=== PATIENT | female | born 1945 | race Two or more races ===

== ENCOUNTER → 2020-07-12 13:56 | Outpatient (BNVA) | payer OTHER, SELFPAY | PROVIDERS: PCP Nurse Practitioner Family; Referring Provider Nurse Practitioner Family; Visit Provider Student in an Organized Health Care Education/Training Program | DX: Z76.89 Persons encountering health services in other specified circumstances (principal) ==

== ENCOUNTER 2020-07-24 09:22 | Outpatient (REF) | payer OTHER, SELFPAY | END 2020-07-24 09:23 | disposition home or self-care (01) | LOC: HO.LAB 09:22 | PROVIDERS: Visit Provider Internal Medicine | DX: Z20.828 Contact with and (suspected) exposure to other viral communicable diseases (principal) | CPT/HCPCS: C9803; U0003 ==

== ENCOUNTER 2020-12-13 14:40 | Outpatient (REF) | payer OTHER, SELFPAY ==
--- NOTE | ~2020-12-13 | XR_ITS ---
EXAMINATION: XR LUMBOSACRAL SPINE WITH OBLIQUES CLINICAL INFORMATION: Lower back pain COMPARISON: 08/03/2013 TECHNIQUE: AP, both oblique, and lateral views of the lumbar spine. Lateral view of the lumbosacral junction. FINDINGS: No fracture or subluxation. Vertebral body height and alignment is maintained. Diffuse disc space narrowing with vacuum disc phenomenon. Endplate osteophytes are seen throughout. Mild multilevel facet arthropathy. The sacrum appears intact. The sacroiliac joints are symmetric. The bowel gas pattern is unremarkable. Surgical clips in the right paraspinal region and right upper quadrant. XR/XR lumbar spine 4V min IMPRESSION: Moderate degenerative changes throughout the lumbar spine.
== END 2020-12-13 14:41 | disposition home or self-care (01) ==
LOC: HO.XRAY 14:40
PROVIDERS: PCP Registered Nurse; Visit Provider Nurse Practitioner Family
DX: M54.5 Low back pain (principal)
CPT/HCPCS: 72110

== ENCOUNTER → 2021-06-06 14:47 | Outpatient (BNVA) | payer OTHER, SELFPAY | PROVIDERS: PCP Registered Nurse; Visit Provider Surgery Vascular Surgery ==

== ENCOUNTER 2021-06-27 10:35 | Outpatient (REF) | payer OTHER, SELFPAY ==
--- NOTE | ~2021-06-27 | US_ITS ---
EXAMINATION: US VENOUS DOPPLER LOWER EXTREMITY, BILATERAL CLINICAL INDICATION: Lower extremity varicose veins. COMPARISON: None TECHNIQUE: Color-flow triplex imaging and compression Doppler was performed to evaluate both the deep and the superficial systems bilaterally. To evaluate the superficial system, the examination was performed in the upright position. Color-flow Doppler ultrasound and compression ultrasound were utilized. In addition, maneuvers were utilized to demonstrate reflux. FINDINGS: 1. DEEP VENOUS ULTRASOUND OF THE RIGHT LOWER EXTREMITY: Common Femoral Vein: Compressible, normal respiratory variation and augmented flow. Femoral Vein: Compressible, normal color flow and augmentation. Popliteal Vein: Compressible, normal augmentation. Deep Reflux: Femoral vein, greater than 0.6 seconds and popliteal vein, greater than 1.3 seconds. There is no evidence of a Rasmussen's cyst. 2. SUPERFICIAL ULTRASOUND WITH DOPPLER OF RIGHT LOWER EXTREMITY: GREAT SAPHENOUS VEIN: Saphenofemoral Junction: 0.8 cm; reflux: No evidence of reflux. Maximum Diameter: 0.8 Minimum Diameter: 0.1 Reflux: No evidence of reflux. Additional: The right great saphenous vein is not visualized at the mid thigh and above the knee. DUPLICATED MEDIAL GREAT SAPHENOUS VEIN: Maximum Diameter: None imaged. Reflux: N/A DUPLICATED LATERAL GREAT SAPHENOUS VEIN: Diameter: None imaged. Reflux: N/A SMALL SAPHENOUS VEIN: Saphenopopliteal Junction: 0.3 cm; reflux: Greater than 1.4 seconds. Minimum Diameter: 0.2 Reflux: No evidence of reflux. VEIN OF GIACOMINI: None imaged. PERFORATORS: Location: Proximal calf measuring 3 mm. Reflux: N/A VARICOSITIES: Location: Arising from the popliteal vein and distal small saphenous vein, proximal calf. Varicosities measure between 3 mm and 5 mm each. Reflux: Reflux is present measuring up to 2.3 seconds. 3. DEEP VENOUS ULTRASOUND OF THE LEFT LOWER EXTREMITY: Common Femoral Vein: Compressible, normal respiratory variation and augmented flow. Femoral Vein: Compressible, normal color flow and augmentation. Popliteal Vein: Compressible, normal augmentation. Deep Reflux: Popliteal vein, greater than 0.8 seconds. There is no evidence of a Rasmussen's cyst. 4. SUPERFICIAL ULTRASOUND WITH DOPPLER OF LEFT LOWER EXTREMITY: GREAT SAPHENOUS VEIN: Saphenopopliteal Junction/Proximal Thigh: 0.8 cm; reflux: Greater than 3.4 seconds Maximum Diameter: 0.8 Minimum Diameter: 0.4 Reflux: No evidence of reflux. DUPLICATED MEDIAL GREAT SAPHENOUS VEIN: Maximum Diameter: 0.3 Reflux: No reflux. DUPLICATED LATERAL GREAT SAPHENOUS VEIN: Diameter: None imaged. Reflux: N/A SMALL SAPHENOUS VEIN: Saphenofemoral Junction: 0.2 cm; reflux: No evidence of reflux. Minimum Diameter: 0.2 Reflux: No evidence of reflux. VEIN OF GIACOMINI: None imaged. PERFORATORS: Location: Proximal thigh measuring 3 mm. Reflux: No reflux. VARICOSITIES: Location: At knee, proximal and distal calf. Varicosities measure between 3 mm and 4 mm. Reflux: Greater than 3.3 seconds of reflux is present within varicosities in the distal calf. US/US venous duplex LE BI IMPRESSION: 1. Left great saphenous venous insufficiency. 2. No evidence of right great saphenous venous insufficiency. The right great saphenous vein is not seen in the mid thigh and above the knee. 3. Right small saphenous venous insufficiency. 4. Bilateral refluxing varicosities. 5. Bilateral deep venous insufficiency. 6. No evidence of DVT.
== END 2021-06-27 10:36 | disposition home or self-care (01) ==
LOC: HO.US 10:35
PROVIDERS: Visit Provider Surgery Vascular Surgery
DX: I83.893 Varicose veins of bilateral lower extremities with other complications (principal)
CPT/HCPCS: 93970

== ENCOUNTER → 2021-07-11 13:34 | Outpatient (BNVA) | payer OTHER, SELFPAY | PROVIDERS: PCP Registered Nurse; Visit Provider Surgery Vascular Surgery ==

== ENCOUNTER 2021-07-31 13:55 | Outpatient (REF) | payer OTHER, SELFPAY ==
[2021-07-31 15:49] LABS: Vitamin B12 373 pg/mL (200-900)
[2021-08-02 13:15] LABS: Lyme Abs Screen <0.90 index
== END 2021-07-31 13:56 | disposition home or self-care (01) ==
LOC: HO.LAB 13:55
PROVIDERS: Visit Provider Psychiatry & Neurology Neurology
DX: H81.10 Benign paroxysmal vertigo, unspecified ear (principal)
CPT/HCPCS: 36415; 82607; 86617; 86618

== ENCOUNTER 2021-08-13 12:29 | Outpatient (REF) | payer MEDICARE, SELFPAY | END 2021-08-13 12:30 | disposition home or self-care (01) | LOC: HO.LAB 12:29 | PROVIDERS: Visit Provider Internal Medicine | DX: Z20.822 Contact with and (suspected) exposure to COVID-19 (principal) | CPT/HCPCS: C9803; U0003; U0005 ==

== ENCOUNTER 2021-08-22 12:59 | Outpatient (REF) | payer MEDICARE, SELFPAY ==
--- NOTE | ~2021-08-22 | MM_ITS ---
EXAMINATION: BONE DENSITOMETRY CLINICAL INDICATION: Menopause. COMPARISON: Previous BD dated 07/01/2019 and baseline BD dated 05/25/2008. TECHNIQUE: Using a [employer] DXA System (software version: 13.1) manufactured by [employer], dual-energy x-ray absorptiometry was performed of the lumbar spine and left hip. The images are of good technical quality. Summary results are attached. FINDINGS: AP SPINE L1-L4: Current: BMD 1.094 g/cm2, Z-score 0.6, T-score -0.7, normal, 1.0% increase from previous, 12.0% increase from baseline (<5% change is not significant). Prior: BMD 1.083 g/cm2. Baseline: BMD 0.977 g/cm2. LEFT FEMUR, NECK: Current: BMD 0.715 g/cm2, Z-score -0.7, T-score -2.3, osteopenia. Prior: BMD 0.754 g/cm2. Baseline: BMD 0.820 g/cm2. LEFT FEMUR, TOTAL: Current: BMD 0.706 g/cm2, Z-score -0.9, T-score -2.4, osteopenia, 7.1% decrease from previous, 12.4% decrease from baseline (<5% change is not significant). Prior: BMD 0.760 g/cm2. Baseline: BMD 0.806 g/cm2. IDENTIFIED RISK FACTORS: Osteoporosis, history of fracture (adult), anticonvulsant, thiazide, menopause. HISTORY OF FRACTURE: Other. MEDICATIONS: None listed. MM/XR DEXA axial skeleton IMPRESSION: 1. DIAGNOSIS: Osteopenia based on the lowest T-score value of -2.4 in the total femur applying World Health Organization criteria. 2. 10-YEAR FRACTURE RISK PREDICTION, FRAX: Major osteoporotic fracture (clinical spine, forearm, hip or shoulder) 13.7%. Hip fracture 3.7%. 3. Treatment Recommendations: NOF guidelines recommend consideration for treatment in postmenopausal women and men age 50 and older presenting with the following: -A hip or vertebral (clinical or morphometric) fracture. -T-score less than or equal to -2.5 at the femoral neck or spine after appropriate evaluation to exclude secondary causes. -Low bone mass at the hip or spine and a 10-year fracture probability by FRAX of greater than or equal to 3% for hip fracture or greater than or equal to 20% for major osteoporotic fracture based on the [place] adapted WHO algorithm. 4. Other Recommendations: All treatment decisions require clinical judgment and consideration of individual patient factors, including patient preferences, comorbidities, previous drug use, risk factors not captured in the FRAX model (e.g. frailty, falls, vitamin D deficiency, increased bone turnover, interval significant decline in bone density) and possible under or overestimation of fracture risk by FRAX. Additional medical evaluation for secondary cause of low bone mineral density may be appropriate. FUTURE SCAN RECOMMENDATION: People with diagnosed cases of osteoporosis or at high risk for fracture should have regular bone mineral density tests. For patients eligible for Medicare, routine testing is allowed once every 2 years. The testing frequency can be increased to one year for patients who have rapidly progressing disease, those who are receiving or discontinuing medical therapy to restore bone mass, or have additional risk factors.
== END 2021-08-22 13:00 | disposition home or self-care (01) ==
LOC: HO.MAMMO 12:59
PROVIDERS: Visit Provider Nurse Practitioner Primary Care
DX: M85.80 Other specified disorders of bone density and structure, unspecified site (principal); Z78.0 Asymptomatic menopausal state; Z79.899 Other long term (current) drug therapy
CPT/HCPCS: 77080

== ENCOUNTER 2021-08-22 13:55 | Outpatient (REF) | payer MEDICARE, SELFPAY | END 2021-08-22 13:56 | disposition home or self-care (01) | LOC: HO.LAB 13:55 | PROVIDERS: Visit Provider Internal Medicine | DX: Z20.822 Contact with and (suspected) exposure to COVID-19 (principal) | CPT/HCPCS: C9803; U0003; U0005 ==

== ENCOUNTER 2021-08-26 08:38 | Day surgery (SDC) | payer MEDICARE, SELFPAY ==
[2021-08-01 11:14] VITALS: BMI 29.2
--- NOTE | 2021-08-22 09:34 | MHC.SHP ---
Pre-Procedural Eval Section A Date of Service: 08/22/21 The patient is an INPATIENT: No Changes since office visit: No Cold of Flu in the past 2 weeks, No New Medical Problems, No Changes in Medication and No Patient answered all questions The History & Physical has been completed within 30 days and I have reviewed it.: Yes Section B Chief Complaint: cataract left eye Allergies: Allergies Allergy/AdvReac Type Severity Reaction Status Date / Time ibuprofen Allergy Intermediate tachycardia/GI Verified 08/01/21 11:17 upset Plan I have reviewed the history and physical and performed a pertinent physical examination on my patient. No changes have occurred unless specified.
--- NOTE | 2021-08-23 10:48 | HO.ANESPROP2 ---
Documented by User: Mary Porras NP 08/23/21 10:48 HPI - Anesthesia Eval Consult details Narrative: 76yo F for Left Cataract Extraction IOL Insertion No prev cataract on record [facility] Active Problems Active Problems: All Active Problems (Updated 08/01/21 @ 11:01 by Lidya Nair RN) Osteoarthritis (Acute) Varicose veins of right lower extremity with inflammation (Acute) Past Medical History Medical History (Updated 08/01/21 @ 11:01 by Lidya Nair RN) Allergic rhinitis COVID-19 vaccine series completed Depression Dizziness Fibromyalgia HTN (hypertension) Hx of fracture of tibia Hyperlipidemia Insomnia Lumbar spondylolysis Neck pain Osteoarthritis Varicose veins of both lower extremities Family History Family History Father Cancer Mother Depression Sister HTN (hypertension) Heart disease Brother Diabetes Surgical History Surgical History (Updated 08/01/21 @ 10:45 by Lidya Nair RN) H/O colonoscopy Hx of cholecystectomy Hx of tubal ligation Social History Social History Are you a primary medical care evaluation specialist to a significant other at home: No Do you presently have visiting nurse or other home services: No Alcohol intake: never Patient Tobacco Use Status: Never used Tobacco Have you been hit, kicked, punched, or otherwise hurt by someone within the past year? If so, by whom?: No Are you DNR?: No Advance Directives Information Provided: Yes (as above noted) Advance Directives on File: No Recently lost weight without trying: No Eating poorly because of decreased appetite: No Nutrition Risks: Surgical patient >75years Poor oral hygiene: No (upper full denture) Meds Allergies Allergy/AdvReac Type Severity Reaction Status Date / Time ibuprofen Allergy Intermediate tachycardia/GI Verified 08/01/21 11:17 upset Home Medications Medication Instructions Recorded Confirmed Last Taken Type amlodipine 5 mg tablet 5 mg PO DAILY 07/12/20 08/01/21 Unknown History aspirin 81 mg tablet,delayed 81 mg PO DAILY 07/12/20 08/01/21 Unknown History release bisacodyl 5 mg tablet,delayed 5 mg PO BEDTIME 07/12/20 08/01/21 Unknown History release (Dulcolax (bisacodyl)) diclofenac sodium 1 % topical gel 2 g TOPICAL QID 07/12/20 08/01/21 Unknown History (Voltaren) metoprolol succinate 25 mg 25 mg PO DAILY 07/12/20 08/01/21 Unknown History tablet,extended release 24 hr B-complex with vitamin C 1 tab PO QAM 08/01/21 08/01/21 Unknown History acetaminophen 650 mg 1 tab PO Q8H PRN 08/01/21 08/01/21 Unknown History tablet,extended release (Arthritis Pain Relief (acetaminophen) ER) ergocalciferol (vitamin D2) 1,250 1 cap PO QWEEK 08/01/21 08/01/21 Unknown History mcg (50,000 unit) capsule gabapentin 300 mg capsule 1 cap PO TID 08/01/21 08/01/21 Unknown History hydrochlorothiazide 12.5 mg capsule 1 cap PO QAM 08/01/21 08/01/21 Unknown History meclizine 25 mg tablet 1 tab PO Q8H PRN 08/01/21 08/01/21 Unknown History multivitamin 1 tab PO QAM 08/01/21 08/01/21 Unknown History sertraline 25 mg tablet 1 tab PO QAM 08/01/21 08/01/21 Unknown History Exam Exam Date and Time: August 23, 2021 1048 Height,Weight and Vital Signs: Height 5 ft 4 in Weight 77.111 kg Assessment and Plan Assessment Anesthesia Assessment: Chart Reviewed Documented by User: Juan Mejia MD 08/26/21 09:41 [facility] Past Medical History Medical History (Updated 08/01/21 @ 11:01 by Lidya Nair RN) Allergic rhinitis COVID-19 vaccine series completed Depression Dizziness Fibromyalgia HTN (hypertension) Hx of fracture of tibia Hyperlipidemia Insomnia Lumbar spondylolysis Neck pain Osteoarthritis Varicose veins of both lower extremities Family History Family History Father Cancer Mother Depression Sister HTN (hypertension) Heart disease Brother Diabetes Family history of problems with anesthesia: No Surgical History Surgical History (Updated 08/01/21 @ 10:45 by Lidya Nair RN) H/O colonoscopy Hx of cholecystectomy Hx of tubal ligation History of Problems with Anesthesia: No Social History Social History Are you a primary medical care evaluation specialist to a significant other at home: No Do you presently have visiting nurse or other home services: No Alcohol intake: never Patient Tobacco Use Status: Never used Tobacco Have you been hit, kicked, punched, or otherwise hurt by someone within the past year? If so, by whom?: No Are you DNR?: No Advance Directives Information Provided: Yes (as above noted) Advance Directives on File: No Recently lost weight without trying: No Eating poorly because of decreased appetite: No Nutrition Risks: Surgical patient >75years Poor oral hygiene: No (upper full denture) Meds Allergies Allergy/AdvReac Type Severity Reaction Status Date / Time ibuprofen Allergy Intermediate tachycardia/GI Verified 08/01/21 11:17 upset Home Medications Medication Instructions Recorded Confirmed Last Taken Type amlodipine 5 mg tablet 5 mg PO DAILY 07/12/20 08/01/21 Unknown History aspirin 81 mg tablet,delayed 81 mg PO DAILY 07/12/20 08/01/21 Unknown History release bisacodyl 5 mg tablet,delayed 5 mg PO BEDTIME 07/12/20 08/01/21 Unknown History release (Dulcolax (bisacodyl)) diclofenac sodium 1 % topical gel 2 g TOPICAL QID 07/12/20 08/01/21 Unknown History (Voltaren) metoprolol succinate 25 mg 25 mg PO DAILY 07/12/20 08/01/21 Unknown History tablet,extended release 24 hr B-complex with vitamin C 1 tab PO QAM 08/01/21 08/01/21 Unknown History acetaminophen 650 mg 1 tab PO Q8H PRN 08/01/21 08/01/21 Unknown History tablet,extended release (Arthritis Pain Relief (acetaminophen) ER) ergocalciferol (vitamin D2) 1,250 1 cap PO QWEEK 08/01/21 08/01/21 Unknown History mcg (50,000 unit) capsule gabapentin 300 mg capsule 1 cap PO TID 08/01/21 08/01/21 Unknown History hydrochlorothiazide 12.5 mg capsule 1 cap PO QAM 08/01/21 08/01/21 Unknown History meclizine 25 mg tablet 1 tab PO Q8H PRN 08/01/21 08/01/21 Unknown History multivitamin 1 tab PO QAM 08/01/21 08/01/21 Unknown History sertraline 25 mg tablet 1 tab PO QAM 08/01/21 08/01/21 Unknown History Exam Airway Mallampati Class: II TM Dist: >3cm Neck ROM: Full Denture: Upper Loose/Missing/Broken Teeth: Yes Heart: [id number] Lungs: cta B/L Assessment and Plan Assessment Anesthesia Assessment: Anesthesia Plan Discussed Final Anesthetic Review Family History of Problems with Anesthesia: No History of Problems with Anesthesia: No NPO: Yes ASA Class: III Final Preanesthetic Review: No Changes in Pt Med Stat, Meds/Allgs Chart Reviewed, Consent Obtained/Reviewed and Anes Risks/Benef Reviewed Patient Risk: Intermediate Procedure Risk: Low Assessment/Block/Sedation in SS: Assess/Block/Sedation-SS Anesthetic Plan Anesthetic Plan: MAC: and Agree w/ Assess. and Plan Disposition: Standard PACU
[2021-08-26 09:01] VITALS: BP 145/79; PULSE 70; RESP 16; TEMP 36.3; O2SAT 96
[2021-08-26] MEDS: Lactated Ringers 500 ML 50 ML IV (09:04)
[2021-08-26] MEDS: Tetracaine HCl/PF 0.5% Oph Sol 4 ML DROPS 1 DROP EYE-LEFT (09:05)
[2021-08-26] MEDS: Tropicamide 1 % Ophth Sol 3 ML BTL 1 DROP EYE-LEFT ×3 (09:07→09:13)
[2021-08-26] MEDS: Phenylephrine HCL 2.5% Oph SoL 2 ML BOTTLE 1 DROP EYE-LEFT ×3 (09:09→09:15)
--- NOTE | 2021-08-26 10:27 | HO.PNOPHT ---
Ophthalmology Procedure Procedure Date of Service: 08/26/21 Ophthalmology Viscoelastic: Healon Duet Dual Pack Pro Ophthalmology Lenses: TECNIS [id number] (20.5) Procedure Notes: PREOPERATIVE DIAGNOSIS: Decreased visual acuity left eye secondary to cataract POSTOPERATIVE DIAGNOSIS: Same PROCEDURE: Left cataract extraction with intraocular lens insertion SURGEON: Timmy Hill M.D. ANESTHESIA: Topical/MAC ESTIMATED BLOOD LOSS: None COMPLICATIONS: None After obtaining informed consent, the patient was brought to the operation room suite and placed in the supine position. After adequate sedation per anesthesia, topical drops of Tetracaine were given to the left eye. The eye was then prepped and draped in the usual sterile fashion. The operating room microscope was then positioned over the operative eye and a lid speculum placed. A paracentesis was created. Viscoelastic was then instilled into the anterior chamber. A three plane incision was then created temporally, utilizing a 2.85 mm keratome. Capsulotomy forceps were then utilized to create a circular tear capsulotomy. Hydrodissection and hydrodelineation were carried out until adequate mobilization of the nucleus occurred. Phacoemulsification was then utilized to remove the dense central nucleus followed by removal of the cortical material utilizing the automated aspiration irrigation unit. Viscoat elastic was instilled into the posterior capsular bag followed by placement of a posterior chamber intraocular lens without difficulty. The residual Viscoat elastic was then removed utilizing the automated IA machine. The wound was check and found to be watertight. The patient tolerated the procedure well and the lid speculum was removed. Intracameral injection of Vigamox 0.1 mL followed by a subtenon injection of Kenalog-40 0.2 mL were administered. The patient will be seen in the a.m.
[2021-08-26 11:01] VITALS: BP 141/87; PULSE 57; RESP 17; TEMP 36.3; O2SAT 99
== END 2021-08-26 11:07 | disposition home or self-care (01) ==
PROVIDERS: PCP Nurse Practitioner Primary Care; Visit Provider Ophthalmology
PROC: (CPT 66985; principal; 2021-08-26 10:40)
DX: H25.12 Age-related nuclear cataract, left eye (principal); H52.4 Presbyopia; H40.1131 Primary open-angle glaucoma, bilateral, mild stage; I10 Essential (primary) hypertension; F32.9 Major depressive disorder, single episode, unspecified; M79.7 Fibromyalgia; Z79.899 Other long term (current) drug therapy
CPT/HCPCS: 66984; J2250; J3010; J3300; V2632

== ENCOUNTER 2021-09-02 10:19 | Outpatient (REF) | payer MEDICARE, SELFPAY ==
--- NOTE | ~2021-09-02 | XR_ITS ---
EXAMINATION: XR CHEST CLINICAL INFORMATION: Cough COMPARISON: . TECHNIQUE: 2 views of the chest were obtained. FINDINGS: Faint bilateral airspace opacities. No pleural effusion. No pneumothorax. Cardiomediastinal silhouette and pulmonary vascularity are within normal limits. No acute osseous abnormalities. XR/XR chest 2V IMPRESSION: Faint bilateral patchy airspace opacities suspicious for atypical pneumonitis.
== END 2021-09-02 10:20 | disposition home or self-care (01) ==
LOC: HO.XRAY 10:19
PROVIDERS: Absent Provider Nurse Practitioner Primary Care; PCP Nurse Practitioner Primary Care; Visit Provider Emergency Medicine
DX: R05.9 Cough, unspecified (principal)
CPT/HCPCS: 71046

== ENCOUNTER → 2021-10-11 09:28 | Outpatient (BNVA) | payer MEDICARE, SELFPAY | PROVIDERS: Visit Provider Surgery Vascular Surgery | DX: I83.11 Varicose veins of right lower extremity with inflammation (principal) | CPT/HCPCS: 36475 ==

== ENCOUNTER 2021-10-28 08:15 | Day surgery (SDC) | payer MEDICARE, SELFPAY ==
[2021-08-01 11:11] VITALS: BMI 29.2
--- NOTE | 2021-09-19 09:38 | MHC.SHP ---
Pre-Procedural Eval Section A Date of Service: 09/19/21 The patient is an INPATIENT: No Changes since office visit: No Cold of Flu in the past 2 weeks, No New Medical Problems, No Changes in Medication and No Patient answered all questions Section B Chief Complaint: cataract right eye Allergies: Allergies Allergy/AdvReac Type Severity Reaction Status Date / Time ibuprofen Allergy Intermediate tachycardia/GI Verified 08/01/21 11:17 upset Plan Diagnosis/Plan: Unchanged I have reviewed the history and physical and performed a pertinent physical examination on my patient. No changes have occurred unless specified.
--- NOTE | 2021-10-24 16:29 | MHC.SHP ---
Pre-Procedural Eval Section A Date of Service: 10/24/21 The patient is an INPATIENT: No Changes since office visit: No Cold of Flu in the past 2 weeks, No New Medical Problems, No Changes in Medication and No Patient answered all questions The History & Physical has been completed within 30 days and I have reviewed it.: Yes Section B Chief Complaint: cataract right eye Allergies: Allergies Allergy/AdvReac Type Severity Reaction Status Date / Time ibuprofen Allergy Intermediate tachycardia/GI Verified 10/11/21 10:12 upset Plan Diagnosis/Plan: Unchanged I have reviewed the history and physical and performed a pertinent physical examination on my patient. No changes have occurred unless specified.
--- NOTE | 2021-10-25 09:13 | P.CONAN_ITS ---
Documented by User: Mary Porras NP 10/25/21 09:14 HPI - Anesthesia Eval Consult details Narrative: 76yo F for Right Cataract Extraction IOL Insertion PCP Cleared Left eye 10/07/21 with MAC: Fent 50, Midaz 1 PMFSH Active Problems Active Problems: All Active Problems (Updated 08/01/21 @ 11:01 by Lidya Nair RN) Osteoarthritis (Acute) Varicose veins of right lower extremity with inflammation (Acute) Past Medical History Medical History Allergic rhinitis COVID-19 vaccine series completed Depression Dizziness Fibromyalgia HTN (hypertension) Hx of fracture of tibia Hyperlipidemia Insomnia Lumbar spondylolysis Neck pain Osteoarthritis Varicose veins of both lower extremities Family History Family History Father Cancer Mother Depression Sister HTN (hypertension) Heart disease Brother Diabetes Family history of problems with anesthesia: No Surgical History Surgical History H/O colonoscopy Hx of cholecystectomy Hx of tubal ligation History of Problems with Anesthesia: No Social History Social History Are you a primary home health aide caregiver to a significant other at home: No Do you presently have visiting nurse or other home services: No Alcohol intake: never Patient Tobacco Use Status: Never used Tobacco Use of substances other than those prescribed or required for medical reasons: No Have you been hit, kicked, punched, or otherwise hurt by someone within the past year? If so, by whom?: No Are you DNR?: No Advance Directives: No Advance Directives Information Provided: Yes Advance Directives on File: No Recently lost weight without trying: No Eating poorly because of decreased appetite: No Nutrition Risks: Surgical patient >75years Poor oral hygiene: No (upper full denture) Meds Allergies Allergy/AdvReac Type Severity Reaction Status Date / Time ibuprofen Allergy Intermediate tachycardia/GI Verified 10/11/21 10:12 upset Home Medications Medication Instructions Recorded Confirmed Last Taken Type amlodipine 5 mg tablet 5 mg PO DAILY 07/12/20 08/01/21 Unknown History aspirin 81 mg tablet,delayed 81 mg PO DAILY 07/12/20 08/01/21 Unknown History release bisacodyl 5 mg tablet,delayed 5 mg PO BEDTIME 07/12/20 08/01/21 Unknown History release (Dulcolax (bisacodyl)) diclofenac sodium 1 % topical gel 2 g TOPICAL QID 07/12/20 08/01/21 Unknown History (Voltaren) metoprolol succinate 25 mg 25 mg PO DAILY 07/12/20 08/01/21 Unknown History tablet,extended release 24 hr B-complex with vitamin C 1 tab PO QAM 08/01/21 08/01/21 Unknown History acetaminophen 650 mg 1 tab PO Q8H PRN 08/01/21 08/01/21 Unknown History tablet,extended release (Arthritis Pain Relief (acetaminophen) ER) ergocalciferol (vitamin D2) 1,250 1 cap PO QWEEK 08/01/21 08/01/21 Unknown History mcg (50,000 unit) capsule gabapentin 300 mg capsule 1 cap PO TID 08/01/21 08/01/21 Unknown History hydrochlorothiazide 12.5 mg capsule 1 cap PO QAM 08/01/21 08/01/21 Unknown History meclizine 25 mg tablet 1 tab PO Q8H PRN 08/01/21 08/01/21 Unknown History multivitamin 1 tab PO QAM 08/01/21 08/01/21 Unknown History sertraline 25 mg tablet 1 tab PO QAM 08/01/21 08/01/21 Unknown History latanoprost 0.005 % eye drops 0 drp OPHTHALMIC (EYE) 10/11/21 Unknown History timolol maleate 0.5 % eye drops 0 drp OPHTHALMIC (EYE) 10/11/21 Unknown History Exam Exam Date and Time: October 25, 2021 0913 Height,Weight and Vital Signs: Height 5 ft 4 in Weight 77.111 kg Assessment and Plan Assessment Anesthesia Assessment: Chart Reviewed Final Anesthetic Review Family History of Problems with Anesthesia: No History of Problems with Anesthesia: No Documented by User: Kate Scherer MD 10/28/21 10:47 PMFSH Past Medical History Medical History Allergic rhinitis COVID-19 vaccine series completed Depression Dizziness Fibromyalgia HTN (hypertension) Hx of fracture of tibia Hyperlipidemia Insomnia Lumbar spondylolysis Neck pain Osteoarthritis Varicose veins of both lower extremities Family History Family History Father Cancer Mother Depression Sister HTN (hypertension) Heart disease Brother Diabetes Surgical History Surgical History H/O colonoscopy Hx of cholecystectomy Hx of tubal ligation Social History Social History Are you a primary home health aide caregiver to a significant other at home: No Do you presently have visiting nurse or other home services: No Alcohol intake: never Patient Tobacco Use Status: Never used Tobacco Use of substances other than those prescribed or required for medical reasons: No Have you been hit, kicked, punched, or otherwise hurt by someone within the past year? If so, by whom?: No Are you DNR?: No Advance Directives: No Advance Directives Information Provided: Yes Advance Directives on File: No Recently lost weight without trying: No Eating poorly because of decreased appetite: No Nutrition Risks: Surgical patient >75years Poor oral hygiene: No (upper full denture) Meds Allergies Allergy/AdvReac Type Severity Reaction Status Date / Time ibuprofen Allergy Intermediate tachycardia/GI Verified 10/11/21 10:12 upset Home Medications Medication Instructions Recorded Confirmed Last Taken Type amlodipine 5 mg tablet 5 mg PO DAILY 07/12/20 08/01/21 Unknown History aspirin 81 mg tablet,delayed 81 mg PO DAILY 07/12/20 08/01/21 Unknown History release bisacodyl 5 mg tablet,delayed 5 mg PO BEDTIME 07/12/20 08/01/21 Unknown History release (Dulcolax (bisacodyl)) diclofenac sodium 1 % topical gel 2 g TOPICAL QID 07/12/20 08/01/21 Unknown History (Voltaren) metoprolol succinate 25 mg 25 mg PO DAILY 07/12/20 08/01/21 Unknown History tablet,extended release 24 hr B-complex with vitamin C 1 tab PO QAM 08/01/21 08/01/21 Unknown History acetaminophen 650 mg 1 tab PO Q8H PRN 08/01/21 08/01/21 Unknown History tablet,extended release (Arthritis Pain Relief (acetaminophen) ER) ergocalciferol (vitamin D2) 1,250 1 cap PO QWEEK 08/01/21 08/01/21 Unknown History mcg (50,000 unit) capsule gabapentin 300 mg capsule 1 cap PO TID 08/01/21 08/01/21 Unknown History hydrochlorothiazide 12.5 mg capsule 1 cap PO QAM 08/01/21 08/01/21 Unknown History meclizine 25 mg tablet 1 tab PO Q8H PRN 08/01/21 08/01/21 Unknown History multivitamin 1 tab PO QAM 08/01/21 08/01/21 Unknown History sertraline 25 mg tablet 1 tab PO QAM 08/01/21 08/01/21 Unknown History latanoprost 0.005 % eye drops 0 drp OPHTHALMIC (EYE) 10/11/21 Unknown History timolol maleate 0.5 % eye drops 0 drp OPHTHALMIC (EYE) 10/11/21 Unknown History Exam Height,Weight and Vital Signs: Height 5 ft 4 in Weight 77.111 kg Vital Signs Temp Pulse Resp BP Pulse Ox 10/28/21 09:16 98 F 67 18 151/78 H 98 Airway Mallampati Class: II TM Dist: >3cm Neck ROM: Full Denture: Upper Heart: RRR Lungs: CTAB Assessment and Plan Assessment Anesthesia Assessment: Anesthesia Plan Discussed Final Anesthetic Review NPO: Yes ASA Class: III Final Preanesthetic Review: No Changes in Pt Med Stat, Meds/Allgs Chart Reviewed, Consent Obtained/Reviewed and Anes Risks/Benef Reviewed Patient Risk: Intermediate Procedure Risk: Low Assessment/Block/Sedation in SS: Assess/Block/Sedation-SS Anesthetic Plan Anesthetic Plan: MAC: Disposition: Standard PACU
[2021-10-28 09:16] VITALS: BP 151/78; PULSE 67; RESP 18; TEMP 36.6; O2SAT 98
[2021-10-28] MEDS: Tetracaine HCl/PF 0.5% Oph Sol 4 ML DROPS 1 DROP EYE-RIGHT (09:26)
[2021-10-28] MEDS: Lactated Ringers 500 ML 50 ML IV (09:26)
[2021-10-28] MEDS: Phenylephrine HCL 2.5% Oph SoL 2 ML BOTTLE 1 DROP EYE-RIGHT ×3 (09:26→09:27)
[2021-10-28] MEDS: Tropicamide 1 % Ophth Sol 3 ML BTL 1 DROP EYE-RIGHT ×3 (09:26→09:28)
--- NOTE | 2021-10-28 10:34 | HO.PNOPHT ---
Ophthalmology Procedure Procedure Date of Service: 10/28/21 Ophthalmology Viscoelastic: Healon Duet Dual Pack Pro Ophthalmology Lenses: TECNIS [id number] (20.5) Procedure Notes: PREOPERATIVE DIAGNOSIS: Decreased visual acuity right eye secondary to cataract POSTOPERATIVE DIAGNOSIS: Same PROCEDURE: Right cataract extraction with intraocular lens insertion SURGEON: Timmy Hill M.D. ANESTHESIA: Topical/MAC ESTIMATED BLOOD LOSS: None COMPLICATIONS: None After obtaining informed consent, the patient was brought to the operating room suite and placed in the supine position. After adequate sedation per anesthesia, topical drops of Tetracaine were given to the right eye. The eye was then prepped and draped in the usual sterile fashion. The operating room microscope was then positioned over the operative eye and a lid speculum placed. A paracentesis was created. Viscoelastic was then instilled into the anterior chamber. A three plane incision was then created temporally, utilizing a 2.85 mm keratome. Capsulotomy forceps were then utilized to create a circular tear capsulotomy. Hydrodissection and hydrodelineation were carried out until adequate mobilization of the nucleus occurred. Phacoemulsification was then utilized to remove the dense central nucleus followed by removal of the cortical material utilizing the automated aspiration irrigation unit. Viscoelastic was instilled into the posterior capsular bag followed by placement of a posterior chamber intraocular lens without difficulty. The residual Viscoelastic was then removed utilizing the automated IA machine. The wound was checked and found to be watertight. The patient tolerated the procedure well and the lid speculum was removed. Intracameral injection of Vigamox 0.1 mL followed by a subtenon injection of Kenalog-40 0.2 mL were administered. The patient will be seen in the a.m.
[2021-10-28 10:58] VITALS: BP 171/79; PULSE 60; RESP 20; TEMP 36.3; O2SAT 98
== END 2021-10-28 11:12 | disposition home or self-care (01) ==
PROVIDERS: PCP Nurse Practitioner Primary Care; Visit Provider Ophthalmology
PROC: (CPT 66985; principal; 2021-10-28 10:40)
DX: H25.11 Age-related nuclear cataract, right eye (principal); H52.4 Presbyopia; Z83.511 Family history of glaucoma; H40.1131 Primary open-angle glaucoma, bilateral, mild stage; H43.393 Other vitreous opacities, bilateral; I10 Essential (primary) hypertension; F32.9 Major depressive disorder, single episode, unspecified; Z79.899 Other long term (current) drug therapy; Z79.82 Long term (current) use of aspirin
CPT/HCPCS: 66984; J2405; J3010; J3300; V2632

== ENCOUNTER 2022-02-13 11:41 | Outpatient (REF) | payer OTHER, SELFPAY ==
--- NOTE | ~2022-02-13 | XR_ITS ---
EXAMINATION: BILATERAL HAND X-RAY CLINICAL INFORMATION: Pain COMPARISON: Previous left hand x-ray July 2014 TECHNIQUE: 3 views of each hand FINDINGS: Left: The bones are osteopenic. No fracture or dislocation is seen. There is joint space narrowing and osteophyte formation at the IP joint , MCP joint of the thumb and SKILLED NURSING joint of the thumb. There is mild arthritis at the DIP joint of the second finger. Soft tissues are unremarkable. Right: The bones are osteopenic. No fracture or dislocation is seen. There is arthritis at the IP joint, MCP joint and SKILLED NURSING joint of the thumb. There is arthritis at the second third metacarpal joints. There are cystic changes on the styloid and distal radiocarpal joint. Soft tissues are unremarkable. XR/XR hand RT min 3V IMPRESSION: Left: Arthritis of the thumb. Osteopenia. Right: Arthritis of the thumb and second and third MCP joints. Osteopenia.
--- NOTE | ~2022-02-13 | XR_ITS ---
EXAMINATION: XR FOOT, LEFT CLINICAL INFORMATION: Pain COMPARISON: Previous x-ray December 2017 TECHNIQUE: AP, lateral, and oblique views of the left foot. FINDINGS: Bone alignment is normal. No fracture or dislocation is seen. There is arthritis at the first MTP joint with joint space narrowing and osteophyte formation. There are calcaneal spurs. XR/XR foot LT min 3V IMPRESSION: Arthritis at the first MTP joint. Calcaneal spurs.
--- NOTE | ~2022-02-13 | XR_ITS ---
EXAMINATION: BILATERAL HAND X-RAY CLINICAL INFORMATION: Pain COMPARISON: Previous left hand x-ray July 2014 TECHNIQUE: 3 views of each hand FINDINGS: Left: The bones are osteopenic. No fracture or dislocation is seen. There is joint space narrowing and osteophyte formation at the IP joint , MCP joint of the thumb and HALF-WAY joint of the thumb. There is mild arthritis at the DIP joint of the second finger. Soft tissues are unremarkable. Right: The bones are osteopenic. No fracture or dislocation is seen. There is arthritis at the IP joint, MCP joint and HALF-WAY joint of the thumb. There is arthritis at the second third metacarpal joints. There are cystic changes on the styloid and distal radiocarpal joint. Soft tissues are unremarkable. XR/XR hand LT min 3V IMPRESSION: Left: Arthritis of the thumb. Osteopenia. Right: Arthritis of the thumb and second and third MCP joints. Osteopenia.
== END 2022-02-13 11:42 | disposition home or self-care (01) ==
LOC: HO.XRAY 11:41
PROVIDERS: Absent Provider Nurse Practitioner Primary Care; PCP Nurse Practitioner Primary Care; Visit Provider Family Medicine
DX: M79.641 Pain in right hand (principal); M79.642 Pain in left hand; M79.672 Pain in left foot
CPT/HCPCS: 73130; 73630

== ENCOUNTER 2022-10-17 14:16 | Emergency (ER) | payer OTHER, SELFPAY ==
[2022-10-17 14:30] VITALS: BP 141/84; PULSE 89; RESP 18; TEMP 36.6; O2SAT 98; BMI 29.2
--- NOTE | 2022-10-17 14:32 | ED_ITS ---
HPI - General Adult General Chief complaint: General Medical <LILLY Patterson - Last Filed: 10/17/22 14:33> Stated complaint: Blood in the stool <LILLY Patterson - Last Filed: 10/17/22 14:33> Time Seen by Provider: 10/17/22 20:13 <LILLY Patterson - Last Filed: 10/17/22 14:33> Source: patient and family <Taye Bauman MD - Last Filed: 10/18/22 00:34> Mode of arrival: ambulatory <Taye Bauman MD - Last Filed: 10/18/22 00:34> Limitations: no limitations <Taye Bauman MD - Last Filed: 10/18/22 00:34> History of Present Illness HPI narrative: Patient with History of osteoarthritis otherwise healthy sad since yesterday evening patient started having nausea vomiting and diarrhea had about 6-7 times both vomiting and diarrhea initially stool was watery bladder turning to bright red blood. No bowel movement today no vomiting today feel nauseated unable to eat much no significant abdominal pain no fever or chills no history of travel/seafood no other family member sick <Taye Bauman MD - Last Filed: 10/18/22 00:34> Related Data Home medications: Home Medications Medication Instructions Recorded Confirmed amlodipine 5 mg tablet 5 mg PO DAILY 07/12/20 08/01/21 aspirin 81 mg tablet,delayed 81 mg PO DAILY 07/12/20 08/01/21 release bisacodyl 5 mg tablet,delayed 5 mg PO BEDTIME 07/12/20 08/01/21 release (Dulcolax (bisacodyl)) diclofenac sodium 1 % topical gel 2 g topical QID 07/12/20 08/01/21 (Voltaren) metoprolol succinate 25 mg 25 mg PO DAILY 07/12/20 08/01/21 tablet,extended release 24 hr B-complex with vitamin C 1 tab PO QAM 08/01/21 08/01/21 acetaminophen 650 mg 1 tab PO Q8H PRN Pain 08/01/21 08/01/21 tablet,extended release (Arthritis Pain Relief (acetaminophen) ER) ergocalciferol (vitamin D2) 1,250 1 cap PO QWEEK 08/01/21 08/01/21 mcg (50,000 unit) capsule gabapentin 300 mg capsule 1 cap PO TID 08/01/21 08/01/21 hydrochlorothiazide 12.5 mg capsule 1 cap PO QAM 08/01/21 08/01/21 meclizine 25 mg tablet 1 tab PO Q8H PRN Vertigo 08/01/21 08/01/21 multivitamin 1 tab PO QAM 08/01/21 08/01/21 sertraline 25 mg tablet 1 tab PO QAM 08/01/21 08/01/21 latanoprost 0.005 % eye drops 0 drp ophthalmic (eye) 10/11/21 timolol maleate 0.5 % eye drops 0 drp ophthalmic (eye) 10/11/21 Previous Rx's Medication Instructions Recorded cefuroxime axetil 250 mg tablet 250 mg PO BID 7 days #14 tabs 10/17/22 ondansetron 4 mg disintegrating 4 mg PO Q6-8H PRN nausea and 10/17/22 tablet vomiting #10 tabs <LILLY Patterson - Last Filed: 10/17/22 14:33> Allergies/adverse reactions: Allergies Allergy/AdvReac Type Severity Reaction Status Date / Time ibuprofen Allergy Intermediate tachycardia/GI Verified 10/11/21 10:12 upset <LILLY Patterson - Last Filed: 10/17/22 14:33> Review of Systems Review of Systems: Yes all other systems are reviewed and are negative <Taye Bauman MD - Last Filed: 10/18/22 00:34> [facility] Past Medical History Medical History: Medical History Allergic rhinitis COVID-19 vaccine series completed Depression Dizziness Fibromyalgia HTN (hypertension) Hx of fracture of tibia Hyperlipidemia Insomnia Lumbar spondylolysis Neck pain Osteoarthritis Varicose veins of both lower extremities <LILLY Patterson - Last Filed: 10/17/22 14:33> Surgical History: Surgical History H/O colonoscopy Hx of cholecystectomy Hx of tubal ligation <LILLY Patterson - Last Filed: 10/17/22 14:33> Family History Family History: Family History Father Cancer Mother Depression Sister HTN (hypertension) Heart disease Brother Diabetes <LILLY Patterson - Last Filed: 10/17/22 14:33> Social History Social History: Social History Are you a primary pet care assistant to a significant other at home: No Do you presently have visiting nurse or other home services: No Alcohol intake: never Patient Tobacco Use Status: Never used Tobacco Advance Directives: No Advance Directives Information Provided: No <LILLY Patterson - Last Filed: 10/17/22 14:33> Physical Exam ED Vital Signs: Vital Signs - 24 hr 10/17/22 14:30 10/17/22 20:47 Temperature 98 F 98.2 F Pulse Rate 89 72 Respiratory Rate 18 16 Blood Pressure 141/84 H 142/79 H Pulse Oximetry 98 98 Oxygen Delivery Method Room Air BMI result Body Mass Index 29.2 <LILLY Patterson - Last Filed: 10/17/22 14:33> Vital Signs - 24 hr 10/17/22 14:30 10/17/22 20:47 Temperature 98 F 98.2 F Pulse Rate 89 72 Respiratory Rate 18 16 Blood Pressure 141/84 H 142/79 H Pulse Oximetry 98 98 Oxygen Delivery Method Room Air BMI result Body Mass Index 29.2 <Taye Bauman MD - Last Filed: 10/18/22 00:34> Appearance: Alert. Oriented X3. No acute distress. Eyes: PERRLA, No Nystagmus ENT: Pharynx normal. Oral Mucosa dry Neck: Normal inspection. Neck supple. CVS: Normal heart rate and rhythm. Pulses normal. Respiratory: No respiratory distress. Equal air entry bilateral, no wheezing/rales/rhonchi Abdomen: Soft and nontender. Bowel sounds are present, no mass palpable, no CVA tenderness Skin: Skin warm and dry. Normal skin color. Normal skin turgor. Extremities: No lower extremity edema. No calf tendernessNo sensory deficit.No cerebellar signs , cranial nerves II-XII intact <Taye Bauman MD - Last Filed: 10/18/22 00:34> Course Course Course Narrative: RME performed by Betsy Cox PA-C. Patient is a 77 year old female presenting to the emergency department with complaints of blood in her stool, nausea, vomiting, and being unable to tolerate anything by mouth. Labs and UA ordered. <LILLY Patterson - Last Filed: 10/17/22 14:33> Medications Administered Discontinued Medications Generic Name Dose Route Start Last Admin Trade Name Freq PRN Reason Stop Dose Admin Cefuroxime Axetil 250 mg 10/17/22 20:23 10/17/22 20:29 Cefuroxime Axetil 250 Mg Tablet PO 10/17/22 20:24 250 mg ONCE ONE Administration Ondansetron HCl 4 mg 10/17/22 20:19 10/17/22 20:29 Ondansetron Odt 4 Mg Tab.Rapdis TRANSLINGU 10/17/22 20:20 4 mg ONCE ONE Administration <LILLY Patterson - Last Filed: 10/17/22 14:33> Medications Administered Discontinued Medications Generic Name Dose Route Start Last Admin Trade Name Freq PRN Reason Stop Dose Admin Cefuroxime Axetil 250 mg 10/17/22 20:23 10/17/22 20:29 Cefuroxime Axetil 250 Mg Tablet PO 10/17/22 20:24 250 mg ONCE ONE Administration Ondansetron HCl 4 mg 10/17/22 20:19 10/17/22 20:29 Ondansetron Odt 4 Mg Tab.Rapdis TRANSLINGU 10/17/22 20:20 4 mg ONCE ONE Administration <Taye Bauman MD - Last Filed: 10/18/22 00:34> Medical Decision Making Medical Decision Making [facility] Narrative: Patient with gastroenteritis noticed a slight wbc's in the urine will give patient Ceftin no vomiting in the ER after taking Zofran patient feeling much better taking p.o. fluids no bowel movement in last 24 hours discharge patient home supported <Taye Bauman MD - Last Filed: 10/18/22 00:34> Lab Data [facility] Lab Attestation statement: I reviewed the patient's lab results. <Taye Bauman MD - Last Filed: 10/18/22 00:34> Result Diagrams: 10/17/22 19:33 10/17/22 15:14 <LILLY Patterson - Last Filed: 10/17/22 14:33> Labs: Lab Results 10/17/22 10/17/22 10/17/22 Range/Units 15:14 15:14 15:14 WBC Cancelled RBC Cancelled Hgb Cancelled Hct Cancelled MCV Cancelled MCH Cancelled MCHC Cancelled RDW Cancelled Plt Count Cancelled MPV Cancelled Immature Gran % (Auto) Cancelled Neut % (Auto) Cancelled Lymph % (Auto) Cancelled Het[place]er % (Auto) Cancelled Eos % (Auto) Cancelled Baso % (Auto) Cancelled Lymph # (Auto) Cancelled [place] # (Auto) Cancelled Eos # (Auto) Cancelled Baso # (Auto) Cancelled Abs Immat Gran (auto) Cancelled Absolute Neuts (auto) Cancelled Absolute Nucleated RBC Cancelled Nucleated RBC % (auto) Cancelled PT 12.3 (10.0-13.1) SEC INR 1.1 (0.9-1.1) APTT 32.3 (26.0-36.4) SEC Sodium 141 (135-145) mmol/L Potassium 3.3 (3.3-5.1) mmol/L Chloride 101 (96-108) mmol/L Carbon Dioxide 25 (22-29) mmol/L Anion Gap 18 (12-20) BUN 17 H (9-16) mg/dL Creatinine 1.03 (0.5-1.4) mg/dL Estim Creat Clear Calc 42.6 Estimated GFR 52 Random Glucose 119 H (60-115) mg/dL Calcium 10.1 (8.4-10.2) mg/dL Magnesium 1.8 (1.6-2.6) mg/dL Total Bilirubin 1.8 H (0.0-1.0) mg/dL AST 29 (5-31) U/L ALT 22 (0-31) U/L Alkaline Phosphatase 121 H (39-117) U/L Total Protein 7.4 (6.5-8.0) g/dL Albumin 4.0 (3.5-5.0) g/dL Urine Color Urine Appearance Urine pH (5.0-9.0) Ur Specific Mouthcard (1.005-1.025) Urine Protein (Neg-Trace) mg/dL Urine Glucose (UA) (Negative) mg/dL Urine Ketones (Negative) mg/dL Urine Blood (Negative) Urine Nitrite (Negative) Ur Leukocyte Esterase (Negative) Urine RBC (0-2) /HPF Urine WBC (0-5) /HPF Ur Squamous Epith Cells (0-2) /HPF Urine Bacteria (None Seen) Hyaline Casts (0-2) /LPF 10/17/22 10/17/22 Range/Units 15:14 19:33 WBC 7.8 RBC 5.04 Hgb 15.5 Hct 46.0 MCV 91.3 MCH 30.8 MCHC 33.7 RDW 13.7 Plt Count 230 MPV 9.8 Immature Gran % (Auto) 0.4 Neut % (Auto) 58.4 Lymph % (Auto) 26.8 Hettinger % (Auto) 13.6 H Eos % (Auto) 0.3 Baso % (Auto) 0.5 Lymph # (Auto) 2.1 Hettinger # (Auto) 1.1 Eos # (Auto) 0.0 Baso # (Auto) 0.0 Abs Immat Gran (auto) 0.03 Absolute Neuts (auto) 4.5 Absolute Nucleated RBC 0.000 Nucleated RBC % (auto) 0.0 PT (10.0-13.1) SEC INR (0.9-1.1) APTT (26.0-36.4) SEC Sodium (135-145) mmol/L Potassium (3.3-5.1) mmol/L Chloride (96-108) mmol/L Carbon Dioxide (22-29) mmol/L Anion Gap (12-20) BUN (9-16) mg/dL Creatinine (0.5-1.4) mg/dL Estim Creat Clear Calc Estimated GFR Random Glucose (60-115) mg/dL Calcium (8.4-10.2) mg/dL Magnesium (1.6-2.6) mg/dL Total Bilirubin (0.0-1.0) mg/dL AST (5-31) U/L ALT (0-31) U/L Alkaline Phosphatase (39-117) U/L Total Protein (6.5-8.0) g/dL Albumin (3.5-5.0) g/dL Urine Color Dark Yellow Urine Appearance Turbid Urine pH 5.5 (5.0-9.0) Ur Specific Mouthcard 1.025 (1.005-1.025) Urine Protein 100 (2+) H (Neg-Trace) mg/dL Urine Glucose (UA) Negative (Negative) mg/dL Urine Ketones Trace (Negative) mg/dL Urine Blood Negative (Negative) Urine Nitrite Positive H (Negative) Ur Leukocyte Esterase Small (1+) H (Negative) Urine RBC 0-2 (0-2) /HPF Urine WBC 0-5 (0-5) /HPF Ur Squamous Epith Cells >20 (0-2) /HPF Urine Bacteria 4+ (None Seen) Hyaline Casts >20 (0-2) /LPF <LILLY Patterson - Last Filed: 10/17/22 14:33> Lab Results 10/17/22 10/17/22 10/17/22 Range/Units 15:14 15:14 15:14 WBC Cancelled RBC Cancelled Hgb Cancelled Hct Cancelled MCV Cancelled MCH Cancelled MCHC Cancelled RDW Cancelled Plt Count Cancelled MPV Cancelled Immature Gran % (Auto) Cancelled Neut % (Auto) Cancelled Lymph % (Auto) Cancelled Hettinger % (Auto) Cancelled Eos % (Auto) Cancelled Baso % (Auto) Cancelled Lymph # (Auto) Cancelled Hettinger # (Auto) Cancelled Eos # (Auto) Cancelled Baso # (Auto) Cancelled Abs Immat Gran (auto) Cancelled Absolute Neuts (auto) Cancelled Absolute Nucleated RBC Cancelled Nucleated RBC % (auto) Cancelled PT 12.3 (10.0-13.1) SEC INR 1.1 (0.9-1.1) APTT 32.3 (26.0-36.4) SEC Sodium 141 (135-145) mmol/L Potassium 3.3 (3.3-5.1) mmol/L Chloride 101 (96-108) mmol/L Carbon Dioxide 25 (22-29) mmol/L Anion Gap 18 (12-20) BUN 17 H (9-16) mg/dL Creatinine 1.03 (0.5-1.4) mg/dL Estim Creat Clear Calc 42.6 Estimated GFR 52 Random Glucose 119 H (60-115) mg/dL Calcium 10.1 (8.4-10.2) mg/dL Magnesium 1.8 (1.6-2.6) mg/dL Total Bilirubin 1.8 H (0.0-1.0) mg/dL AST 29 (5-31) U/L ALT 22 (0-31) U/L Alkaline Phosphatase 121 H (39-117) U/L Total Protein 7.4 (6.5-8.0) g/dL Albumin 4.0 (3.5-5.0) g/dL Urine Color Urine Appearance Urine pH (5.0-9.0) Ur Specific Mouthcard (1.005-1.025) Urine Protein (Neg-Trace) mg/dL Urine Glucose (UA) (Negative) mg/dL Urine Ketones (Negative) mg/dL Urine Blood (Negative) Urine Nitrite (Negative) Ur Leukocyte Esterase (Negative) Urine RBC (0-2) /HPF Urine WBC (0-5) /HPF Ur Squamous Epith Cells (0-2) /HPF Urine Bacteria (None Seen) Hyaline Casts (0-2) /LPF 10/17/22 10/17/22 Range/Units 15:14 19:33 WBC 7.8 RBC 5.04 Hgb 15.5 Hct 46.0 MCV 91.3 MCH 30.8 MCHC 33.7 RDW 13.7 Plt Count 230 MPV 9.8 Immature Gran % (Auto) 0.4 Neut % (Auto) 58.4 Lymph % (Auto) 26.8 Hettinger % (Auto) 13.6 H Eos % (Auto) 0.3 Baso % (Auto) 0.5 Lymph # (Auto) 2.1 Hettinger # (Auto) 1.1 Eos # (Auto) 0.0 Baso # (Auto) 0.0 Abs Immat Gran (auto) 0.03 Absolute Neuts (auto) 4.5 Absolute Nucleated RBC 0.000 Nucleated RBC % (auto) 0.0 PT (10.0-13.1) SEC INR (0.9-1.1) APTT (26.0-36.4) SEC Sodium (135-145) mmol/L Potassium (3.3-5.1) mmol/L Chloride (96-108) mmol/L Carbon Dioxide (22-29) mmol/L Anion Gap (12-20) BUN (9-16) mg/dL Creatinine (0.5-1.4) mg/dL Estim Creat Clear Calc Estimated GFR Random Glucose (60-115) mg/dL Calcium (8.4-10.2) mg/dL Magnesium (1.6-2.6) mg/dL Total Bilirubin (0.0-1.0) mg/dL AST (5-31) U/L ALT (0-31) U/L Alkaline Phosphatase (39-117) U/L Total Protein (6.5-8.0) g/dL Albumin (3.5-5.0) g/dL Urine Color Dark Yellow Urine Appearance Turbid Urine pH 5.5 (5.0-9.0) Ur Specific Mouthcard 1.025 (1.005-1.025) Urine Protein 100 (2+) H (Neg-Trace) mg/dL Urine Glucose (UA) Negative (Negative) mg/dL Urine Ketones Trace (Negative) mg/dL Urine Blood Negative (Negative) Urine Nitrite Positive H (Negative) Ur Leukocyte Esterase Small (1+) H (Negative) Urine RBC 0-2 (0-2) /HPF Urine WBC 0-5 (0-5) /HPF Ur Squamous Epith Cells >20 (0-2) /HPF Urine Bacteria 4+ (None Seen) Hyaline Casts >20 (0-2) /LPF <Taye Bauman MD - Last Filed: 10/18/22 00:34> Discharge Plan Discharge Clinical Impression: Acute gastroenteritis, Acute UTI <LILLY Patterson - Last Filed: 10/17/22 14:33> Patient Disposition: Home, Self-Care <LILLY Patterson - Last Filed: 10/17/22 14:33> Instructions: Urinary Tract Infection in Women (ED), Gastroenteritis (ED) <LILLY Patterson - Last Filed: 10/17/22 14:33> Additional Instructions: Drink plenty of fluids Take antibiotics as prescribed Medicine for nausea as prescribed Report to the ER if worsening of diarrhea/increased abdominal pain/high fever <LILLY Patterson - Last Filed: 10/17/22 14:33> Prescriptions: New cefuroxime axetil 250 mg tablet 250 mg PO BID 7 Days Qty: 14 0RF ondansetron 4 mg tablet,disintegrating 4 mg PO Q6-8H PRN (Reason: nausea and vomiting) Qty: 10 0RF No Action acetaminophen [Arthritis Pain Relief (acetam)] 650 mg tablet extended release 1 tab PO Q8H PRN (Reason: Pain) multivitamin Tablet 1 tab PO QAM meclizine 25 mg tablet 1 tab PO Q8H PRN (Reason: Vertigo) hydrochlorothiazide 12.5 mg capsule 1 cap PO QAM gabapentin 300 mg capsule 1 cap PO TID sertraline 25 mg tablet 1 tab PO QAM ergocalciferol (vitamin D2) 1,250 mcg (50,000 unit) capsule 1 cap PO QWEEK B-complex with vitamin C Tablet 1 tab PO QAM amlodipine 5 mg tablet 5 mg PO DAILY diclofenac sodium [Voltaren] 1 % gel 2 g topical QID Rx Instructions: apply to single elbow, wrist or hand; for hand includes palm/fingers/back of hand bisacodyl [Dulcolax (bisacodyl)] 5 mg tablet,delayed release (DR/EC) 5 mg PO BEDTIME metoprolol succinate 25 mg tablet extended release 24 hr 25 mg PO DAILY aspirin 81 mg tablet,delayed release (DR/EC) 81 mg PO DAILY timolol maleate 0.5 % drops 0 drp ophthalmic (eye) latanoprost 0.005 % drops 0 drp ophthalmic (eye) <LILLY Patterson - Last Filed: 10/17/22 14:33> Interventions: ED Discharge Assessment Last Done: 10/17/22 21:33 <LILLY Patterson - Last Filed: 10/17/22 14:33> Discharge Date/Time: 10/17/22 21:34 <LILLY Patterson - Last Filed: 10/17/22 14:33> Print Language: [place] <LILLY Patterson - Last Filed: 10/17/22 14:33>
--- NOTE | 2022-10-17 14:33 | ECG_ITS ---
Test Reason : weakness Blood Pressure : / mmHG Vent. Rate : 081 BPM Atrial Rate : 081 BPM P-R Int : 174 ms QRS Dur : 080 ms QT Int : 400 ms P-R-T Axes : 073 -18 061 degrees QTc Int : 464 ms Normal sinus rhythm Minimal voltage criteria for LVH, may be normal variant ( R in aVL ) Nonspecific ST abnormality Abnormal ECG When compared with ECG of 29-MAY-2018 19:17, AK interval has decreased Referred By: Betsy Cox Electronically Signed By:Eliud Mehta
[2022-10-17 15:23] LABS: Appearance Urine Turbid; Color Urine Dark Yellow; Glucose Urine UA Negative (Negative); Leukocyte Esterase Urine Small (1+) (Negative); Nitrite Urine Positive (Negative); PH 5.5 (5.0-9.0); Specific Gravity - Urine 1.025 (1.005-1.025); UMIC TRIGGER UACC YES; Urine Blood Negative (Negative); Urine Ketones Trace mg/dL (Negative); Urine Protein 100 (2+) mg/dL (Neg-Trace)
[2022-10-17 15:33] LABS: INTERNATIONAL NORM RATIO 1.1 (0.9-1.1); Prothrombin Time 12.3 SEC (10.0-13.1)
[2022-10-17 15:36] LABS: Partial Thromboplastin Time 32.3 SEC (26.0-36.4)
[2022-10-17 15:37] LABS: Alanine Aminotransferase 22 U/L (0-31); Alkaline Phosphatase 121 U/L (39-117); Anion Gap 18 (12-20); Aspartate Amino Transferase 29 U/L (5-31); Bilirubin Total 1.8 mg/dL (0.0-1.0); Blood Urea Nitrogen 17 mg/dL (9-16); Calcium 10.1 mg/dL (8.4-10.2); Carbon Dioxide 25 mmol/L (22-29); Chloride 101 mmol/L (96-108); Creatinine Clr Calc Pharmacy 42.6; Estimated Glomerular Filt Rate 52; Glucose Random 119 mg/dL (60-115); Hyaline Casts Urine >20 /LPF (0-2); Magnesium 1.8 mg/dL (1.6-2.6); Potassium 3.3 mmol/L (3.3-5.1); Sodium 141 mmol/L (135-145); Squamous Epithelial Cell Urine >20 /HPF (0-2); Total Protein 7.4 g/dL (6.5-8.0); UACC Culture Trigger YES; WBC Urine 0-5 /HPF (0-5)
[2022-10-17 15:38] LABS: Bacteria Urine 4+ (None Seen); RBC Urine 0-2 /HPF (0-2)
[2022-10-17 19:36] LABS: MANUAL DIFF FLAG NO
[2022-10-17 19:40] LABS: Basophils Percent Auto 0.5 % (0-2); Eosinophils Percent Auto 0.3 % (0-4); Hemoglobin 15.5 g/dl (12.0-16.0); Imm Gran Abs Auto 0.03 X10*3/uL (0.00-0.03); Imm Gran Pct Auto 0.4 % (0.0-0.4); Lymphocytes Absolute Auto 2.1 X10*3/uL (1.2-4.9); Lymphocytes Percent Auto 26.8 % (20-40); Mean Corpuscular HGB Conc 33.7 g/dl (31.0-35.0); Mean Corpuscular Hemoglobin 30.8 pg (27.0-33.0); Mean Corpuscular Volume 91.3 fL (80.0-98.0); Mean Platelet Volume 9.8 fL (9.4-12.3); Monocytes Absolute Auto 1.1 X10*3/uL (0.1-1.2); Monocytes Percent Auto 13.6 % (2-11); Neutrophils Absolute Auto 4.5 x10*3/uL (2.0-8.3); Neutrophils Percent Auto 58.4 % (45-73); Platelet Count 230 X10*3/uL (160-400); Red Blood Count 5.04 X10*6/uL (4.20-5.50); Red Cell Distribution Width 13.7 % (11.0-16.0); White Blood Count 7.8 X10*3/uL (4.8-10.8)
[2022-10-17] MEDS: Ondansetron ODT 4 MG TAB.RAPDIS TRANSLINGU (20:29)
[2022-10-17 20:47] VITALS: BP 142/79; PULSE 72; RESP 16; TEMP 36.8; O2SAT 98
== END 2022-10-17 21:34 | disposition home or self-care (01) ==
PROVIDERS: Physician Assistant Medical; Emergency Provider Internal Medicine; PCP Nurse Practitioner Primary Care
DX: K52.9 Noninfective gastroenteritis and colitis, unspecified (principal); N39.0 Urinary tract infection, site not specified; R94.31 Abnormal electrocardiogram [ECG] [EKG]; Z79.899 Other long term (current) drug therapy
CPT/HCPCS: 36415; 80053; 81001; 83735; 85025; 85610; 85730; 87086; 93005; 99283; 99284

== ENCOUNTER → 2022-11-04 14:19 | Outpatient (BNVA) | payer OTHER, MEDICAID, SELFPAY | PROVIDERS: PCP Nurse Practitioner Primary Care; Visit Provider Surgery Vascular Surgery | DX: I83.11 Varicose veins of right lower extremity with inflammation (principal) | CPT/HCPCS: 99212 ==

== ENCOUNTER 2022-11-21 10:35 | Outpatient (REF) | payer OTHER, MEDICAID, SELFPAY ==
--- NOTE | ~2022-11-21 | US_ITS ---
EXAMINATION: US LOWER EXTREMITY (REFLUX EXAM), RIGHT CLINICAL INDICATION: Varicose veins with right lower extremity inflammation, pain. History of prior ablation of the great saphenous vein COMPARISON: 06/27/2021 TECHNIQUE: Color flow triplex imaging and compression Doppler was performed to evaluate both the deep and the superficial systems of the right lower extremity. To evaluate the superficial system, the examination was performed in the upright position. Color-flow Doppler ultrasound and compression ultrasound were utilized. In addition, maneuvers were utilized to demonstrate reflux. FINDINGS: 1. DEEP VENOUS DOPPLER ULTRASOUND: Common Femoral Vein: Compressible, normal respiratory variation and augmented flow. Femoral Vein: Compressible, normal color flow and augmentation. Popliteal Vein: Compressible, normal augmentation. Deep Reflux: Deep venous reflux is again seen in the mid superficial femoral vein measuring 1984 ms and popliteal vein measuring 2296 ms There is no evidence of a Rasmussen's cyst. 2. SUPERFICIAL VENOUS DOPPLER ULTRASOUND: GREAT SAPHENOUS VEIN: Saphenofemoral Junction: 0.8 cm; Reflux: 0 ms Proximal Thigh: 0.6 cm; Reflux: 0 ms Mid Thigh: Not visualized Above Knee: Not visualized At Knee: Not visualized Below Knee: 0.4 cm; Reflux: 1128 ms Mid Calf: 0.2 cm; Reflux: 1680 ms Ankle: 0.2 cm; Reflux: 0 ms DUPLICATED MEDIAL GREAT SAPHENOUS VEIN: Diameter: None Imaged Reflux: NA DUPLICATED LATERAL GREAT SAPHENOUS VEIN: Diameter: 0.3 cm Reflux: None SMALL SAPHENOUS VEIN: Proximal: 0.5 cm; Reflux: 0 ms Distal: 0.2 cm; Reflux: 0 ms VEIN OF GIACOMINI: None Imaged. PERFORATORS: Location: None Imaged Size: NA Reflux: NA VARICOSITIES: Location: Posterior calf off the small saphenous vein, proximal thigh and proximal calf Size: 0.2 to 0.3 cm Reflux: Ranging from 0 ms to 1268 ms US/US venous duplex LE RT IMPRESSION: Great saphenous vein within the thigh remains closed consistent with prior ablation. Residual patent great saphenous vein in the calf demonstrates moderate reflux. There is moderate to severe deep venous reflux as described above
== END 2022-11-21 10:36 | disposition home or self-care (01) ==
LOC: HO.US 10:35
PROVIDERS: PCP Nurse Practitioner Primary Care; Visit Provider Surgery Vascular Surgery
DX: I83.893 Varicose veins of bilateral lower extremities with other complications (principal)
CPT/HCPCS: 93971

== ENCOUNTER → 2022-12-23 13:12 | Outpatient (BNVA) | payer OTHER, MEDICAID, SELFPAY | PROVIDERS: PCP Nurse Practitioner Primary Care; Visit Provider Surgery Vascular Surgery | DX: M79.604 Pain in right leg (principal) | CPT/HCPCS: 99212 ==

== ENCOUNTER 2023-02-06 13:07 | Emergency (ER) | payer OTHER, MEDICAID, SELFPAY ==
--- NOTE | ~2023-02-06 | CT_ITS ---
EXAMINATION: CT ABDOMEN AND PELVIS WITH CONTRAST CLINICAL INFORMATION: Chest pain, altered mental status, abdominal pain. COMPARISON: CT abdomen/pelvis 11/23/2008. TECHNIQUE: Multidetector volumetric images were obtained from the superior aspect of the liver through the pubic symphysis following administration 85 mL of Omnipaque 350 intravenous contrast. Sagittal and coronal reformatted images were obtained on the technologist's workstation. Oral contrast: No This CT examination was performed using dose optimization techniques as appropriate, variously including the following: *Automated exposure control *Adjustment of mA and/or kV according to patient size (this includes techniques or standardized protocols for targeted exams where dose is matched to indication/reason for exam; i.e. extremities or head) *Use of iterative reconstruction technique DLP: 554 mGy-cm FINDINGS: LUNG BASES: There is a 0.4 cm perifissural solid nodule in the left lower lobe (4:78). There is a 0.8 cm subpleural nodule in the right lung base (4:154). These nodules are stable dating back to 2008. No focal consolidation or pleural effusion. Partially imaged coronary artery calcifications. LIVER, GALLBLADDER, AND BILIARY TREE: Distortion of the liver with findings suggesting prior right partial hepatectomy, similar compared to 2008. The residual liver parenchyma demonstrates a nodular contour that could be seen with cirrhosis. No discrete focal liver lesion. Cholecystectomy with hepaticojejunostomy. No evidence of biliary ductal dilatation. PANCREAS: Unremarkable. SPLEEN: Unremarkable. ADRENAL GLANDS: Unremarkable. KIDNEYS AND URETERS: The kidneys are normal in size, shape, and attenuation. No hydronephrosis, hydroureter, or calculi seen. No perinephric stranding. BLADDER: Unremarkable. GASTROINTESTINAL TRACT: The stomach and the small bowel are nondilated. Normal appendix. Hyperdense debris in the stomach fundus (4:157) and ileum (4:323) is likely related with ingested content. Colonic diverticulosis. No significant pericolonic fat stranding. No evidence of bowel obstruction. ABDOMINAL WALL: No significant hernia is appreciated. LYMPH NODES: No lymphadenopathy. VASCULAR: Abdominal aorta is normal in caliber. Atherosclerotic disease. Main portal vein is patent. PELVIC VISCERA: Unremarkable. OSSEOUS STRUCTURES: Degenerative changes of the spine. No acute or aggressive appearing osseous abnormalities. CT/CT abdomen pelvis w IV con IMPRESSION: Redemonstration of complex postoperative changes suggestive of prior partial right hepatectomy and hepaticojejunostomy. The residual liver parenchyma demonstrates a nodular contour that could be seen with cirrhosis, correlate with liver function tests. Recommend future evaluation with an elective dynamic abdominal MRI with and without IV contrast for evaluation of HCC. Diverticulosis without findings to suspect acute diverticulitis. No evidence of bowel obstruction.
--- NOTE | ~2023-02-06 | XR_ITS ---
EXAMINATION: XR LUMBOSACRAL SPINE CLINICAL INFORMATION: Back pain COMPARISON: X-ray 12/13/2020 TECHNIQUE: Three views of the lumbosacral spine. FINDINGS: Vertebral sagittal body alignment is maintained. Vertebral body heights are maintained. No evidence of acute compression fractures. Multilevel moderate to severe disc degenerative changes, with disc height loss, osteophytes and sclerosis. This includes severe L5-S1 disc degeneration. Multilevel facet degeneration. Mild levoconvex curvature. Mild bilateral SI joint arthritis. Surgical clips in the right upper quadrant. XR/XR lumbar spine 2-3V IMPRESSION: Moderate-severe lumbar spondylosis. No radiographic evidence of acute fracture.
--- NOTE | ~2023-02-06 | XR_ITS ---
EXAMINATION: XR CHEST CLINICAL INFORMATION: Reason for Exam chest pain COMPARISON: Chest radiograph 09/02/2021 TECHNIQUE: 2 views of the chest FINDINGS: Lines and tubes: None. Clear lungs. Asymmetric elevation of the right hemidiaphragm, unchanged. No pleural effusion. No pneumothorax. Normal cardiomediastinal silhouette. XR/XR chest 2V IMPRESSION: * Clear lungs.
--- NOTE | ~2023-02-06 | CT_ITS ---
EXAMINATION: CT head/brain wo IV con CLINICAL INFORMATION: Reason for Exam AMS COMPARISON: MR brain 06/24/2017 TECHNIQUE: Contiguous axial imaging was performed from the skull base to vertex without intravenous contrast. Sagittal and coronal reformatted images were obtained. This CT examination was performed using dose optimization techniques as appropriate, variously including the following: * Automated exposure control * Adjustment of mA and/or kV according to patient size (this includes techniques or standardized protocols for targeted exams where dose is matched to indication/reason for exam; i.e. extremities or head) Use of iterative reconstruction technique DLP: 569.31 mGy-cm FINDINGS: No acute osseous or soft tissue abnormality. The mastoid air cells and visualized portions of the paranasal sinuses are well aerated. Status post bilateral lens replacements. Expanded empty sella. There is no evidence of acute intracranial hemorrhage or territorial infarction. No abnormal mass effect or midline shift is seen. Marrufo to white matter differentiation is well preserved. No extra-axial fluid collections are identified. No hydrocephalus. Proportional prominence of the ventricles and sulcal spaces is consistent with mild volume loss, with a bitemporal predominance. CT/CT head/brain wo IV con IMPRESSION: 1. No acute intracranial abnormality. 2. Expanded empty sella. 3. Proportional prominence of the ventricles and sulcal spaces is consistent with mild volume loss, with a bitemporal predominance.
[2023-02-06 13:18] VITALS: BP 148/83; PULSE 88; O2SAT 98
[2023-02-06] MEDS: LORazepam 2 MG/ML VIAL IM (13:29)
[2023-02-06 13:30] VITALS: BP 152/74; PULSE 94; RESP 20; TEMP 36.7; O2SAT 99; BMI 30.6
[2023-02-06] MEDS: Haloperidol Lactate 5 MG/ML VIAL IM (13:56)
[2023-02-06 14:58] VITALS: BP 107/68; PULSE 84; RESP 16; O2SAT 94
--- NOTE | 2023-02-06 15:30 | ECG_ITS ---
Test Reason : DIZZINESS Blood Pressure : / mmHG Vent. Rate : 080 BPM Atrial Rate : 080 BPM P-R Int : 242 ms QRS Dur : 090 ms QT Int : 434 ms P-R-T Axes : 045 -05 045 degrees QTc Int : 500 ms Sinus rhythm with 1st degree A-V block with frequent Premature ventricular complexes - possible fusion beats Minimal voltage criteria for LVH, may be normal variant ( R in aVL ) Prolonged QT Abnormal ECG When compared with ECG of 17-OCT-2022 15:19, Premature ventricular complexes are now Present IA interval has increased Referred By: Zeynep Newsome Electronically Signed By:JONA ALFARO
--- NOTE | 2023-02-06 15:36 | ED.GENADULT ---
HPI - General Adult General Chief complaint: General Medical Stated complaint: ANXIETY, BLOOD IN STOOL Time Seen by Provider: 02/06/23 13:10 Source: patient and RN notes reviewed Mode of arrival: ambulatory Limitations: no limitations History of Present Illness HPI narrative: This is a 78-year-old female, with a past of hypertension, hyperlipidemia, chronic dizziness, depression, insomnia, lumbar spondylolysis, and osteoarthritis, who presents to the emergency department via EMS from urgent care for anxiety. On arrival, patient was hyperventilating, complaining that her hands were hurting. She was unable to answer any questions due to her hyperventilating. Upon re-evaluation after given Ativan and Haldol, able to further evaluate patient. Patient reports that she has had back pain for the last several days. Daughter at bedside reports that over the last couple months patient's cognition has been steadily declining, but reports that over the last couple a days she has seemed a little more confused. Daughter reports that she has had a history of urinary tract infections and believes that she may have another one. Daughter reports that patient has has a history of medication noncompliance and often times does not complete course of antibiotics - had UTI in November. Patient reports her only complaint is back pain. She reports that she did have several hours chest pain and dizziness last night. No dysuria, hematuria, urinary frequency or urgency. She does not have any fevers, chills, current chest pain, palpitations, shortness of breath, abdominal pain, nausea, vomiting, or diarrhea. Denies any bloody or black stool. MD complaint: Anxiety, ?AMS Onset (ago): day(s) Radiation: back Severity: moderate Quality: aching Pain Consistency: constant Relieving factors: none Exacerbating factors: none Associated symptoms: denies other symptoms Treatments prior to arrival: none Related Data Home Medications Medication Instructions Recorded Confirmed amlodipine 5 mg tablet 5 mg PO DAILY 07/12/20 08/01/21 aspirin 81 mg tablet,delayed 81 mg PO DAILY 07/12/20 08/01/21 release bisacodyl 5 mg tablet,delayed 5 mg PO BEDTIME 07/12/20 08/01/21 release (Dulcolax (bisacodyl)) diclofenac sodium 1 % topical gel 2 g topical QID 07/12/20 08/01/21 (Voltaren) metoprolol succinate 25 mg 25 mg PO DAILY 07/12/20 08/01/21 tablet,extended release 24 hr B-complex with vitamin C 1 tab PO QAM 08/01/21 08/01/21 acetaminophen 650 mg 1 tab PO Q8H PRN Pain 08/01/21 08/01/21 tablet,extended release (Arthritis Pain Relief (acetaminophen) ER) ergocalciferol (vitamin D2) 1,250 1 cap PO QWEEK 08/01/21 08/01/21 mcg (50,000 unit) capsule gabapentin 300 mg capsule 1 cap PO TID 08/01/21 08/01/21 hydrochlorothiazide 12.5 mg capsule 1 cap PO QAM 08/01/21 08/01/21 meclizine 25 mg tablet 1 tab PO Q8H PRN Vertigo 08/01/21 08/01/21 multivitamin 1 tab PO QAM 08/01/21 08/01/21 sertraline 25 mg tablet 1 tab PO QAM 08/01/21 08/01/21 latanoprost 0.005 % eye drops 0 drp ophthalmic (eye) 10/11/21 timolol maleate 0.5 % eye drops 0 drp ophthalmic (eye) 10/11/21 Previous Rx's Medication Instructions Recorded cefuroxime axetil 250 mg tablet 250 mg PO BID 7 days #14 tabs 10/17/22 ondansetron 4 mg disintegrating 4 mg PO Q6-8H PRN nausea and 10/17/22 tablet vomiting #10 tabs Allergies Allergy/AdvReac Type Severity Reaction Status Date / Time ibuprofen Allergy Intermediate tachycardia/GI Verified 12/23/22 13:27 upset Review of Systems Review of Systems: Constitutional: No Weight loss, No Fever, No Chills, No Night Sweats, No Fatigue, No Malaise ENT/Mouth: No Hearing loss, No Ear Pain, No Nasal Congestion, No Sinus Pain, No Hoarseness, No sore throat, No Rhinorrhea, No Swallowing Difficulty Eyes: No Eye Pain, No Swelling, No Redness, No Foreign Body, No Discharge, No Vision Changes Cardiovascular: + Chest Pain (resolved), + SOB (resolved), No Dyspnea on Exertion, No Orthopnea, No Edema, No Palpitations Respiratory: No Cough, No Sputum, No Wheezing, No Smoke Exposure, No Dyspnea Gastrointestinal: No Nausea, No Vomiting, No Diarrhea, No Constipation, No Abdominal pain, No Hematochezia, No Melena Genitourinary: No irregular bleeding, No Dysuria, No Urinary Frequency, No Hematuria, No Urinary Incontinence/retention, No Urgency, No Flank Pain, No Urinary Flow Changes, No Hesitancy Musculoskeletal: No joint pain, No Myalgias, No Joint Swelling Skin: No Skin Lesions, No rash Neuro: No Weakness, No Numbness, No Paresthesias, No Loss of Consciousness, +Dizziness (resolved), No Headache Psych: No Anxiety/Panic, No Depression, No SI/HI/AH/VH, No Social Issues, Heme/Lymph: No Bruising, No Bleeding,No Lymphadenopathy Endocrine: No Polyuria, No Polydipsia, No Temperature Intolerance Yes all other systems are reviewed and are negative Constitutional: Constitutional: Reports as per [facility] Past Medical History Medical History Allergic rhinitis COVID-19 vaccine series completed Depression Dizziness Fibromyalgia HTN (hypertension) Hx of fracture of tibia Hyperlipidemia Insomnia Lumbar spondylolysis Neck pain Osteoarthritis Varicose veins of both lower extremities Surgical History H/O colonoscopy Hx of cholecystectomy Hx of tubal ligation Family History Family History Father Cancer Mother Depression Sister HTN (hypertension) Heart disease Brother Diabetes Social History Social History Are you a primary child caregiver to a significant other at home: No Do you presently have visiting nurse or other home services: No Alcohol intake: never Patient Tobacco Use Status: Never used Tobacco Advance Directives: No Advance Directives Information Provided: No Physical Exam ED Vital Signs: Vital Signs - 24 hr 02/06/23 13:30 02/06/23 14:58 02/06/23 16:17 Temperature 98.0 F Pulse Rate 94 84 86 Respiratory Rate 20 16 18 Blood Pressure 152/74 H 107/68 128/68 Pulse Oximetry 99 94 96 Oxygen Delivery Method Room Air Room Air Room Air 02/06/23 18:06 02/06/23 21:42 Temperature 98.0 F Pulse Rate 71 74 Respiratory Rate 16 17 Blood Pressure 119/64 124/61 Pulse Oximetry 97 97 Oxygen Delivery Method Room Air Room Air BMI result Body Mass Index 30.6 Const General: cooperative, comfortable and no acute distress Orientation/consciousness: patient oriented x3 Limitations: no limitations HENMT Head: Yes normal to inspection, Yes normocephalic and Yes atraumatic Ears: hearing grossly normal bilaterally and TM's normal bilaterally General nose exam: Normal external nose present Face and sinus: Yes normal facial exam Mouth: Normal oral and palatal mucosa present, oropharynx normal and moist mucous membranes Throat: Yes posterior oropharynx normal Eyes General: appearance normal, both eyes and all related structures Eyelids: Yes eyelids normal Conjunctivae: conjunctivae normal Sclerae: sclerae normal Pupils: Equal, round and reactive pupils present EOM: EOMs intact bilaterally Neck Neck: Yes normal visual inspection, Yes full ROM and Yes no lymphadenopathy Lymphatic: no lymphadenopathy noted Chest Chest palpation & inspection: normal inspection of the chest and normal palpation of entire chest wall Resp Effort & Inspection: normal respiratory effort and able to speak in complete sentences Auscultation: clear to auscultation bilaterally, no crackles, no rales, no rhonchi and no wheezes Cardio Rate: regular rate Rhythm: regular rhythm Heart sounds: S1 normal heart sound present and S2 normal heart sound present GI Inspection: Yes normal to inspection Palpation (GI): Soft to palpation, nontender, no guarding and not rigid Auscultation: normal bowel sounds General: Yes no CVA tenderness Back/Spine/Pelvis Other: Tenderness to palpation over midline lumbar spine. Lumbar paraspinous muscle tenderness to palpation. No CVA tenderness. Back: no CVA tenderness Cervical Spine: normal cervical lordosis and cervical ROM normal Thoracic/Lumbar Spine: thoracic and lumbar spine normal to inspection Sacrum: no ecchymosis, no erythema, no swelling and tenderness Coccyx: no swelling and Coccyx tenderness present Skin General skin exam: no rashes or lesions noted Trauma: no lacerations or abrasions Wounds: no wounds Neuro General: patient oriented x3 and moves all extremities Cranial nerves: Yes Equal, round and reactive pupils present Extrem General: Yes normal to inspection Right upper extremity: normal to inspection Left upper extremity: normal to inspection Right lower extremity: normal to inspection Left lower extremity: normal to inspection Course Reevaluation(s) Reevaluation #1: Urine is not infected, troponin mildly elevated at 18.8, potassium 3.1, potassium 40 mEq p.o. ABG within normal limits. Patient medicated with prednisone 50 mg p.o., cyclobenzaprine, and lidocaine patch. Chest x-ray unremarkable, lumbar spine shows moderate-severe lumbar spondylosis. Sign-out given to Randee Stover PA-C pending second troponin and head CT. Time: 17:18 Reevaluation #2: 2nd troponin did meet delta criteria, likely secondary to demand. Third troponin decrease, I do not suspect acute ACS patient without chest pain, shortness of breath, lying comfortably sleeping. CBC unremarkable. Chemistry no acute findings requiring intervention. CT of the abdomen and pelvis redemonstration of complex postoperative changes suggestive of prior partial right hepatectomy, and hepaticojejunostomy. Diverticulosis noted. Head CT no acute intracranial abnormality. Expanded empty sella. Proportional prominence of ventricles and sulcal spaces consistent with mild volume loss. X-ray of lumbar spine moderate to severe lumbar spondylosis. No evidence of acute fracture chest x-ray clear lungs. Did discuss this case with hospitalist for admission due to delta troponin however patient without chest pain, shortness of breath, he does not feel as though this is appropriate for hospital admission. Can be discharged home. Time: 23:40 Medications Administered Discontinued Medications Generic Name Dose Route Start Last Admin Trade Name Freq PRN Reason Stop Dose Admin Haloperidol Lactate 5 mg 02/06/23 13:51 02/06/23 13:56 Haloperidol Lactate 5 Mg/Ml Vial IM 02/06/23 13:52 5 mg STAT STA Administration Iohexol 100 ml 02/06/23 22:22 02/06/23 22:22 Iohexol 350 Mg/Ml 100 Ml Infus..Btl IV 02/06/23 22:23 85 ml ONCE ONE Administration Lorazepam 2 mg 02/06/23 13:21 02/06/23 13:29 Lorazepam 2 Mg/Ml Vial IM 02/06/23 13:22 2 mg ONCE ONE Administration Potassium Chloride 40 meq 02/06/23 16:37 02/06/23 18:36 Potassium Chloride Er 20 Meq Tab.Er.Prt PO 02/06/23 16:38 40 meq ONCE ONE Administration Medical Decision Making Medical Decision Making MDM Narrative: This is a 78-year-old female, with a past of hypertension, hyperlipidemia, chronic dizziness, depression, insomnia, lumbar spondylolysis, and osteoarthritis, who presents to the emergency department via ems for ?anxiety. Upon arrival, patient with with hands contracted and hyperventilating. Attempted to question her further however patient only complaining about her hands feeling as though they were going to break. Attempted to redirect patient however patient unable to be redirected. Medicated patient with Haldol 5 mg IM and Ativan 2 mg IM. Pt's contracted hands improved significantly after IV haldol and IV ativan, no longer complaining of hand pain. Daughter and at bedside upon further questioning, daughter reports that over the last several months patient's mental status has been steadily declining. She has no formal diagnosis of dementia or alzheimer's and has never been worked up for this in the past. She lives at home with her and daughter lives next door to her, often checking in on her. Daughter reports that she does not need further home health services at this time. Patient reported chest pain and dizziness last night that lasted for several hours. Patient does not have chest pain at this time, and has not had chest pain at all today, however she will be ordered troponin, EKG, chest x-ray. Rinse course for Also reporting back pain will order x-rays. Plan: EKG, labs, x-ray sacrum cocyx, xray chest, UA ordered. Differential Diagnosis Differential Diagnoses: The differential diagnosis associated with the presentation includes UTI, dehydration, pneumonia, electrolyte abnormality, AMS, ICH - unlikely, anxiety, ACS Admission/Observation Consideration of admission/observation: Escalation of care including admission/observation considered Lab Data MDM Lab Attestation statement: I reviewed the patient's lab results. 02/06/23 16:02 02/06/23 16:02 Labs: Lab Results 02/06/23 02/06/23 02/06/23 Range/Units 16:02 16:02 16:02 WBC 3.8 L (4.8-10.8) X10*3/uL RBC 4.35 (4.20-5.50) X10*6/uL Hgb 13.3 (12.0-16.0) g/dl Hct 39.2 (37.0-47.0) % MCV 90.1 (80.0-98.0) fL MCH 30.6 (27.0-33.0) pg MCHC 33.9 (31.0-35.0) g/dl RDW 14.3 (11.0-16.0) % Plt Count 220 (160-400) X10*3/uL MPV 9.6 (9.4-12.3) fL Immature Gran % (Auto) 0.3 (0.0-0.4) % Neut % (Auto) 72.0 (45-73) % Lymph % (Auto) 17.0 L (20-40) % [place] % (Auto) 9.9 (2-11) % Eos % (Auto) 0.3 (0-4) % Baso % (Auto) 0.5 (0-2) % Lymph # (Auto) 0.7 L (1.2-4.9) X10*3/uL [place] # (Auto) 0.4 (0.1-1.2) X10*3/uL Eos # (Auto) 0.0 (0.0-0.4) X10*3/uL Baso # (Auto) 0.0 (0.0-0.2) X10*3/uL Abs Immat Gran (auto) 0.01 (0.00-0.03) X10*3/uL Absolute Neuts (auto) 2.8 (2.0-8.3) x10*3/uL Absolute Nucleated RBC 0.000 (0.0-0.012) X10*3/uL Nucleated RBC % (auto) 0.0 (0.0-0.2) /100WBC VBG pH (7.32-7.43) VBG pCO2 mmHg VBG pO2 mmHg VBG HCO3 (22-26) mmol/L VBG O2 Saturation % VBG Base Excess mmol/L Sodium 143 (135-145) mmol/L Potassium 3.1 L (3.3-5.1) mmol/L Chloride 108 (96-108) mmol/L Carbon Dioxide 25 (22-29) mmol/L Anion Gap 13 (12-20) BUN 16 (9-16) mg/dL Creatinine 0.86 (0.5-1.4) mg/dL Estim Creat Clear Calc 51.3 Estimated GFR > 60 Random Glucose 77 (60-115) mg/dL Lactic Acid (0.5-2.0) mmol/L Calcium 9.6 (8.4-10.2) mg/dL Magnesium 2.0 (1.6-2.6) mg/dL Total Bilirubin 1.5 H (0.0-1.0) mg/dL Direct Bilirubin 0.5 (0.0-0.5) mg/dL AST 38 H (5-31) U/L ALT 17 (0-31) U/L Alkaline Phosphatase 102 (39-117) U/L Troponin I High Sens 18.8 H (<3.5-17.0) ng/L Total Protein 7.2 (6.5-8.0) g/dL Albumin 3.9 (3.5-5.0) g/dL Lipase 31 (8-78) U/L Urine Color Urine Appearance Urine pH (5.0-9.0) Ur Specific [place] (1.005-1.025) Urine Protein (Neg-Trace) mg/dL Urine Glucose (UA) (Negative) mg/dL Urine Ketones (Negative) mg/dL Urine Blood (Negative) Urine Nitrite (Negative) Ur Leukocyte Esterase (Negative) 02/06/23 02/06/23 02/06/23 Range/Units 16:02 16:04 16:16 WBC (4.8-10.8) X10*3/uL RBC (4.20-5.50) X10*6/uL Hgb (12.0-16.0) g/dl Hct (37.0-47.0) % MCV (80.0-98.0) fL MCH (27.0-33.0) pg MCHC (31.0-35.0) g/dl RDW (11.0-16.0) % Plt Count (160-400) X10*3/uL MPV (9.4-12.3) fL Immature Gran % (Auto) (0.0-0.4) % Neut % (Auto) (45-73) % Lymph % (Auto) (20-40) % [place] % (Auto) (2-11) % Eos % (Auto) (0-4) % Baso % (Auto) (0-2) % Lymph # (Auto) (1.2-4.9) X10*3/uL [place] # (Auto) (0.1-1.2) X10*3/uL Eos # (Auto) (0.0-0.4) X10*3/uL Baso # (Auto) (0.0-0.2) X10*3/uL Abs Immat Gran (auto) (0.00-0.03) X10*3/uL Absolute Neuts (auto) (2.0-8.3) x10*3/uL Absolute Nucleated RBC (0.0-0.012) X10*3/uL Nucleated RBC % (auto) (0.0-0.2) /100WBC VBG pH 7.41 (7.32-7.43) VBG pCO2 41 mmHg VBG pO2 42 mmHg VBG HCO3 26 (22-26) mmol/L VBG O2 Saturation 66.0 % VBG Base Excess 2.1 mmol/L Sodium (135-145) mmol/L Potassium (3.3-5.1) mmol/L Chloride (96-108) mmol/L Carbon Dioxide (22-29) mmol/L Anion Gap (12-20) BUN (9-16) mg/dL Creatinine (0.5-1.4) mg/dL Estim Creat Clear Calc Estimated GFR Random Glucose (60-115) mg/dL Lactic Acid 1.6 (0.5-2.0) mmol/L Calcium (8.4-10.2) mg/dL Magnesium (1.6-2.6) mg/dL Total Bilirubin (0.0-1.0) mg/dL Direct Bilirubin (0.0-0.5) mg/dL AST (5-31) U/L ALT (0-31) U/L Alkaline Phosphatase (39-117) U/L Troponin I High Sens (<3.5-17.0) ng/L Total Protein (6.5-8.0) g/dL Albumin (3.5-5.0) g/dL Lipase (8-78) U/L Urine Color Yellow Urine Appearance Clear Urine pH 6.5 (5.0-9.0) Ur Specific [place] 1.010 (1.005-1.025) Urine Protein Negative (Neg-Trace) mg/dL Urine Glucose (UA) Negative (Negative) mg/dL Urine Ketones Trace (Negative) mg/dL Urine Blood Negative (Negative) Urine Nitrite Negative (Negative) Ur Leukocyte Esterase Negative (Negative) 02/06/23 02/06/23 Range/Units 18:58 23:06 WBC (4.8-10.8) X10*3/uL RBC (4.20-5.50) X10*6/uL Hgb (12.0-16.0) g/dl Hct (37.0-47.0) % MCV (80.0-98.0) fL MCH (27.0-33.0) pg MCHC (31.0-35.0) g/dl RDW (11.0-16.0) % Plt Count (160-400) X10*3/uL MPV (9.4-12.3) fL Immature Gran % (Auto) (0.0-0.4) % Neut % (Auto) (45-73) % Lymph % (Auto) (20-40) % [place] % (Auto) (2-11) % Eos % (Auto) (0-4) % Baso % (Auto) (0-2) % Lymph # (Auto) (1.2-4.9) X10*3/uL [place] # (Auto) (0.1-1.2) X10*3/uL Eos # (Auto) (0.0-0.4) X10*3/uL Baso # (Auto) (0.0-0.2) X10*3/uL Abs Immat Gran (auto) (0.00-0.03) X10*3/uL Absolute Neuts (auto) (2.0-8.3) x10*3/uL Absolute Nucleated RBC (0.0-0.012) X10*3/uL Nucleated RBC % (auto) (0.0-0.2) /100WBC VBG pH (7.32-7.43) VBG pCO2 mmHg VBG pO2 mmHg VBG HCO3 (22-26) mmol/L VBG O2 Saturation % VBG Base Excess mmol/L Sodium (135-145) mmol/L Potassium (3.3-5.1) mmol/L Chloride (96-108) mmol/L Carbon Dioxide (22-29) mmol/L Anion Gap (12-20) BUN (9-16) mg/dL Creatinine (0.5-1.4) mg/dL Estim Creat Clear Calc Estimated GFR Random Glucose (60-115) mg/dL Lactic Acid (0.5-2.0) mmol/L Calcium (8.4-10.2) mg/dL Magnesium (1.6-2.6) mg/dL Total Bilirubin (0.0-1.0) mg/dL Direct Bilirubin (0.0-0.5) mg/dL AST (5-31) U/L ALT (0-31) U/L Alkaline Phosphatase (39-117) U/L Troponin I High Sens 31.5 H D 21.2 H (<3.5-17.0) ng/L Total Protein (6.5-8.0) g/dL Albumin (3.5-5.0) g/dL Lipase (8-78) U/L Urine Color Urine Appearance Urine pH (5.0-9.0) Ur Specific [place] (1.005-1.025) Urine Protein (Neg-Trace) mg/dL Urine Glucose (UA) (Negative) mg/dL Urine Ketones (Negative) mg/dL Urine Blood (Negative) Urine Nitrite (Negative) Ur Leukocyte Esterase (Negative) Radiology Impression Discussion of test interpretation with radiology: I have reviewed the radiologist's reading. Radiologist Impression: [place] [id number] XRay Report Signed Patient: Cheryl Weaver MR#: [id number] : 1945 Acct:[id number] Age/Sex: 78 / F ADM Date: 02/06/23 Loc: .ED Attending Dr: Ordering Physician: Zeynep Newsome Date of Service: 02/06/23 Procedure(s): XR lumbar spine 2-3V Accession Number(s): [id number] cc: Zeynep Newsome~ EXAMINATION: XR LUMBOSACRAL SPINE CLINICAL INFORMATION: Back pain COMPARISON: X-ray 12/13/2020 TECHNIQUE: Three views of the lumbosacral spine. FINDINGS: Vertebral sagittal body alignment is maintained. Vertebral body heights are maintained. No evidence of acute compression fractures. Multilevel moderate to severe disc degenerative changes, with disc height loss, osteophytes and sclerosis. This includes severe L5-S1 disc degeneration. Multilevel facet degeneration. Mild levoconvex curvature. Mild bilateral SI joint arthritis. Surgical clips in the right upper quadrant. XR/XR lumbar spine 2-3V IMPRESSION: Moderate-severe lumbar spondylosis. No radiographic evidence of acute fracture. Dictated By: Elijah Silva MD EXAMINATION: XR CHEST CLINICAL INFORMATION: Reason for Exam chest pain COMPARISON: Chest radiograph? 09/02/2021 TECHNIQUE: 2 views of the chest FINDINGS: Lines and tubes: None. Clear lungs. Asymmetric elevation of the right hemidiaphragm, unchanged. No pleural effusion. No pneumothorax. Normal cardiomediastinal silhouette. XR/XR chest 2V IMPRESSION: ? *? Clear lungs. ? External Record Review External record reviewed: Inpatient record, Office record, Outpatient record, Prior outpatient labs, Prior outpatient radiology, Primary care record and Outside ED record Scores Heart Score History: -0- slightly suspicious ECG: -0- normal Age: -2- > or = 65 Risk factory: -1- 1 or 2 risk factors Troponin: -1- >1 - <3x normal limit Score: 4 Risk: 16.6% Critical Care Time Critical Care Time Critical Care Time: No Discharge Plan Discharge Clinical Impression: Back pain, Anxiety, Chest pain Patient Disposition: Home, Self-Care Instructions: Anxiety (ED), Back Pain (ED) Additional Instructions: Your workup today is unremarkable. Your back x-ray revealed moderate-severe lumbar spondylosis. You did not have urinary tract infection. Please follow-up with your primary care physician for further management of her symptoms. And Cardiology if needed If any new or worsening symptoms occur including chest pain, shortness of breath, confusion, weakness/numbness/tingling in your legs, please return evaluation. ?CT/CT abdomen pelvis w IV con IMPRESSION: Redemonstration of complex postoperative changes suggestive of prior partial right hepatectomy and hepaticojejunostomy. The residual liver parenchyma demonstrates a nodular contour that could be seen with cirrhosis, correlate with liver function tests. Recommend future evaluation with an elective dynamic abdominal MRI with and without IV contrast for evaluation of HCC. ? Diverticulosis without findings to suspect acute diverticulitis. No evidence of bowel obstruction. ?CT/CT head/brain wo IV con IMPRESSION: 1.? No acute intracranial abnormality. 2.? Expanded empty sella. 3.? Proportional prominence of the ventricles and sulcal spaces is consistent with mild volume loss, with a bitemporal predominance. XR/XR lumbar spine 2-3V IMPRESSION: Moderate-severe lumbar spondylosis. No radiographic evidence of acute fracture. Prescriptions: No Action acetaminophen [Arthritis Pain Relief (acetam)] 650 mg tablet extended release 1 tab PO Q8H PRN (Reason: Pain) multivitamin Tablet 1 tab PO QAM meclizine 25 mg tablet 1 tab PO Q8H PRN (Reason: Vertigo) hydrochlorothiazide 12.5 mg capsule 1 cap PO QAM gabapentin 300 mg capsule 1 cap PO TID sertraline 25 mg tablet 1 tab PO QAM ergocalciferol (vitamin D2) 1,250 mcg (50,000 unit) capsule 1 cap PO QWEEK B-complex with vitamin C Tablet 1 tab PO QAM cefuroxime axetil 250 mg tablet 250 mg PO BID 7 Days Qty: 14 0RF ondansetron 4 mg tablet,disintegrating 4 mg PO Q6-8H PRN (Reason: nausea and vomiting) Qty: 10 0RF amlodipine 5 mg tablet 5 mg PO DAILY diclofenac sodium [Voltaren] 1 % gel 2 g topical QID Rx Instructions: apply to single elbow, wrist or hand; for hand includes palm/fingers/back of hand bisacodyl [Dulcolax (bisacodyl)] 5 mg tablet,delayed release (DR/EC) 5 mg PO BEDTIME metoprolol succinate 25 mg tablet extended release 24 hr 25 mg PO DAILY aspirin 81 mg tablet,delayed release (DR/EC) 81 mg PO DAILY timolol maleate 0.5 % drops 0 drp ophthalmic (eye) latanoprost 0.005 % drops 0 drp ophthalmic (eye) Referrals: Physician,Unknown J [Primary Care Provider] - 2 days [facility] [place] [facility] Services [Provider Group] - 2 days
[2023-02-06 16:07] LABS: MANUAL DIFF FLAG NO
[2023-02-06 16:09] LABS: Basophils Percent Auto 0.5 % (0-2); Eosinophils Percent Auto 0.3 % (0-4); Hematocrit 39.2 % (37.0-47.0); Hemoglobin 13.3 g/dl (12.0-16.0); Imm Gran Abs Auto 0.01 X10*3/uL (0.00-0.03); Imm Gran Pct Auto 0.3 % (0.0-0.4); Lymphocytes Absolute Auto 0.7 X10*3/uL (1.2-4.9); Mean Corpuscular HGB Conc 33.9 g/dl (31.0-35.0); Mean Corpuscular Hemoglobin 30.6 pg (27.0-33.0); Mean Corpuscular Volume 90.1 fL (80.0-98.0); Mean Platelet Volume 9.6 fL (9.4-12.3); Monocytes Absolute Auto 0.4 X10*3/uL (0.1-1.2); Monocytes Percent Auto 9.9 % (2-11); Neutrophils Absolute Auto 2.8 x10*3/uL (2.0-8.3); Platelet Count 220 X10*3/uL (160-400); Red Blood Count 4.35 X10*6/uL (4.20-5.50); Red Cell Distribution Width 14.3 % (11.0-16.0); White Blood Count 3.8 X10*3/uL (4.8-10.8)
[2023-02-06 16:17] VITALS: BP 128/68; PULSE 86; RESP 18; O2SAT 96
[2023-02-06 16:22] LABS: Lactic Acid 1.6 mmol/L (0.5-2.0)
[2023-02-06 16:25] LABS: Appearance Urine Clear; Color Urine Yellow; Glucose Urine UA Negative (Negative); Leukocyte Esterase Urine Negative (Negative); Nitrite Urine Negative (Negative); PH 6.5 (5.0-9.0); Urine Blood Negative (Negative); Urine Ketones Trace mg/dL (Negative); Urine Protein Negative (Neg-Trace)
[2023-02-06 16:29] LABS: Alanine Aminotransferase 17 U/L (0-31); Albumin Level 3.9 g/dL (3.5-5.0); Alkaline Phosphatase 102 U/L (39-117); Anion Gap 13 (12-20); Aspartate Amino Transferase 38 U/L (5-31); Bilirubin Direct 0.5 mg/dL (0.0-0.5); Bilirubin Total 1.5 mg/dL (0.0-1.0); Blood Urea Nitrogen 16 mg/dL (9-16); Calcium 9.6 mg/dL (8.4-10.2); Carbon Dioxide 25 mmol/L (22-29); Chloride 108 mmol/L (96-108); Creatinine Clr Calc Pharmacy 51.3; Estimated Glomerular Filt Rate > 60; Glucose Random 77 mg/dL (60-115); Lipase 31 U/L (8-78); Potassium 3.1 mmol/L (3.3-5.1); Sodium 143 mmol/L (135-145); Total Protein 7.2 g/dL (6.5-8.0)
[2023-02-06 16:33] LABS: VBG Base Excess 2.1 mmol/L; VBG HCO3 26 mmol/L (22-26); VBG pCO2 41 mmHg; VBG pH 7.41 (7.32-7.43); VBG pO2 42 mmHg
[2023-02-06 16:37] LABS: Troponin-I High Sensitivity 18.8 ng/L (<3.5-17.0)
[2023-02-06 16:44] LABS: Venous Blood Gas Refer to POC result
[2023-02-06 18:06] VITALS: BP 119/64; PULSE 71; RESP 16; O2SAT 97
[2023-02-06] MEDS: Potassium Chloride ER 20 MEQ TAB.ER.PRT 40 MEQ PO (18:36)
[2023-02-06 19:27] LABS: Troponin-I High Sensitivity 31.5 ng/L (<3.5-17.0)
[2023-02-06 21:42] VITALS: BP 124/61; PULSE 74; RESP 17; TEMP 36.7; O2SAT 97
[2023-02-06] MEDS: iohexoL 350 MG/ML 100 ML INFUS..BTL IV (22:22)
[2023-02-06 23:32] LABS: Troponin-I High Sensitivity 21.2 ng/L (<3.5-17.0)
== END 2023-02-06 23:59 | disposition home or self-care (01) ==
PROVIDERS: Physician Assistant Medical; Student in an Organized Health Care Education/Training Program; Emergency Provider Emergency Medicine
DX: M54.9 Dorsalgia, unspecified (principal); F41.9 Anxiety disorder, unspecified; R07.9 Chest pain, unspecified; I10 Essential (primary) hypertension; E78.5 Hyperlipidemia, unspecified; Z79.82 Long term (current) use of aspirin; Z79.899 Other long term (current) drug therapy
CPT/HCPCS: 36415; 70450; 71046; 72100; 74177; 80048; 80076; 81003; 82803; 83605; 83690; 83735; 84484; 85025; 87040; 87147; 87205; 93005; 96372; 99284; J2060; Q9967

== ENCOUNTER → 2023-03-02 08:56 | Outpatient (REF) | payer OTHER, MEDICAID, SELFPAY ==
--- NOTE | 2023-03-02 08:59 | CA_ITS ---
Acquisition Time: 2023-03-02 09:30:35 Total Exercise Time: 00:00:31 Test Indications: CHEST PAIN Medications: Protocol: LEONARDA Max HR: 096 BPM 67% of Pred: 142 BPM Max BP: 138/080 mmHG Max Work Load: 1.0 METS Exercise stress test with exercise only a few seconds on treadmill with difficulty manuevering treadmill walking and reports pain in right knee. No chest discomfort, with isolated PVCs, with normal range BP, with nondiagnostic EKG for ischemia. Inconclusive test. Test reviewed with Dr Castillo. Referred By: Nathaly Boston Overread By: GAURANG BARR
== END ==
LOC: HO.CARD 08:56
PROVIDERS: Visit Provider Nurse Practitioner Primary Care
DX: R77.8 Other specified abnormalities of plasma proteins (principal)
CPT/HCPCS: 93017

== ENCOUNTER 2023-03-30 12:48 | Outpatient (REF) | payer OTHER, MEDICAID, SELFPAY ==
--- NOTE | ~2023-03-30 | MM_ITS ---
EXAMINATION: MM SCREENING DIGITAL BREAST TOMOSYNTHESIS, BILATERAL CLINICAL INFORMATION: Screening. Asymptomatic. The 1.5 lifetime risk of breast cancer based on the Tyrer-Cuzick Model is 1.5%. COMPARISON: Mammography: This study is compared with prior exams dating back to 2018. TECHNIQUE: Digital breast tomosynthesis is performed in both the craniocaudal and mediolateral oblique views along with computer-aided detection (CAD). Synthesized 2D images are generated from the tomosynthesis. FINDINGS: There are scattered areas of fibroglandular density (ACR BI-RADS breast composition Category b). There are no significant masses, abnormal calcifications, or other abnormalities. MM/MM tomosynthesis screening BI IMPRESSION: No mammographic evidence of malignancy. ASSESSMENT: BI-RADS BI-RADS 1 - Negative RECOMMENDATION: Routine annual mammography screening. 1 year F/U This examination should not preclude the clinical evaluation of a suspicious palpable abnormality. This patient's information was entered into a reminder system with a target due date for their next mammogram.
== END 2023-03-30 12:49 | disposition home or self-care (01) ==
LOC: HO.MAMMO 12:48
PROVIDERS: Visit Provider Nurse Practitioner Primary Care
DX: Z12.31 Encounter for screening mammogram for malignant neoplasm of breast (principal)
CPT/HCPCS: 77063; 77067

== ENCOUNTER → 2023-03-30 13:00 | Outpatient (BNV) | payer OTHER, MEDICAID, SELFPAY | PROVIDERS: Visit Provider Radiology Diagnostic Radiology | DX: Z12.31 Encounter for screening mammogram for malignant neoplasm of breast (principal) | CPT/HCPCS: 77063; 77067 ==

== ENCOUNTER 2023-06-11 10:55 | Outpatient (REF) | payer OTHER, SELFPAY ==
--- NOTE | ~2023-06-11 | MR_ITS ---
EXAMINATION: MR BRAIN WITHOUT CONTRAST CLINICAL INFORMATION: Rapidly progressing memory loss. Suspected dementia. COMPARISON: CT head 02/06/2023. TECHNIQUE: Multiplanar MR imaging of the brain was performed without contrast. FINDINGS: There is disproportionate loss of volume within both temporal lobes and hippocampi with corresponding ex vacuo enlargement of the temporal horns of the lateral ventricles. This finding is well depicted on axial T2 FLAIR image 8 of 24 series 5 and on coronal T2 FLAIR image 16 of 30 series 9. No hydrocephalus or abnormal extra-axial collection. No intracranial mass effect or midline shift. Midline structures including the cervicomedullary junction are normal. No acute bone marrow signal changes. There is no acute territorial infarct. No pathological magnetic susceptibility artifact. Intracranial vascular flow voids are grossly maintained. There is no mastoid middle ear effusion. No active paranasal sinus disease. Globes and orbits are unremarkable. MR/MR head/brain wo con IMPRESSION: There is disproportionate loss of volume within both temporal lobes and hippocampi with corresponding ex vacuo enlargement of the temporal horns of the lateral ventricles which represents a substantial change when compared to prior MR imaging of the brain from 06/24/2017. This finding suggests the possibility of an underlying mesial temporal lobe focused neurodegenerative disease. A dedicated brain MRI with automated anatomic segmentation and volumetric analysis can be obtained to corroborate this suspicion if necessary. Otherwise unremarkable examination. No evidence of acute territorial infarct or hemorrhage.
== END 2023-06-11 10:56 | disposition home or self-care (01) ==
LOC: HO.MRI 10:55
PROVIDERS: PCP Nurse Practitioner Primary Care; Visit Provider Nurse Practitioner Primary Care
DX: R41.9 Unspecified symptoms and signs involving cognitive functions and awareness (principal); F03.B0 Unspecified dementia, moderate, without behavioral disturbance, psychotic disturbance, mood disturbance, and anxiety
CPT/HCPCS: 70551

== ENCOUNTER 2023-07-13 14:31 | Emergency (ER) | payer OTHER, SELFPAY ==
[2023-07-13 14:44] VITALS: BP 129/61; BP 161/65; PULSE 66; PULSE 70; RESP 16; TEMP 36.4; O2SAT 100; O2SAT 98; BMI 29.4
--- NOTE | 2023-07-13 14:45 | ECG_ITS ---
Test Reason : general medical Blood Pressure : / mmHG Vent. Rate : 068 BPM Atrial Rate : 000 BPM P-R Int : 000 ms QRS Dur : 086 ms QT Int : 442 ms P-R-T Axes : 000 068 -20 degrees QTc Int : 469 ms Accelerated Junctional rhythm with retrograde conduction ST & T wave abnormality, consider inferior ischemia Abnormal ECG When compared with ECG of 06-FEB-2023 15:40, Junctional rhythm has replaced Sinus rhythm Questionable change in QRS axis T wave inversion now evident in Inferior leads Referred By: Marleni Goodwin Electronically Signed By:LUCILLE STEWART MD
--- NOTE | 2023-07-13 14:48 | ED_ITS ---
HPI - General Adult General Chief complaint: Anxiety Stated complaint: MUSCLE SPASMS, ANXIETY Time Seen by Provider: 07/13/23 14:37 Source: family and EMS Mode of arrival: EMS Limitations: other (Anxiety) History of Present Illness HPI narrative: Patient comes to the emergency room via ambulance from the [facility]. According to EMS and the patient's who is at the bedside, today the patient had an appointment with her primary care physician because she has been complaining of severe anxiety and muscle cramping. Today, when they were about to do some blood work, patient had a full panic attack, the ambulance was called and asked EMS to bring her to the emergency room. Related Data Home Medications Medication Instructions Recorded Confirmed amlodipine 5 mg tablet 5 mg PO DAILY 07/12/20 08/01/21 aspirin 81 mg tablet,delayed 81 mg PO DAILY 07/12/20 08/01/21 release bisacodyl 5 mg tablet,delayed 5 mg PO BEDTIME 07/12/20 08/01/21 release (Dulcolax (bisacodyl)) diclofenac sodium 1 % topical gel 2 g topical QID 07/12/20 08/01/21 (Voltaren) metoprolol succinate 25 mg 25 mg PO DAILY 07/12/20 08/01/21 tablet,extended release 24 hr B-complex with vitamin C 1 tab PO QAM 08/01/21 08/01/21 acetaminophen 650 mg 1 tab PO Q8H PRN Pain 08/01/21 08/01/21 tablet,extended release (Arthritis Pain Relief (acetaminophen) ER) ergocalciferol (vitamin D2) 1,250 1 cap PO QWEEK 08/01/21 08/01/21 mcg (50,000 unit) capsule gabapentin 300 mg capsule 1 cap PO TID 08/01/21 08/01/21 hydrochlorothiazide 12.5 mg capsule 1 cap PO QAM 08/01/21 08/01/21 meclizine 25 mg tablet 1 tab PO Q8H PRN Vertigo 08/01/21 08/01/21 multivitamin 1 tab PO QAM 08/01/21 08/01/21 sertraline 25 mg tablet 1 tab PO QAM 08/01/21 08/01/21 latanoprost 0.005 % eye drops 0 drp ophthalmic (eye) 10/11/21 timolol maleate 0.5 % eye drops 0 drp ophthalmic (eye) 10/11/21 Previous Rx's Medication Instructions Recorded cefuroxime axetil 250 mg tablet 250 mg PO BID 7 days #14 tabs 10/17/22 ondansetron 4 mg disintegrating 4 mg PO Q6-8H PRN nausea and 10/17/22 tablet vomiting #10 tabs Allergies Allergy/AdvReac Type Severity Reaction Status Date / Time ibuprofen Allergy Intermediate tachycardia/GI Verified 12/23/22 13:27 upset Review of Systems 2 Review of Systems: Constitutional : No Weight loss, No Fever, No Chills, No Night Sweats, No Fatigue, No Malaise ENT/Mouth : No Hearing loss, No Ear Pain, No Nasal Congestion, No Sinus Pain, No Hoarseness, No sore throat, No Rhinorrhea, No Swallowing Difficulty Eyes: No Eye Pain, No Swelling, No Redness, No Foreign Body, No Discharge, No Vision Changes Cardiovascular : No Chest Pain, No SOB, No Dyspnea on Exertion, No Orthopnea, No Edema, No Palpitations Respiratory : No Cough, No Sputum, No Wheezing, No Smoke Exposure, No Dyspnea Gastrointestinal : No Nausea, No Vomiting, No Diarrhea, No Constipation, No abdominal Pain, No Hematochezia, No Melena Genitourinary : no irregular bleeding, No Dysuria, No Urinary Frequency, No Hematuria, No Urinary Incontinence, No Urgency, No Flank Pain, No Urinary Flow Changes, No Hesitancy Musculoskeletal : Complaining of muscle cramping especially in hands, No joint pain, No Myalgias, No Joint Swelling Skin : No Skin Lesions, No rash Neuro : No Weakness, No Numbness, No Paresthesias, No Loss of Consciousness, No Dizziness, No Headache Psych : Complaining of panic attack, No Depression, No SI/HI/AH/VH, No Social Issues, Heme/Lymph: No Bruising, No Bleeding,No Lymphadenopathy Endocrine : No Polyuria, No Polydipsia, No Temperature Intolerance [facility] Past Medical History Medical History COVID-19 vaccine series completed Hx of fracture of tibia Varicose veins of both lower extremities Osteoarthritis Hyperlipidemia Depression Insomnia Dizziness Allergic rhinitis HTN (hypertension) Neck pain Lumbar spondylolysis Fibromyalgia Surgical History H/O colonoscopy Hx of tubal ligation Hx of cholecystectomy Family History Family History Father Cancer Mother Depression Sister HTN (hypertension) Heart disease Brother Diabetes Social History Social History Are you a primary care program director to a significant other at home: No Do you presently have visiting nurse or other home services: No Alcohol intake: never Patient Tobacco Use Status: Never used Tobacco Advance Directives: No Advance Directives Information Provided: No Physical Exam ED Vital Signs: Vital Signs - 24 hr 07/13/23 14:44 07/13/23 15:11 Temperature 97.6 F 97.7 F Pulse Rate 66 68 Respiratory Rate 16 16 Blood Pressure 129/61 122/68 Pulse Oximetry 100 99 Oxygen Delivery Method Room Air BMI result Body Mass Index 29.4 Const Other: Appearance: Alert. Very anxious, not answering any questions, mumbling Eyes: Pupils equal, round and reactive to light. ENT: Pharynx normal. Neck: Normal inspection. Neck supple. No lymph nodes noted. No crepitus CVS: Normal heart rate and rhythm. Pulses normal. Normal S1 and S2 Respiratory: No respiratory distress. Breath sounds normal. No Wheezing. No rales Abdomen: Soft and nontender. No rigidity. No distention. Skin: Skin warm and dry. Normal skin color. Normal skin turgor. Extremities: No lower extremity edema. No Lacerations. No Rash Neuro: Patient very anxious, having a panic attack, unable to participate in cranial nerve assessment, moving all extremities spontaneously Psych: Having a panic attack Course Course Course Narrative: - Medications Administered Discontinued Medications Generic Name Dose Route Start Last Admin Trade Name Freq PRN Reason Stop Dose Admin Lorazepam 1 mg 07/13/23 14:54 07/13/23 15:00 Lorazepam 1 Mg Tablet PO 07/13/23 14:55 1 mg ONCE ONE Administration Medical Decision Making Medical Decision Making [facility] Narrative: -my interpretation of labs, hematology and chemistry at baseline, normal electrolytes. -seems that when patient gets very anxious, she has cramping, likely secondary to muscle spasms. Patient will follow-up with the primary care physician. -I offered to the patient and her daughter eye care consult to start the process of getting the patient a therapist for anxiety. Patient states that she will call her primary care physician and go from there. At this time, care consult was respectfully declined -patient feels well enough to be discharged. Patient now calm, cooperative, no longer anxious, vital stable -patient has trace UTI, now that she is able to talk and is no longer anxious, patient denies UTI symptoms, diabetic not indicated at this time Differential Diagnosis Differential Diagnoses: The differential diagnosis associated with the presentation includes (Anxiety, panic attacks, depression, electrolyte imbalance, UTI) Admission/Observation Consideration of admission/observation: Escalation of care including admission/observation considered (observation in the Behavioral Health pod/care team consult offered, patient respectfully declined) Lab Data MDM Lab Attestation statement: I reviewed the patient's lab results. 07/13/23 15:47 07/13/23 15:47 Labs: Lab Results 07/13/23 Range/Units 15:47 WBC 3.0 L (4.8-10.8) X10*3/uL RBC 4.43 (4.20-5.50) X10*6/uL Hgb 13.7 (12.0-16.0) g/dl Hct 40.8 (37.0-47.0) % MCV 92.1 (80.0-98.0) fL MCH 30.9 (27.0-33.0) pg MCHC 33.6 (31.0-35.0) g/dl RDW 14.6 (11.0-16.0) % Plt Count 211 (160-400) X10*3/uL MPV 9.0 L (9.4-12.3) fL Immature Gran % (Auto) 0.0 (0.0-0.4) % Neut % (Auto) 62.0 (45-73) % Lymph % (Auto) 23.4 (20-40) % [place] % (Auto) 13.6 H (2-11) % Eos % (Auto) 0.7 (0-4) % Baso % (Auto) 0.3 (0-2) % Lymph # (Auto) 0.7 L (1.2-4.9) X10*3/uL [place] # (Auto) 0.4 (0.1-1.2) X10*3/uL Eos # (Auto) 0.0 (0.0-0.4) X10*3/uL Baso # (Auto) 0.0 (0.0-0.2) X10*3/uL Abs Immat Gran (auto) 0.00 (0.00-0.03) X10*3/uL Absolute Neuts (auto) 1.8 L (2.0-8.3) x10*3/uL Absolute Nucleated RBC 0.000 (0.0-0.012) X10*3/uL Nucleated RBC % (auto) 0.0 (0.0-0.2) /100WBC Sodium 142 (135-145) mmol/L Potassium 3.2 L (3.3-5.1) mmol/L Chloride 106 (96-108) mmol/L Carbon Dioxide 24 (22-29) mmol/L Anion Gap 15 (12-20) BUN 14 (9-16) mg/dL Creatinine 0.86 (0.5-1.4) mg/dL Estim Creat Clear Calc 52.3 Estimated GFR > 60 Random Glucose 114 (60-115) mg/dL Calcium 10.2 D (8.4-10.2) mg/dL Magnesium 2.0 (1.6-2.6) mg/dL Total Bilirubin 1.3 H (0.0-1.0) mg/dL Direct Bilirubin 0.4 (0.0-0.5) mg/dL AST 30 (5-31) U/L ALT 24 (0-31) U/L Alkaline Phosphatase 102 (39-117) U/L Troponin I High Sens 3.6 D (<3.5-17.0) ng/L Total Protein 7.6 (6.5-8.0) g/dL Albumin 4.0 (3.5-5.0) g/dL Urine Color Yellow Urine Appearance Clear Urine pH 8.0 (5.0-9.0) Ur Specific [place] 1.015 (1.005-1.025) Urine Protein Negative (Neg-Trace) mg/dL Urine Glucose (UA) Negative (Negative) mg/dL Urine Ketones Negative (Negative) mg/dL Urine Blood Negative (Negative) Urine Nitrite Negative (Negative) Ur Leukocyte Esterase Trace H (Negative) Urine RBC 0-2 (0-2) /HPF Urine WBC 0-5 (0-5) /HPF Ur Squamous Epith Cells 6-10 (0-2) /HPF Urine Bacteria Trace (None Seen) Hyaline Casts 0-2 (0-2) /LPF Urine Opiates Screen Not Detected (Not Detect) Urine Fentanyl Screen Not Detected (Not Detect) Ur Barbiturates Screen Not Detected (Not Detect) Ur Phencyclidine Scrn Not Detected (Not Detect) Ur Amphetamines Screen Not Detected (Not Detect) U Benzodiazepines Scrn Not Detected (Not Detect) Urine Cocaine Screen Not Detected (Not Detect) U Marijuana (THC) Screen Not Detected (Not Detect) Ethyl Alcohol < 10 mg/dL Critical Care Time Critical Care Time Critical Care Time: Yes Total Critical Care Time: 30 Attestation: I have personally provided critical care time. Time includes review of lab data, radiology results, discussion with consultants, and monitoring for potential decompensation. Intervention performed as documented. Discharge Plan Discharge Clinical Impression: Anxiety Patient Disposition: Home, Self-Care Instructions: Anxiety (ED) Additional Instructions: Please follow-up with your primary care physician tomorrow. If you have any worsening or new symptoms, please return to the emergency room or call 911 Prescriptions: No Action acetaminophen [Arthritis Pain Relief (acetam)] 650 mg tablet extended release 1 tab PO Q8H PRN (Reason: Pain) multivitamin Tablet 1 tab PO QAM meclizine 25 mg tablet 1 tab PO Q8H PRN (Reason: Vertigo) hydrochlorothiazide 12.5 mg capsule 1 cap PO QAM gabapentin 300 mg capsule 1 cap PO TID sertraline 25 mg tablet 1 tab PO QAM ergocalciferol (vitamin D2) 1,250 mcg (50,000 unit) capsule 1 cap PO QWEEK B-complex with vitamin C Tablet 1 tab PO QAM cefuroxime axetil 250 mg tablet 250 mg PO BID 7 Days Qty: 14 0RF ondansetron 4 mg tablet,disintegrating 4 mg PO Q6-8H PRN (Reason: nausea and vomiting) Qty: 10 0RF amlodipine 5 mg tablet 5 mg PO DAILY diclofenac sodium [Voltaren] 1 % gel 2 g topical QID Rx Instructions: apply to single elbow, wrist or hand; for hand includes palm/fingers/back of hand bisacodyl [Dulcolax (bisacodyl)] 5 mg tablet,delayed release (DR/EC) 5 mg PO BEDTIME metoprolol succinate 25 mg tablet extended release 24 hr 25 mg PO DAILY aspirin 81 mg tablet,delayed release (DR/EC) 81 mg PO DAILY timolol maleate 0.5 % drops 0 drp ophthalmic (eye) latanoprost 0.005 % drops 0 drp ophthalmic (eye)
[2023-07-13] MEDS: LORazepam 1 MG TABLET PO (15:00)
[2023-07-13 15:11] VITALS: BP 122/68; PULSE 68; RESP 16; TEMP 36.5; O2SAT 99
[2023-07-13 15:53] LABS: MANUAL DIFF FLAG NO
[2023-07-13 15:57] LABS: Basophils Percent Auto 0.3 % (0-2); Eosinophils Percent Auto 0.7 % (0-4); Hematocrit 40.8 % (37.0-47.0); Hemoglobin 13.7 g/dl (12.0-16.0); Lymphocytes Absolute Auto 0.7 X10*3/uL (1.2-4.9); Lymphocytes Percent Auto 23.4 % (20-40); Mean Corpuscular HGB Conc 33.6 g/dl (31.0-35.0); Mean Corpuscular Hemoglobin 30.9 pg (27.0-33.0); Mean Corpuscular Volume 92.1 fL (80.0-98.0); Monocytes Absolute Auto 0.4 X10*3/uL (0.1-1.2); Monocytes Percent Auto 13.6 % (2-11); Neutrophils Absolute Auto 1.8 x10*3/uL (2.0-8.3); Platelet Count 211 X10*3/uL (160-400); Red Blood Count 4.43 X10*6/uL (4.20-5.50); Red Cell Distribution Width 14.6 % (11.0-16.0)
[2023-07-13 16:01] LABS: Appearance Urine Clear; Color Urine Yellow; Glucose Urine UA Negative (Negative); Leukocyte Esterase Urine Trace (Negative); Nitrite Urine Negative (Negative); Specific Gravity - Urine 1.015 (1.005-1.025); UMIC TRIGGER UACC YES; Urine Blood Negative (Negative); Urine Ketones Negative (Negative); Urine Protein Negative (Neg-Trace)
[2023-07-13 16:05] LABS: Amphetamine Screen Urine Not Detected (Not Detect); Bacteria Urine Trace (None Seen); Barbiturates, Urine Not Detected (Not Detect); Benzodiazepines Screen Urine Not Detected (Not Detect); Cannabinoid Screen Urine Not Detected (Not Detect); Cocaine Screen Urine Not Detected (Not Detect); Fentanyl, urine Not Detected (Not Detect); Hyaline Casts Urine 0-2 /LPF (0-2); Opiate Screen Urine Not Detected (Not Detect); Phencyclidine Screen Urine Not Detected (Not Detect); RBC Urine 0-2 /HPF (0-2); WBC Urine 0-5 /HPF (0-5)
[2023-07-13 16:10] LABS: Alanine Aminotransferase 24 U/L (0-31); Alkaline Phosphatase 102 U/L (39-117); Anion Gap 15 (12-20); Aspartate Amino Transferase 30 U/L (5-31); Bilirubin Direct 0.4 mg/dL (0.0-0.5); Bilirubin Total 1.3 mg/dL (0.0-1.0); Blood Urea Nitrogen 14 mg/dL (9-16); Calcium 10.2 mg/dL (8.4-10.2); Carbon Dioxide 24 mmol/L (22-29); Chloride 106 mmol/L (96-108); Creatinine Clr Calc Pharmacy 52.3; Estimated Glomerular Filt Rate > 60; Ethanol < 10 mg/dL; Glucose Random 114 mg/dL (60-115); Potassium 3.2 mmol/L (3.3-5.1); Sodium 142 mmol/L (135-145); Total Protein 7.6 g/dL (6.5-8.0)
[2023-07-13 16:15] LABS: Troponin-I High Sensitivity 3.6 ng/L (<3.5-17.0)
[2023-07-13 17:14] VITALS: BP 137/78; PULSE 57; RESP 16; TEMP 36.8; O2SAT 98
== END 2023-07-13 17:25 | disposition home or self-care (01) ==
PROVIDERS: Emergency Provider Emergency Medicine; PCP Nurse Practitioner Family
DX: F41.1 Generalized anxiety disorder (principal); F43.0 Acute stress reaction; M62.838 Other muscle spasm; F41.0 Panic disorder [episodic paroxysmal anxiety]; R94.31 Abnormal electrocardiogram [ECG] [EKG]; Z79.899 Other long term (current) drug therapy
CPT/HCPCS: 36415; 80048; 80076; 80307; 81001; 81003; 83735; 84484; 85025; 93005; 99283; 99284

== ENCOUNTER 2023-07-13 18:57 | Outpatient (REF) | payer OTHER, SELFPAY ==
[2023-07-13 19:35] LABS: Appearance Urine Cloudy; Color Urine Dark Yellow; Glucose Urine UA Negative (Negative); Leukocyte Esterase Urine Trace (Negative); Nitrite Urine Negative (Negative); PH 6.5 (5.0-9.0); Specific Gravity - Urine 1.025 (1.005-1.025); UMIC TRIGGER UACC YES; Urine Blood Negative (Negative); Urine Ketones Trace mg/dL (Negative); Urine Protein Trace mg/dL (Neg-Trace)
[2023-07-13 19:43] LABS: Bacteria Urine 4+ (None Seen); Calcium Oxalate Crystals Urine Present; Squamous Epithelial Cell Urine >20 /HPF (0-2); WBC Urine 0-5 /HPF (0-5)
== END 2023-07-13 18:58 | disposition home or self-care (01) ==
LOC: HO.HHCLNP 18:57
PROVIDERS: Visit Provider Emergency Medicine
DX: R25.2 Cramp and spasm (principal)
CPT/HCPCS: 81001

== ENCOUNTER 2023-09-04 10:51 | Outpatient (REF) | payer OTHER, SELFPAY ==
--- NOTE | ~2023-09-04 | MR_ITS ---
MRI BRAIN WITHOUT CONTRAST: NEUROQUANT CLINICAL INFORMATION: Moderate dementia. COMPARISON: Brain MRI 06/11/2023. TECHNIQUE: High-resolution anatomic imaging was performed through the brain and images were submitted for post processing including auto-segmentation and volumetric analysis. FINDINGS: Baseline NeuroQuant volumetric assessment of the hippocampi was subsequently performed. Quantitative hippocampal volumes are estimated at an age-adjusted normative percentile of 10%. Lateral ventricular size is estimated at a normative percentile rank of 59%, and the inferior lateral ventricles are estimated at 95%. Hippocampal occupancy score is in the 5th percentile. Additional diagnostic brain MR findings are better characterized on the 06/11/2023 brain MRI. MR/MR brain wo con w neuroquant IMPRESSION: There is disproportionate hippocampal volume loss and disproportionate exvacuodilatation of the inferior lateral ventricles with respect to the remaining lateral ventricular system. Imaging findings are suspicious for a developing mesial temporal focus neurodegenerative process and serial neuro quantitative imaging could be obtained as clinically indicated.
== END 2023-09-04 10:52 | disposition home or self-care (01) ==
LOC: HO.MRI 10:51
PROVIDERS: PCP Nurse Practitioner Family; Visit Provider Nurse Practitioner Primary Care
DX: R90.89 Other abnormal findings on diagnostic imaging of central nervous system (principal)
CPT/HCPCS: 70551; 76377

== ENCOUNTER 2023-11-16 14:03 | Outpatient (AMB) | payer OTHER, SELFPAY ==
--- NOTE | 2023-11-16 14:08 | MHC.OFFVIS ---
Intake Vital Signs 11/16/23 14:15 Height 53 ft Weight 162 lb BMI 0.3 BP 140/74 H Blood Pressure Location Lt brachial Position Sitting Pulse 79 Intake Visit Reasons: Colonoscopy Screening Intake Note: Patient pre colonoscopy 3rd pre colonoscopy screening. Patient cc: Chronic LBP and denies any other GI issues. Net Web Application Developer Required: Yes Net Web Application Developer Name: Andreina [id number] [place] [facility] [place] Accompanied by: Self / Same As Patient Allergies ibuprofen Allergy (Intermediate, Verified 11/16/23 14:07) tachycardia/GI upset Medication List - Last Reconciled 11/16/23 by Bella Taylor PA-C acetaminophen ER (Arthritis Pain Relief (acetaminophen) ER) 1 tab PO Q8H PRN amlodipine 5 mg PO DAILY aspirin 81 mg PO DAILY B-complex with vitamin C 1 tab PO QAM bisacodyl (Dulcolax (bisacodyl)) 5 mg PO BEDTIME cefuroxime axetil 250 mg PO BID 7 days diclofenac sodium 1% (Voltaren) 2 grams topical QID ergocalciferol (vitamin D2) 1 cap PO QWEEK gabapentin 1 cap PO TID hydrochlorothiazide 1 cap PO QAM latanoprost 0.005% 0 drps ophthalmic (eye) meclizine 1 tab PO Q8H PRN metoprolol succinate ER 25 mg PO DAILY multivitamin 1 tab PO QAM ondansetron 4 mg PO Q6-8H PRN sertraline 1 tab PO QAM timolol maleate 0.5% 0 drps ophthalmic (eye) HPI HPI Comments History of Present Illness Details A 78 y/o female referred for screening colonoscopy-she is with her -She complains bitterly LBP for many years-, she has had injections. She and her expressed their dissatisfaction because she was expecting treatment for her back pain 2 day. She declines any GI complaints. Her bowels are normal appetite is good She has no abdominal pain. 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 She does not know what medications she takes she is unable to review her list with me. She has no nausea, vomiting, abdominal pain, hematemesis, hematochezia fever or chills PFSH Medical History COVID-19 vaccine series completed Hx of fracture of tibia Varicose veins of both lower extremities Osteoarthritis Hyperlipidemia Depression Insomnia Dizziness Allergic rhinitis HTN (hypertension) Neck pain Lumbar spondylolysis Fibromyalgia Surgical History H/O colonoscopy Hx of tubal ligation Hx of cholecystectomy Family History Father Cancer Mother Depression Sister HTN (hypertension) Heart disease Brother Diabetes Social History (Updated 11/16/23 @ 14:36 by Bella Taylor PA-C) Household Members Other:: Are you a primary progressive care unit registered nurse to a significant other at home: No Do you presently have visiting nurse or other home services: No Alcohol intake: never Patient Tobacco Use Status: Never used Tobacco Review of Systems Const All systems reviewed & are unremarkable except as noted in HPI and below ENT Denies dysphagia, Denies dizziness and Denies odynophagia Card Denies chest pain and Denies dyspnea Resp Denies dyspnea GI Denies abdominal pain, Denies bloating, Denies hematochezia, Denies change in bowel habits, Denies change in stool character, Denies constipation, Denies GI cramping, Denies dysphagia, Denies early satiety, Denies heartburn, Denies diarrhea, Denies loose stools, Denies nausea, Denies odynophagia, Denies vomiting and Denies hematemesis Musc Reports abnormal gait, Reports back pain, Reports arthralgias and Reports stiffness Neuro Reports abnormal gait and Denies dizziness Physical Exam Vital Signs: Last Vital Signs Pulse 79 11/16/23 14:15 BP 140/74 H 11/16/23 14:15 BMI result Body Mass Index 0.3 Const General: cooperative, healthy appearing, comfortable and no acute distress Orientation/consciousness: patient oriented x3 Limitations: language barrier Eyes Sclerae: sclerae normal Resp Effort & Inspection: normal respiratory effort and able to speak in complete sentences Auscultation: clear to auscultation bilaterally, no rales, no rhonchi and no wheezes Cardio Rate: regular rate Rhythm: regular rhythm Heart sounds: S1 normal heart sound present and S2 normal heart sound present GI Palpation (GI): Soft to palpation and nontender Auscultation: normal bowel sounds Skin General skin exam: no rashes or lesions noted Neuro General: patient oriented x3 and No gait normal (Limp mild) Extrem General: Yes full ROM Psych Appearance: grossly normal and well kempt Mental Status: mental status grossly normal Speech and movement: Normal speech and movement present and Clear speech present Affect: normal affect Attitude: cooperative Thought process: Circumstantial thought process present Results Reviewed Results Reviewed: 01/2023-CT CT/CT abdomen pelvis w IV con IMPRESSION: Redemonstration of complex postoperative changes suggestive of prior partial right hepatectomy and hepaticojejunostomy. The residual liver parenchyma demonstrates a nodular contour that could be seen with cirrhosis, correlate with liver function tests. Recommend future evaluation with an elective dynamic abdominal MRI with and without IV contrast for evaluation of HCC. Diverticulosis without findings to suspect acute diverticulitis. No evidence of bowel obstruction. Assessment & Plan Assessment & Plan (1) Cirrhosis: Comment: Review of CT from 01/31/2023 nodular liver-patient unable to clarify she is being followed elsewhere. Code(s): K74.60 - Unspecified cirrhosis of liver Plan: Will just update CBC CMP as well as all get an AFP (2) Poor historian: Comment: Unable to assess appropriately, patient as well as unable to reconcile medications Clearly was referred for colonoscopy -seems to be consumed back pain-not allowing her to focus on today's appointment Code(s): Z78.9 - Other specified health status Plan: Bring updated med list next appointment Plan Hold off on scheduling colonoscopy-reinforced importance of follow up Await PCP input Orders: Orders Comprehensive Met. Panel 11/16/23 K74.60 - Unspecified cirrhosis of liver, Z78.9 - Other specified health status Alpha Fetoprotein 11/16/23 K74.60 - Unspecified cirrhosis of liver Complete Blood Count Auto Diff 11/16/23 K74.60 - Unspecified cirrhosis of liver Patient Instructions: Follow-up with PCP per discussion Accurate, updated medication list-bring to next appointment reinforced the importance of follow through and follow-up appointment Will have labs CBC, CMP and an AFP Will await PCP input-unsure of liver following (however CT back from 01/31/2023 likely was further evaluated possibly elsewhere) We had lengthy discussion regard to low back pain she will follow back with her PCP, who she has had a good rapport- as her expertise will serve her well. She and her are agreeable Encouraged to call with questions or concerns Coding Level of Care Code Est Pt Level 4 (47820) Diagnoses Cirrhosis K74.60 Poor historian Z78.9 Time Spent (min) 30 Comment [id number]
[2023-11-16 14:15] VITALS: BP 140/74; PULSE 79
== END 2023-11-16 14:49 | disposition home or self-care (01) ==
PROVIDERS: PCP Nurse Practitioner Family; Visit Provider Physician Assistant
DX: K74.60 Unspecified cirrhosis of liver (principal); Z78.9 Other specified health status
CPT/HCPCS: 99214

== ENCOUNTER → 2023-11-16 14:03 | Outpatient (BNVA) | payer OTHER, SELFPAY | PROVIDERS: PCP Nurse Practitioner Family; Visit Provider Physician Assistant | DX: K74.60 Unspecified cirrhosis of liver (principal); Z78.9 Other specified health status | CPT/HCPCS: 99212 ==

== ENCOUNTER 2024-01-21 08:13 | Outpatient (AMB) | payer OTHER, SELFPAY ==
--- NOTE | 2024-01-21 08:31 | MHC.OFFVIS ---
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 Patient reports ongoing pain for many years with history of going to [facility] and getting back injection. She expresses that the injections gave her relief which was about 2 years ago. Pain is mainly in her lower back which moves down to her right knee. 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 Allergies ibuprofen Allergy (Intermediate, Verified 01/21/24 08:36) tachycardia/GI upset Medication List - Last Reconciled 01/21/24 by Karime Zepeda MD acetaminophen ER (Arthritis Pain Relief (acetaminophen) ER) 1 tab PO Q8H PRN amlodipine 5 mg PO DAILY aspirin 81 mg PO DAILY B-complex with vitamin C 1 tab PO QAM bisacodyl (Dulcolax (bisacodyl)) 5 mg PO BEDTIME diclofenac sodium 1% (Voltaren) 2 grams topical QID ergocalciferol (vitamin D2) 1 cap PO QWEEK gabapentin 1 cap PO TID hydrochlorothiazide 1 cap PO QAM latanoprost 0.005% 0 drps ophthalmic (eye) meclizine 1 tab PO Q8H PRN metoprolol succinate ER 25 mg PO DAILY multivitamin 1 tab PO QAM ondansetron 4 mg PO Q6-8H PRN sertraline 1 tab PO QAM timolol maleate 0.5% 0 drps ophthalmic (eye) HPI Comments Details: Here with , who provided history. Last injection with [facility]. Last seen there 1 1/2 year ago, but has not returned due to distance/travel. Injection seemed to have lasted for a year at least, seemed to have been one on the leg and one on the lumbar . Pain started again 3 months ago. No inciting injuries. No recent falls. Pain in lower back, then down to the right leg. Always have affected right leg, with knee pain. Talks about past injury to right knee s/p surgery 1987. Patient says denies actual numbness, but says she puts pain and numbness together. says she does have dementia. Last MRI 1 year ago, but not sure. They don't have a copy of it. Cannot remember where/when last done. Last PT between 2021-. [facility] Medical History (Updated 01/21/24 @ 10:56 by Karime Zepeda MD) Chronic back pain Lumbar spondylosis COVID-19 vaccine series completed Hx of fracture of tibia Varicose veins of both lower extremities Osteoarthritis Hyperlipidemia Depression Insomnia Dizziness Allergic rhinitis HTN (hypertension) Neck pain Lumbar spondylolysis Fibromyalgia Surgical History H/O colonoscopy Hx of tubal ligation Hx of cholecystectomy Family History Father Cancer Mother Depression Sister HTN (hypertension) Heart disease Brother Diabetes Social History (Updated 01/21/24 @ 08:36 by Jasson Tejeda) Household Members Other:: Are you a primary pet care technician to a significant other at home: No Do you presently have visiting nurse or other home services: No Alcohol intake: current Alcohol intake frequency: holidays/special occasions only Patient Tobacco Use Status: Never used Tobacco Review of Systems Const All systems reviewed & are unremarkable except as noted in HPI and below Physical Exam Vital Signs: BMI result Body Mass Index 28.7 Constitutional: Patient appears to be in no acute distress, well nourished and well developed. Patient was appropriately conversant and oriented. Good historian. MSK: No specific abnormalities found on inspection of the spine and all extremities. No pain with palpation over the lumbar area. Lumbar ROM was full. Bilateral hip, knee and ankle ROM WNL. No ligamentous laxity or crepitance. No increased effusion. Straight-leg raising test negative. FABERE test negative. Strength is 5/5 in all muscle groups tested. No increased tone noted. Neurological: Neurologic examination of the upper and lower extremities was nonfocal with intact sensation, muscle stretch reflexes and without focal motor deficits . Reyes?s negative bilaterally. Babinski was down going bilaterally. Clonus was negative. Gait is non-antalgic without loss of balance. Results Reviewed Results Reviewed: I independently reviewed the results of the following: Last lumbar xray 2022 with decreased disc space L5-S1. Ordering Physician: Zeynep Newsome Date of Service: 02/06/23 Procedure(s): XR lumbar spine 2-3V Accession Number(s): [id number] cc: JerodZeynep PA~ EXAMINATION: XR LUMBOSACRAL SPINE CLINICAL INFORMATION: Back pain COMPARISON: X-ray 12/13/2020 TECHNIQUE: Three views of the lumbosacral spine. FINDINGS: Vertebral sagittal body alignment is maintained. Vertebral body heights are maintained. No evidence of acute compression fractures. Multilevel moderate to severe disc degenerative changes, with disc height loss, osteophytes and sclerosis. This includes severe L5-S1 disc degeneration. Multilevel facet degeneration. Mild levoconvex curvature. Mild bilateral SI joint arthritis. Surgical clips in the right upper quadrant. XR/XR lumbar spine 2-3V IMPRESSION: Moderate-severe lumbar spondylosis. No radiographic evidence of acute fracture. I reviewed records from the following: Vascular notes Assessment & Plan Assessment & Plan (1) Lumbar spondylosis: Code(s): M47.816 - Spondylosis without myelopathy or radiculopathy, lumbar region Category: Medical (2) Chronic back pain: Code(s): M54.9 - Dorsalgia, unspecified; G89.29 - Other chronic pain Category: Medical Qualifiers: Back pain location: low back pain Back pain laterality: right Sciatica presence: with sciatica Sciatica laterality: sciatica of right side Qualified Code(s): M54.41 - Lumbago with sciatica, right side; G89.29 - Other chronic pain Plan Chronic recurrent back pain, with tendency to radiate to right lower extremity. Previous injections with [facility] provided at least 1 year of relief. Last x-ray done in 2022. She was adamant she wanted repeat x-rays today. Referring her back to physical therapy. We may need lumbar MRI to be done before any injections. Discussed that spine injections are not done in this department. We will have to refer her to pain management if needed. Assessment and plan discussed with patient, and patient was agreeable. All questions were answered thoroughly. Follow-up 1-2 months, after PT. Karime Zepeda MD, SOFIA Board Certified, [place] [employer] and [employer] (ABPMR) Board Certified, [place] [employer] Electro[employer] (ABEM) Orders: Orders PT Evaluation and Treatment Today G89.29 - Other chronic pain, M47.816 - Spondylosis without myelopathy or radiculopathy, lumbar region, M54.9 - Dorsalgia, unspecified XR lumbar spine 2-3V Today M54.9 - Dorsalgia, unspecified Medications: Discontinued cefuroxime axetil Discontinued Reason: Patient Completed Course 250 mg PO BID 7 days 14 tabs 0RF Coding Level of Care Code New Pt Level 4 (22628) Diagnoses Lumbar spondylosis M47.816 Chronic right-sided low back pain with right-sided sciatica M54.41; G89.29 Back pain location: low back pain Back pain laterality: right Sciatica presence: with sciatica Sciatica laterality: sciatica of right side
[2024-01-21 08:36] VITALS: BMI 28.7
== END 2024-01-21 09:02 | disposition home or self-care (01) ==
PROVIDERS: PCP Nurse Practitioner Family; Visit Provider Physical Medicine & Rehabilitation
DX: M47.816 Spondylosis without myelopathy or radiculopathy, lumbar region (principal); M54.41 Lumbago with sciatica, right side; G89.29 Other chronic pain
CPT/HCPCS: 99204

== ENCOUNTER 2024-01-21 08:13 | Outpatient (REF) | payer OTHER, SELFPAY ==
--- NOTE | ~2024-01-21 | XR_ITS ---
EXAMINATION: XR LUMBOSACRAL SPINE CLINICAL INFORMATION: Back pain. COMPARISON: February 06, 2023. TECHNIQUE: Three views of the lumbosacral spine. FINDINGS: Mild S-shaped scoliosis. Bones are diffusely demineralized. Degenerative changes with sclerosis in the bilateral sacroiliac joints. Surgical clips in the right upper quadrant. Straightening of the normal lumbar lordosis. Facet arthritis in the lower lumbar spine. Advanced multilevel lumbar spondylosis with multilevel loss of disc space height most notable at L5-S1. Grade 1 anterolisthesis of L5 on S1. XR/XR lumbar spine 2-3V IMPRESSION: Advanced multilevel degenerative changes in the lumbar spine most severe at L5-S1.
== END 2024-01-21 08:14 | disposition home or self-care (01) ==
LOC: HO.HOSX 08:13
PROVIDERS: PCP Nurse Practitioner Family; Visit Provider Physical Medicine & Rehabilitation
DX: M51.37 Other intervertebral disc degeneration, lumbosacral region (principal)
CPT/HCPCS: 72100; 99202

== ENCOUNTER 2024-02-09 17:26 | Emergency (ER) | payer OTHER, SELFPAY ==
--- NOTE | ~2024-02-09 | CT_ITS ---
EXAMINATION: CT ANGIOGRAM HEAD CT ANGIOGRAM NECK CLINICAL INFORMATION: Reason for Exam AMS, dizzi, unbalanced, poor historian COMPARISON: Earlier same day noncontrast head CT TECHNIQUE: Initial noncontrast field operations supervisor imaging of the head and neck was performed. Comparison is made with noncontrast head CT from earlier today. Test bolus sequences followed by intravenous administration 70 mL of Omnipaque 350. Helical imaging was performed in the axial plane from the aortic arch to the skull vertex. Delayed postcontrast imaging of the head was also performed. The data was processed at the space technologist workstation for generation of MIP sequences. Angled MIPs and volume rendered reformatted images were also generated at an offline 3D workstation. Stenoses are assessed in accordance with NASCET criteria unless otherwise indicated. DLP: 1414 mGy-cm This CT examination was performed using dose optimization techniques as appropriate, variously including the following: *Automated exposure control. *Adjustment of mA and/or kV according to patient size (this includes techniques or standardized protocols for targeted exams where dose is matched to indication/reason for exam; i.e. extremities or head). *Use of iterative reconstruction technique. FINDINGS: CT Head: Postcontrast CT of the head is somewhat motion degraded. Please refer to report from immediately preceding noncontrast head CT. No abnormal intracranial enhancement. CT Neck: The thyroid gland and remaining cervical soft tissues are within normal limits. Multilevel cervical spondylosis. Bilateral cervical ribs are noted. CT Upper Chest: The visualized lung apices and upper mediastinum are within normal limits. Neck CTA: CTA of the neck is somewhat technically limited secondary to motion artifact. Assessment of the carotid bifurcations and proximal and mid cervical internal carotid arteries is most limited. Aortic Arch: Normal contour and caliber. Classic 3 vessel branching pattern of the aortic arch. Great Vessel Origins: No significant stenosis of the branch origins. Right Common Carotid Artery: No focal stenosis or occlusion. Cervical Right Internal Carotid Artery: Mild calcific atherosclerotic disease of the carotid bulb and proximal internal carotid artery without flow-limiting stenosis. Left Common Carotid Artery: No focal stenosis or occlusion. Cervical Left Internal Carotid Artery: Normal opacification without focal stenosis or occlusion. Cervical Right Vertebral Artery: No focal stenosis or occlusion. Cervical Left Vertebral Artery: Dominant. No focal stenosis or occlusion. Brain CTA: Intracranial Internal Carotid Arteries: No focal stenosis or occlusion. Right Anterior Cerebral Artery: Normal A1 segment. Normal opacification of the distal ERLIN segments. Left Anterior Cerebral Artery: Normal A1 segment. Normal opacification of the distal ERLIN segments. Anterior Communicating Artery: Normal. Right Middle Cerebral Artery: Normal M1 segment of the MCA without focal stenosis or occlusion. Normal arborization of the distal segments. Left Middle Cerebral Artery: Normal M1 segment of the MCA without focal stenosis or occlusion. Normal arborization of the distal segments. Right Vertebral Artery: Normal V4 segment. Left Vertebral Artery: Normal V4 segment. Basilar Artery: Normal without focal stenosis or occlusion. Normal appearance of the proximal superior cerebellar arteries. Right Posterior Cerebral Artery: Normal P1 segment. Normal opacification of the distal MENTAL TESTER segments. Left Posterior Cerebral Artery: Normal P1 segment. Normal opacification of the distal MENTAL TESTER segments. Normal opacification of the superior sagittal, straight, transverse, and sigmoid sinuses. CT/CT angio head neck stroke IMPRESSION: Somewhat technically limited assessment of the arteries in the neck secondary to artifact, most notably the carotid bifurcations and proximal and mid cervical internal carotid arteries. Within this limitation, no arterial high grade stenosis or large vessel occlusion in the head or neck is identified. Above impression was communicated to Dr Goodwin on 02/09/2024 6:08 PM
--- NOTE | ~2024-02-09 | CT_ITS ---
EXAMINATION: CT HEAD WITHOUT CONTRAST (STROKE PROTOCOL) CLINICAL INFORMATION: Stroke protocol. AMS, dizzi, unbalanced, poor historian COMPARISON: None available. TECHNIQUE: Contiguous axial imaging was performed from the skull base to vertex without intravenous administration of contrast. Coronal and sagittal reformatted images are performed at the CT scanner This CT examination was performed using dose optimization techniques as appropriate, variously including the following: *Automated exposure control *Adjustment of mA and/or kV according to patient size (this includes techniques or standardized protocols for targeted exams where dose is matched to indication/reason for exam; i.e. extremities or head) *Use of iterative reconstruction technique DLP: 689 mGy-cm FINDINGS: HEAD: No intracranial mass, hemorrhage, or midline shift is visualized. There is generalized global volume loss. There is mild prominence of the ventricles and the sulci . No extra-axial collections are identified. Normal variant of empty sella. The paranasal sinuses and mastoid air cells are well aerated. CT/CT head for stroke IMPRESSION: No acute intracranial pathology. This critical result was discussed with Dr. Goodwin at 1753 hours on 02/09/2024. It was ascertained that the content and urgency of the report was understood at the time of direct communication.
[2024-02-09 17:33] VITALS: BP 138/42; PULSE 88; O2SAT 97
--- NOTE | 2024-02-09 17:33 | ECG_ITS ---
Test Reason : AMS, STROKE? Blood Pressure : / mmHG Vent. Rate : 071 BPM Atrial Rate : 071 BPM P-R Int : 232 ms QRS Dur : 112 ms QT Int : 446 ms P-R-T Axes : 082 -29 068 degrees QTc Int : 484 ms Sinus rhythm with 1st degree A-V block Incomplete right bundle branch block Moderate voltage criteria for LVH, may be normal variant ( R in aVL , Alvaro product ) Borderline ECG When compared with ECG of 13-JUL-2023 15:18, Sinus rhythm has replaced Junctional rhythm Incomplete right bundle branch block is now Present Referred By: Marleni Goodwin Electronically Signed By:JONA ALFARO
[2024-02-09 17:40] LABS: Prothrombin Time Whole Bld POC 13.1 sec (11.1-13.5); ~PT, ~INR - Anti Coag Clinic 1.1 (0.9-1.1)
[2024-02-09 17:42] VITALS: BMI 30.8
--- NOTE | 2024-02-09 17:42 | ED.GENADULT ---
HPI - General Adult General Chief complaint: Stroke Stated complaint: ?STROKE Time Seen by Provider: 02/09/24 17:32 Source: EMS Mode of arrival: EMS Limitations: altered mental status History of Present Illness ED Provider: Dr. Marleni Goodwin HPI narrative: Patient comes to the emergency room by ambulance. According to the family, approximately 50 minutes prior to arrival, patient was walking, ambulating within normal limits, then she says she was not feeling well, sat down and close her eyes and refused to open them since then. Patient refusing to talk. Per EMS, patient's vital signs stable. Related Data Home Medications ?Medication ?Instructions ?Recorded ?Confirmed amlodipine 5 mg tablet 5 mg PO DAILY 07/12/20 01/21/24 aspirin 81 mg tablet,delayed 81 mg PO DAILY 07/12/20 01/21/24 release bisacodyl 5 mg tablet,delayed 5 mg PO BEDTIME 07/12/20 01/21/24 release (Dulcolax (bisacodyl)) diclofenac sodium 1 % topical gel 2 g topical QID 07/12/20 01/21/24 (Voltaren) metoprolol succinate 25 mg 25 mg PO DAILY 07/12/20 01/21/24 tablet,extended release 24 hr B-complex with vitamin C 1 tab PO QAM 08/01/21 01/21/24 acetaminophen 650 mg 1 tab PO Q8H PRN Pain 08/01/21 01/21/24 tablet,extended release (Arthritis Pain Relief (acetaminophen) ER) ergocalciferol (vitamin D2) 1,250 1 cap PO QWEEK 08/01/21 01/21/24 mcg (50,000 unit) capsule gabapentin 300 mg capsule 1 cap PO TID 08/01/21 01/21/24 hydrochlorothiazide 12.5 mg capsule 1 cap PO QAM 08/01/21 01/21/24 meclizine 25 mg tablet 1 tab PO Q8H PRN Vertigo 08/01/21 01/21/24 multivitamin 1 tab PO QAM 08/01/21 01/21/24 sertraline 25 mg tablet 1 tab PO QAM 08/01/21 01/21/24 latanoprost 0.005 % eye drops 0 drp ophthalmic (eye) 10/11/21 01/21/24 timolol maleate 0.5 % eye drops 0 drp ophthalmic (eye) 10/11/21 01/21/24 Previous Rx's ?Medication ?Instructions ?Recorded ondansetron 4 mg disintegrating 4 mg PO Q6-8H PRN nausea and 10/17/22 tablet vomiting #10 tabs Allergies Allergy/AdvReac Type Severity Reaction Status Date / Time ibuprofen Allergy Intermediate tachycardia/GI Verified 02/09/24 17:43 upset Review of Systems Review of Systems: Yes Unobtainable due to mental condition PMFSH Past Medical History Medical History Chronic back pain Lumbar spondylosis COVID-19 vaccine series completed Hx of fracture of tibia Varicose veins of both lower extremities Osteoarthritis Hyperlipidemia Depression Insomnia Dizziness Allergic rhinitis HTN (hypertension) Neck pain Lumbar spondylolysis Fibromyalgia Surgical History H/O colonoscopy Hx of tubal ligation Hx of cholecystectomy Family History Family History Father Cancer Mother Depression Sister HTN (hypertension) Heart disease Brother Diabetes Social History Social History (Updated 01/21/24 @ 08:36 by Jasson Tejeda) Household Members Other:: Are you a primary geriatric care manager to a significant other at home: No Do you presently have visiting nurse or other home services: No Alcohol intake: current Alcohol intake frequency: holidays/special occasions only Patient Tobacco Use Status: Never used Tobacco Advance Directives: No Advance Directives Information Provided: No Physical Exam ED Vital Signs: Vital Signs - 24 hr 02/09/24 19:02 02/09/24 20:32 02/09/24 20:32 Temperature Pulse Rate 74 77 81 Respiratory Rate 11 L Blood Pressure 139/67 144/73 H 151/97 H Pulse Oximetry 95 Oxygen Delivery Method Room Air 02/09/24 20:33 02/09/24 21:13 Temperature 98.4 F Pulse Rate 84 73 Respiratory Rate 13 Blood Pressure 144/76 H 151/77 H Pulse Oximetry 97 Oxygen Delivery Method Room Air BMI result Body Mass Index 30.8 Const Other: Appearance: Alert. Squeezing her eyes tied together, unwilling to open her eyes or answer. Eyes: With a lot of convincing, patient open her eyes, normal, reactive to light ENT: Pharynx normal. Neck: Normal inspection. Neck supple. No lymph nodes noted. No crepitus CVS: Normal heart rate and rhythm. Pulses normal. Normal S1 and S2 Respiratory: No respiratory distress. Breath sounds normal. No Wheezing. No rales Abdomen: Soft and nontender. No rigidity. No distention. Skin: Skin warm and dry. Normal skin color. Normal skin turgor. Extremities: No lower extremity edema. No Lacerations. No Rash Neuro: Patient uncooperative, unwilling to move Psych: Refusing to move or open her eyes Course Course Course Narrative: NIH score difficult to assess since patient is not cooperating Medications Administered Discontinued Medications Generic Name Dose Route Start Last Admin Trade Name Freq PRN Reason Stop Dose Admin Iohexol 100 ml 02/09/24 17:54 02/09/24 17:54 Iohexol 350 Mg/Ml 100 Ml Infus..Btl IV 02/09/24 17:55 70 ml ONCE ONE Administration Medical Decision Making Medical Decision Making [facility] Narrative: -I reviewed patient's past medical history and records. About 7 months ago, patient presented in a similar way. Patient had a panic attack. Patient presented very similar as today, mumbling, unwilling to open eyes or cooperate. After patient was able to relax, patient's physical exam returned to normal. -NIH difficult to calculate secondary to patient not cooperating. -overall, patient seems to have good strength in all extremities. At this time, I do not believe that patient has a stroke or TIA, patient likely had BPPV versus vertigo -my interpretation of EKG: Normal sinus rhythm, heart rate 71, no ST segment depression or elevation, no T-wave inversion, QTC 484, first-degree AV block -my interpretation of labs: Normal hematology and chemistry,, urinalysis negative for UTI, -I discussed the CT scan and the CTA with our radiologist on-call, no acute findings. -without any intervention, patient woke up, states she feels fine, patient was able to walk to the bathroom, gave us a urine sample, urinalysis, toxicology negative. -patient likely had a panic attack. -orthostatic vitals negative Differential Diagnosis Differential Diagnoses: The differential diagnosis associated with the presentation includes (As above) Admission/Observation Consideration of admission/observation: Escalation of care including admission/observation considered (Given patient's presentation, admission/observation considered) Lab Data MDM Lab Attestation statement: I reviewed the patient's lab results. 02/09/24 18:03 02/09/24 18:03 Labs: Lab Results 02/09/24 02/09/24 02/09/24 Range/Units 17:34 18:03 19:03 WBC 3.2 L (4.8-10.8) X10*3/uL RBC 4.03 L (4.20-5.50) X10*6/uL Hgb 12.6 (12.0-16.0) g/dl Hct 36.9 L (37.0-47.0) % MCV 91.6 (80.0-98.0) fL MCH 31.3 (27.0-33.0) pg MCHC 34.1 (31.0-35.0) g/dl RDW 13.9 (11.0-16.0) % Plt Count 196 (160-400) X10*3/uL MPV 9.3 L (9.4-12.3) fL Immature Gran % (Auto) 0.3 (0.0-0.4) % Neut % (Auto) 66.6 (45-73) % Lymph % (Auto) 18.8 L (20-40) % [place] % (Auto) 13.1 H (2-11) % Eos % (Auto) 0.6 (0-4) % Baso % (Auto) 0.6 (0-2) % Lymph # (Auto) 0.6 L (1.2-4.9) X10*3/uL [place] # (Auto) 0.4 (0.1-1.2) X10*3/uL Eos # (Auto) 0.0 (0.0-0.4) X10*3/uL Baso # (Auto) 0.0 (0.0-0.2) X10*3/uL Abs Immat Gran (auto) 0.01 (0.00-0.03) X10*3/uL Absolute Neuts (auto) 2.1 (2.0-8.3) x10*3/uL Absolute Nucleated RBC 0.000 (0.0-0.012) X10*3/uL Nucleated RBC % (auto) 0.0 (0.0-0.2) /100WBC PT 13.3 (11.1-13.3) SEC Whole Blood PT 13.1 (11.1-13.5) sec INR 1.1 (0.9-1.1) Whole Blood INR 1.1 (0.9-1.1) Sodium 137 (135-145) mmol/L Potassium 3.5 (3.3-5.1) mmol/L Chloride 105 (96-108) mmol/L Carbon Dioxide 21 L (22-29) mmol/L Anion Gap 15 (12-20) BUN 13 (9-16) mg/dL Creatinine 0.80 (0.5-1.4) mg/dL Estim Creat Clear Calc 54.6 Estimated GFR > 60 Random Glucose 131 H (60-115) mg/dL Lactic Acid 2.0 (0.5-2.0) mmol/L Calcium 8.8 D (8.4-10.2) mg/dL Magnesium 1.8 (1.6-2.6) mg/dL Total Bilirubin 0.7 (0.0-1.0) mg/dL Direct Bilirubin 0.3 (0.0-0.5) mg/dL AST 20 (5-31) U/L ALT 12 (0-31) U/L Alkaline Phosphatase 116 (39-117) U/L Ammonia 27 (13-55) umol/L Troponin I High Sens 4.6 (<3.5-17.0) ng/L Total Protein 6.7 (6.5-8.0) g/dL Albumin 3.6 (3.5-5.0) g/dL Urine Color Yellow Urine Appearance Clear Urine pH 7.5 (5.0-9.0) Ur Specific [place] >= 1.030 H (1.005-1.025) Urine Protein Negative (Neg-Trace) mg/dL Urine Glucose (UA) Negative (Negative) mg/dL Urine Ketones Trace (Negative) mg/dL Urine Blood Negative (Negative) Urine Nitrite Negative (Negative) Ur Leukocyte Esterase Negative (Negative) Urine Opiates Screen Not Detected (Not Detect) Ur Buprenorphine Scrn Not Detected (Not Detect) ng/mL Ur Oxycodone Screen Not Detected (Not Detect) ng/mL Urine Methadone Screen Not Detected (Not Detect) ng/mL Urine Fentanyl Screen Not Detected (Not Detect) Ur Barbiturates Screen Not Detected (Not Detect) Ur Phencyclidine Scrn Not Detected (Not Detect) Ur Amphetamines Screen Not Detected (Not Detect) U Benzodiazepines Scrn Not Detected (Not Detect) Urine Cocaine Screen Not Detected (Not Detect) U Marijuana (THC) Screen Not Detected (Not Detect) Ethyl Alcohol < 10 mg/dL Independent Interpretation I performed an independent interpretation of an: CT Scan Radiology Impression Discussion of test interpretation with radiology: I have reviewed the radiologist's reading. Radiologist Impression: CT Head: Postcontrast CT of the head is somewhat motion degraded. Please refer to report from immediately preceding noncontrast head CT. No abnormal intracranial enhancement. CT Neck: The thyroid gland and remaining cervical soft tissues are within normal limits. Multilevel cervical spondylosis. Bilateral cervical ribs are noted. CT Upper Chest: The visualized lung apices and upper mediastinum are within normal limits. Neck CTA: CTA of the neck is somewhat technically limited secondary to motion artifact. Assessment of the carotid bifurcations and proximal and mid cervical internal carotid arteries is most limited. Aortic Arch: Normal contour and caliber. Classic 3 vessel branching pattern of the aortic arch. Great Vessel Origins: No significant stenosis of the branch origins. Right Common Carotid Artery: No focal stenosis or occlusion. Cervical Right Internal Carotid Artery: Mild calcific atherosclerotic disease of the carotid bulb and proximal internal carotid artery without flow-limiting stenosis. Left Common Carotid Artery: No focal stenosis or occlusion. Cervical Left Internal Carotid Artery: Normal opacification without focal stenosis or occlusion. Cervical Right Vertebral Artery: No focal stenosis or occlusion. Cervical Left Vertebral Artery: Dominant. No focal stenosis or occlusion. Brain CTA: Intracranial Internal Carotid Arteries: No focal stenosis or occlusion. Right Anterior Cerebral Artery: Normal A1 segment. Normal opacification of the distal ERLIN segments. Left Anterior Cerebral Artery: Normal A1 segment. Normal opacification of the distal ERLIN segments. Anterior Communicating Artery: Normal. Right Middle Cerebral Artery: Normal M1 segment of the MCA without focal stenosis or occlusion. Normal arborization of the distal segments. Left Middle Cerebral Artery: Normal M1 segment of the MCA without focal stenosis or occlusion. Normal arborization of the distal segments. Right Vertebral Artery: Normal V4 segment. Left Vertebral Artery: Normal V4 segment. Basilar Artery: Normal without focal stenosis or occlusion. Normal appearance of the proximal superior cerebellar arteries. Right Posterior Cerebral Artery: Normal P1 segment. Normal opacification of the distal DE ICER ELEMENT WINDER segments. Left Posterior Cerebral Artery: Normal P1 segment. Normal opacification of the distal DE ICER ELEMENT WINDER segments. Normal opacification of the superior sagittal, straight, transverse, and sigmoid sinuses. CT/CT angio head neck stroke IMPRESSION: Somewhat technically limited assessment of the arteries in the neck secondary to artifact, most notably the carotid bifurcations and proximal and mid cervical internal carotid arteries. Within this limitation, no arterial high grade stenosis or large vessel occlusion in the head or neck is identified. Independent Historian Clinical information obtained from an independent historian. History obtained from or confirmed by: Spouse and Other (Daughter) Critical Care Time Critical Care Time Critical Care Time: Yes Total Critical Care Time: 75 Attestation: I have personally provided critical care time. Time includes review of lab data, radiology results, discussion with consultants, and monitoring for potential decompensation. Intervention performed as documented. Discharge Plan Discharge Clinical Impression: Panic attack Patient Disposition: Home, Self-Care Instructions: Anxiety (ED) Additional Instructions: Please follow-up with your primary care physician tomorrow. If you have any worsening or new symptoms, please return to the emergency room or call 911 Prescriptions: No Action acetaminophen [Arthritis Pain Relief (acetam)] 650 mg tablet extended release 1 tab PO Q8H PRN (Reason: Pain) multivitamin Tablet 1 tab PO QAM meclizine 25 mg tablet 1 tab PO Q8H PRN (Reason: Vertigo) hydrochlorothiazide 12.5 mg capsule 1 cap PO QAM gabapentin 300 mg capsule 1 cap PO TID sertraline 25 mg tablet 1 tab PO QAM ergocalciferol (vitamin D2) 1,250 mcg (50,000 unit) capsule 1 cap PO QWEEK B-complex with vitamin C Tablet 1 tab PO QAM ondansetron 4 mg tablet,disintegrating 4 mg PO Q6-8H PRN (Reason: nausea and vomiting) Qty: 10 0RF amlodipine 5 mg tablet 5 mg PO DAILY diclofenac sodium [Voltaren] 1 % gel 2 g topical QID Rx Instructions: apply to single elbow, wrist or hand; for hand includes palm/fingers/back of hand bisacodyl [Dulcolax (bisacodyl)] 5 mg tablet,delayed release (DR/EC) 5 mg PO BEDTIME metoprolol succinate 25 mg tablet extended release 24 hr 25 mg PO DAILY aspirin 81 mg tablet,delayed release (DR/EC) 81 mg PO DAILY timolol maleate 0.5 % drops 0 drp ophthalmic (eye) latanoprost 0.005 % drops 0 drp ophthalmic (eye) Print Language: Slovak
[2024-02-09] MEDS: iohexoL 350 MG/ML 100 ML INFUS..BTL IV (17:54)
[2024-02-09 18:10] LABS: MANUAL DIFF FLAG NO
[2024-02-09 18:16] LABS: Basophils Percent Auto 0.6 % (0-2); Eosinophils Percent Auto 0.6 % (0-4); Hematocrit 36.9 % (37.0-47.0); Hemoglobin 12.6 g/dl (12.0-16.0); Imm Gran Abs Auto 0.01 X10*3/uL (0.00-0.03); Imm Gran Pct Auto 0.3 % (0.0-0.4); Lymphocytes Absolute Auto 0.6 X10*3/uL (1.2-4.9); Lymphocytes Percent Auto 18.8 % (20-40); Mean Corpuscular HGB Conc 34.1 g/dl (31.0-35.0); Mean Corpuscular Hemoglobin 31.3 pg (27.0-33.0); Mean Corpuscular Volume 91.6 fL (80.0-98.0); Mean Platelet Volume 9.3 fL (9.4-12.3); Monocytes Absolute Auto 0.4 X10*3/uL (0.1-1.2); Monocytes Percent Auto 13.1 % (2-11); Neutrophils Absolute Auto 2.1 x10*3/uL (2.0-8.3); Neutrophils Percent Auto 66.6 % (45-73); Platelet Count 196 X10*3/uL (160-400); Red Blood Count 4.03 X10*6/uL (4.20-5.50); Red Cell Distribution Width 13.9 % (11.0-16.0); White Blood Count 3.2 X10*3/uL (4.8-10.8)
[2024-02-09 18:19] LABS: INTERNATIONAL NORM RATIO 1.1 (0.9-1.1); Prothrombin Time 13.3 SEC (11.1-13.3)
[2024-02-09 18:30] LABS: Ethanol < 10 mg/dL
[2024-02-09 18:33] LABS: Alanine Aminotransferase 12 U/L (0-31); Albumin Level 3.6 g/dL (3.5-5.0); Alkaline Phosphatase 116 U/L (39-117); Anion Gap 15 (12-20); Aspartate Amino Transferase 20 U/L (5-31); Bilirubin Direct 0.3 mg/dL (0.0-0.5); Bilirubin Total 0.7 mg/dL (0.0-1.0); Blood Urea Nitrogen 13 mg/dL (9-16); Calcium 8.8 mg/dL (8.4-10.2); Carbon Dioxide 21 mmol/L (22-29); Chloride 105 mmol/L (96-108); Creatinine Clr Calc Pharmacy 54.6; Estimated Glomerular Filt Rate > 60; Glucose Random 131 mg/dL (60-115); Magnesium 1.8 mg/dL (1.6-2.6); Potassium 3.5 mmol/L (3.3-5.1); Sodium 137 mmol/L (135-145); Total Protein 6.7 g/dL (6.5-8.0)
[2024-02-09 18:39] LABS: Troponin-I High Sensitivity 4.6 ng/L (<3.5-17.0)
[2024-02-09 18:41] LABS: Ammonia 27 umol/L (13-55)
[2024-02-09 19:02] VITALS: BP 139/67; PULSE 74; RESP 11; O2SAT 95
[2024-02-09 19:13] LABS: Appearance Urine Clear; Color Urine Yellow; Glucose Urine UA Negative (Negative); Leukocyte Esterase Urine Negative (Negative); Nitrite Urine Negative (Negative); PH 7.5 (5.0-9.0); Specific Gravity - Urine >= 1.030 (1.005-1.025); Urine Blood Negative (Negative); Urine Ketones Trace mg/dL (Negative); Urine Protein Negative (Neg-Trace)
[2024-02-09 19:29] LABS: Amphetamine Screen Urine Not Detected (Not Detect); Barbiturates, Urine Not Detected (Not Detect); Benzodiazepines Screen Urine Not Detected (Not Detect); Buprenorphine Scr Not Detected (Not Detect); Cannabinoid Screen Urine Not Detected (Not Detect); Cocaine Screen Urine Not Detected (Not Detect); Fentanyl, urine Not Detected (Not Detect); Methadone Screen, Urine Not Detected (Not Detect); Opiate Screen Urine Not Detected (Not Detect); Oxycodone Screen Urine Not Detected (Not Detect); Phencyclidine Screen Urine Not Detected (Not Detect)
[2024-02-09 20:32] VITALS: BP 144/73; BP 151/97; PULSE 77; PULSE 81
[2024-02-09 20:33] VITALS: BP 144/76; PULSE 84
[2024-02-09 21:13] VITALS: BP 151/77; PULSE 73; RESP 13; TEMP 36.9; O2SAT 97
[2024-02-09 22:25] VITALS: BP 151/77; PULSE 73; RESP 13; TEMP 36.9; O2SAT 97
[2024-02-10 10:58] LABS: Glucose, Whole Blood 133 mg/dL (60-115)
== END 2024-02-09 22:26 | disposition home or self-care (01) ==
PROVIDERS: Emergency Provider Emergency Medicine; PCP Nurse Practitioner Primary Care
DX: F41.0 Panic disorder [episodic paroxysmal anxiety] (principal); R41.82 Altered mental status, unspecified; I10 Essential (primary) hypertension; E78.5 Hyperlipidemia, unspecified; Z79.899 Other long term (current) drug therapy
CPT/HCPCS: 36415; 70450; 70496; 70498; 80048; 80076; 80307; 81003; 82140; 82947; 83605; 83735; 84484; 85025; 85610; 87040; 93005; 99285; Q9967

== ENCOUNTER → 2024-02-09 17:33 | Outpatient (BNV) | payer OTHER, SELFPAY | PROVIDERS: Emergency Provider Emergency Medicine; PCP Nurse Practitioner Primary Care; Visit Provider Internal Medicine | DX: I44.0 Atrioventricular block, first degree (principal) | CPT/HCPCS: 93010 ==

== ENCOUNTER 2024-02-16 14:44 | Outpatient (REF) | payer OTHER, SELFPAY ==
[2024-02-16 16:13] LABS: Basophils Percent Auto 0.8 % (0-2); Eosinophils Absolute Auto 0.1 X10*3/uL (0.0-0.4); Hematocrit 40.8 % (37.0-47.0); Hemoglobin 13.5 g/dl (12.0-16.0); Lymphocytes Absolute Auto 1.2 X10*3/uL (1.2-4.9); Lymphocytes Percent Auto 47.6 % (20-40); MANUAL DIFF FLAG SCAN; Mean Corpuscular HGB Conc 33.1 g/dl (31.0-35.0); Mean Corpuscular Hemoglobin 30.6 pg (27.0-33.0); Mean Corpuscular Volume 92.5 fL (80.0-98.0); Mean Platelet Volume 10.6 fL (9.4-12.3); Monocytes Absolute Auto 0.4 X10*3/uL (0.1-1.2); Monocytes Percent Auto 17.5 % (2-11); Neutrophils Absolute Auto 0.8 x10*3/uL (2.0-8.3); Neutrophils Percent Auto 32.1 % (45-73); Platelet Count 203 X10*3/uL (160-400); Red Blood Count 4.41 X10*6/uL (4.20-5.50); Red Cell Distribution Width 13.8 % (11.0-16.0); SCAN SMEAR FLAG 1
[2024-02-16 16:19] LABS: Estimated Average Glucose 100 mg/dL; Hemoglobin A1c % 5.1 % (<6.0); White Blood Count 2.5 X10*3/uL (4.8-10.8)
[2024-02-16 16:33] LABS: Anion Gap 13 (12-20); Blood Urea Nitrogen 14 mg/dL (9-16); Calcium 9.8 mg/dL (8.4-10.2); Carbon Dioxide 29 mmol/L (22-29); Chloride 104 mmol/L (96-108); Estimated Glomerular Filt Rate 55; Glucose Random 110 mg/dL (60-115); Potassium 3.5 mmol/L (3.3-5.1); Sodium 142 mmol/L (135-145)
[2024-02-16 16:46] LABS: SLIDE REVIEW VERIFIED
[2024-02-16 16:50] LABS: TSH reflex Free T4 1.01 uIU/mL (0.32-4.0)
[2024-02-16 17:00] LABS: Folate 10.5 ng/mL (> or = 4.0); Vitamin B12 285 pg/mL (200-900)
[2024-02-18 09:03] LABS: RPR Rapid Plasma Reagin NON-REACTIVE (NON-REACTIVE)
== END 2024-02-16 14:45 | disposition home or self-care (01) ==
LOC: HO.HHCL 14:44
PROVIDERS: Visit Provider Internal Medicine
DX: F03.B2 Unspecified dementia, moderate, with psychotic disturbance (principal); R82.90 Unspecified abnormal findings in urine
CPT/HCPCS: 36415; 80048; 82607; 82746; 83036; 84443; 85025; 86592; 87086

== ENCOUNTER 2024-03-08 14:00 | Outpatient (RCR) | payer OTHER, SELFPAY ==
--- NOTE | 2024-02-12 14:55 | MHC.PT.EP ---
[facility] [place] Office [place] Office [place] Office [address] Jey Carrion [address] [phone] F: [phone] F: [phone] F: [phone] F: [phone] Physical Therapy Plan of Care Date of Evaluation: 02/12/24 Date of Surgery: N/A Diagnosis: chronic back pain; lumbar spondylosis (RL) Assessment: pt is a 79 y/o female presenting to physical therapy w/ referring diagnosis of chronic low back pain; lumbar spondylosis. Impairments include pain, decreased range of motion, decreased strength, impaired functional mobility, impaired postural awareness, and altered ambulation mechanics. pt is a fair candidate for skilled PT due to age, potential remediation of impairments, typical disease/condition progression and prognosis, comorbidities, and motivation. pt would benefit from skilled PT intervention to provide a tailored strengthening and stretching exercise program, functional training, gait training, postural re-training, neuromuscular re-education, modalities as needed for pain, equipment safety demonstration. Frequency and Duration: The patient will be seen 2x/wk for 4 wks Short Term Goals: pt will be I w/ HEP to promote self-management of condition. pt will demo proper sitting posture w/ lumbar roll to promote return to PLOF. Globe Cleaner Goals: pt will improve B knee extension strength to 5/5 to promote ease in sit<>stand transfers. pt will ascend/descend 12 stairs using reciprocal gait pattern to promote ease in accessing apartment. Treatment Plan: Modalities to reduce pain, spasms and effusion. Manual therapy to restore motion and function. Therapeutic exercise to improve strength and flexibility. Neuromuscular re-education for posture and balance. Therapeutic activities to return to functional activities of daily living. Electronically signed by: Nani Oliveira PT, DPT Please sign and return to therapist. Thank you for your referral.
--- NOTE | 2024-03-11 09:58 | MHC.PT.DC ---
[facility] [place] Office [place] Office [place] Office [address] Jey Carrion [address] [facility] [phone] F: [phone] F: [phone] F: [phone] F: [phone] Physical Therapy Discharge Report Diagnosis: chronic back pain; lumbar spondylosis (RL) Date of Surgery: N/A Date of Evaluation: 02/12/24 Date of Discharge: 03/11/24 Treatments to Date: 4 Cancellations to Date: 5 No Shows to Date: 0 Discharge Status: Patient Elected to Stop Recommend MD Follow-up Discharge Summary: The patient had a fair at best prognosis when she was first evaluated here in physical therapy. She does have history of cognitive impairment consistent with dementia. Her came with her and would often advocate for her. During her treatment sessions she had difficulty staying on task and taking her exercises seriously. She would require instruction to be repeated many times to perform her exercises with a slow and steady pace. She tended to akhtar and would complain of soreness which was most likely due to not listening or comprehending instructions. She would frequently ask if she could leave early because she did not want to be in physical therapy. She came to cancel her last appointment because she felt physical therapy was making her feel too sore. She is discharged per her request. Electronically signed by: Nani Oliveira PT, DPT Please sign and return to therapist. Thank you for your referral.
== END 2024-03-11 09:59 | disposition home or self-care (01) ==
LOC: HO.PT 14:00
PROVIDERS: PCP Nurse Practitioner Primary Care; Visit Provider Physical Medicine & Rehabilitation
DX: M47.816 Spondylosis without myelopathy or radiculopathy, lumbar region (principal); M54.9 Dorsalgia, unspecified; G89.29 Other chronic pain
CPT/HCPCS: 97110; 97162

== ENCOUNTER 2024-03-14 16:37 | Emergency (ER) | payer OTHER, SELFPAY ==
[2024-03-14 16:47] VITALS: BP 139/76; BP 144/70; PULSE 78; PULSE 80; RESP 20; TEMP 36; O2SAT 100; BMI 31.5
[2024-03-14 17:18] VITALS: BP 162/66; PULSE 103; RESP 26; TEMP 36.6; O2SAT 100
--- NOTE | 2024-03-14 17:20 | ED.GENADULT ---
HPI - General Adult General Chief complaint: General Medical Stated complaint: AMS Time Seen by Provider: 03/14/24 16:46 Source: patient Mode of arrival: ambulatory Limitations: no limitations History of Present Illness ED Provider: deborah GANDARA narrative: Patient history of anxiety/panic attack refusing her medications was doing okay otherwise went to bathroom and came out in panic attack hyperventilating history of same in the past thinking about her brother who is sick Related Data Home Medications ?Medication ?Instructions ?Recorded ?Confirmed amlodipine 5 mg tablet 5 mg PO DAILY 07/12/20 01/21/24 aspirin 81 mg tablet,delayed 81 mg PO DAILY 07/12/20 01/21/24 release bisacodyl 5 mg tablet,delayed 5 mg PO BEDTIME 07/12/20 01/21/24 release (Dulcolax (bisacodyl)) diclofenac sodium 1 % topical gel 2 g topical QID 07/12/20 01/21/24 (Voltaren) metoprolol succinate 25 mg 25 mg PO DAILY 07/12/20 01/21/24 tablet,extended release 24 hr B-complex with vitamin C 1 tab PO QAM 08/01/21 01/21/24 acetaminophen 650 mg 1 tab PO Q8H PRN Pain 08/01/21 01/21/24 tablet,extended release (Arthritis Pain Relief (acetaminophen) ER) ergocalciferol (vitamin D2) 1,250 1 cap PO QWEEK 08/01/21 01/21/24 mcg (50,000 unit) capsule gabapentin 300 mg capsule 1 cap PO TID 08/01/21 01/21/24 hydrochlorothiazide 12.5 mg capsule 1 cap PO QAM 08/01/21 01/21/24 meclizine 25 mg tablet 1 tab PO Q8H PRN Vertigo 08/01/21 01/21/24 multivitamin 1 tab PO QAM 08/01/21 01/21/24 sertraline 25 mg tablet 1 tab PO QAM 08/01/21 01/21/24 latanoprost 0.005 % eye drops 0 drp ophthalmic (eye) 10/11/21 01/21/24 timolol maleate 0.5 % eye drops 0 drp ophthalmic (eye) 10/11/21 01/21/24 Previous Rx's ?Medication ?Instructions ?Recorded ondansetron 4 mg disintegrating 4 mg PO Q6-8H PRN nausea and 10/17/22 tablet vomiting #10 tabs Allergies Allergy/AdvReac Type Severity Reaction Status Date / Time ibuprofen Allergy Intermediate tachycardia/GI Verified 03/14/24 16:58 upset Review of Systems Review of Systems: Yes all other systems are reviewed and are negative [facility] Past Medical History Medical History Chronic back pain Lumbar spondylosis COVID-19 vaccine series completed Hx of fracture of tibia Varicose veins of both lower extremities Osteoarthritis Hyperlipidemia Depression Insomnia Dizziness Allergic rhinitis HTN (hypertension) Neck pain Lumbar spondylolysis Fibromyalgia Surgical History H/O colonoscopy Hx of tubal ligation Hx of cholecystectomy Family History Family History Father Cancer Mother Depression Sister HTN (hypertension) Heart disease Brother Diabetes Social History Social History (Updated 01/21/24 @ 08:36 by Jasson Tejeda) Household Members Other:: Are you a primary toddler caregiver to a significant other at home: No Do you presently have visiting nurse or other home services: No Alcohol intake: current Alcohol intake frequency: holidays/special occasions only Patient Tobacco Use Status: Never used Tobacco Advance Directives: No Advance Directives Information Provided: No Physical Exam ED Vital Signs: Vital Signs - 24 hr 03/14/24 16:47 03/14/24 17:18 03/14/24 18:14 Temperature 96.8 F 97.9 F Pulse Rate 78 103 H 91 Respiratory Rate 20 26 H 16 Blood Pressure 144/70 H 162/66 H 140/70 H Pulse Oximetry 100 100 100 Oxygen Delivery Method Room Air Room Air Room Air 03/14/24 19:16 Temperature 97.8 F Pulse Rate 103 H Respiratory Rate 20 Blood Pressure 120/74 Pulse Oximetry 96 Oxygen Delivery Method Room Air BMI result Body Mass Index 31.5 Appearance: Alert. Refusing to answer. Anxious hyperventilating Eyes: PERRLA, No Nystagmus ENT: Pharynx normal. Oral Mucosa moist Neck: Normal inspection. Neck supple. CVS: Normal heart rate and rhythm. Pulses normal. Respiratory: No respiratory distress. Equal air entry bilateral, Abdomen: Soft and nontender. Bowel sounds are present, no mass palpable, no CVA tenderness Skin: Skin warm and dry. Normal skin color. Normal skin turgor. Extremities: No lower extremity edema. No calf tenderness Neuro: Awake refusing to answer No motor deficit. No sensory deficit.No cerebellar signs , cranial nerves II-XII intact Medications Administered Discontinued Medications Generic Name Dose Route Start Last Admin Trade Name Freq PRN Reason Stop Dose Admin Lorazepam 2 mg 03/14/24 17:18 03/14/24 17:38 Lorazepam 2 Mg/Ml Vial IM 03/14/24 17:19 2 mg ONCE ONE Administration Medical Decision Making Medical Decision Making [facility] Narrative: Patient with panic attack responded to Ativan similar episodes happened in the past time of discharge patient at her baseline Differential Diagnosis Differential Diagnoses: The differential diagnosis associated with the presentation includes Anxiety/panic/depressed Discharge Plan Discharge Clinical Impression: Panic attack Patient Disposition: Home, Self-Care Instructions: Panic Attack (ED) Additional Instructions: Take medication as prescribed and follow with your PCP Prescriptions: No Action acetaminophen [Arthritis Pain Relief (acetam)] 650 mg tablet extended release 1 tab PO Q8H PRN (Reason: Pain) multivitamin Tablet 1 tab PO QAM meclizine 25 mg tablet 1 tab PO Q8H PRN (Reason: Vertigo) hydrochlorothiazide 12.5 mg capsule 1 cap PO QAM gabapentin 300 mg capsule 1 cap PO TID sertraline 25 mg tablet 1 tab PO QAM ergocalciferol (vitamin D2) 1,250 mcg (50,000 unit) capsule 1 cap PO QWEEK B-complex with vitamin C Tablet 1 tab PO QAM ondansetron 4 mg tablet,disintegrating 4 mg PO Q6-8H PRN (Reason: nausea and vomiting) Qty: 10 0RF amlodipine 5 mg tablet 5 mg PO DAILY diclofenac sodium [Voltaren] 1 % gel 2 g topical QID Rx Instructions: apply to single elbow, wrist or hand; for hand includes palm/fingers/back of hand bisacodyl [Dulcolax (bisacodyl)] 5 mg tablet,delayed release (DR/EC) 5 mg PO BEDTIME metoprolol succinate 25 mg tablet extended release 24 hr 25 mg PO DAILY aspirin 81 mg tablet,delayed release (DR/EC) 81 mg PO DAILY timolol maleate 0.5 % drops 0 drp ophthalmic (eye) latanoprost 0.005 % drops 0 drp ophthalmic (eye) Interventions: ED Discharge Assessment Last Done: 03/14/24 19:16 Discharge Date/Time: 03/14/24 19:20 Print Language: Montenegrin
[2024-03-14] MEDS: LORazepam 2 MG/ML VIAL IM (17:38)
[2024-03-14 18:14] VITALS: BP 140/70; PULSE 91; RESP 16; O2SAT 100
[2024-03-14 19:16] VITALS: BP 120/74; PULSE 103; RESP 20; TEMP 36.6; O2SAT 96
== END 2024-03-14 19:20 | disposition home or self-care (01) ==
PROVIDERS: Emergency Provider Internal Medicine
DX: F41.1 Generalized anxiety disorder (principal); F41.0 Panic disorder [episodic paroxysmal anxiety]; Z79.899 Other long term (current) drug therapy
CPT/HCPCS: 96372; 99283; 99284; J2060

== ENCOUNTER 2024-03-23 09:54 | Outpatient (AMB) | payer OTHER, SELFPAY ==
--- NOTE | 2024-03-23 10:08 | MHC.OFFVIS ---
Vital Signs 03/23/24 10:09 Height 5 ft Weight 161 lb BMI 31.4 Intake Visit Reasons: O/V LBP s/p P.T Intake Note: Cheryl is a 79 year old female who presents to the office today with her for LBP status post P.T. Pt has had chronic back pain that radiates to her lower extremities. Pt states her pain is having continued pain. Physical therapy was not helpful. Pt had updated Xrays 01/21/24. She is taking Tylenol for her pain which only provides minimal relief. Tax Map Technician Required: Yes Accompanied by: Spouse Allergies ibuprofen Allergy (Intermediate, Verified 03/14/24 16:58) tachycardia/GI upset HPI Comments Details: 01/21/24 - seen with , who provided history. Last injection with [facility]. Last seen there 1 1/2 year ago, but has not returned due to distance/travel. Injection seemed to have lasted for a year at least, seemed to have been one on the leg and one on the lumbar . Pain started again 3 months ago. No inciting injuries. No recent falls. Pain in lower back, then down to the right leg. Always have affected right leg, with knee pain. Talks about past injury to right knee s/p surgery 1987. Patient says denies actual numbness, but says she puts pain and numbness together. says she does have dementia. Does not recall any MRI lumbar. None available in EMR for my review. Here with , seen with certified court interpreter. Patient says she has back pain, middle/central, bothers her every day. She says it is long lasting, last all day. Until she takes her medications. Pain bothers her when she sleeps so able to sleep a few hours at a time. Pain refers to right leg. Then she also talks about right knee pain, previous surgery as mentioned above. She's been to ER twice since last seen. Had panic attacks. Imaging done, CT brain, no acute changes. [facility] Medical History Chronic back pain Lumbar spondylosis COVID-19 vaccine series completed Hx of fracture of tibia Varicose veins of both lower extremities Osteoarthritis Hyperlipidemia Depression Insomnia Dizziness Allergic rhinitis HTN (hypertension) Neck pain Lumbar spondylolysis Fibromyalgia Surgical History H/O colonoscopy Hx of tubal ligation Hx of cholecystectomy Family History Father Cancer Mother Depression Sister HTN (hypertension) Heart disease Brother Diabetes Social History (Updated 01/21/24 @ 08:36 by Jasson Tejeda) Household Members Other:: Are you a primary customer care associate to a significant other at home: No Do you presently have visiting nurse or other home services: No Alcohol intake: current Alcohol intake frequency: holidays/special occasions only Patient Tobacco Use Status: Never used Tobacco Physical Exam Vital Signs: BMI result Body Mass Index 31.4 Constitutional: Patient appears to be in no acute distress, well nourished and well developed. Patient was appropriately conversant and oriented. MSK: No specific abnormalities found on inspection of the spine and all extremities. Diffusely tender, lumbar paraspinals, bilateral SI, bilateral GT. Lumbar ROM was full. Bilateral hip, knee and ankle ROM WNL. No ligamentous laxity or crepitance. No increased effusion. Slump sit negative. Strength is 5/5 in all muscle groups tested. No increased tone noted. Neurological: Neurologic examination of the upper and lower extremities was nonfocal with intact sensation, muscle stretch reflexes and without focal motor deficits . Babinski was down going bilaterally. Clonus was negative. Gait is non-antalgic without loss of balance. Does not use assistive device. Results Reviewed Results Reviewed: Reviewed ER notes. Ordering Physician: Karime Flowers Date of Service: 01/21/24 Procedure(s): XR lumbar spine 2-3V Accession Number(s): [id number] cc: RADHA ALTAMIRANO NP; Karime Flowers~ EXAMINATION: XR LUMBOSACRAL SPINE CLINICAL INFORMATION: Back pain. COMPARISON: February 06, 2023. TECHNIQUE: Three views of the lumbosacral spine. FINDINGS: Mild S-shaped scoliosis. Bones are diffusely demineralized. Degenerative changes with sclerosis in the bilateral sacroiliac joints. Surgical clips in the right upper quadrant. Straightening of the normal lumbar lordosis. Facet arthritis in the lower lumbar spine. Advanced multilevel lumbar spondylosis with multilevel loss of disc space height most notable at L5-S1. Grade 1 anterolisthesis of L5 on S1. XR/XR lumbar spine 2-3V IMPRESSION: Advanced multilevel degenerative changes in the lumbar spine most severe at L5-S1. Assessment & Plan Assessment & Plan (1) Lumbar spondylosis: Code(s): M47.816 - Spondylosis without myelopathy or radiculopathy, lumbar region Category: Medical (2) Right lumbar radiculitis: Code(s): M54.16 - Radiculopathy, lumbar region Category: Medical Plan Chronic back pain, with radiation to right lower extremity. Rule out right-sided disc herniation. Rule out spinal stenosis. Patient had undergone adequate conservative management including [PT] without improvement of condition. It would be reasonable to obtain further imaging such as MRI. An MRI would help rule out any serious condition, guide treatment and assess prognosis for recovery. Assessment and plan discussed with patient, and patient was agreeable. All questions were answered thoroughly. Follow up after MRI. Karime Zepeda MD, SOFIA Board Certified, [place] [employer] and [employer] (ABPMR) Board Certified, [place] [employer] Electrodiagnostic Medicine (ABEM) Orders: Orders MR lumbar spine wo con Today M47.816 - Spondylosis without myelopathy or radiculopathy, lumbar region, M54.16 - Radiculopathy, lumbar region Coding Level of Care Code Est Pt Level 4 (20703) Diagnoses Lumbar spondylosis M47.816 Right lumbar radiculitis M54.16
[2024-03-23 10:09] VITALS: BMI 31.4
== END 2024-03-23 10:30 | disposition home or self-care (01) ==
PROVIDERS: PCP Nurse Practitioner Primary Care; Visit Provider Physical Medicine & Rehabilitation
DX: M47.816 Spondylosis without myelopathy or radiculopathy, lumbar region (principal); M54.16 Radiculopathy, lumbar region
CPT/HCPCS: 99213

== ENCOUNTER → 2024-03-23 09:54 | Outpatient (BNVA) | payer OTHER, SELFPAY | PROVIDERS: PCP Nurse Practitioner Primary Care; Visit Provider Physical Medicine & Rehabilitation | DX: M47.26 Other spondylosis with radiculopathy, lumbar region (principal) | CPT/HCPCS: 99212 ==

== ENCOUNTER 2024-04-04 11:08 | Outpatient (REF) | payer OTHER, SELFPAY | END 2024-04-04 11:09 | disposition home or self-care (01) | LOC: HO.MAMMO 11:08 | PROVIDERS: Absent Provider Internal Medicine; PCP Nurse Practitioner Primary Care; Visit Provider Nurse Practitioner Primary Care | DX: Z12.31 Encounter for screening mammogram for malignant neoplasm of breast (principal) | CPT/HCPCS: 77063; 77067 ==

== ENCOUNTER → 2024-04-04 13:00 | Outpatient (BNV) | payer OTHER, SELFPAY | PROVIDERS: Absent Provider Internal Medicine; PCP Nurse Practitioner Primary Care; Visit Provider Radiology Diagnostic Radiology | DX: Z12.31 Encounter for screening mammogram for malignant neoplasm of breast (principal) | CPT/HCPCS: 77063; 77067 ==

== ENCOUNTER 2024-04-20 14:25 | Outpatient (REF) | payer OTHER, SELFPAY ==
[2024-04-20 16:00] LABS: Appearance Urine Cloudy; Color Urine Dark Yellow; Glucose Urine UA Negative (Negative); Leukocyte Esterase Urine Trace (Negative); Nitrite Urine Negative (Negative); PH 5.5 (5.0-9.0); Specific Gravity - Urine 1.025 (1.005-1.025); UMIC TRIGGER UACC YES; Urine Blood Negative (Negative); Urine Ketones 15 mg/dL (Negative); Urine Protein Negative (Neg-Trace)
[2024-04-20 16:30] LABS: Bacteria Urine 2+ (None Seen); Hyaline Casts Urine >20 /LPF (0-2); RBC Urine 0-2 /HPF (0-2); WBC Urine 0-5 /HPF (0-5)
== END 2024-04-20 14:26 | disposition home or self-care (01) ==
LOC: HO.HHCL 14:25
PROVIDERS: Internal Medicine; Visit Provider Student in an Organized Health Care Education/Training Program
DX: F03.B2 Unspecified dementia, moderate, with psychotic disturbance (principal)
CPT/HCPCS: 81001; 81003

== ENCOUNTER 2024-05-04 16:45 | Outpatient (REF) | payer OTHER, SELFPAY ==
--- NOTE | ~2024-05-04 | MR_ITS ---
MRI OF THE LUMBAR SPINE WITHOUT CONTRAST CLINICAL INFORMATION: Lumbar region radiculopathy. COMPARISON: None available. TECHNIQUE: Multiplanar multisequence MR imaging of the lumbar spine obtained without contrast. FINDINGS: There are 5 nonrib-bearing lumbar-type vertebral bodies. There is a leftward convex scoliotic curvature at the thoracolumbar junction. There is moderate to severe disc volume loss and disc desiccation at all lumbar levels. There are Modic type I endplate signal changes at all lumbar levels and at T12-L1. No acute fractures. There are multilevel endplate osteophytes the vertebral body heights are maintained. The conus terminates at the T12 level. Sigmoid diverticulosis. L1-L2: Right lateral disc osteophyte and facet arthropathy result in mild to moderate right-sided foraminal encroachment with disc osteophyte contacting the extraforaminal right L1 nerve root. No central canal stenosis. Mild left foraminal encroachment. L2-L3: Diffuse annular disc bulge with a superimposed right lateral disc osteophyte protrusion resulting in mild right-sided foraminal encroachment. No central canal and no left foraminal stenosis. L3-L4: Grade 1 retrolisthesis. Diffuse disc osteophyte and bilateral facet arthropathy and ligamentum flavum thinning. No central canal stenosis. Disc osteophyte and facet arthropathy result in moderate right-sided foraminal stenosis and mass effect on the extraforaminal right L3 nerve root. L4-L5: Diffuse disc osteophyte complex and severe bilateral facet arthropathy and ligamentum flavum giving. Mild narrowing of the central canal. Moderate bilateral foraminal stenosis of mild mass effect on the exiting L4 nerve roots bilaterally. Mild narrowing of the central canal. L5-S1: Diffuse disc osteophyte complex and severe bilateral facet arthropathy and ligamentum flavum thickening. Findings in concert result in moderate central canal stenosis, left greater than right subarticular zone stenosis with mass effect on the traversing left S1 nerve root, and moderate to severe bilateral foraminal stenosis with mass effect on the exiting L5 nerve roots bilaterally. MR/MR lumbar spine wo con IMPRESSION: * At L5-S1, multifactorial degenerative changes result in moderate central canal stenosis, left greater than right subarticular zone stenosis with mass effect on the traversing left S1 nerve root, and moderate to severe bilateral foraminal stenosis with mass effect on the exiting L5 nerve roots bilaterally. * At L4-L5, multifactorial degenerative changes result in moderate bilateral foraminal stenosis with mild mass effect on the exiting L4 nerve roots bilaterally. * At L3-L4, multifactorial degenerative changes result in moderate right-sided foraminal stenosis and mass effect on the extraforaminal right L3 nerve root. * At L1-L2, a right lateral disc osteophyte protrusion results in mild to moderate right-sided foraminal encroachment and mass effect on the extraforaminal right L1 nerve root. * There are Modic type I endplate signal changes at all lumbar levels and at T12-L1. Electronically signed by: Isra Yusuf MD 05/25/2024 01:09 PM EDT
== END 2024-05-04 16:46 | disposition home or self-care (01) ==
LOC: HO.MRI 16:45
PROVIDERS: PCP Nurse Practitioner Primary Care; Visit Provider Physical Medicine & Rehabilitation
DX: M54.16 Radiculopathy, lumbar region (principal); M47.816 Spondylosis without myelopathy or radiculopathy, lumbar region
CPT/HCPCS: 72148

== ENCOUNTER 2024-06-23 11:27 | Outpatient (AMB) | payer OTHER, SELFPAY ==
--- NOTE | 2024-06-23 11:34 | A.OFFVIS_ITS ---
Vital Signs 06/23/24 11:36 Height 5 ft Weight 161 lb BMI 31.4 Intake Visit Reasons: OV- MRI review Lumbar Spine Intake Note: Omayra is a 77 year old female who presents today for a follow up visit for her left hip pain. Patient reports she is doing very bad. She is having difficulty with all of her daily activities and with moving around due to an exacerbation of her symptoms. She is unable to sleep well at night from her pain. OTC medications do not offer any relief. hx of back injections in [facility] many years ago. Process Development Associate Required: Yes Process Development Associate Language: Event Planner Name: [id number] Allergies ibuprofen Allergy (Intermediate, Verified 06/23/24 11:37) tachycardia/GI upset HPI Comments Details: 01/21/24 - seen with , who provided history. Last injection with [facility]. Last seen there 1 1/2 year ago, but has not returned due to distance/travel. Injection seemed to have lasted for a year at least, seemed to have been one on the leg and one on the lumbar . Pain started again 3 months ago. No inciting injuries. No recent falls. Pain in lower back, then down to the right leg. Always have affected right leg, with knee pain. Talks about past injury to right knee s/p surgery 1987. Patient says denies actual numbness, but says she puts pain and numbness together. says she does have dementia. On her last visit, patient said she has back pain, middle/central, bothers her every day. She says it is long lasting, last all day. Until she takes her medications. Pain bothers her when she sleeps so able to sleep a few hours at a time. Pain refers to right leg. Then she also talks about right knee pain, previous surgery as mentioned above. She's been to ER twice since last seen. Had panic attacks. Imaging done, CT brain, no acute changes. Here with , seen with handbag stitcher. She says today pain is lower back, midline, going to left. It is severe. Unable to sleep and affecting functional area. MRI shows multilevel degenerative disc and spondylosis, with foraminal stenosis and moderate spinal stenosis worst on L4-5 and L5-S1. [facility] Medical History Chronic back pain Lumbar spondylosis COVID-19 vaccine series completed Hx of fracture of tibia Varicose veins of both lower extremities Osteoarthritis Hyperlipidemia Depression Insomnia Dizziness Allergic rhinitis HTN (hypertension) Neck pain Lumbar spondylolysis Fibromyalgia Surgical History H/O colonoscopy Hx of tubal ligation Hx of cholecystectomy Family History Father Cancer Mother Depression Sister HTN (hypertension) Heart disease Brother Diabetes Social History Household Members Other:: Are you a primary career development manager to a significant other at home: No Do you presently have visiting nurse or other home services: No Alcohol intake: current Alcohol intake frequency: holidays/special occasions only Patient Tobacco Use Status: Never used Tobacco Physical Exam Vital Signs: BMI result Body Mass Index 31.4 Constitutional: Patient appears to be in no acute distress, well nourished and well developed. Patient was appropriately conversant and oriented. MSK: No specific abnormalities found on inspection of the spine and all extremities. Diffusely tender, lumbar paraspinals, bilateral SI, bilateral GT. Lumbar ROM was full. Bilateral hip, knee and ankle ROM WNL. No ligamentous laxity or crepitance. No increased effusion. Slump sit negative. Strength is 5/5 in all muscle groups tested. No increased tone noted. Neurological: Neurologic examination of the upper and lower extremities was nonfocal with intact sensation, muscle stretch reflexes and without focal motor deficits . Babinski was down going bilaterally. Clonus was negative. Gait is antalgic without loss of balance. Does not use assistive device. Results Reviewed Results Reviewed: Ordering Physician: Karime Flowers Date of Service: 05/04/24 Procedure(s): MR lumbar spine wo con Accession Number(s): [id number] cc: Karime Flowers; IDANIA LEAL ROCK SPLITTER~ MRI OF THE LUMBAR SPINE WITHOUT CONTRAST CLINICAL INFORMATION: Lumbar region radiculopathy. COMPARISON: None available. TECHNIQUE: Multiplanar multisequence MR imaging of the lumbar spine obtained without contrast. FINDINGS: There are 5 nonrib-bearing lumbar-type vertebral bodies. There is a leftward convex scoliotic curvature at the thoracolumbar junction. There is moderate to severe disc volume loss and disc desiccation at all lumbar levels. There are Modic type I endplate signal changes at all lumbar levels and at T12-L1. No acute fractures. There are multilevel endplate osteophytes the vertebral body heights are maintained. The conus terminates at the T12 level. Sigmoid diverticulosis. L1-L2: Right lateral disc osteophyte and facet arthropathy result in mild to moderate right-sided foraminal encroachment with disc osteophyte contacting the extraforaminal right L1 nerve root. No central canal stenosis. Mild left foraminal encroachment. L2-L3: Diffuse annular disc bulge with a superimposed right lateral disc osteophyte protrusion resulting in mild right-sided foraminal encroachment. No central canal and no left foraminal stenosis. L3-L4: Grade 1 retrolisthesis. Diffuse disc osteophyte and bilateral facet arthropathy and ligamentum flavum thinning. No central canal stenosis. Disc osteophyte and facet arthropathy result in moderate right-sided foraminal stenosis and mass effect on the extraforaminal right L3 nerve root. L4-L5: Diffuse disc osteophyte complex and severe bilateral facet arthropathy and ligamentum flavum giving. Mild narrowing of the central canal. Moderate bilateral foraminal stenosis of mild mass effect on the exiting L4 nerve roots bilaterally. Mild narrowing of the central canal. L5-S1: Diffuse disc osteophyte complex and severe bilateral facet arthropathy and ligamentum flavum thickening. Findings in concert result in moderate central canal stenosis, left greater than right subarticular zone stenosis with mass effect on the traversing left S1 nerve root, and moderate to severe bilateral foraminal stenosis with mass effect on the exiting L5 nerve roots bilaterally. MR/MR lumbar spine wo con IMPRESSION: * At L5-S1, multifactorial degenerative changes result in moderate central canal stenosis, left greater than right subarticular zone stenosis with mass effect on the traversing left S1 nerve root, and moderate to severe bilateral foraminal stenosis with mass effect on the exiting L5 nerve roots bilaterally. * At L4-L5, multifactorial degenerative changes result in moderate bilateral foraminal stenosis with mild mass effect on the exiting L4 nerve roots bilaterally. * At L3-L4, multifactorial degenerative changes result in moderate right-sided foraminal stenosis and mass effect on the extraforaminal right L3 nerve root. * At L1-L2, a right lateral disc osteophyte protrusion results in mild to moderate right-sided foraminal encroachment and mass effect on the extraforaminal right L1 nerve root. * There are Modic type I endplate signal changes at all lumbar levels and at T12-L1. Electronically signed by: Isra Yusuf MD 05/25/2024 01:09 PM EDT RP Assessment & Plan Assessment & Plan (1) Lumbar spondylosis: Code(s): M47.816 - Spondylosis without myelopathy or radiculopathy, lumbar region Category: Medical (2) Chronic back pain: Code(s): M54.9 - Dorsalgia, unspecified; G89.29 - Other chronic pain Category: Medical Qualifiers: Back pain laterality: right Back pain location: low back pain Sciatica laterality: sciatica of right side Sciatica presence: with sciatica Qualified Code(s): M54.41 - Lumbago with sciatica, right side; G89.29 - Other chronic pain (3) Right lumbar radiculitis: Code(s): M54.16 - Radiculopathy, lumbar region Category: Medical (4) Lumbar spinal stenosis: Code(s): M48.061 - Spinal stenosis, lumbar region without neurogenic claudication Category: Medical Plan Chronic back pain, multilevel spondylosis with foraminal stenosis. She is interested to pursue injections again or intervetions. Will refer to Pain Management. Assessment and plan discussed with patient, and patient was agreeable. All quest ions were answered thoroughly. Karime Zepeda MD, SOFIA Board Certified, [place] Board of Physical Medicine and Rehabilitation (ABPMR) Board Certified, [place] Board of Electrodiagnostic Medicine (ABEM) Orders: Referrals Pain Management Referral G89.29 - Other chronic pain, M47.816 - Spondylosis without myelopathy or radiculopathy, lumbar region, M48.061 - Spinal stenosis, lumbar region without neurogenic claudication, M54.16 - Radiculopathy, lumbar region, M54.41 - Lumbago with sciatica, right side Coding Level of Care Code Est Pt Level 3 (07078) Diagnoses Lumbar spondylosis M47.816 Chronic right-sided low back pain with right-sided sciatica M54.41; G89.29 Back pain laterality: right Back pain location: low back pain Sciatica laterality: sciatica of right side Sciatica presence: with sciatica Right lumbar radiculitis M54.16 Lumbar spinal stenosis M48.061
[2024-06-23 11:36] VITALS: BMI 31.4
== END 2024-06-23 12:00 | disposition home or self-care (01) ==
LOC: HO.HOS 11:27
PROVIDERS: PCP Nurse Practitioner Primary Care; Visit Provider Physical Medicine & Rehabilitation
DX: M47.816 Spondylosis without myelopathy or radiculopathy, lumbar region (principal); M54.41 Lumbago with sciatica, right side; G89.29 Other chronic pain; M54.16 Radiculopathy, lumbar region; M48.061 Spinal stenosis, lumbar region without neurogenic claudication
CPT/HCPCS: 99213

== ENCOUNTER → 2024-06-23 11:27 | Outpatient (BNVA) | payer OTHER, SELFPAY | PROVIDERS: PCP Nurse Practitioner Primary Care; Visit Provider Physical Medicine & Rehabilitation | DX: M47.26 Other spondylosis with radiculopathy, lumbar region (principal); M54.41 Lumbago with sciatica, right side; M48.061 Spinal stenosis, lumbar region without neurogenic claudication; G89.29 Other chronic pain | CPT/HCPCS: 99212 ==

== ENCOUNTER 2024-07-04 10:34 | Outpatient (AMB) | payer OTHER, SELFPAY ==
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
[2024-07-04 10:55] VITALS: BP 134/65; PULSE 69; RESP 14; O2SAT 98; BMI 31.1
== END 2024-07-04 11:29 | disposition home or self-care (01) ==
PROVIDERS: PCP Nurse Practitioner Primary Care; Visit Provider Anesthesiology
DX: M48.061 Spinal stenosis, lumbar region without neurogenic claudication (principal); M54.16 Radiculopathy, lumbar region; M54.41 Lumbago with sciatica, right side; G89.29 Other chronic pain; M47.816 Spondylosis without myelopathy or radiculopathy, lumbar region
CPT/HCPCS: 99204

== ENCOUNTER → 2024-07-04 10:34 | Outpatient (BNVA) | payer OTHER, SELFPAY | PROVIDERS: PCP Nurse Practitioner Primary Care; Visit Provider Anesthesiology | DX: M48.061 Spinal stenosis, lumbar region without neurogenic claudication (principal); M47.26 Other spondylosis with radiculopathy, lumbar region; M54.41 Lumbago with sciatica, right side; G89.29 Other chronic pain | CPT/HCPCS: 99202 ==

== ENCOUNTER 2024-09-20 06:23 | Outpatient (REF) | payer OTHER, SELFPAY ==
--- NOTE | ~2024-09-20 | FL_ITS ---
EXAMINATION: FLUOROSCOPY GUIDANCE FOR NEEDLE PLACEMENT CLINICAL INFORMATION: M47.816 - Spondylosis without myelopathy or radiculopathy, lumbar region COMPARISON: None available. TECHNIQUE: Intraoperative fluoroscopy guidance for treatment. One static image provided. FINDINGS: Nondiagnostic intraoperative fluoroscopy guidance, lumbar region. FLUOROSCOPY TIME: 0.0 minutes. DOSE AREA PRODUCT: 0.18 uGy-m2 (microgray-meter squared) FL/FL guidance in treatment room IMPRESSION: Nondiagnostic intraoperative fluoroscopy guidance for procedure in the lumbar region. Electronically signed by: Shakeel Morse MD 09/29/2024 09:31 AM TEN NYE
== END 2024-09-20 06:24 | disposition home or self-care (01) ==
LOC: CF 06:23
PROVIDERS: Visit Provider Anesthesiology
DX: M47.816 Spondylosis without myelopathy or radiculopathy, lumbar region (principal)
CPT/HCPCS: 64493; 64494; J2003; J2795; J3301; Q9967

== ENCOUNTER 2024-09-28 14:34 | Outpatient (AMB) | payer OTHER, SELFPAY ==
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
[2024-09-28 14:37] VITALS: BP 141/65; PULSE 67; BMI 30.1
== END 2024-09-28 15:03 | disposition home or self-care (01) ==
PROVIDERS: PCP Nurse Practitioner Primary Care; Visit Provider Internal Medicine
DX: K74.60 Unspecified cirrhosis of liver (principal); Z90.49 Acquired absence of other specified parts of digestive tract
CPT/HCPCS: 99214

== ENCOUNTER → 2024-09-28 14:34 | Outpatient (BNVA) | payer OTHER, SELFPAY | PROVIDERS: PCP Nurse Practitioner Primary Care; Visit Provider Internal Medicine | DX: K74.60 Unspecified cirrhosis of liver (principal); Z90.49 Acquired absence of other specified parts of digestive tract | CPT/HCPCS: 99212 ==

== ENCOUNTER 2024-10-14 15:35 | Emergency (ER) | payer OTHER, SELFPAY ==
[2024-10-14 15:45] VITALS: BP 156/80; BP 162/94; PULSE 118; PULSE 96; RESP 30; O2SAT 98; O2SAT 99; BMI 30.3
--- NOTE | 2024-10-14 16:09 | ECG_ITS ---
Test Reason : tachy Blood Pressure : */* mmHG Vent. Rate : 97 BPM Atrial Rate : 97 BPM P-R Int : 196 ms QRS Dur : 102 ms QT Int : 402 ms P-R-T Axes : 115 -31 98 degrees QTcB Int : 510 ms Normal sinus rhythm Left axis deviation Nonspecific T wave abnormality Abnormal ECG When compared with ECG of 09-Feb-2024 17:50, VA interval has decreased Referred By: Generic ED Physician Electronically Signed By: JONA ALFARO
[2024-10-14] MEDS: LORazepam 2 MG/ML VIAL IM (16:10)
--- NOTE | 2024-10-14 16:16 | ED_ITS ---
HPI - General Adult General Chief complaint: General Medical Stated complaint: ?psych, dementia, found running around apt by fam Time Seen by Provider: 10/14/24 16:16 History of Present Illness ED Provider: Venita GANDARA narrative: The patient is a 79-year-old woman with a history of dementia. She also has a history of panic attacks. She has been brought to the emergency room for panic attacks in the past. Her is at the bedside. He was interviewed with a chief substation operator. He says that the patient has been at home and they has been eating some food when the patient became acutely anxious and started to scream and seemed to be trying to leave the house. He and another family member had to restrain her. An ambulance was called and she was brought to the hospital. He says her behavior today is extremely similar to the previous times she has been in the emergency room for a panic attack. He can not think of anything that might have triggered a panic attack on this occasion. He says that she seemed perfectly well earlier in the day. There has been no fever, sweats, chills or other symptoms. Related Data Home Medications ?Medication ?Instructions ?Recorded ?Confirmed amlodipine 5 mg tablet 5 mg PO DAILY 07/12/20 01/21/24 bisacodyl 5 mg tablet,delayed 5 mg PO BEDTIME 07/12/20 01/21/24 release (Dulcolax (bisacodyl)) diclofenac sodium 1 % topical gel 2 g topical QID 07/12/20 01/21/24 (Voltaren) metoprolol succinate 25 mg 25 mg PO DAILY 07/12/20 01/21/24 tablet,extended release 24 hr B-complex with vitamin C 1 tab PO QAM 08/01/21 01/21/24 acetaminophen 650 mg 1 tab PO Q8H PRN Pain 08/01/21 01/21/24 tablet,extended release (Arthritis Pain Relief (acetaminophen) ER) ergocalciferol (vitamin D2) 1,250 1 cap PO QWEEK 08/01/21 01/21/24 mcg (50,000 unit) capsule gabapentin 300 mg capsule 1 cap PO TID 08/01/21 01/21/24 hydrochlorothiazide 12.5 mg capsule 1 cap PO QAM 08/01/21 01/21/24 multivitamin 1 tab PO QAM 08/01/21 01/21/24 sertraline 25 mg tablet 1 tab PO QAM 08/01/21 01/21/24 latanoprost 0.005 % eye drops 0 drp ophthalmic (eye) 10/11/21 01/21/24 timolol maleate 0.5 % eye drops 0 drp ophthalmic (eye) 10/11/21 01/21/24 calcium carbonate 600 mg PO 09/28/24 duloxetine 60 mg capsule,delayed 60 mg PO QAM 09/28/24 release lidocaine 5 % topical patch patch topical 09/28/24 meclizine 25 mg tablet 25 mg PO Q8H PRN Vertigo 09/28/24 mirtazapine 7.5 mg tablet 7.5 mg PO BEDTIME 09/28/24 risperidone 0.25 mg tablet 0.25 mg PO BID 09/28/24 Previous Rx's ?Medication ?Instructions ?Recorded ondansetron 4 mg disintegrating 4 mg PO Q6-8H PRN nausea and 10/17/22 tablet vomiting #10 tabs Allergies Allergy/AdvReac Type Severity Reaction Status Date / Time ibuprofen Allergy Intermediate tachycardia/GI Verified 10/14/24 15:53 upset Review of Systems 2 Review of Systems: Yes all other systems are reviewed and are negative [facility] Past Medical History Medical History Chronic back pain Lumbar spondylosis COVID-19 vaccine series completed Hx of fracture of tibia Varicose veins of both lower extremities Osteoarthritis Hyperlipidemia Depression Insomnia Dizziness Allergic rhinitis HTN (hypertension) Neck pain Lumbar spondylolysis Fibromyalgia Surgical History H/O colonoscopy Hx of tubal ligation Hx of cholecystectomy Family History Family History Father Cancer Mother Depression Sister HTN (hypertension) Heart disease Brother Diabetes Social History Social History Household Members Other:: Are you a primary acute care certified nursing assistant to a significant other at home: No Do you presently have visiting nurse or other home services: No Alcohol intake: current Alcohol intake frequency: holidays/special occasions only Patient Tobacco Use Status: Never used Tobacco Advance Directives: No Advance Directives Information Provided: No Physical Exam ED Vital Signs: Vital Signs - 24 hr 10/14/24 15:45 10/14/24 18:16 10/14/24 19:43 Temperature 97.7 F 97.6 F Pulse Rate 96 92 90 Respiratory Rate 30 H 16 18 Blood Pressure 156/80 H 135/76 132/70 Pulse Oximetry 99 96 98 Oxygen Delivery Method Room Air Room Air Room Air 10/14/24 20:45 Temperature 97.6 F Pulse Rate 90 Respiratory Rate 18 Blood Pressure 132/70 Pulse Oximetry 98 Oxygen Delivery Method Room Air BMI result Body Mass Index 30.3 Const Other: The patient is a 79-year-old woman who is clearly hyperventilating. She is tachypneic and has obvious carpopedal spasm of both upper extremities. HENMT Other: The patient was holding her eye shut. The face was symmetrical. Eyes Other: Eyes were closed. When I open her eyes she had symmetrical pupils. Neck Other: No neck swelling or adenopathy. Resp Other: The patient was tachypneic and seemed to be hyperventilating. Lungs are clear bilaterally. Cardio Rate: regular rate Rhythm: regular rhythm Heart sounds: S1 normal heart sound present and S2 normal heart sound present GI Other: The abdomen was soft and seems nontender Skin Other: Skin was dry and unremarkable Neuro Other: Patient was lying on the stretcher with the obvious carpopedal spasm. She was holding her eyes closed. She was hyperventilating. She was sometimes yelling incoherently. There was no facial asymmetry. She seemed to have some rigidity to her extremities. Tone was symmetrical. Extrem Other: No peripheral edema Medications Administered Discontinued Medications Generic Name Dose Route Start Last Admin Trade Name Freq PRN Reason Stop Dose Admin Lorazepam 2 mg 10/14/24 16:06 10/14/24 16:10 Lorazepam 2 Mg/Ml Vial IM 10/14/24 16:07 2 mg ONCE ONE Administration Olanzapine 5 mg 10/14/24 16:24 10/14/24 17:02 Olanzapine 10 Mg Vial IM 10/14/24 16:25 5 mg STAT STA Administration Medical Decision Making Medical Decision Making [facility] Narrative: The patient is a 79-year-old female who presents seemingly with significant hyperventilation. She has a history of previous panic attacks that have brought her to the emergency room. The says that today's episode is similar to the previous panic attacks. The can not think of anything that might have triggered a panic attack today. The patient has a history of dementia. The patient was hyperventilating with obvious carpopedal spasm. She was given 2 mg of IM lorazepam without much improvement. She was later given 5 mg of IM olanzapine as well. Ultimately she seemed much calmer and your breathing slowed and her carpopedal spasm resolved. Labs were done that are unremarkable. Ultimately she seemed appropriate for discharge. Lab Data 10/14/24 19:27 10/14/24 19:27 Labs: Lab Results 10/14/24 10/14/24 Range/Units 19: 19:30 WBC 4.4 L (4.8-10.8) X10*3/uL RBC 4.23 (4.20-5.50) X10*6/uL Hgb 13.0 (12.0-16.0) g/dl Hct 38.2 (37.0-47.0) % MCV 90.3 (80.0-98.0) fL MCH 30.7 (27.0-33.0) pg MCHC 34.0 (31.0-35.0) g/dl RDW 14.1 (11.0-16.0) % Plt Count 212 (160-400) X10*3/uL MPV 9.0 L (9.4-12.3) fL Immature Gran % (Auto) 0.2 (0.0-0.4) % Neut % (Auto) 64.0 (45-73) % Lymph % (Auto) 20.3 (20-40) % [place] % (Auto) 14.8 H (2-11) % Eos % (Auto) 0.0 (0-4) % Baso % (Auto) 0.7 (0-2) % Lymph # (Auto) 0.9 L (1.2-4.9) X10*3/uL [place] # (Auto) 0.7 (0.1-1.2) X10*3/uL Eos # (Auto) 0.0 (0.0-0.4) X10*3/uL Baso # (Auto) 0.0 (0.0-0.2) X10*3/uL Abs Immat Gran (auto) 0.01 (0.00-0.03) X10*3/uL Absolute Neuts (auto) 2.8 (2.0-8.3) x10*3/uL Absolute Nucleated RBC 0.000 (0.0-0.012) X10*3/uL Nucleated RBC % (auto) 0.0 (0.0-0.2) /100WBC VBG pH 7.46 H (7.32-7.43) VBG pCO2 39 mmHg VBG pO2 29 mmHg VBG HCO3 28 H (22-26) mmol/L VBG O2 Saturation 39.0 % VBG Base Excess 4.3 mmol/L Sodium 144 (135-145) mmol/L Potassium 3.1 L (3.3-5.1) mmol/L Chloride 109 H (96-108) mmol/L Carbon Dioxide 25 (22-29) mmol/L Anion Gap 13 (12-20) BUN 13 (9-16) mg/dL Creatinine 0.82 (0.5-1.4) mg/dL Estim Creat Clear Calc 54.8 Estimated GFR > 60 Random Glucose 131 H (60-115) mg/dL Calcium 9.3 (8.4-10.2) mg/dL Magnesium 1.9 (1.6-2.6) mg/dL Discharge Plan Discharge Clinical Impression: Panic attack Patient Disposition: Home, Self-Care Additional Instructions: Please continue your regular medications. Please follow up next week with your regular doctor. Return to the emergency room if worse. Prescriptions: No Action acetaminophen [Arthritis Pain Relief (acetam)] 650 mg tablet extended release 1 tab PO Q8H PRN (Reason: Pain) multivitamin Tablet 1 tab PO QAM hydrochlorothiazide 12.5 mg capsule 1 cap PO QAM gabapentin 300 mg capsule 1 cap PO TID sertraline 25 mg tablet 1 tab PO QAM ergocalciferol (vitamin D2) 1,250 mcg (50,000 unit) capsule 1 cap PO QWEEK B-complex with vitamin C Tablet 1 tab PO QAM meclizine 25 mg tablet 25 mg PO Q8H PRN (Reason: Vertigo) ondansetron 4 mg tablet,disintegrating 4 mg PO Q6-8H PRN (Reason: nausea and vomiting) Qty: 10 0RF amlodipine 5 mg tablet 5 mg PO DAILY diclofenac sodium [Voltaren] 1 % gel 2 g topical QID Rx Instructions: apply to single elbow, wrist or hand; for hand includes palm/fingers/back of hand bisacodyl [Dulcolax (bisacodyl)] 5 mg tablet,delayed release (DR/EC) 5 mg PO BEDTIME metoprolol succinate 25 mg tablet extended release 24 hr 25 mg PO DAILY timolol maleate 0.5 % drops 0 drp ophthalmic (eye) latanoprost 0.005 % drops 0 drp ophthalmic (eye) lidocaine 5 % adhesive patch,medicated topical risperidone 0.25 mg tablet 0.25 mg PO BID duloxetine 60 mg capsule,delayed release(DR/EC) 60 mg PO QAM mirtazapine 7.5 mg tablet 7.5 mg PO BEDTIME calcium carbonate 600 mg calcium (1,500 mg) tablet 600 mg PO Referrals: Nathaly Boston MANAGER SEMICONDUCTOR [Nurse Practitioner] - (Panic attack) Interventions: ED Discharge Assessment Last Done: 10/14/24 20:45 Discharge Date/Time: 10/14/24 20:46 Print Language: Mauritian
[2024-10-14] MEDS: OLANZapine 10 MG VIAL 5 MG IM (17:02)
[2024-10-14 18:16] VITALS: BP 135/76; PULSE 92; RESP 16; TEMP 36.5; O2SAT 96
[2024-10-14 19:31] LABS: MANUAL DIFF FLAG NO
[2024-10-14 19:33] LABS: Basophils Percent Auto 0.7 % (0-2); Hematocrit 38.2 % (37.0-47.0); Imm Gran Abs Auto 0.01 X10*3/uL (0.00-0.03); Imm Gran Pct Auto 0.2 % (0.0-0.4); Lymphocytes Absolute Auto 0.9 X10*3/uL (1.2-4.9); Lymphocytes Percent Auto 20.3 % (20-40); Mean Corpuscular Hemoglobin 30.7 pg (27.0-33.0); Mean Corpuscular Volume 90.3 fL (80.0-98.0); Monocytes Absolute Auto 0.7 X10*3/uL (0.1-1.2); Monocytes Percent Auto 14.8 % (2-11); Neutrophils Absolute Auto 2.8 x10*3/uL (2.0-8.3); Platelet Count 212 X10*3/uL (160-400); Red Blood Count 4.23 X10*6/uL (4.20-5.50); Red Cell Distribution Width 14.1 % (11.0-16.0); White Blood Count 4.4 X10*3/uL (4.8-10.8)
[2024-10-14 19:38] LABS: Venous Blood Gas Refer to POC result
[2024-10-14 19:38] LABS: VBG Base Excess 4.3 mmol/L; VBG HCO3 28 mmol/L (22-26); VBG pCO2 39 mmHg; VBG pH 7.46 (7.32-7.43); VBG pO2 29 mmHg
[2024-10-14 19:43] VITALS: BP 132/70; PULSE 90; RESP 18; TEMP 36.4; O2SAT 98
[2024-10-14 19:51] LABS: Anion Gap 13 (12-20); Blood Urea Nitrogen 13 mg/dL (9-16); Calcium 9.3 mg/dL (8.4-10.2); Carbon Dioxide 25 mmol/L (22-29); Chloride 109 mmol/L (96-108); Creatinine Clr Calc Pharmacy 54.8; Estimated Glomerular Filt Rate > 60; Glucose Random 131 mg/dL (60-115); Magnesium 1.9 mg/dL (1.6-2.6); Potassium 3.1 mmol/L (3.3-5.1); Sodium 144 mmol/L (135-145)
[2024-10-14 20:45] VITALS: BP 132/70; PULSE 90; RESP 18; TEMP 36.4; O2SAT 98
== END 2024-10-14 20:46 | disposition home or self-care (01) ==
PROVIDERS: Emergency Provider Emergency Medicine
DX: F03.90 Unspecified dementia, unspecified severity, without behavioral disturbance, psychotic disturbance, mood disturbance, and anxiety (principal); F41.9 Anxiety disorder, unspecified; F41.0 Panic disorder [episodic paroxysmal anxiety]; R00.0 Tachycardia, unspecified; R94.31 Abnormal electrocardiogram [ECG] [EKG]; Z79.899 Other long term (current) drug therapy
CPT/HCPCS: 36415; 80048; 82803; 83735; 85025; 93005; 96372; 99284; J2060; J2359

== ENCOUNTER → 2024-10-14 16:09 | Outpatient (BNV) | payer OTHER, SELFPAY | PROVIDERS: Emergency Provider Emergency Medicine; Visit Provider Internal Medicine | DX: R94.31 Abnormal electrocardiogram [ECG] [EKG] (principal); R00.0 Tachycardia, unspecified | CPT/HCPCS: 93010 ==

== ENCOUNTER 2024-11-14 11:21 | Outpatient (REF) | payer OTHER, SELFPAY ==
--- NOTE | ~2024-11-14 | US_ITS ---
EXAMINATION: US ABDOMEN COMPLETE WITH LIVER ELASTOGRAPHY HISTORY: K74.60 - Unspecified cirrhosis of liver TECHNIQUE: Real-time grayscale ultrasound imaging of the abdomen was performed and images were reviewed. COMPARISON: Correlation is made with a CT of the abdomen dated 02/06/2023. FINDINGS: Liver: The right lobe of the liver measures 12.8 cm in size. The left lobe of the liver measures 8.9 cm in size. The liver demonstrates increased echotexture, consistent with steatosis. No focal mass or intrahepatic biliary ductal dilatation is identified. There is normal hepatopedal flow in the portal vein. Ultrasound elastography of the liver was performed with 10 separate measurements of the liver parenchyma with the patient in the supine position. Measurements were obtained approximately 2 cm below Caity's capsule and perpendicular to the capsule. Images are of satisfactory quality. The median shear wave velocity is 1.72 m/s. The interquartile range/median (IQR/median) is 0.05. Gallbladder and biliary tree: The gallbladder is surgically absent. The common bile duct is normal in caliber measuring 3 mm. Kidneys: The right kidney measures 10.3 cm in length. The left kidney measures 10.4 cm in length. The kidneys are unremarkable, without evidence of masses, hydronephrosis, or calculi. Pancreas: The pancreatic head, neck, and body are unremarkable. The pancreatic tail is obscured by bowel gas. Spleen: The spleen is normal in size and contour, measuring 8.8 cm in length. Abdominal aorta and inferior vena cava: The visualized portions of the abdominal aorta and inferior vena cava are normal in caliber. There is no free fluid in the abdomen. US/US abdomen comp w elastography IMPRESSION: Hepatic steatosis. The median shear wave velocity is 1.72 m/s, corresponding to a median liver stiffness of 9.09 kPa. The IQR/median value is 0.05. This is indicative of a quality data set. Findings are indicative of a high elastography value suggestive of compensated advanced chronic liver disease. REFERENCE: Society of Radiologists in Ultrasound Liver Stiffness Thresholds (2019): LIVER STIFFNESS THRESHOLDS: *Shear wave velocity less than 1.3 m/s (Liver Stiffness equal or less than 5 kPa): High probability of being normal. *Shear wave velocity less than 1.7 m/s (Liver Stiffness less than 9 kPa): In the absence of other known clinical signs, rules out compensated advanced chronic liver disease. *Shear wave velocity between 1.7-2.1 m/s (Liver Stiffness 9-13 kPa): Suggestive of compensated advanced chronic liver disease but need further test for confirmation. *Shear wave velocity between 2.1-2.4 m/s (Liver Stiffness 13-17 kPa): Rules in compensated advanced chronic liver disease. *Shear wave velocity greater than 2.4 m/s (Liver Stiffness over 17 kPa): Suggestive of clinically significant portal hypertension. QUALITY OF DATA SET: *IQR/Median value equal or less than 0.15 implies a quality data set. *IQR/Median value over 0.15 implies a poor quality data set. SIGNIFICANT CHANGE FROM PRIOR EXAM: Significant change if liver stiffness measurement is 10% or greater from prior exam. OTHER CONSIDERATIONS: The stage of liver fibrosis may be overestimated in the setting of acute hepatitis, liver inflammation, elevated liver function tests, hepatic vascular congestion, obstructive cholestasis, non-fasting state, and infiltrative diseases such as amyloidosis and lymphoma. In some patients with NAFLD, the liver stiffness thresholds for compensated advanced chronic liver disease may be lower. In causes other than viral hepatitis and NAFLD, liver stiffness thresholds are not well established. Electronically signed by: Colton Zhao MD 11/14/2024 01:30 PM [facility]
--- OUTSIDE RECORDS SUMMARY | 2024-11-14 13:27 | XMS_ITS | Encounter Summary ---
Author Organization [employer] [facility] Address [address] [place] [id number] Care Team Providers Care Goat Driver Name Role Phone Nathaly Boston Primary Care Provider [phone] Nathaly Boston Primary Care Provider [phone] Encounter Details Date Type Department Care Team (Late st Contact Info) Description 08/01/2022 Abstract [facility] [address] [place] [phone] Provider, MD Yanelis Social History Tobacco Use Types Packs/Day Years Used Date Smoking Tobacco: Never Assessed Comments Unknown Sex and Gender Information Value Date Recorded Sex Assigned at Female 07/14/2022 10:14 AM EDT Legal Sex Female 10:14 AM EDT Gender Identity Female 07/14/2022 10:14 AM EDT Sexual Orientation Straight 07/14/2022 10 :14 AM EDT documented as of this encounter Plan of Treatment Upcoming Encounters Date Type Department Care Team (Late st Contact Info) Description 12/16/2024 2:15 PM EDT Telemedicine [facility] [address] [place] [phone] Nathaly Boston ANP [address] [place] [address] documented as of this encounter Visit Diagnoses Not on filedocumented in this encounter Care Teams Goat Driver Relationship Specialty Start Date End Date Nathaly Boston ANP [address] [place] [phone] PCP - General Family Medicine 05/03/21 05/01/24 Nathaly Boston ANP [address] [place] [id number] PCP - General Family Medicine 05/02/24 documented as of this encounter
--- OUTSIDE RECORDS SUMMARY | 2024-11-14 13:27 | XMS_ITS | Encounter Summary ---
Author Organization [employer] Address [address] [facility] 7[address] [place] [address] Care Team Providers Care Practice Consultant Name Role Phone Nathaly Boston Primary Care Provider [phone] Nathaly Boston ANP Primary Care Provider [phone] Encounter Details Date Type Department Care Team (Late st Contact Info) Description 10/16/2023 Orders Only [facility] [address] [place], [place] [phone] Nathaly Boston ANP [address] [place], [place] [phone] Social History Tobacco Use Types Packs/Day Years Used Date Smoking Tobacco: Never Smokeless Tobacco: Never Alcohol Use Standard Drinks/Week Comments Not Currently 0 (1 standard drink = 0.6 oz pur e alcohol) Depression Answer Date Recorded Patient Health Questionnaire-9 Score 7 09/15/2023 Patient Health Questionnaire-9 Score 7 09/15/2023 Last PHQ-9: Questionnaire Data Not on file 0 09/15/2023 Housing Stability Answer Date Recorded What is your housing situation today? I have brittny ngo 06/29/[address] you li ve. Do you have problems with any of the following? None of the above 06/29/2023 Food Insecurity Answer Date Recorded Within the past 12 months, y ou worried that your food would run out before you got money to buy more: Never True 06/29/2023 Within the past 12 months,th e food you bought just didn't last and you didn't have enough money to get more: Never True Transportation Answer Date Recorded In the past 12 months, has l ack of transportation kept you from medical appts, meetings, work or from getting things needed for daily living? No 06/29/2023 Utilities Answer Date Recorded In the past 12 months, has t he electric, gas, oil or water company threatened to shut off services in your home? No 06/29/2023 Depression Answer Date Recorded Patient Health Questionnaire-2 Score 3 09/15/2023 Comments Unknown Sex and Gender Information Value Date Recorded Sex Assigned at Female 07/14/2022 10:14 AM EDT Legal Sex Female 10:14 AM EDT Gender Identity Female 07/14/2022 10:14 AM EDT Sexual Orientation Straight 07/14/2022 10 :14 AM EDT documented as of this encounter Plan of Treatment Upcoming Encounters Date Type Department Care Team (Late st Contact Info) Description 12/16/2024 2:15 PM EDT Telemedicine [facility] [address] [place] [phone] Nathaly Boston ANP [address] [place] [phone] documented as of this encounter Goals Goal Patient Goal Type Associated Problems Recent Progress Patient-Stated? Author Record your blood pressure once per day Blood Pressure No Ria Santos Blood Pressure < 140/90 Blood Pressure 132/78(2023 9:00 AM EST) Ria Santiago documented as of this encounter Visit Diagnoses Not on filedocumented in this encounter Additional Health Concerns Assessment Noted Time PHQ-9 Depression Total Score: 7 09/15/19 24 10:39 AM EST documented as of this encounter Care Teams Practice Consultant Relationship Specialty Start Date End Date Nathaly Boston ANP [address] [place] [phone] PCP - General Family Medicine 05/03/21 05/01/24 Nathaly Boston ANP [address] [place] [phone] PCP - General Family Medicine 05/02/24 documented as of this encounter
--- OUTSIDE RECORDS SUMMARY | 2024-11-14 13:27 | XMS_ITS | Encounter Summary ---
Author Organization [employer] Address [address] [facility] 7t [place] [address] Care Team Providers Care Leaf Fat Scraper Name Role Phone Nathaly Boston ANP Primary Care Provider [phone] Nathaly Boston ANP Primary Care Provider [phone] Reason for Visit * Reason Comments Med Refill Encounter Details Date Type Department Care Team (Late st Contact Info) Description 03/01/2024 Refill [facility] [address] [place], [place] [phone] Nathaly Boston ANP [address] [place], [place] [phone] Essential hypertension Social History Tobacco Use Types Packs/Day Years Used Date Smoking Tobacco: Never Passive Smoke Exposure: Never Smokeless Tobacco: Never Alcohol Use Standard Drinks/Week Comments Not Currently 0 (1 standard drink = 0.6 oz pur e alcohol) Alcohol Answer Date Recorded Frequency of Alcohol Consumption Not on file 02/16/2024 Average Number of Drinks Not on file 024 Frequency of Binge Drinking Not on file 12/2023 Score 0 02/16/2024 Depression Answer Date Recorded Patient Health Questionnaire-9 Score 7 09/15/2023 Patient Health Questionnaire-9 Score 7 09/15/2023 Last PHQ-9: Questionnaire Data Not on file 0 09/15/2023 Housing Stability Answer Date Recorded What is your housing situation today? I have brittny ngo 02/16/[address] you li ve. Do you have problems with any of the following? None of the above 02/16/2024 Food Insecurity Answer Date Recorded Within the past 12 months, y ou worried that your food would run out before you got money to buy more: Never True 02/16/2024 Within the past 12 months,th e food you bought just didn't last and you didn't have enough money to get more: Never True 12/2023 Transportation Answer Date Recorded In the past 12 months, has l ack of transportation kept you from medical appts, meetings, work or from getting things needed for daily living? No 02/16/2024 Utilities Answer Date Recorded In the past 12 months, has t he electric, gas, oil or water company threatened to shut off services in your home? No 02/16/2024 Depression Answer Date Recorded Patient Health Questionnaire-2 Score 3 09/15/2023 Comments No Sex and Gender Information Value Date Recorded Sex Assigned at Female 07/14/2022 10:14 AM EDT Legal Sex Female 10:14 AM EDT Gender Identity Female 07/14/2022 10:14 AM EDT Sexual Orientation Straight 07/14/2022 10 :14 AM EDT documented as of this encounter Plan of Treatment Upcoming Encounters Date Type Department Care Team (Late st Contact Info) Description 12/16/2024 2:15 PM EDT Telemedicine [facility] [address] [place] [address] Nathaly Boston ANP [address] [place] [address] documented as of this encounter Goals Goal Patient Goal Type Associated Problems Recent Progress Patient-Stated? Author Record your blood pressure once per day Blood Pressure No Ria Santos Blood Pressure < 140/90 Blood Pressure 132/78(2023 9:00 AM EST) No Ria Santos documented as of this encounter Visit Diagnoses Diagnosis Essential hypertension Unspecified essential hypertension documented in this encounter Additional Health Concerns Assessment Noted Time PHQ-9 Depression Total Score: 7 09/15/19 24 10:39 AM EST documented as of this encounter Care Teams Leaf Fat Scraper Relationship Specialty Start Date End Date Nathaly Boston ANP [address] [place] [address] PCP - General Family Medicine 05/03/21 05/01/24 Nathaly Boston ANP [address] [place] [address] PCP - General Family Medicine 05/02/24 documented as of this encounter
--- OUTSIDE RECORDS SUMMARY | 2024-11-14 13:27 | XMS_ITS | Clinical Summary ---
Author Organization [facility] Address [address] [place] [address] Care Team Providers Care Coremaker Supervisor Name Role Phone Unknown Primary Care Provider [phone] Allergies No known active allergies Medications No known medications Social History Tobacco Use Types Packs/Day Years Used Date Smoking Tobacco: Never Assessed Sex and Gender Information Value Date Recorded Sex Assigned at Not on file Gender Identity Not on file Sexual Orientation Not on file Last Filed Vital Signs Vital Sign Reading Time Taken Comments Blood Pressure 144/82 10/17/2017 6:53 AM EST Pulse 80 10/17/2017 6:53 AM EST Temperature 36.3 ??C (97.4 ??F) 10/17/2017 5:51 AM ES T Respiratory Rate 16 10/17/2017 6:53 AM EST Oxygen Saturation 96% 10/17/2017 6:53 AM EST Inhaled Oxygen Concentration - - Weight - - Height - - Body Mass Index - - Plan of Treatment Health Maintenance Due Date Last Done Comments Hepatitis C Virus Screening 1945 DTaP/Tdap/Td Vaccines (1 - Tdap) 01/25/1964 Pneumococcal Vaccines 50+ (1 of 1 - PCV) 1995 Zoster (Shingles) Vaccine (1 of 2) 1995 DXA Bone Density (Females,Ag es 65 and older) 2010 RSV Vaccine 60 years and old er and Patients (1 - 1-dose 75+ series) 01/25/2020 Influenza Vaccine 04/14/2024 COVID-19 Vaccine ( - 2023-2 5 season) 2024 Hepatitis B Vaccines Aged Out No long er eligible based on patient's age to complete this topic Care Teams Coremaker Supervisor Relationship Specialty Start Date End Date Unknown Unknow Provider Address PCP - General 10/17/17
--- OUTSIDE RECORDS SUMMARY | 2024-11-14 13:27 | XMS_ITS | Encounter Summary ---
Author Organization [employer] Address [address] [facility] 7t [place] [address] Care Team Providers Care Popcorn Machine Operator Name Role Phone Nathaly Boston Primary Care Provider [phone] Encounter Details Date Type Department Care Team (Latest Contact Info) Description 10/28/2024 Travel Social History Tobacco Use Types Packs/Day Years Used Date Smoking Tobacco: Never Passive Smoke Exposure: Never Smokeless Tobacco: Never Alcohol Use Standard Drinks/Week Comments Not Currently 0 (1 standard drink = 0.6 oz pur e alcohol) sometimes Alcohol Answer Date Recorded Frequency of Alcohol [...] Recorded Patient Health Questionnaire-2 Score 3 09/15/2023 Internet Access Answer Date Recorded Internet Access Q1 Yes 09/30/2024 Internet Access Q2 I do not want or need it 09/14 Comments No Sex and Gender Information Value Date Recorded Sex Assigned at Female 07/14/2022 10:14 AM EDT Legal Sex Female 10:14 AM EDT Gender Identity Female 07/14/2022 10:14 AM EDT Sexual Orientation Straight 07/14/2022 10 :14 AM EDT documented as of this encounter Plan of Treatment Upcoming Encounters Date Type Department Care Team (Late st Contact Info) Description 12/16/2024 2:15 PM EDT Telemedicine [facility] [address] [place] [phone] Nathaly Boston ANP [address] [place] [address] documented as of this encounter Goals Goal [...] Time PHQ-9 Depression Total Score: 7 09/15/19 10:39 AM EST documented as of this encounter Care Teams Popcorn Machine Operator Relationship Specialty Start Date End Date Nathaly Boston ANP [address] [place] [id number] PCP - General Family Medicine 05/02/24 documented as of this encounter
--- OUTSIDE RECORDS SUMMARY | 2024-11-14 13:27 | XMS_ITS | Encounter Summary ---
Author Organization [employer] Address [address] [place] [address] Care Team Providers Care Photo Checker And Assembler Name Role Phone Nathaly Boston Primary Care Provider [phone] Nathaly Boston Primary Care Provider [phone] Reason for Visit * Reason Comments Med Refill Encounter Details Date Type Department Care Team (Late st Contact Info) Description 01/16/2023 Refill [facility] [address] [place] [phone] Юлия Valdivia MD [address] [place], [place] [phone] Social History Tobacco Use Types Packs/Day Years Used Date Smoking Tobacco: Never Smokeless Tobacco: Never Alcohol Use Standard Drinks/Week Comments Not Currently 0 (1 standard drink = 0.6 oz pur e alcohol) Depression Answer Date Recorded Patient Health Questionnaire-9 Score 4 10/07/2022 Depression Answer Date Recorded Patient Health Questionnaire-2 Score 0 10/07/2022 Comments Unknown Sex and Gender Information Value Date Recorded Sex Assigned at Female 07/14/2022 10:14 AM EDT Legal Sex Female 10:14 AM EDT Gender Identity Female 07/14/2022 10:14 AM EDT Sexual Orientation Straight 07/14/2022 10 :14 AM EDT documented as of this encounter Plan of Treatment Upcoming Encounters Date Type Department Care Team (Late st Contact Info) Description 12/16/2024 2:15 PM EDT Telemedicine [facility] [address] [place], [place] [phone] Nathaly Boston ANP [address] [place], [place] [phone] documented as of this encounter Visit Diagnoses Not on filedocumented in this encounter Additional Health Concerns Assessment Noted Time PHQ-9 Depression Total Score: 4 10/07/19 23 3:46 PM EST documented as of this encounter Care Teams Photo Checker And Assembler Relationship Specialty Start Date End Date Nathaly Boston ANP [address] [place] [address] PCP - General Family Medicine 05/03/21 05/01/24 Nathaly Boston ANP [address] [place] [address] PCP - General Family Medicine 05/02/24 documented as of this encounter
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
--- OUTSIDE RECORDS SUMMARY | 2024-11-14 13:27 | XMS_ITS | Encounter Summary ---
Author Organization [employer] Address [address] [facility] 7t [place] [address] Care Team Providers Care Dispatch Lead Name Role Phone Nathaly Boston Primary Care Provider [phone] Encounter Details Date Type Department Care Team ([facility] st Contact Info) Description 11/11/2024 Orders Only [facility] MEDICINE [address] [place], [place] [phone] Nathaly Boston ANP [address] [place], [place] [phone] Essential hypertension (Primary Dx) Social History Tobacco Use Types Packs/Day Years [...] AM EDT documented as of this encounter Progress Notes * DEEDEE Gurrola - 11/11/2024 4:33 PM EST Diagnoses and all orders for this visit: Essential hypertension - metoprolol tartrate (Lopressor) 25 MG tablet; Take 1 tablet (25 mg) by mouth 2 times daily. documented in this encounter Plan of Treatment Upcoming Encounters Date Type Department Care Team (Late st Contact Info) Description 12/16/2024 2:15 PM EDT Telemedicine [facility] MEDICINE [address] [place] [address] Nathaly Boston ANP [address] [place] [address] documented as of this encounter Goals Goal Patient Goal Type Associated Problems Recent Progress Patient-Stated? Author Record your blood pressure once per day Blood Pressure Ria Santiago Blood Pressure < 140/90 Blood Pressure 132/78(2023 9:00 AM EST) No Ria Santos documented as of this encounter Visit Diagnoses Diagnosis Essential hypertension- Primary Unspecified essential hypertension documented in this encounter Additional Health Concerns Assessment Noted Time PHQ-9 Depression Total Score: 7 09/15/19 10:39 AM EST documented as of this encounter Care Teams Dispatch Lead Relationship Specialty Start Date End Date Nathaly Boston ANP [address] [place] [address] PCP - General Family Medicine 05/02/24 documented as of this encounter
--- OUTSIDE RECORDS SUMMARY | 2024-11-14 13:27 | XMS_ITS | Encounter Summary ---
Author Organization [employer] Address [address] [facility] 7t [place] [address] Care Team Providers Care Paper Cup Handle Machine Operator Name Role Phone Nathaly Boston Primary Care Provider [phone] Nathaly Boston Primary Care Provider [phone] Reason for Visit * Reason Comments Med Refill Encounter Details Date Type Department Care Team (Late st Contact Info) Description 02/05/2024 Refill [facility] [address] [place], [place] [phone] Estrella Tapia FNP Social History Tobacco Use Types Packs/Day Years [...] Info) Description 12/16/2024 2:15 PM EDT Telemedicine [facility] MEDICINE [address] [place] [phone] Nathaly Boston ANP [address] [place] [address] documented as of this encounter Goals Goal [...] documented as of this encounter Care Teams Paper Cup Handle Machine Operator Relationship Specialty Start Date End Date Nathaly Boston ANP [address] [place] [id number] PCP - General Family Medicine 05/03/21 05/01/24 Nathaly Boston ANP [address] [place] [id number] PCP - General Family Medicine 05/02/24 documented as of this encounter
--- OUTSIDE RECORDS SUMMARY | 2024-11-14 13:27 | XMS_ITS | Encounter Summary ---
Author Organization [employer] Address [address] [facility] 7t [place] [address] Care Team Providers Care Handle Bender Name Role Phone Nathaly Boston Primary Care Provider [phone] Reason for Visit * Reason Onset Date Comments Medication Question 10/25/2024 Encounter Details Date Type Department Care Team ([facility] st Contact Info) Description 10/25/2024 Telephone [facility] MEDICINE [address] [place], [place] [phone] Nathaly Boston ANP [address] [place], [place] [phone] Medication Question Social History Tobacco Use Types Packs/Day Years [...] AM EDT documented as of this encounter Miscellaneous Notes * Telephone Encounter - Jaye Grant RN - 10/25/2024 12:22 PM EST Per chart review, this discussed with PCP on 10/18/24 following ER visit. Family was requesting risperidone refill. PCP would send but pending clarification of the following DEEDEE Gurrola to [facility] Team Nurses 10/18/24 3:59 PM Thank you - can you clarify - was medication helpful for pt? Will send but needs close f/u - if no effect will consider stopping versus increasing after 1 month. Also, pt was to see neuro last month,please confirm this transpired or give contact info to reschedule. Thank you! Call was placed to daughter Bassam listed as HCP but no answer and no call back. Stacy on HIPAA Registration form valid until 04/21/25 Call returned to Lizabeth, reports pt had panic attack yesterday. Per daughter unable to calm patient for a few hours. Lizabeth is current caregiver along with spouse. Loyda is no longer caregiver for patient. Lizabeth unsure if previous dose of risperidone was effective. Lizabeth is asking that Rx be in separate pill box instead of med boxes to make sure spouse knows taht is the anxiety med to determineif effective. Also asking if med can be crushed to be given with food as patient sometimes resistant to oral meds. Daughter advise both are questions for pharmacy. Daughter made aware that pt has appt with Dr. Gonzales on 11/16/24 at 11:20am [address] [facility], 4th floor [address]. Given contact number to call for sooner appt. Advised importance of keeping this appt as scheduled. Daughter also advised thatpt is to have PCP follow up to discuss if medication above working. Never booked for 4-5 week follow up requested at last Telehealth visit. Agrees to telehealth with PCP this week. Reviewed to returncall to [facility] PRN if sx of anxiety/panic attacks worsen. Daughter agrees. Protocol Used: Anxiety and Panic Attack (Adult) Protocol-Based Disposition: See in Office or Video Visit within 3 Days Future Appointments Date Time Provider Department Center 10/28/2024 9:30 AM DEEDEE Gurrola MEDICINE [facility] Insurance verified as active per Real Time Eligibility in Epic. Video visit offered and caller accepted Positive Triage Questions: * Started on anti-anxiety medication and no relief * Panic attacks are increasing in frequency * All higher-acuity triage questions were negative Care Advice Discussed: * Note to Triager - How to Help a Patient During a Panic Attack * Avoid Triggers of Anxiety * Reasons To Call Back - Anxiety or panic attacks continue - You feel like harming yourself - You become worse * Telephone Encounter - Dominick Webster - 10/25/2024 11:56 AM EST Symptom: Anxiety or Panic Attack Outcome: Talk to a nurse or provider within 15 minutes Reason: Afraid they are dying The caller accepted this outcome. Tc from pt daughter (Lizabeth) stating that pt had a panic attack the other day and that pt was out ofcontrol and that she could not calm her down. Lizabeth would like a call back to speak about putting mom on some type of anxiety medication that could help. Lizabeth Jordan: [phone] documented in this encounter Plan of Treatment Upcoming Encounters Date Type Department Care Team (Late st Contact Info) Description 12/16/2024 2:15 PM EDT Telemedicine [facility] MEDICINE [address] [place] [address] Nathaly Boston ANP [address] [place] [address] documented as of this encounter Goals Goal [...] documented as of this encounter Care Teams Handle Bender Relationship Specialty Start Date End Date Nathaly Boston ANP [address] [place] [address] PCP - General Family Medicine 05/02/24 documented as of this encounter
--- OUTSIDE RECORDS SUMMARY | 2024-11-14 13:27 | XMS_ITS | Encounter Summary ---
Author Organization [employer] Address [address] [facility] 7t [place] [address] Care Team Providers Care Optician Manager Name Role Phone Nathaly Boston ANP Primary Care Provider [phone] Nathaly Boston ANP Primary Care Provider [phone] Reason for Visit * Reason Comments Med Refill Encounter Details Date Type Department Care Team (Late st Contact Info) Description 10/13/2023 Refill [facility] MEDICINE [address] [place], [place] [phone] Nathaly Boston ANP [address] [place], [place] [phone] Social History Tobacco Use Types Packs/Day Years [...] Description 12/16/2024 2:15 PM EDT Telemedicine [facility] MEDICINE [address] [place] [address] Nathaly Boston ANP [address] [place] [phone] documented as of this encounter Goals Goal [...] documented as of this encounter Care Teams Optician Manager Relationship Specialty Start Date End Date Nathaly Boston ANP [address] [place] [phone] PCP - General Family Medicine 05/03/21 05/01/24 Nathaly Boston ANP [address] [place] [phone] PCP - General Family Medicine 05/02/24 documented as of this encounter
--- OUTSIDE RECORDS SUMMARY | 2024-11-14 13:27 | XMS_ITS | Clinical Summary ---
Author Organization [employer] Address [address] [facility] [address] [place] [address] Care Team Providers Care Building Drafting Officer Name Role Phone Idania Leal Primary Care Provider [phone] Allergies Active Allergy Reactions Criticality Noted Date Comments Ibuprofen Rash Low 04/29/2023 Medications * This document contains information received from the source organization and may not represent a complete record from that organization. albuterol 108 (90 Base) MCG/ACT inhaler Inhale 2 puffs every 4 (four) hours. 08/29/20 21 Active acetaminophen (Tylenol 8 Hour) 650 MG ER tablet Take 1 tablet (650 mg) by mouth every 8 (eight) hours. 30 tablet 1 12/03/19 24 Active amLODIPine (Norvasc) 5 MG tabletIndicatio ns:Essential hypertension TAKE 1 TABLET BY MOUTH AT BEDTIME 90 tablet 3 01/06/20 24 Active timolol (Timoptic) 0.5 % ophthalmic solution INSTILL 1 DROP IN EACH EYE EVERY MORNING 08/24/20 23 Active DULoxetine (Cymbalta) [address] capsuleIndicati ons:Chronic midline low back pain with right-sided sciatica,Anxiet y Take 1 capsule (60 mg) by mouth Once daily. Do not crush or chew. 90 capsule 1 04/21/20 24 Active lidocaine (Lidoderm) 5 % patchIndication s:Chronic midline low back pain with right-sided sciatica Apply 1 patch topically Once per day. Remove & discard patch within 12 hours or as directed by MD. 30 patch 3 08/18/20 24 Active gabapentin (Neurontin) 300 MG capsuleIndicati ons:Chronic low back pain, unspecified back pain laterality, unspecified whether sciatica present TAKE 1 CAPSULE BY MOUTH THREE TIMES DAILY IN THE MORNING, EVENING, AND BEDTIME 90 capsule 3 08/19/20 24 Active risperiDONE (RisperDAL) 0.25 MG tabletIndicatio ns:behavior disturbance in dementia Take 1 tablet (0.25 mg) by mouth 2 times daily. 60 tablet 10/18/19 25 025 Active metoprolol tartrate (Lopressor) 25 MG tabletIndicatio ns:Essential hypertension Take 1 tablet (25 mg) by mouth 2 times daily. 60 tablet 11 11/11/19 25 026 Active LORazepam (Ativan) 1 MG tabletIndicatio ns:Panic attack 1 tablet as needed for panic attack, may repeat x1 after 30 min if no effect 12 tablet 04/04/20 24 025 Discontinued(Si de effects) metoprolol succinate XL (Toprol-XL) 25 MG 24 hr tabletIndicatio ns:Essential hypertension TAKE 1 TABLET BY MOUTH EVERY EVENING (BLOOD PRESSURE) 90 tablet 1 05/11/20 24 025 Discontinued(Al ternate therapy) risperiDONE (RisperDAL) 0.25 MG tabletIndicatio ns:behavior disturbance in dementia Take 1 tablet (0.25 mg) by mouth 2 times daily. 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 Had colonoscopy 2019 at [facility], we don't have report. Normal oral exam 04/15/2023 Overview (04/15/2023): Mammo ordered Declines IZ update, due for PCV 20 and shingrix. Rec'd 5 COVID vaccines, no bivalent yet. Non-smoker DEXA 2018 osteopenia, will recommend repeat at follow-up Pap NIL 2012 at age 68 C-scope overdue. Pt has ANAIS gene mutation which increases risk for certain cancers including breast and colon. A1c 5.2 12/2020 Unspecified symptoms and sig ns involving cognitive functions and awareness 03/30/2023 Overview (04/15/2023): Referral to neuropsych via clinician underway 02/2023 CT head 02/06/23 no acute intracranial abnormality. Expanded empty sella. Proportional prominence of ventricles and sulcal spaces consistent with mild volume loss Memory loss labs ordered 02/2023 not yet collected 03/23/23 Assessment & Plan (09/15/2023 10:56 AM EST): During IBH Consult Cheryl presenting with depressed mood, loss of interests/pleasure , change in appetite or weight reduce appetite, trouble concentrating, thoughts of worthlessness or guilt, fatigue/loss of energy, hopelessness, worthlessness , difficulty concentrating; for a period of 6-12 mo in the context of illness or family illness. Recent MR found consistency with alzheimer's disease leading to depressive symptoms and changes in living situation being this event the main cause of sx. PLAN: (check all that apply) Continue with current services (defined as services in the past 12 months) , Behavioral Health Integration Plan Internal Follow-up with clinician if needed during next medical appointment, Patient Self Plan Patient to utilize skills provided in intervention , Comply with medication , and Patient to reach out to [facility] as needed. Assessment & Plan (07/01/2023 11:50 AM EDT): Patient with symptoms of suspected dementia. Reason for visit was to offer support throughout this difficult and challenging time. No risk for self-harm, SI or HI. Provided psychoeducation around depressive symptoms and ways to cope with dementia behaviors. Plan is to offer follow-up BE's and support as well. Patient is in denial or not understating of diagnosis. At this time Cheryl Weaver meets criteria for Visit Diagnoses: Problem List Items Addressed This Visit Other Depression, unspecified Unspecified symptoms and signs involving cognitive functions and awareness Patient ready to address current needs Yes Strengths include strong family support PLAN: 1. Follow up with [facility]: Recommended for follow-up: Scheduled follow-up BE in a month. 2. Patient goal is to gradually accept the diagnosis 3. Behavioral Recommendations a. Follow-up BE with clinician b. Continuing practicing self-care mechanisms (going to the casino and take care of family pets) c. See Neurologist in [place] as recommended by PCP Idania (see doctor's note) Assessment & Plan (03/30/2023 1:12 PM EDT): Patient reports having various episodes severe dizziness, sensation that she could not walk, hyperventilating. She reports these episodes where she gets spontaneous musculoskeletal movements, like her hands spreading and twisting. Patient reports feelings of frustration and easily irritable, but presents with incongruent affect to mood (inappropriate laughing, although expressing concern with recent anxiety episodes). Laughter and giggles even when describing and expressing frustration and irritability. who was in session indicated events in which patient has left stove on. Pat indicates she does not remember that happening. During intervention provider engaged patient in supportive counseling through active listening, validation of emotions and normalization of experience. Mental status was explored and MOCA was completed. Patient scored 5/30 on MOCA signaling severe cognitive impairment. Attention: severely impacted unable to count backwards, , repeat numbers in MOCA , tap on serial letters in MOCA or complete substractions , Fund of Knowledge: Unable to name current president, Language: Word finding difficulties and Unable to give more than 4 words with letter F in a minute (kept repeating the same ones (deb. Famoso, fabrica, fiebre), Recent memory: Severely impaired, unable to recall list of words given in MOCA , unable to recall names for the animal figures, given other unrelated animal names. Throughout the intervention patient presented with loosening of associations and tangential speech. She also presented with poor insight around cognitive issues and impact on mood and behavior. We discussed referral options and also patient agreed to the referrals, she expressed discontent with provider suggesting the referral. PCP will complete referral to dept to explore neuropsych for further assessments and supports. Chronic low back pain 08/01/2022 Vascular insufficiency 08/01/2022 Constipation 09/13/2014 Arthritis 09/13/2014 Restless legs 09/13/2014 Allergic rhinitis 06/14/2013 Osteoarthritis 03/29/2012 Disorder of skeletal muscle 03/11/2012 Dizziness and giddiness 03/11/2012 Essential hypertension 03/11/2012 Insomnia 03/11/2012 Depression, unspecified 03/11/2012 Assessment & Plan (09/15/2023 10:56 AM EST): During IBH Consult Cheryl presenting with depressed mood, loss of interests/pleasure , change in appetite or weight reduce appetite, trouble concentrating, thoughts of worthlessness or guilt, fatigue/loss of energy, hopelessness, worthlessness , difficulty concentrating; for a period of 6-12 mo in the context of illness or family illness. Recent MR found consistency with alzheimer's disease leading to depressive symptoms and changes in living situation being this event the main cause of sx. PLAN: (check all that apply) Continue with current services (defined as services in the past 12 months) , Behavioral Health Integration Plan Internal Follow-up with clinician if needed during next medical appointment, Patient Self Plan Patient to utilize skills provided in intervention , Comply with medication , and Patient to reach out to [facility] as needed. Assessment & Plan (07/01/2023 11:50 AM EDT): Patient with symptoms of suspected dementia. Reason for visit was to offer support throughout this difficult and challenging time. No risk for self-harm, SI or HI. Provided psychoeducation around depressive symptoms and ways to cope with dementia behaviors. Plan is to offer follow-up BE's and support as well. Patient is in denial or not understating of diagnosis. At this time Cheryl Weaver meets criteria for Visit Diagnoses: Problem List Items Addressed This Visit Other Depression, unspecified Unspecified symptoms and signs involving cognitive functions and awareness Patient ready to address current needs Yes Strengths include strong family support PLAN: 1. Follow up with [facility]: Recommended for follow-up: Scheduled follow-up BE in a month. 2. Patient goal is to gradually accept the diagnosis 3. Behavioral Recommendations a. Follow-up BE with clinician b. Continuing practicing self-care mechanisms (going to the casino and take care of family pets) c. See Neurologist in [place] as recommended by PCP Idania (see doctor's note) Bursitis 03/11/2012 Shoulder joint pain 03/11/2012 Varicose veins of lower extremity 03/11/2012 Encounters Date Type Department Care Team Description 11/11/2024 Orders Only [address] [id number] Idania Leal ANP Essential hypertension (Primary Dx) 11/11/[address] [address] Idania Leal ANP FYI 10/28/2024 9:30 AM EST Telemedicine [address] [address] Idania Leal ANP Panic attacks (Primary Dx); Moderate dementia with anxiety, unspecified dementia type ([facility]) 10/28/2024 Travel 10/25/[address] [address] Idania Leal ANP Medication Question 10/18/[address] [address] Idania Leal ANP ER Follow-up 10/05/[address] [address] Idania Leal ANP Appointment Confirmation 10/05/[address] [address] Idania Leal ANP Appointment Confirmation 09/30/2024 Patient Outreach [address] [address] Idania Leal ANP Pre-visit Planning (SDOH Screening negative and Tobacco screening negative) 09/30/[address] [address] Idania Leal ANP Chart Prep 09/13/2024 9:00 AM EST Office Visit [facility] [address] [place] [address] EloyAnastacioa 08/19/2024 Telephone [facility] [address] [place] [address] Idania Leal ANP 08/19/2024 Refill [facility] [address] [place] [address] Idania Leal ANP Chronic low back pain, unspecified back pain laterality, unspecified whether sciatica present 08/18/2024 2:30 PM EST Telemedicine [facility] [address] [place] [address] Idania Leal ANP Moderate dementia with anxiety, unspecified dementia type (CMS/HCC) (Primary Dx); Chronic midline low back pain with right-sided sciatica 08/18/2024 Travel 08/17/2024 Telephone [facility] [address] [place] [address] Acacia Miller MA chart prep from Last 3 Months Immunizations Name Administration Dates Next Due Influenza High-dose Quadriva lent Preservative Free 06/17/2023,06/02/2022,09/04/2020 Influenza Injectable Quadriv alant Preservative Free IIV4 MDCK 06/08/2019,06/22/2018,07/13/2017 Influenza injectable quadriv alent IIV4 with preservative 07/23/2017 Influenza injectable quadriv alent preservative free 06/02/2022,06/15/2021,06/02/2020,06/29 Influenza, High Dose Seasona l, Preservative Free 06/09/2018 Moderna Covid-19 Vaccine 12+ 01/21/2022,08/14/20 21,08/06/2021 Pneumococcal Polysaccharide PPSV23 07/25/2014,,05/22/2009 TD (adult), 2 Lf tetanus tox oid, preservative free, adsorbed 01/21/2022,05/22/2009,04/27/1999 Tdap 09/04/2020,01/08/2012,05/30/2010 Family History Medical History Relation Name Comments BRCA2 Positive Daughter Breast cancer Daughter Relation Name Status Comments Daughter Niece/Nephew neice Other BRCA2+ Social History Tobacco Use Types Packs/Day Years Used Date Smoking Tobacco: Never Passive Smoke Exposure: Never Smokeless Tobacco: Never Tobacco Cessation:Counseling Given: Not Answered Alcohol Use Standard Drinks/Week Comments Not Currently [...] Orientation Straight 07/14/2022 10 :14 AM EDT Last Filed Vital Signs Vital Sign Reading Time Taken Comments Blood Pressure 132/78 09/13/2024 9:00 AM EST Pulse 72 04/21/2024 2:00 PM EDT Temperature 36.3 ??C (97.3 ??F) 04/21/2024 2:00 PM ED T Respiratory Rate 20 04/21/2024 2:00 PM EDT Oxygen Saturation 100% 04/21/2024 2:00 PM EDT Inhaled Oxygen Concentration - - Weight 71.6 kg (157 lb 12.8 oz) 04/21/2024 2:00 PM EDT Height 157.5 cm (5' 2 ) 04/21/2024 2:00 PM EDT Body Mass Index 28.86 04/21/2024 2:00 PM EDT Plan of Treatment Upcoming Encounters Date Type Department Care Team (Late st Contact Info) Description 12/16/2024 2:15 PM EDT Telemedicine [facility] [address] [place], [place] [phone] Idania Leal, ANP [address] [place], [place] [phone] Health Maintenance Due Date Last Done Comments Hepatitis A Vaccines (1 of 2 - Risk 2-dose series) 01/25/1964 Zoster Vaccines (1 of 2) 1995 Hepatitis B Vaccines (1 of 3 - Risk 3-dose series) 2005 Dental X-Ray: Bitewings 01/06/2015 01/05/2014 Pneumococcal Vaccine: 50+ Years (2 of 2 - PCV) 07/25/2015 07/25/2014, 05/30/2010, 05/22/2009 RSV Patients and Patients Aged 60 years or older (1 - 1-dose 75+ series) 01/25/2020 COVID-19 Vaccine ( season) 2024 01/21/2022, 08/14/2021, 08/06/2021, Additional history exists Influenza Vaccine (#1) 2024 , 06/02/2022, 06/02/2022, Additional history exists Dental Oral Exam 07/22/2024 01/19/2024, 01/05/2014 Dental Prophylaxis 08/20/2024 02/18/2024 Depression Screening 09/15/2024 09/15/2023, 09/15/19 Alcohol/Substance Use Screening 02/15/2025 02/16/2024 Mammogram 04/04/2025 04/04/2024, 03/14, 08/22/2021, Additional history exists SDOH Screening 09/30/2025 09/30/2024 Tobacco Screening 11/11/2025 11/11/2024 Lipid Panel 01/08/2026 01/08/2021 Dental X-Ray: Full Mouth 01/19/2027 01/19/2024, 12/14 DTaP/Tdap/Td Vaccines (5 - Td or Tdap) 01/22/2032 01/21/2022, 09/04/2020, 01/08/2012, Additional history exists Hepatitis C Screening Completed 01/08/2021 HIB Vaccines Aged Out No longer eligi ble based on patient's age to complete this topic HPV Vaccines Aged Out No longer eligi ble based on patient's age to complete this topic IPV Vaccines Aged Out No longer eligi ble based on patient's age to complete this topic Meningococcal Vaccine Aged Out No librado lise eligible based on patient's age to complete this topic RSV under 20 months Aged Out No longe r eligible based on patient's age to complete this topic Rotavirus Vaccines Aged Out No longer eligible based on patient's age to complete this topic Goals Goal Patient Goal Type Associated Problems Recent Progress Patient-Stated? Author Record your blood pressure once per day Blood Pressure No Ria Santos Blood Pressure < 140/90 Blood Pressure 132/78(2023 9:00 AM EST) No Ria Santos Procedures Procedure Name Priority Date/Time Associated Diagnosis Comments NO CHARGE VISIT Routine 09/13/2024 9:00 AM EST BI MAMMOGRAM SCREENING TOMOSYNTHESIS BILATERAL Routine 04/04/2024 1:15 PM EDT PROPHYLAXIS - ADULT Routine 02/18/2024 1 0:00 AM EDT Dental plaque Dental calculus PANORAMIC RADIOGRAPHIC IMAGE Routine 01/19/2024 11:30 AM EDT PERIODIC ORAL EVALUATION - ESTABLISHED PATIENT Routine 01/19/2024 11:30 AM EDT ZZZ HISTORICAL HEPATITIS C AB W/REFL TO HCV RNA, QN, PCR Routine 01/08/2021 11:51 AM EDT LIPID PANEL, STANDARD Routine 01/08/2021 11:51 AM EDT INTRAORAL - COMPLETE SERIES OF RADIOGRAPHIC IMAGES Routine 01/05/2014 12:00 AM EDT from Last 3 Months or Most Recently Relevant to Health Maintenance Results * BI Mammogram Screening Tomosynthesis Bilateral (04/04/2024 1:15 PM EDT) Anatomical Region Laterality Modality Breast Bilateral Mammography 04/04/2024 1:15 PM EDT Narrative 04/26/2024 9:33 PM EDT ? [facility] [place] ? [address] ?[place] [address] ? Mammography Report ? Signed ? Patient: Cheryl Weaver ?MR#: [id number] ? : 1945 ?Acct:[id number] ? Age/Sex: 79 / F ?ADM Date: 04/04/24 ? Loc: HO.MAMMO ? Attending Dr: Idania Leal MOLD DUMPER ? Ordering Physician: IDANIA LEAL NP ?Results: 1Negative ? Date of Service: 04/04/24 ?Follow Up: 1 Year From Orig ?? inal Mammogram ? Procedure(s): MM tomosynthesis screening BI ?? Accession Number(s): [id number] ? cc: IDANIA LEAL NP ? EXAMINATION: ?? MM SCREENING DIGITAL BREAST TOMOSYNTHESIS, BILATERAL ? CLINICAL INFORMATION: ? Screening. Asymptomatic. ? COMPARISON: ?? Mammography: This study is compared with prior exams dating back to ?? 2018. ? TECHNIQUE: ?? Digital breast tomosynthesis is performed in both the craniocaudal and ?? mediolateral oblique views along with computer-aided detection (CAD). ?? Synthesized 2D images are generated from the tomosynthesis. ? FINDINGS: ?? There are scattered areas of fibroglandular density (ACR BI-RADS breast ?? composition Category b). ? There are no significant masses, abnormal calcifications, or other ?? abnormalities. ? MM/MM tomosynthesis screening BI ?? IMPRESSION: ?? No mammographic evidence of malignancy. ? ASSESSMENT: ? BI-RADS BI-RADS 1 - Negative ? RECOMMENDATION: ?? Routine annual mammography screening. ? 1 year F/U ? This examination should not preclude the clinical evaluation of a ?? suspicious palpable abnormality. ? This patient's information was entered into a reminder system with a ?? target due date for their next mammogram. ? Dictated By: ?Jonna Shahid MD ? Signed By: ?<Electronically signed by Jonna Shahid MD in OV> ? 04/26/249 ? DD/ 1315 ? TD/TT: ? Accounts Payable Bookkeeper: ? Procedure Note Donsukhjinderinterpreter, Image - 04/26/2024 Cat [facility] [address] [place] [address] Mammography Report Signed Patient: Major Weaver#: [id number] : 5Acct:[id number] Age/Sex: 79 / FADM Date: 04/04/24 Loc: [facility] Attending Dr: Idania Leal NP Ordering Physician: IDANIA LEALults: 1Negative Date of Service: 04/04/24Follow Up: 1 Year From Orig inal Mammogram Procedure(s): MM tomosynthesis screening BI Accession Number(s): [id number] cc: IDANIA LEAL MOLD DUMPER EXAMINATION: MM SCREENING DIGITAL BREAST TOMOSYNTHESIS, BILATERAL CLINICAL INFORMATION: Screening. Asymptomatic. COMPARISON: Mammography: This study is compared with prior exams dating back to 2018. TECHNIQUE: Digital breast tomosynthesis is performed in both the craniocaudal and mediolateral oblique views along with computer-aided detection (CAD). Synthesized 2D images are generated from the tomosynthesis. FINDINGS: There are scattered areas of fibroglandular density (ACR BI-RADS breast composition Category b). There are no significant masses, abnormal calcifications, or other abnormalities. MM/MM tomosynthesis screening BI IMPRESSION: No mammographic evidence of malignancy. ASSESSMENT: BI-RADS BI-RADS 1 - Negative RECOMMENDATION: Routine annual mammography screening. 1 year F/U This examination should not preclude the clinical evaluation of a suspicious palpable abnormality. This patient's information was entered into a reminder system with a target due date for their next mammogram. Dictated By: Jonna Shahid MD Signed By: <Electronically signed by Jonna Shahid MD in OV> 04/26/242128 DD/ 1315 TD/TT: Accounts Payable Bookkeeper: Idania MARK IM BI PROCEDURES Edited Result - Final * HEPATITIS C AB W/REFL TO HCV RNA, QN, PCR (01/08/2021 11:51 AM EDT) HEPATITIS C ANTIBODY NON-REACT ANTHONY NON-REACT ANTHONY [facility] INDEX 0.02 <1.00 [facility] Comment: ?? HCV antibody was non-reactive. There is no laboratory ?? evidence of HCV infection. ?? In most cases, no further action is required. However, if recent HCV exposure is suspected, a test for HCV RNA (test code 08147) is suggested. ?? For additional information please refer to http://education.TekLinks.Map Decisions/faq/KDN60s7 (This link is being provided for informational/ educational purposes only.) ?? 01/08/2021 11:5 1 AM EDT Historical Provider HISTORICAL/NON ORDERABLE LABS Final Result [facility] [address] * (ABNORMAL) LIPID PANEL, STANDARD (01/08/2021 11:51 AM EDT) Chol/HDLC Ratio 2.6 <5.0 (calc) [facility] Cholesterol, Total 203(H) <200 mg/dL [facility] HDL Cholesterol 79 > OR = 50 mg/dL [facility] LDL Cholesterol 103(H) mg/dL (calc) [facility] Comment: Reference range: <100 ?? Desirable range <100 mg/dL for primary prevention; ?? <70 mg/dL for patients with CHD or diabetic patients ?? with > or = 2 CHD risk factors. ?? LDL-C is now calculated using the Dash ?? calculation, which is a validated novel method providing ?? better accuracy than the Friedewald equation in the ?? estimation of LDL-C. ?? Edgar COLEMAN et al. ORTEGA. 2013;310(19): 4166-5412 ?? (http://education.[employer] Net Technologies/faq/WPL757) Non-HDL Cholesterol 124 <130 mg/dL (calc) [facility] Comment: For patients with diabetes plus 1 major ASCVD risk ?? factor, treating to a non-HDL-C goal of <100 mg/dL ?? (LDL-C of <70 mg/dL) is considered a therapeutic ?? option. 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
--- OUTSIDE RECORDS SUMMARY | 2024-11-14 13:27 | XMS_ITS | Encounter Summary ---
Author Organization [employer] Address [address] [facility] 7t [place] [address] Care Team Providers Care Straight Edger Name Role Phone Nathaly Boston Primary Care Provider [phone] Reason for Visit * Reason Onset Date Comments FYI 11/11/2024 Encounter Details Date Type Department Care Team ([facility] st Contact Info) Description 11/11/2024 Telephone [facility] MEDICINE [address] [place], [place] [phone] Nathaly Boston ANP [address] [place], [place] [phone] FYI Social History Tobacco Use Types Packs/Day Years [...] encounter Miscellaneous Notes * Telephone Encounter - Kelli Tamez RN - 11/12/2024 10:23 AM EST Telephone call placed to pt to evaluate as below. Spoke with her spouse on HIPAA Pabl[place]. He denies pt having CP, SOB, palpitations, dizziness or any other Sx. States she has been doing well, he has no concerns. She is currently sleeping. Reminded of upcoming appt with PCP in December but advised they call sooner if they need anything. Pablito verbalized understanding and denied having any further questions or concerns at this time. Thanks-if patient is not having chest pain, shortness of breath, dizziness, we can evaluate at ouran appointment in December. * Telephone Encounter - Dominick Webster - 11/11/2024 10:29 AM EST Tc from [facility] Nurse Practioner from [facility] called in to state that she visited the pt yesterday 11/10/2024 for home visit and that she was listening to pt heart and heard a heart murmur. Shoe Repairer Helper advised that message will be sent. Zulma (ROD TAPE OPERATOR) Question or Concerns: [phone] documented in this encounter Plan of Treatment Upcoming Encounters Date Type Department Care Team (Late st Contact Info) Description 12/16/2024 2:15 PM EDT Telemedicine [facility] MEDICINE [address] [place] [address] Nathaly Boston ANP [address] [place] [address] documented as of this encounter Goals Goal [...] documented as of this encounter Care Teams Straight Edger Relationship Specialty Start Date End Date Nathaly Boston ANP [address] [place] [address] PCP - General Family Medicine 05/02/24 documented as of this encounter
--- OUTSIDE RECORDS SUMMARY | 2024-11-14 13:27 | XMS_ITS | Encounter Summary ---
Author Organization [employer] Address [address] [facility] 7t [place] [address] Care Team Providers Care Vice Admiral Name Role Phone Nathaly Boston Primary Care Provider [phone] Reason for Visit * Reason Onset Date Comments ER Follow-up 10/18/2024 Encounter Details Date Type Department Care Team ([facility] st Contact Info) Description 10/18/2024 Telephone [facility] MEDICINE [address] [place], [place] [phone] Nathaly Boston ANP [address] [place], [place] [phone] ER Follow-up Social History Tobacco Use Types Packs/Day Years [...] encounter Miscellaneous Notes * Telephone Encounter - Betsey Zepeda RN - 10/19/2024 9:53 AM EST TC placed to [facility] (Healthcare Proxy) and [facility] to call back the office in regards to inquiring about Risperidone usage and neurology f/u * Telephone Encounter - Lizzette Knapp RN - 10/18/2024 3:22 PM EST Tc to pt via s id: [id number] to do status check for post discharge from [facility] psych, dementia and foundrunning around appointment by their family. answered the phone reports pt is currently laying down, denies pt showing signs of self harm or harm to others. Reports pt is doing better and seems normal. requesting refill for medication for dementia but unsure of what it's called but request for us to reach out to pt daughter who will know. Tc daughter Wilmer who is the healthcareproxy of pt reports that pt needs refill and would like for pt PCP to send it in. Pt was last rx Risperidone on 08/18/24 with one month supply with no refills through med box. Informed pt daughter will pend request to PCP for review and call back for further updates. Daughter verbalized understanding and medication pended to PCP for review. * Telephone Encounter - William Elvin - 10/18/2024 12:09 PM EST Tc from daughter Wilmer reporting ED visit on : Date: 10/14/24 Hospital: [facility] ED Seen for: Panic Attack Symptomatic No *if yes message should go to Triage Would like nurse to contact her or spt's spouse to further discuss pts anxiety medication documented in this encounter Plan of Treatment Upcoming Encounters Date Type Department Care Team (Late st Contact Info) Description 12/16/2024 2:15 PM EDT Telemedicine [facility] MEDICINE [address] [place] [phone] Nathaly Boston ANP [address] [place] [address] documented as of this encounter Goals Goal Patient Goal Type Associated Problems Recent Progress Patient-Stated? Author Record your blood pressure once per day Blood Pressure No Ria Santos Blood Pressure < 140/90 Blood Pressure 132/78(2023 9:00 AM EST) No Ria Santos documented as of this encounter Visit Diagnoses Diagnosis Moderate dementia with anxiety, unspecified dementia type (CMS/HCC) documented in this encounter Additional Health Concerns Assessment Noted Time PHQ-9 Depression Total Score: 7 09/15/19 10:39 AM EST documented as of this encounter Care Teams Vice Admiral Relationship Specialty Start Date End Date Nathaly Boston ANP [address] [place] [address] PCP - General Family Medicine 05/02/24 documented as of this encounter
--- OUTSIDE RECORDS SUMMARY | 2024-11-14 13:27 | XMS_ITS | Encounter Summary ---
Author Organization [employer] Address [address] [place] [address] 7t [place] [address] Care Team Providers Care Curtain Framer Name Role Phone Nathaly Boston Primary Care Provider [phone] Reason for Visit * Reason Comments Follow-up Encounter Details Date Type Department Care Team (Late st Contact Info) Description 10/28/2024 9:30 AM EST Telemedicine [facility] MEDICINE [address] [place], [place] [phone] Nathaly Boston ANP [address] [place], [place] [phone] Panic attacks (Primary Dx); Moderate dementia with anxiety, unspecified dementia type (CMS/HCC) Social History Tobacco Use Types Packs/Day Years [...] the past 12 months, has t he [employer], gas, oil or water company threatened to [...] encounter Progress Notes * DEEDEE Gurrola - 10/28/2024 9:30 AM EST Subjective Patient ID: Cheryl Weaver is a 79 y.o. female who presents for ED follow-up. HPI PMH incl dementia [facility] visit 10/14/24 for panic attack, from ED note He [] says that the patient has been at home and they has been eating some food when the patient became acutely anxious and started to scream and seemed to be trying to leave the house. On exam at ED The patient is a 79-year-old woman who is clearly hyperventilating. She is tachypneic and has obvious carpopedal spasm of both upper extremities. HENMT Other: The patient was holding her eye shut. The face was symmetrical. Eyes Other: Eyes were closed. When I open her eyes she had symmetrical pupils. She was given 2 mg of IM lorazepam without much improvement. She was later given 5 mg of IM olanzapine as well. Ultimately she seemed much calmer and your breathing slowed and her carpopedal spasm resolved. Labs were done that are unremarkable. Potassium was a little low, 3.1 (of note, hydrochlorothiazide stopped last visit 08/18/24) Random Glu 131 We had been trying 0.25mg risperidone given agitation, if ineffective plan was to titrate or stop at 1 mo. F/u planned did not transpire and family requested refill, so sent again but will discuss today efficacy. Mirtazapine was ineffective and pt didn't take in past. She is also rxd duloxetine but often does not take. Referred to neurology in past. MRI brain Imaging findings are suspicious for a developing mesial temporal focus neurodegenerative process She has seem GI for eval of possible cirrhosis, per GI no lab evidence of liver dysfunction. Has normal LFTs, albumin and INR. Quite plausible that imaging appearance of liver is secondary to hx of partial liver resection. Plan: - Check MELD labs - US liver with elastography - Hep serologies Also following w/ pain mgmt for low back pain (lumbar stenosis, lumbar radiculitis) Plan is for therapeutic bilateral medial branch block with sedation in the operating room as pt reported she cannottolerate injection w/o sedation. She is craving and seeking etoh. Review of Systems Musculoskeletal: Positive for back pain. Psychiatric/Behavioral: The patient is nervous/anxious. History provided by daughter Lizabeth due to pt's dementia. Patient denies all symptoms except back pain. Objective Physical Exam Exam limited by telehealth format. Assessment/Plan Diagnoses and all orders for this visit: Panic attacks Moderate dementia with anxiety, unspecified dementia type (CMS/HCC) 2 tabs risperidone twice daily, maxed out at 1mg in divided doses Check back in w/ Lizabeth in 2 weeks, if ineffective or worsening sx, will switch to olazapine provided we can crush Duloxetine I will seek in crushable form. Capsules can be opened. Amlodipine can be crushed Metoprolol tartrate can be crushed but not succ. documented in this encounter Plan of Treatment Upcoming Encounters Date Type Department Care Team (Late st Contact Info) Description 12/16/2024 2:15 PM EDT Telemedicine [facility] MEDICINE [address] [place], [place] [phone] Nathaly Boston ANP [address] [place] [address] documented as of this encounter Goals Goal Patient Goal Type Associated Problems Recent Progress Patient-Stated? Author Record your blood pressure once per day Blood Pressure No Ria Santos Blood Pressure < 140/90 Blood Pressure 132/78(2023 9:00 AM EST) No Ria Santos documented as of this encounter Visit Diagnoses Diagnosis Panic attacks- Primary Panic disorder without agoraphobia Moderate dementia with anxiety, unspecified dementia type (CMS/HCC) documented in this encounter Additional Health Concerns Assessment Noted Time PHQ-9 Depression Total Score: 7 09/15/19 24 10:39 AM EST documented as of this encounter Care Teams Curtain Framer Relationship Specialty Start Date End Date Nathaly Boston ANP [address] [place] [phone] PCP - General Family Medicine 05/02/24 documented as of this encounter
== END 2024-11-14 11:22 | disposition home or self-care (01) ==
LOC: HO.US 11:21
PROVIDERS: Visit Provider Internal Medicine
DX: K74.60 Unspecified cirrhosis of liver (principal)
CPT/HCPCS: 76700; 76981

== ENCOUNTER → 2024-11-14 11:24 | Outpatient (BNV) | payer OTHER, SELFPAY | PROVIDERS: Visit Provider Radiology Diagnostic Radiology | DX: K76.0 Fatty (change of) liver, not elsewhere classified (principal); K74.60 Unspecified cirrhosis of liver | CPT/HCPCS: 76700; 76981 ==

== ENCOUNTER 2024-11-30 14:00 | Outpatient (AMB) | payer OTHER, SELFPAY ==
--- NOTE | 2024-11-30 14:13 | A.OFFVIS_ITS ---
Vital Signs 11/30/24 14:15 Height 5 ft 3 in Weight 163 lb 2.273 oz BMI 28.9 BP 125/73 Blood Pressure Location Lt brachial Position Sitting Pulse 82 Intake Visit Reasons: Cirrhosis 2 Mo f/u Intake Note: Patient in office today in follow up of cirrhosis. CC: Patient denies having any GI symptoms today. Transportation Worker Required: Yes Transportation Worker Services: Transportation Worker Present Transportation Worker Name: Jeff Cr LM Accompanied by: Spouse Allergies ibuprofen Allergy (Intermediate, Verified 11/30/24 14:21) tachycardia/GI upset HPI Comments Details: 79 y.o F with PMH of LBP, hx of BPPV, who is coming in to follow up for ?cirrhosis. Last seen by [facility] Has CT abd/pel 2022 that reports cirrhotic appearing liver. Pt herself without any abd pain, N,V, abd distention. No hx of heavy etOH use. No hx of drug use reported. Pt has hx of partial hepatectomy but she is unable to recall reason - says had damage done during a planned surgery and was then transferred to a hospital in ?? [place]. This was in the 90s and pt unable to recall any details. 11/30/24: Here for follow up. Seen with Jeff RODRIGUEZ for turkmen intepretation. No acute GI concerns including abd pain, N,V, D. Good appetite. Good energy levels. Results of elastography reviewed. 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 Labs still pending. Elastography 11/14/24: FINDINGS: Liver: The right lobe of the liver measures 12.8 cm in size. The left lobe of t he liver measures 8.9 cm in size. The liver demonstrates increased echotexture, consistent with steatosis. No focal mass or intrahepatic biliary ductal dilatation is identified. There is normal hepatopedal flow in the portal vein. Ultrasound elastography of the liver was performed with 10 separate measurements of the liver parenchyma with the patient in the supine position. Measurements were obtained approximately 2 cm below Caity's capsule and perpendicular to the capsule. Images are of satisfactory quality. The median shear wave velocity is 1.72 m/s. The interquartile range/median (IQR/median) is 0.05. PFSH Medical History Chronic back pain Lumbar spondylosis COVID-19 vaccine series completed Hx of fracture of tibia Varicose veins of both lower extremities Osteoarthritis Hyperlipidemia Depression Insomnia Dizziness Allergic rhinitis HTN (hypertension) Neck pain Lumbar spondylolysis Fibromyalgia Surgical History H/O colonoscopy Hx of tubal ligation Hx of cholecystectomy Family History Father Cancer Mother Depression Sister HTN (hypertension) Heart disease Brother Diabetes Social History Household Members Other:: Are you a primary home visit field care manager to a significant other at home: No Do you presently have visiting nurse or other home services: No Alcohol intake: current Alcohol intake frequency: holidays/special occasions only Patient Tobacco Use Status: Never used Tobacco Review of Systems Const All systems reviewed & are unremarkable except as noted in HPI and below Physical Exam Vital Signs: Last Vital Signs Pulse 82 11/30/24 14:15 BP 125/73 11/30/24 14:15 BMI result Body Mass Index 28.9 No apparent distress Nonicteric Abdomen soft, nondistended Alert and oriented x3, normal gait Assessment & Plan Assessment & Plan (1) Cirrhosis: Code(s): K74.60 - Unspecified cirrhosis of liver Category: Medical (2) H/O resection of liver: Code(s): Z90.49 - Acquired absence of other specified parts of digestive tract Category: Surgical Plan Reviewed with the pt that likely has 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 Normal platelets. MELD labs pending. Pt reminded to go today. Plan: - MELD labs pending - No evidence of HE or ascites on exam today - Variceal screening: normal platelets and spleen size - HCC screening: US due May 2025. Reminder set. - Vaccination: hep serologies pending - No NSAIDs, Tylenol up to 2g/day is ok - Transplant candidacy: advanced age and compensated disease, does not meet indication Follow up 6 months Coding Level of Care Code Est Pt Level 4 (19293) Complex EM visit Add On G2211 Diagnoses Cirrhosis K74.60 H/O resection of liver Z90.49
[2024-11-30 14:15] VITALS: BP 125/73; PULSE 82; BMI 28.9
--- OUTSIDE RECORDS SUMMARY | 2024-11-30 16:24 | XMS_ITS | Encounter Summary ---
Author Organization [employer] [facility] Address [address] [place] [address] Care Team Providers Care Bottle Inspector Name Role Phone Nathaly Boston Primary Care Provider [phone] Nathaly Boston Primary Care Provider [phone] Encounter Details Date Type Department Care Team (Late st Contact Info) Description 08/01/2022 Abstract [facility] MEDICINE [address] [place] [address] Provider, MD Yanelis Social History Tobacco Use [...] Contact Info) Description 12/16/2024 2:15 PM EDT Office Visit [facility] MEDICINE [address] [place] [address] Nathaly Boston ANP [address] [place] [address] documented as of this encounter Visit Diagnoses Not on filedocumented in this encounter Care Teams Bottle Inspector Relationship Specialty Start Date End Date Nathaly Boston ANP [address] [place] [address] PCP - General Family Medicine 05/03/21 05/01/24 Nathaly Boston ANP [address] [place] [address] PCP - General Family Medicine 05/02/24 documented as of this encounter
--- OUTSIDE RECORDS SUMMARY | 2024-11-30 16:24 | XMS_ITS | Encounter Summary ---
Author Organization [employer] Address [address] [facility] 7t [place] [address] Care Team Providers Care Perinatal Educator Name Role Phone Nathaly Boston ANP Primary Care Provider [phone] Nathaly Boston ANP Primary Care Provider [phone] Reason for Visit * Reason Comments Med Refill Encounter Details Date Type Department Care Team (Late st Contact Info) Description 10/13/2023 Refill [facility] MEDICINE [address] [place], [place] [phone] Nathaly Boston ANP [address] [place], [place] [phone] Social History Tobacco Use Types Packs/Day Years [...] Description 12/16/2024 2:15 PM EDT Office Visit [facility] MEDICINE [address] [place] [address] Nathaly Boston ANP [address] [place] [phone] documented as of this encounter Goals Goal [...] documented as of this encounter Care Teams Perinatal Educator Relationship Specialty Start Date End Date Nathaly Boston ANP [address] [place] [address] PCP - General Family Medicine 05/03/21 05/01/24 Nathaly Boston ANP [address] [place] [address] PCP - General Family Medicine 05/02/24 documented as of this encounter
--- OUTSIDE RECORDS SUMMARY | 2024-11-30 16:24 | XMS_ITS | Encounter Summary ---
Author Organization [employer] Address [address] [facility] 7t [place] [address] Care Team Providers Care Superintendent Of Generation Name Role Phone Nathaly Boston ANP Primary Care Provider [phone] Nathaly Boston ANP Primary Care Provider [phone] Reason for Visit * Reason Comments Med Refill Encounter Details Date Type Department Care Team (Late st Contact Info) Description 03/01/2024 Refill [facility] MEDICINE [address] [place], [place] [phone] Nathaly Boston ANP [address] [place], [place] [phone] Essential hypertension Social History Tobacco Use Types [...] Description 12/16/2024 2:15 PM EDT Office Visit [facility] MEDICINE [address] [place] [address] Nathaly Boston ANP [address] [place] [address] documented as of this encounter Goals Goal [...] documented as of this encounter Care Teams Superintendent Of Generation Relationship Specialty Start Date End Date Nathaly Boston ANP [address] [place] [address] PCP - General Family Medicine 05/03/21 05/01/24 Nathaly Boston ANP [address] [place] [address] PCP - General Family Medicine 05/02/24 documented as of this encounter
--- OUTSIDE RECORDS SUMMARY | 2024-11-30 16:24 | XMS_ITS | Clinical Summary ---
Author Organization [employer] Address 75 [facility] 7t [place] [address] Care Team Providers Care Manager Creative Services Name Role Phone Idania Leal Primary Care Provider [phone] Allergies Active Allergy Reactions Criticality Noted Date [...] BEDTIME 90 capsule 3 08/19/20 24 Active metoprolol tartrate (Lopressor) 25 MG tabletIndicatio ns:Essential hypertension Take 1 tablet (25 mg) by mouth 2 times daily. 60 tablet 11 11/11/19 25 026 Active risperiDONE (RisperDAL) 0.25 MG tabletIndicatio ns:Moderate dementia with anxiety, unspecified dementia type (CMS/HCC) Take 2 tablets (0.5 mg) by mouth 2 times daily. 60 tablet 11/19/19 25 Active metoprolol succinate XL (Toprol-XL) 25 MG 24 hr tabletIndicatio ns:Essential hypertension TAKE 1 TABLET BY MOUTH EVERY EVENING (BLOOD PRESSURE) 90 tablet 1 05/11/20 24 025 Discontinued(Al ternate therapy) risperiDONE (RisperDAL) 0.25 MG tabletIndicatio ns:behavior disturbance in dementia Take 1 tablet (0.25 mg) by mouth 2 times daily. 60 tablet 10/18/19 25 025 Discontinued risperiDONE (RisperDAL) 0.25 MG tabletIndicatio ns:Moderate dementia with anxiety, unspecified dementia type (CMS/HCC) TAKE 1 TABLET BY MOUTH TWICE DAILY 60 tablet 11/16/19 25 025 Discontinued(Re order (will not trigger notification [...] ANAIS gene mutation. Had colonoscopy 2019 at [facility], we don't have report. Normal oral exam [...] family support PLAN: 1. Follow up with [facility]: Recommended for follow-up: Scheduled follow-up BE in a month. 2. Patient goal is to gradually accept the diagnosis 3. Behavioral Recommendations a. Follow-up BE with clinician b. Continuing practicing self-care mechanisms (going to the casino and take care of family pets) c. See Neurologist in [place] as recommended by PCP Idania (see doctor's [...] family support PLAN: 1. Follow up with [facility]: Recommended for follow-up: Scheduled follow-up BE in a month. 2. Patient goal is to gradually accept the diagnosis 3. Behavioral Recommendations a. Follow-up BE with clinician b. Continuing practicing self-care mechanisms (going to the casino and take care of family pets) c. See Neurologist in [place] as recommended by PCP Idania (see doctor's note) Bursitis 03/11/2012 Shoulder joint pain 03/11/2012 Varicose veins of lower extremity 03/11/2012 Encounters Date Type Department Care Team Description 11/18/2024 Refill [facility] [place] [address] Idania Leal ANP Moderate dementia with anxiety, unspecified dementia type (CMS/HCC) 11/15/2024 Refill [facility] [place] [address] Idania Leal ANP Moderate dementia with anxiety, unspecified dementia type (CMS/HCC) 11/11/2024 Orders Only [facility] [place] [address] Idania Leal ANP Essential hypertension (Primary Dx) 11/11/2024 Telephone [facility] [place] [address] Idania Leal ANP FYI 10/28/2024 9:30 AM EST Telemedicine [facility] [place] [address] Idania Leal ANP Panic attacks (Primary Dx); Moderate dementia with anxiety, unspecified dementia type (CMS/HCC) 10/28/2024 Travel 10/25/2024 Telephone [facility] [place] [address] Idania Leal ANP Medication Question 10/18/2024 Telephone [facility] [place] [address] Idania Leal ANP ER Follow-up 10/05/2024 Telephone [facility] [place] [address] Idania Leal ANP Appointment Confirmation 10/05/2024 Telephone [facility] [address] [place] [address] Idania Leal ANP Appointment Confirmation 09/30/2024 Patient Outreach [facility] [address] [place] [address] Idania Leal ANP Pre-visit Planning (SDOH Screening negative and Tobacco screening negative) 09/30/2024 Telephone [facility] [address] [facility] [address] Idania Leal ANP Chart Prep 09/13/2024 9:00 AM EST Office Visit [facility] [address] [place] [address] Catalina Loyns from Last 3 Months Immunizations Name Administration [...] 2:15 PM EDT Office Visit [facility] [address] [place] [address] Idania Leal, DEEDEE [address] [place] [address] Health Maintenance Due Date Last Done Comments [...] EDT Narrative 04/26/2024 9:33 PM EDT ? [facility] ? [address] ?[place] [address] ? Mammography Report ? Signed ? Patient: Weaver,Cheryl ?MR#: [id number] ? : 1945 ?Acct:[id number] ? Age/Sex: 79 / F ?ADM Date: 04/04/24 ? Loc: HO.MAMMO ? Attending Dr: Idania Leal PAINT PROCESS ENGINEER ? Ordering Physician: IDANIA LEAL NP ?Results: 1Negative ? Date of Service: 04/04/24 ?Follow Up: 1 Year From Orig ?? inal Mammogram ? Procedure(s): MM tomosynthesis screening BI ?? Accession Number(s): [id number] ? cc: MEL,IDANIA FU ? EXAMINATION: ?? MM SCREENING DIGITAL BREAST [...] ? Signed By: ?<Electronically signed by Jonna hSahid MD in OV> ? 04/26/242128 ? DD/ 1315 ? TD/TT: ? Linoleum Floor Layer: ? Procedure Note Rona, Image - 04/26/2024 [place] [facility] [address] [place] [address] Mammography Report Signed Patient: Cheryl WeaverMR#: [id number] : 5Acct:[id number] Age/Sex: 79 / FADM Date: 04/04/24 Loc: HO.MAMMO Attending Dr: Idania Leal NP Ordering Physician: IDANIA LEALults: 1Negative Date of Service: 04/04/24Follow Up: 1 Year From Orig inal Mammogram Procedure(s): MM tomosynthesis screening BI Accession Number(s): [id number] cc: IDANIA LEAL NP EXAMINATION: MM SCREENING DIGITAL BREAST TOMOSYNTHESIS, BILATERAL [...] MD in OV> 04/26/242128 DD/ 1315 TD/TT: Linoleum Floor Layer: Idania MARK IMG BI PROCEDURES Edited Result - Final * HEPATITIS C AB W/REFL TO HCV RNA, QN, PCR (01/08/2021 11:51 AM EDT) HEPATITIS C ANTIBODY NON-REACT ANTHONY NON-REACT ANTHONY [facility] INDEX 0.02 <1.00 [facility] Comment: ?? HCV antibody was non-reactive. There is no laboratory ?? evidence of HCV infection. ?? In most cases, no further action is required. However, if recent HCV exposure is suspected, a test for HCV RNA (test code 40656) is suggested. ?? For additional information please refer to http://education.The New Daily/faq/COV16x4 (This link is being provided for informational/ educational purposes only.) ?? 01/08/2021 11:5 1 AM EDT Historical Provider HISTORICAL/NON ORDERABLE LABS Final Result [facility] [address] * (ABNORMAL) LIPID PANEL, STANDARD (01/08/2021 11:51 AM EDT) Chol/HDLC Ratio 2.6 <5.0 (calc) [facility] Cholesterol, Total 203(H) <200 mg/dL [facility] HDL Cholesterol 79 > OR = 50 mg/dL [facility] LDL Cholesterol 103(H) mg/dL (calc) [...] ?? Edgar COLEMAN et al. ORTEGA. 2013;310(19): 7674-1267 ?? (http://[employer].Weizoom/faq/UBM718) Non-HDL Cholesterol 124 <130 mg/dL (calc) [facility] Comment: For patients with diabetes plus 1 major ASCVD risk ?? factor, treating to a non-HDL-C goal of <100 mg/dL ?? (LDL-C of <70 mg/dL) is considered a therapeutic ?? option. Triglycerides 111 <150 mg/dL [facility] 01/08/2021 11:5 1 AM EDT us Historical Provider LAB BLOOD ORDERABLES Heidy gonzales Result [facility] [address] from Last 3 Months or Most Recently Relevant to Health Maintenance Insurance [facility] STANDARD UHC DUAL COMPLETE DENTAL - [facility] Advance Directives Documents on File Type Date Recorded Patient Manager Pulmonary Expl anation MOLST form 11/27/2023 1:22 PM MOLST Advance Directives and Living Will 11/27/2023 8:45 AM Health Care Proxy Care Teams Manager Creative Services Relationship Specialty Start Date End Date Idania Leal ANP [address] [place] [address] PCP - General Family Medicine 05/02/24
--- OUTSIDE RECORDS SUMMARY | 2024-11-30 16:24 | XMS_ITS | Encounter Summary ---
Author Organization [employer] Address 75 [facility] 7t [place] [address] Care Team Providers Care Boat Canvas Maker And Installer Name Role Phone Nathaly [place] Primary Care Provider [phone] Nathaly [place] ANP Primary Care Provider [phone] Encounter Details Date Type Department Care Team (Late st Contact Info) Description 10/16/2023 Orders Only [facility] [address] [place], [place] [phone] Nathaly [place] ANP 230 [place], [place] [phone] Social History Tobacco Use Types Packs/Day Years [...] Description 12/16/2024 2:15 PM EDT Office Visit [facility] [address] [place] [address] Nathaly [place] ANP [address] [place] [address] documented as of this encounter Goals Goal [...] documented as of this encounter Care Teams Boat Canvas Maker And Installer Relationship Specialty Start Date End Date Nathaly [place] ANP [address] [place] [phone] PCP - General Family Medicine 05/03/21 05/01/24 Nathaly [place] ANP [address] [place] [address] PCP - General Family Medicine 05/02/24 documented as of this encounter
--- OUTSIDE RECORDS SUMMARY | 2024-11-30 16:24 | XMS_ITS | Clinical Summary ---
Author Organization [facility] Address [address] [place] [address] Care Team Providers Care Outboard Technician Name Role Phone Unknown Primary Care Provider [phone] Allergies No known active allergies Medications No [...] age to complete this topic Care Teams Outboard Technician Relationship Specialty Start Date End Date Unknown Unknow Provider Address PCP - General 10/17/17
--- OUTSIDE RECORDS SUMMARY | 2024-11-30 16:24 | XMS_ITS | Encounter Summary ---
Author Organization [employer] Address 75 [facility] 7t [place] [address] Care Team Providers Care Public Weigher Name Role Phone Nathaly [place] Primary Care Provider [phone] Encounter Details Date Type Department Care Team ([facility] st Contact Info) Description 11/11/2024 Orders Only [facility] 230 [place], [place] [phone] Nathaly [place] ANP [address] [place], [place] [phone] Essential hypertension (Primary Dx) Social History Tobacco [...] 2:15 PM EDT Office Visit [facility] [address] [place] [address] Nathaly [place] ANP [address] [place] [address] documented as of this encounter Goals Goal [...] documented as of this encounter Care Teams Public Weigher Relationship Specialty Start Date End Date Nathaly [place] ANP [address] [place] [address] PCP - General Family Medicine 05/02/24 documented as of this encounter
--- OUTSIDE RECORDS SUMMARY | 2024-11-30 16:24 | XMS_ITS | Encounter Summary ---
Author Organization [employer] Address 75 [facility] 7t [place] [address] Care Team Providers Care Straight Pin Making Machine Operator Name Role Phone Nathaly [place] Primary Care Provider [phone] Reason for Visit * Reason Onset Date Comments Medication Question 11/18/2024 Med Refill 11/18/2024 Encounter Details Date Type Department Care Team (Late st Contact Info) Description 11/18/2024 Refill [facility] [address] [place], [place] [phone] Nathaly [place] ANP [address] [place], [place] [phone] Moderate dementia with anxiety, unspecified dementia type [...] Telephone Encounter - Kelli Tamez RN - 11/18/2024 11:20 AM EST Reviewed OV note and it does look like dose was increased to Risperdal 0.25mg 2 tabs BID. Queued * Telephone Encounter - Erinn Ortega - 11/18/2024 10:41 AM EST Tc from pt daughter Lizabeth regarding medication risperiDONE (RisperDAL) 0.25 MG tablet. Lizabeth stateddose was increased during last visit but pharmacy needs updated script sent to [facility] pharmacy. If any questions contact Lizabeth at [phone] documented in this encounter Plan of Treatment Upcoming Encounters Date Type Department Care Team ([facility] st Contact Info) Description 12/16/2024 2:15 PM EDT Office Visit [facility] [address] [place] [address] Nathaly [place] ANP [address] [place] [address] documented as of this encounter Goals Goal [...] as of this encounter Care Teams Straight Pin Making Machine Operator Relationship Specialty Start Date End Date Nathaly [place] ANP [address] [place] [address] PCP - General Family Medicine 05/02/24 documented as of this encounter
--- OUTSIDE RECORDS SUMMARY | 2024-11-30 16:24 | XMS_ITS | Encounter Summary ---
Author Organization [employer] Address 75 [facility] 7t [place] [address] Care Team Providers Care Steam Hoist Operator Name Role Phone Nathaly [place] Primary Care Provider [phone] Nathaly [place] Primary Care Provider [phone] Reason for Visit * Reason Comments Med Refill Encounter Details Date Type Department Care Team (Late st Contact Info) Description 02/05/2024 Refill [facility] [address] [place], [place] [phone] Estrella Tapia FNP Social History Tobacco Use [...] Description 12/16/2024 2:15 PM EDT Office Visit [facility] [address] [place] [address] Nathaly [place] ANP [address] [place] [address] documented as of this encounter Goals Goal [...] documented as of this encounter Care Teams Steam Hoist Operator Relationship Specialty Start Date End Date Nathaly [place] ANP [address] [place] [address] PCP - General Family Medicine 05/03/21 05/01/24 Nathaly [place] ANP [address] [place] [address] PCP - General Family Medicine 05/02/24 documented as of this encounter
--- OUTSIDE RECORDS SUMMARY | 2024-11-30 16:24 | XMS_ITS | Encounter Summary ---
Author Organization [employer] [facility] Address [address] [place] [address] Care Team Providers Care Certified Technician Name Role Phone Nathaly [place] Primary Care Provider [phone] Nathaly [place] Primary Care Provider [phone] Reason for Visit * Reason Comments Med Refill Encounter Details Date Type Department Care Team (Late st Contact Info) Description 01/16/2023 Refill [facility] [address] [place] [phone] Юлия Valdivia MD [address] [place], [place] [phone] Social History Tobacco Use Types Packs/Day Years [...] Description 12/16/2024 2:15 PM EDT Office Visit [facility] [address] [place] [address] [phone] Nathaly [place] ANP 230 [place], [place] [phone] documented as of this encounter Visit Diagnoses Not on filedocumented in this encounter Additional Health Concerns Assessment Noted Time PHQ-9 Depression Total Score: 4 10/07/19 23 3:46 PM EST documented as of this encounter Care Teams Certified Technician Relationship Specialty Start Date End Date Nathaly [place] ANP [address] [place] [address] PCP - General Family Medicine 05/03/21 05/01/24 Nathaly [place] ANP [address] [place] [address] PCP - General Family Medicine 05/02/24 documented as of this encounter
--- OUTSIDE RECORDS SUMMARY | 2024-11-30 16:24 | XMS_ITS | Encounter Summary ---
Author Organization [employer] Address [address] [place] [address] 7t [place] [address] Care Team Providers Care Home Visitor Home Base Head Start Name Role Phone Nathaly [place] ANP Primary Care Provider [phone] Nathaly [place] ANP Primary Care Provider [phone] Reason for Visit * Reason Onset Date Comments Nurse Triage 04/20/2023 Encounter Details Date Type Department Care Team (Late st Contact Info) Description 04/20/2023 Telephone [facility] [address] [place] [address] Nathaly [place] ANP [address] [place] [address] Nurse Triage Social History Tobacco Use Types [...] for 04/23/23 @ 9:15am. Please contact at [phone] * Telephone Encounter - Tarsha Vargas RN - 04/20/2023 11:46 AM EDT Triage call daughters Le Grant , Marine Ortega who is on HIPPA, calling in [...] early Dementia. Please contact pt daughter at [phone] documented in this encounter Plan of Treatment Upcoming Encounters Date Type Department Care Team (Late st Contact Info) Description 12/16/2024 2:15 PM EDT Office Visit [facility] [address] [place] [address] Nathaly [place] ANP [address] [place] [address] documented as of this encounter Visit Diagnoses Not on filedocumented in this encounter Additional Health Concerns Assessment Noted Time PHQ-9 Depression Total Score: 4 10/07/19 23 3:46 PM EST documented as of this encounter Care Teams Home Visitor Home Base Head Start Relationship Specialty Start Date End Date Nathaly [place] ANP [address] [place] [address] PCP - General Family Medicine 05/03/21 05/01/24 Nathaly [place] ANP [address] [place] [address] PCP - General Family Medicine 05/02/24 documented as of this encounter
--- OUTSIDE RECORDS SUMMARY | 2024-11-30 16:24 | XMS_ITS | Encounter Summary ---
Author Organization [employer] Address 75 [facility] 7t [place] [address] Care Team Providers Care Pharmacy Technician Instructor Name Role Phone Nathaly [place] Primary Care Provider [phone] Reason for Visit * Reason Comments Med Refill Encounter Details Date Type Department Care Team (Late st Contact Info) Description 11/15/2024 Refill [facility] 230 [place], [place] [phone] Nathaly [place] ANP 230 [place], [place] [phone] Moderate dementia with anxiety, unspecified dementia type [...] Description 12/16/2024 2:15 PM EDT Office Visit [facility] [address] [place] [address] Nathaly [place] ANP 230 [place] [address] documented as of this encounter Goals Goal [...] documented as of this encounter Care Teams Pharmacy Technician Instructor Relationship Specialty Start Date End Date Nathaly [place] ANP [address] [place] [address] PCP - General Family Medicine 05/02/24 documented as of this encounter
--- OUTSIDE RECORDS SUMMARY | 2024-11-30 16:24 | XMS_ITS | Encounter Summary ---
Author Organization [employer] Address 75 [facility] 7t [place] [address] Care Team Providers Care Patrol Inspector Name Role Phone Nathaly [place] Primary Care Provider [phone] Reason for Visit * Reason Onset Date Comments FYI 11/11/2024 Encounter Details Date Type Department Care Team ([facility] st Contact Info) Description 11/11/2024 Telephone [facility] 230 [place], [place] [phone] Nathaly [place] ANP 230 [place], [place] [phone] FYI Social History Tobacco Use Types Packs/Day [...] Telephone Encounter - Kelli Tamez RN - 11/15/2024 2:43 PM EST T/C placed to pt who handed phone to daughter Stacy on HIPAA. Inquired if they would be able to come in in person in December instead of televisit so provider can evaluate and check if she has a heart murmur. Daughter agreeable. Change appt type. Daughter also mentioned that she thinks pt has a Hx of heart murmurs but isn't certain. Stacy denied having any further questions or concerns at this time. Good catch-it should be an in person appointment to evaluate her heart murmur. She is not homebound however has dementia and so most appointments are talking to family members to assess for changes in status. * Telephone Encounter - Kelli Tamez RN [...] in December. * Telephone Encounter - Dominick Mosesyes - 11/11/2024 10:29 AM EST Tc from Zulma Nurse Practioner from [facility] called in to state that she visited the pt yesterday 11/10/2024 for home visit and that she was listening to pt heart and heard a heart murmur. Submersible Pilot advised that message will be sent. Zulma (PHYSICIAN OFFICE ASSISTANT) Question or Concerns: [phone] documented in this encounter Plan of Treatment Upcoming Encounters Date Type Department Care Team (Late st Contact Info) Description 12/16/2024 2:15 PM EDT Office Visit [facility] 230 [place] [address] Nathaly [place] ANP 230 [place] [address] documented as of this encounter Goals Goal [...] documented as of this encounter Care Teams Patrol Inspector Relationship Specialty Start Date End Date Nathaly [place] ANP 230 [place] [address] PCP - General Family Medicine 05/02/24 documented as of this encounter
== END 2024-11-30 14:37 | disposition home or self-care (01) ==
LOC: HO.HGI 14:00
PROVIDERS: PCP Nurse Practitioner Primary Care; Visit Provider Internal Medicine
DX: K74.60 Unspecified cirrhosis of liver (principal); Z90.49 Acquired absence of other specified parts of digestive tract
CPT/HCPCS: 99214; G2211

== ENCOUNTER → 2024-11-30 14:00 | Outpatient (BNVA) | payer OTHER, SELFPAY | PROVIDERS: PCP Nurse Practitioner Primary Care; Visit Provider Internal Medicine | DX: K74.60 Unspecified cirrhosis of liver (principal); Z90.49 Acquired absence of other specified parts of digestive tract | CPT/HCPCS: 99212 ==

== ENCOUNTER 2024-12-02 12:45 | Outpatient (REF) | payer OTHER, SELFPAY ==
[2024-12-02 13:14] LABS: Hematocrit 36.5 % (37.0-47.0); Hemoglobin 12.1 g/dl (12.0-16.0); Mean Corpuscular HGB Conc 33.2 g/dl (31.0-35.0); Mean Corpuscular Hemoglobin 30.6 pg (27.0-33.0); Mean Corpuscular Volume 92.4 fL (80.0-98.0); Platelet Count 216 X10*3/uL (160-400); Red Blood Count 3.95 X10*6/uL (4.20-5.50); Red Cell Distribution Width 14.3 % (11.0-16.0); White Blood Count 3.1 X10*3/uL (4.8-10.8)
[2024-12-02 13:22] LABS: Prothrombin Time 11.9 SEC (10.9-12.4)
[2024-12-02 14:28] LABS: Alanine Aminotransferase 11 U/L (0-31); Albumin Level 3.6 g/dL (3.5-5.0); Alkaline Phosphatase 144 U/L (39-117); Anion Gap 10 (12-20); Aspartate Amino Transferase 24 U/L (5-31); Bilirubin Total 0.7 mg/dL (0.0-1.0); Blood Urea Nitrogen 11 mg/dL (9-16); Calcium 8.9 mg/dL (8.4-10.2); Carbon Dioxide 23 mmol/L (22-29); Chloride 111 mmol/L (96-108); Estimated Glomerular Filt Rate > 60; Glucose Random 100 mg/dL (60-115); Potassium 3.4 mmol/L (3.3-5.1); Sodium 141 mmol/L (135-145); Total Protein 7.1 g/dL (6.5-8.0)
[2024-12-05 03:54] LABS: HBS Num1 0.25 mIU/mL (0-7.99); HBc Num1 0.13 S/CO (0.00-0.79); HBsAGNum1 0.23 S/CO (0.00-0.99); Hepatitis B Core Antibody Nonreactive (Nonreactive); Hepatitis B Surface Antigen Negative (Negative); ~HepC Num1 0.13 S/CO (0.00-0.79); ~Hepatitis B Surface Antibody NONREACTIVE (Nonreactive); ~Hepatitis C Antibody Nonreactive (Nonreactive)
[2024-12-07 04:08] LABS: Hepatitis A Antibody IgG REACTIVE (Nonreactive); ~Hepatitis A Antibody IgG 9.27 S/CO (0.00-0.99)
== END 2024-12-02 12:46 | disposition home or self-care (01) ==
LOC: HO.LAB 12:45
PROVIDERS: PCP Nurse Practitioner Primary Care; Visit Provider Internal Medicine
DX: K74.60 Unspecified cirrhosis of liver (principal)
CPT/HCPCS: 36415; 80053; 85027; 85610; 86704; 86706; 86708; 86803; 87340

== ENCOUNTER 2024-12-22 12:49 | Outpatient (AMB) | payer OTHER, SELFPAY ==
--- NOTE | 2024-12-22 12:53 | A.SPINEOV_ITS ---
Vital Signs 12/22/24 13:03 Height 5 ft 3 in Weight 161 lb BMI 28.5 Intake Visit Reasons: LBP Intake Note: Ms. Weaver is here today c/o low back pain that radiates down to the legs Superintendent Of Generation Required: Yes Superintendent Of Generation Name: Tablet Allergies ibuprofen Allergy (Intermediate, Verified 12/22/24 13:03) tachycardia/GI upset Physical Exam Vital Signs: BMI result Body Mass Index 28.5 Assessment & Plan Assessment & Plan (1) Back pain: Code(s): M54.9 - Dorsalgia, unspecified Category: Medical Plan Dear Nathaly, Thank you for referring Mrs Weaver to our office today. This visit was done with the help of educational sign language interpreter [id number]. She is a very nice 79-year-old female with history of advanced cirrhosis, presents for evaluation of chronic low back pain going back many decades. The pain is centered around her mid to lower lumbar region. She does not report any specific radicular symptoms going down the legs, tingling numbness etc.. She has been through conservative treatment including workups at the [facility], as well as injections recently here at [facility]. None of these things is really given her much in the way of relief. The pain is really only present when she is sitting. When she is standing walking she seems to be okay. She has taken a medication for pain to help with this, but can not remember the name. From the record it looks like she has taken Tylenol in the past. She has done physical therapy at some point to but she can not remember exactly when it was. PMH: History of cirrhosis, but reportedly no history of alcohol abuse, she is very difficult with her history, had a lot of difficulty staying focused so I am getting a lot of the details from her chart.Chronic back pain Lumbar spondylosis COVID-19 vaccine series completed Hx of fracture of tibia Varicose veins of both lower extremities Osteoarthritis Hyperlipidemia Depression Insomnia Dizziness Allergic rhinitis HTN (hypertension) Neck pain Lumbar spondylolysis Fibromyalgia Social hx: No history of significant amounts of alcohol abuse,, she is a nonsmoker Medications: Tylenol, amlodipine, B complex vitamins, calcium, diclofenac, duloxetine, gabapentin, hydrochlorothiazide, lidocaine patch, meclizine, metoprolol, mirtazapine, multivitamin, ondansetron, Risperdal, sertraline Allergies: Denies any medication allergies Physical exam: She is awake alert oriented, but has a lot of difficulty interacting without laughing hysterically, she is able to participate in my examine her strength is normal and reflexes are diminished if not absent. She is able to stand up out of a chair independently and walk around the room with no obvious pain. Imaging review: Lumbar MRI done at [facility] shows multilevel diffuse degenerative disc disease and spondylosis. There is no significant central canal or foraminal stenosis. She has Modic endplate changes at multiple levels of the lumbar spine. Impression: 79-year-old female history of cirrhosis, presents with chronic low back pain for years that is never responded to any of the typical treatments. She has diffuse spondylosis and I would have a hard time isolating 1 area that might be the source of all of her pain. Typically to treat back pain with surgery, this would involve interbody fusion with cages, rods and screws. I suspect she has bad bone quality in addition which would make this all the harder process and high risk for complications. I just do not think at her age this would be justifiable. Especially in light of the fact she just using little bit of Tylenol throughout the day to get through the discomfort and it does not bother her when she is walking. I am wondering if she would be a good candidate for Intracept , I will refer her to Dr. Garcia in the pain management Center. That would be a much nice her option for her as it is minimally invasive with no instrumentation. Thank you for allowing us to care for your patient. The total time spent with this visit with this patient was 45 minutes reviewing history, physical exam, lumbar imaging review, and implementation of treatment plan or further diagnostic testing Michael Carter MD,PhD [facility] Orders: Referrals Pain Management Referral M54.9 - Dorsalgia, unspecified Coding Level of Care Code New Pt Level 4 (79883) Diagnoses Back pain M54.9
[2024-12-22 13:03] VITALS: BMI 28.5
--- OUTSIDE RECORDS SUMMARY | 2024-12-22 15:21 | XMS_ITS | Encounter Summary ---
Author Organization [employer] Address [address] [facility] 7t [place] [address] Care Team Providers Care Remote Sensing Technician Name Role Phone Nathaly Boston ANP Primary Care Provider [phone] Nathaly Boston ANP Primary Care Provider [phone] Reason for Visit * Reason Comments Med Refill Encounter Details Date Type Department Care Team (Late st Contact Info) Description 03/01/2024 Refill [facility] [address] [place], [place] [phone] Nathaly Boston ANP [address] [place], [place] [phone] Essential hypertension Social History Tobacco Use Types [...] Care Team (Late st Contact Info) Description 04/03/2025 2:00 PM EDT Office Visit [facility] [address] [place] [address] Nathaly Boston ANP [address] [place] [address] documented as of this encounter Goals Goal Patient Goal Type Associated Problems Recent Progress Patient-Stated? Author Record your blood pressure once per day Blood Pressure No Ria Santos Blood Pressure < 140/90 Blood Pressure 136/78(2024 3:05 PM EDT) No Ria Santos documented as of this encounter Visit Diagnoses Diagnosis Essential hypertension Unspecified essential hypertension documented in this encounter Additional Health Concerns Assessment Noted Time PHQ-9 Depression Total Score: 7 09/15/19 24 10:39 AM EST documented as of this encounter Care Teams Remote Sensing Technician Relationship Specialty Start Date End Date Nathaly Boston ANP [address] [place] [address] PCP - General Family Medicine 05/03/21 05/01/24 Nathaly Boston ANP [address] [place] [address] PCP - General Family Medicine 05/02/24 documented as of this encounter
--- OUTSIDE RECORDS SUMMARY | 2024-12-22 15:21 | XMS_ITS | Encounter Summary ---
Author Organization [employer] Address [address] [facility] 7t [place] [address] Care Team Providers Care Christian Science Healer Name Role Phone Nathaly Boston Primary Care Provider [phone] Nathaly Boston Primary Care Provider [phone] Reason for Visit * Reason Comments Med Refill Encounter Details Date Type Department Care Team (Late st Contact Info) Description 02/05/2024 Refill [facility] [address] [place], [place] [phone] Estrella Tapia FNP Social History Tobacco Use [...] Description 04/03/2025 2:00 PM EDT Office Visit [facility] MED[facility]INE [address] [place] [address] Nathaly Boston ANP [address] [place] [address] documented as of this encounter Goals Goal [...] documented as of this encounter Care Teams Christian Science Healer Relationship Specialty Start Date End Date Nathaly Boston ANP [address] [place] [address] PCP - General Family Medicine 05/03/21 05/01/24 Nathaly Boston ANP [address] [place] [address] PCP - General Family Medicine 05/02/24 documented as of this encounter
--- OUTSIDE RECORDS SUMMARY | 2024-12-22 15:21 | XMS_ITS | Encounter Summary ---
Author Organization [employer] Address [address] [facility] 7t [place] [address] Care Team Providers Care Wood Floor Layer Name Role Phone Nathaly Boston Primary Care Provider [phone] Nathaly Boston ANP Primary Care Provider Encounter Details Date Type Department Care Team (Late st Contact Info) Description 10/16/2023 Orders Only [facility] [address] [place], [place] [phone] Nathaly Boston ANP 230 [place], [place] [phone] Social History Tobacco Use Types Packs/Day Years [...] Description 04/03/2025 2:00 PM EDT Office Visit [facility] [address] [place] [phone] Nathaly Boston ANP [address] [place] [phone] documented as of this encounter Goals Goal [...] documented as of this encounter Care Teams Wood Floor Layer Relationship Specialty Start Date End Date Nathaly Boston ANP [address] [place] [address] PCP - General Family Medicine 05/03/21 05/01/24 Nathaly Boston ANP [address] [place] [address] PCP - General Family Medicine 05/02/24 documented as of this encounter
--- OUTSIDE RECORDS SUMMARY | 2024-12-22 15:21 | XMS_ITS | Clinical Summary ---
Author Organization [facility] Address [address] [place] [address] Care Team Providers Care Clinical Social Work Aide Name Role Phone Unknown Primary Care Provider [phone] Allergies No known active allergies Medications No [...] age to complete this topic Care Teams Clinical Social Work Aide Relationship Specialty Start Date End Date Unknown Unknow Provider Address PCP - General 10/17/17
--- OUTSIDE RECORDS SUMMARY | 2024-12-22 15:21 | XMS_ITS | Encounter Summary ---
Author Organization [employer] Address [address] [place] [address] 7t [place] [address] Care Team Providers Care Resolution Rep Name Role Phone Nathaly Boston ANP Primary Care Provider [phone] Nathaly Boston ANP Primary Care Provider [phone] Reason for Visit * Reason Onset Date Comments Nurse Triage 04/20/2023 Encounter Details Date Type Department Care Team (Late st Contact Info) Description 04/20/2023 Telephone [facility] [address] [place] [address] Nathaly Boston ANP 230 [place] [address] Nurse Triage Social History Tobacco Use Types [...] for 04/23/23 @ 9:15am. Please contact at [phone] * Telephone Encounter - Tarsha Vargas RN [...] early Dementia. Please contact pt daughter at [phone] documented in this encounter Plan of Treatment Upcoming Encounters Date Type Department Care Team (Late st Contact Info) Description 04/03/2025 2:00 PM EDT Office Visit [facility] [address] [place] [address] Nathaly Boston ANP [address] [place] [address] documented as of this encounter Visit Diagnoses Not on filedocumented in this encounter Additional Health Concerns Assessment Noted Time PHQ-9 Depression Total Score: 4 10/07/19 23 3:46 PM EST documented as of this encounter Care Teams Resolution Rep Relationship Specialty Start Date End Date Nathaly Boston ANP [address] [place] [address] PCP - General Family Medicine 05/03/21 05/01/24 Nathaly Boston ANP [address] [place] [address] PCP - General Family Medicine 05/02/24 documented as of this encounter
--- OUTSIDE RECORDS SUMMARY | 2024-12-22 15:21 | XMS_ITS | Encounter Summary ---
Author Organization [employer] Address [address] [facility] 7t [place] [address] Care Team Providers Care Polish Maker Name Role Phone Nathaly Boston ANP Primary Care Provider [phone] Nathaly Boston ANP Primary Care Provider [phone] Reason for Visit * Reason Comments Med Refill Encounter Details Date Type Department Care Team (Late st Contact Info) Description 10/13/2023 Refill [facility] 230 [place], [place] [phone] Nathaly Bsoton ANP 230 [place], [place] [phone] Social History Tobacco Use Types Packs/Day Years [...] Description 04/03/2025 2:00 PM EDT Office Visit [facility] [address] [place] [phone] Nathaly Boston ANP [address] [place] [address] documented as of this encounter Goals Goal [...] documented as of this encounter Care Teams Polish Maker Relationship Specialty Start Date End Date Nathaly Boston ANP [address] [place] [address] PCP - General Family Medicine 05/03/21 05/01/24 Nathaly Boston ANP [address] [place] [address] PCP - General Family Medicine 05/02/24 documented as of this encounter
--- OUTSIDE RECORDS SUMMARY | 2024-12-22 15:21 | XMS_ITS | Encounter Summary ---
Author Organization [employer] Address [address] [facility] 7t [place] [address] Care Team Providers Care Gauge Operator Name Role Phone Nathaly Boston Primary Care Provider [phone] Reason for Visit * Reason Onset Date Comments Medication Question 12/20/2024 Encounter Details Date Type Department Care Team ([facility] st Contact Info) Description 12/20/2024 Telephone [facility] MED[facility]INE [address] [place], [place] [phone] Nathaly Boston ANP [address] [place], [place] [phone] Medication Question Social History Tobacco Use Types [...] Telephone Encounter - Betsey Zepeda RN - 12/21/2024 3:16 PM EDT TC placed to Cici on behalf of the pt to inform of the changes occurring in the pt medications below as PCP begins to titrate the Risperidone and decrease the duloxetine dose. Cici was advised thatseveral of the pt medications are being titrated including the risperidone and duloxetine. Cici advised that PCP is starting the pt on a citalopram and it should be taken once daily in the AM. RN called [facility] pharmacy to confirm these changes and to affirm that the pt will have well written and documentation of the new dose when to take on the [facility]. Pharmacy stated that they will make sure the new sig for the scripts is well written and easily readable for the pt and her family. The risperidone is distributed in a glass bottle but new instructions will be provided for this as well. Cici plans to machine operator hop picker the [facility] sometime this afternoon. Medication Changes Thank you - I think given we are unsure and likely not consistently taking, would recommend we titrate duloxetine down. Did send citalopram to start and plan is to: Titrate risperidone over next few weeks, I sent decreased dose of duloxetine as below (decreased to20mg capsules for easier titration), start citalopram - risperiDONE (RisperDAL) 0.25 MG tablet; Take 1 tab AM and 1 tab PM for 1 week, then 1 tab AM for 1 week, then stop - START citalopram (CeleXA) 10 MG tablet; Take 1 tablet (10 mg) by mouth Once per day. In AM - DULoxetine (Cymbalta) [address] capsule; Take 2 capsules once daily for 2 weeks and then 1 capsuleonce daily for 2 weeks, then stop. Do not crush or chew. We can ask [facility] to package these separately if that would be helpful. * Telephone Encounter - DEEDEE Gurrola - 12/20/2024 3:00 PM EDT Thank you - I think given we are unsure and likely not consistently taking, would recommend we titrate duloxetine down. Did send citalopram to start and plan is to: Titrate risperidone over next few weeks, I sent decreased dose of duloxetine as below (decreased to20mg capsules for easier titration), start citalopram - risperiDONE (RisperDAL) 0.25 MG tablet; Take 1 tab AM and 1 tab PM for 1 week, then 1 tab AM for 1 week, then stop - START citalopram (CeleXA) 10 MG tablet; Take 1 tablet (10 mg) by mouth Once per day. In AM - DULoxetine (Cymbalta) [address] capsule; Take 2 capsules once daily for 2 weeks and then 1 capsuleonce daily for 2 weeks, then stop. Do not crush or chew. We can ask [facility] to package these separately if that would be helpful. * Telephone Encounter - Haley Vasquez RN - 12/20/2024 2:09 PM EDT Telephone call returned to Ccii, pt's daughter who reports that family is unsure if the pt is taking their medbox meds, including Cymbalta. They report that the pt sometimes doesn't take all of her meds from [facility] depending on her mood that day, explained that the dementia meds are separate from [facility] so family can monitor if she takes them them. Advised sister that given this information, unclear what plan is and will message provider and give update if needed. * Telephone Encounter - Haley Vasquez RN - 12/20/2024 11:41 AM EDT Telephone call to pt's daughter Cici who is on HIPAA who confirmed pt's name and date of . Cici unsure if pt taking duloxetine, she stated she will check with the pt's or sister and asked for a call back later today or tomorrow. Will task to call again. * Telephone Encounter - Haley Vasquez RN - 12/20/2024 11:37 AM EDT ----- Message from Nathaly Boston sent at 12/16/2024 4:01 PM EDT ----- Hi - please check with daughter cici next week (she has to call her sister) to check if pt is taking duloxetine. If yes - I will taper over 1 mo to stop this med as well. If NOT - then great and I will take out of med box completely. After we clarify, please have her bring in medbox to get updated. documented in this encounter Plan of Treatment Upcoming Encounters Date Type Department Care Team (Late st Contact Info) Description 04/03/2025 2:00 PM EDT Office Visit [facility] MEDICINE [address] [place] [address] Nathaly Boston ANP 230 [place] [address] documented as of this encounter Goals Goal [...] documented as of this encounter Care Teams Gauge Operator Relationship Specialty Start Date End Date Nathaly Boston ANP 230 [place] [address] PCP - General Family Medicine 05/02/24 documented as of this encounter
--- OUTSIDE RECORDS SUMMARY | 2024-12-22 15:21 | XMS_ITS | Encounter Summary ---
Author Organization [facility] Address [address] [place] [address] Care Team Providers Care Song And Dance Performer Name Role Phone Nathaly Boston Primary Care Provider [phone] Nathaly Boston Primary Care Provider Reason for Visit * Reason Comments Med Refill Encounter Details Date Type Department Care Team (Late st Contact Info) Description 01/16/2023 Refill [facility] MEDICINE [address] [place] [address] [phone] Юлия Valdivia MD [address] [place], [place] [phone] Social History Tobacco Use Types Packs/Day Years [...] Description 04/03/2025 2:00 PM EDT Office Visit [facility] MED[facility]INE [address] [place] [address] [phone] Nathaly Boston ANP [address] [place], [place] [phone] documented as of this encounter Visit Diagnoses Not on filedocumented in this encounter Additional Health Concerns Assessment Noted Time PHQ-9 Depression Total Score: 4 10/07/19 23 3:46 PM EST documented as of this encounter Care Teams Song And Dance Performer Relationship Specialty Start Date End Date Nathaly Boston ANP [address] [place] [address] PCP - General Family Medicine 05/03/21 05/01/24 Nathaly Boston ANP [address] [place] [address] PCP - General Family Medicine 05/02/24 documented as of this encounter
--- OUTSIDE RECORDS SUMMARY | 2024-12-22 15:21 | XMS_ITS | Encounter Summary ---
Author Organization [employer] [facility] Address [address] [place] [address] Care Team Providers Care Finisher Wallboard And Plasterboard Name Role Phone Nathaly Boston Primary Care Provider [phone] Nathaly Boston Primary Care Provider [phone] Encounter Details Date Type Department Care Team (Late st Contact Info) Description 08/01/2022 Abstract [facility] MEDICINE [address] [place] [phone] Provider, MD Yanelis Social History Tobacco Use [...] Description 04/03/2025 2:00 PM EDT Office Visit [facility] MED[facility]INE [address] [place] [address] Nathaly Boston ANP 230 [place] [address] documented as of this encounter Visit Diagnoses Not on filedocumented in this encounter Care Teams Finisher Wallboard And Plasterboard Relationship Specialty Start Date End Date Nathaly Boston ANP [address] [place] [address] PCP - General Family Medicine 05/03/21 05/01/24 Nathaly Boston ANP [address] [place] [address] PCP - General Family Medicine 05/02/24 documented as of this encounter
--- OUTSIDE RECORDS SUMMARY | 2024-12-22 15:21 | XMS_ITS | Encounter Summary ---
Author Organization [employer] Address [address] [place] [address] [address] [place] [address] Care Team Providers Care Machine Precision Engraver Name Role Phone Nathaly Boston Primary Care Provider [phone] Reason for Referral * Consultation (Routine) - Authorized Specialty Diagnoses / Procedures Referred By Fauzia t Referred To Contact Orthopaedic Surgery Diagnoses Spinal stenosis of lumbar region, unspecified whether neurogenic claudication present Nathaly Boston ANP [address] [place] [address] Phone: tel: fax: [facility] Referral ID Status Reason Start Date Expiration Date Visits Requested Visits Authorized [id number] Authorized Specialty Services Required 12/16/2024 12/16/2025 1 1 Reason for Visit * Reason Comments CHW - Office Visit Encounter Details Date Type Department Care Team (Late st Contact Info) Description 12/16/2024 2:15 PM EDT Office Visit [facility] [address] [place], [place] [phone] Nathaly Boston ANP [address] [place], [place] [phone] Difficulty sleeping (Primary Dx); Spinal stenosis of lumbar region, unspecified whether neurogenic claudication present; Moderate dementia with anxiety, unspecified dementia type (CMS/HCC); Anxiety; Depression, unspecified depression type Social History Tobacco Use Types Packs/Day Years [...] your housing situation today? I have brittny jeni 02/16/[address] you li [...] AM EDT documented as of this encounter Last Filed Vital Signs Vital Sign Reading Time Taken Comments Blood Pressure 136/78 12/16/2024 3:05 PM EDT sta nding Pulse 64 12/16/2024 3:05 PM EDT Temperature 36.3 ??C (97.4 ??F) 12/16/2024 2:23 PM ED T Respiratory Rate 14 12/16/2024 2:23 PM EDT Oxygen Saturation 99% 12/16/2024 3:05 PM EDT Inhaled Oxygen Concentration - - Weight 73.3 kg (161 lb 9.6 oz) 12/16/2024 2:23 P M EDT Height - - Body Mass Index 29.56 04/21/2024 2:00 PM EDT documented in this encounter Progress Notes * DEEDEE Gurrola - 12/16/2024 2:15 PM EDT Subjective Patient ID: Cheryl Weaver is a 79 y.o. female who presents for CHW - Office Visit. HPI Has a lot of anxiety. Doesn't feel well today. Her brother is in the hospital or SNF d/t having both of his legs amputated. She is feeling dizzy today. She did not eat or drink much today. It is worse when she stands up andbetter when she lays down. MRI as below 05/04/24 MR/MR lumbar spine wo con IMPRESSION: * At L5-S1, multifactorial degenerative changes result in moderate central canal stenosis, left greater than right subarticular zone stenosis with mass effect on the traversing left S1 nerve root, and moderate to severe bilateral foraminal stenosis with mass effect on the exiting L5 nerve roots bilaterally. * At L4-L5, multifactorial degenerative changes result in moderate bilateral foraminal stenosis with mild mass effect on the exiting L4 nerve roots bilaterally. * At L3-L4, multifactorial degenerative changes result in moderate right-sided foraminal stenosis and mass effect on the extraforaminal right L3 nerve root. * At L1-L2, a right lateral disc osteophyte protrusion results in mild to moderate right-sided foraminal encroachment and mass effect on the extraforaminal right L1 nerve root. * There are Modic type I endplate signal changes at all lumbar levels and at T12-L1. I spoke w/ Stacy daughter after appt and our plan will be as follows for persistent anxiety and behavior disturbances and dementia: We will taper risperidone over 2 weeks and then stop. It has been mostly ineffective for behavior disturbances in the context of dementia. We will start citalopram 10 mg once daily. Stacy will clarify with her sister whether mom is taking duloxetine. If she is, we will taper this as well over 1 month. If she is not taking duloxetine we will stop completely and have her removed from the med boxes. They will follow-up with neurology as planned. Prescribed trazodone 50 mg to take as needed for difficulty sleeping. Review of Systems Constitutional: Negative for chills and fever. HENT: Negative for sore throat. Respiratory: Negative for cough and shortness of breath. Cardiovascular: Negative for chest pain. Gastrointestinal: Negative for constipation and diarrhea. Endocrine: Negative for polydipsia, polyphagia and polyuria. Genitourinary: Negative for dysuria. Musculoskeletal: Positive for back pain. Psychiatric/Behavioral: Positive for dysphoric mood and sleep disturbance. The patient is nervous/anxious. Objective BP 126/74 (BP Location: Left arm, Patient Position: Sitting, BP Cuff Size: Adult) Pulse75 Temp 97.4 ??F (36.3 ??C) (Temporal) Resp 14 Wt 161 lb 9.6 oz (73.3 kg) LMP (LMP Unknown) SpO2 94% BMI 29.56 kg/m?? Orthostatic vitals were negative. Physical Exam Vitals reviewed. Constitutional: General: She is not in acute distress. Appearance: Normal appearance. She is not ill-appearing. HENT: Head: Normocephalic and atraumatic. Eyes: General: No scleral icterus. Extraocular Movements: Extraocular movements intact. Pupils: Pupils are equal, round, and reactive to light. Cardiovascular: Rate and Rhythm: Normal rate and regular rhythm. Heart sounds: No murmur heard. Pulmonary: Effort: Pulmonary effort is normal. No accessory muscle usage or respiratory distress. Neurological: Mental Status: She is alert and oriented to person, place, and time. Mental status is at baseline. Cranial Nerves: No cranial nerve deficit. Gait: Gait normal. Psychiatric: Mood and Affect: Mood normal. Behavior: Behavior normal. Assessment/Plan Diagnoses and all orders for this visit: I spoke w/ Stacy daughter after appt and our plan will be as follows for persistent anxiety and behavior disturbances and dementia: We will taper risperidone over 2 weeks and then stop. It has been mostly ineffective for behavior disturbances in the context of dementia. We will start citalopram 10 mg once daily. Stacy will clarify with her sister whether mom is taking duloxetine. If she is, we will taper this as well over 1 month. If she is not taking duloxetine we will stop completely and have this removed from the med boxes. They will follow-up with neurology as planned. Prescribed trazodone 50 mg to take as needed for difficulty sleeping. For dizziness, I encouraged her not to drink more water and to eat small frequent meals. She looks well today apart from feeling down due to her brother's illness. Her orthostatic vital signs were negative. A home visit [facility] reported heart murmur that I did not appreciate on exam today. Difficulty sleeping - traZODone (Desyrel) 50 MG tablet; Take 1 tablet (50 mg) by mouth if needed at bedtime for sleep. Spinal stenosis of lumbar region, unspecified whether neurogenic claudication present Will refer [place] [facility] intervention such as injection. Moderate dementia with anxiety, unspecified dementia type (CMS/[facility]) - risperiDONE (RisperDAL) 0.25 MG tablet; Take 1 tab AM and 1 tab PM for 1 week, then 1 tab AM for 1 week, then stop - citalopram (CeleXA) 10 MG tablet; Take 1 tablet (10 mg) by mouth Once per day. In AM Anxiety - DULoxetine (Cymbalta) [address] capsule; Take 2 capsules once daily for 2 weeks and then 1 capsuleonce daily for 2 weeks, then stop. Do not crush or chew. Depression, unspecified depression type - DULoxetine (Cymbalta) [address] capsule; Take 2 capsules once daily for 2 weeks and then 1 capsuleonce daily for 2 weeks, then stop. Do not crush or chew. documented in this encounter Plan of Treatment Upcoming Encounters Date Type Department Care Team (Late st Contact Info) Description 04/03/2025 2:00 PM EDT Office Visit [facility] [address] [place] [address] Nathaly Boston ANP [address] [place] [address] Scheduled Referrals Name Type Priority Associated Diagnoses Orde r Schedule Referral to Spine Surgery Outpatient Referral Routine Spinal stenosis of lumbar region, unspecified whether neurogenic claudication present Expected: 12/16/2024 (Approximate), Expires: 12/16/2025 documented as of this encounter Goals Goal Patient Goal Type Associated Problems Recent Progress Patient-Stated? Author Record your blood pressure once per day Blood Pressure No Ria Santos Blood Pressure < 140/90 Blood Pressure 136/78(2024 3:05 PM EDT) No Ria Santos documented as of this encounter Visit Diagnoses Diagnosis Difficulty sleeping- Primary Unspecified sleep disturbance Spinal stenosis of lumbar region, unspecified whether neurogenic claudication present Moderate dementia with anxiety, unspecified dementia type ([facility]) Anxiety Anxiety state, unspecified Depression, unspecified depression type documented in this encounter Additional Health Concerns Assessment Noted Time PHQ-9 Depression Total Score: 7 09/15/19 24 10:39 AM EST documented as of this encounter Care Teams [employer] Engraver Relationship Specialty Start Date End Date Natahly Boston ANP [address] [place] [phone] PCP - General Family Medicine 05/02/24 documented as of this encounter
--- OUTSIDE RECORDS SUMMARY | 2024-12-22 15:22 | XMS_ITS | Clinical Summary ---
Author Organization [employer] Address [address] [facility] [address] [place] [address] Care Team Providers Care Coil Winder Repair Name Role Phone Idania Leal Primary Care Provider [phone] Allergies Active Allergy Reactions Criticality Noted Date [...] EACH EYE EVERY MORNING 08/24/20 23 Active lidocaine (Lidoderm) 5 % patchIndication s:Chronic [...] 60 tablet 11 11/11/19 25 026 Active traZODone (Desyrel) 50 MG tabletIndicatio ns:Difficulty sleeping Take 1 tablet (50 mg) by mouth if needed at bedtime for sleep. 30 tablet 12/17/19 25 025 Active risperiDONE (RisperDAL) 0.25 MG tabletIndicatio ns:Behavioral Disorders associated with Dementia Take 1 tab AM and 1 tab PM for 1 week, then 1 tab AM for 1 week, then stop 21 tablet 12/17/19 25 Active citalopram (CeleXA) 10 MG tabletIndicatio ns:Moderate dementia with anxiety, unspecified dementia type (CMS/HCC) Take 1 tablet (10 mg) by mouth Once per day. In AM 90 tablet 1 12/17/19 25 026 Active DULoxetine (Cymbalta) [address] capsuleIndicati ons:Anxiety,Dep ression, unspecified depression type Take 2 capsules once daily for 2 weeks and then 1 capsule once daily for 2 weeks, then stop. Do not crush or chew. 42 capsule 12/17/19 25 Active DULoxetine (Cymbalta) [address] capsuleIndicati ons:Chronic midline low back pain with right-sided sciatica,Anxiet y Take 1 capsule (60 mg) by mouth Once daily. Do not crush or chew. 90 capsule 1 04/21/20 24 025 Discontinued risperiDONE (RisperDAL) 0.25 MG tabletIndicatio ns:Moderate dementia with anxiety, unspecified dementia type (CMS/HCC) Take 2 tablets (0.5 mg) by mouth 2 times daily. 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 Had colonoscopy 2019 at [facility], we don't have report. Normal oral exam [...] family support PLAN: 1. Follow up with [facility]: Recommended for follow-up: Scheduled follow-up BE in a month. 2. Patient goal is to gradually accept the diagnosis 3. Behavioral Recommendations a. Follow-up BE with clinician b. Continuing practicing self-care mechanisms (going to the casino and take care of family pets) c. See Neurologist in [place] as recommended by PCP Idania (see doctor's [...] a minute (kept repeating the same ones (feo. Javier, carlene, lila), Recent memory: Severely impaired, unable to recall [...] family support PLAN: 1. Follow up with [facility]: Recommended for follow-up: Scheduled follow-up BE in a month. 2. Patient goal is to gradually accept the diagnosis 3. Behavioral Recommendations a. Follow-up BE with clinician b. Continuing practicing self-care mechanisms (going to the casino and take care of family pets) c. See Neurologist in [place] as recommended by PCP Idania (see doctor's note) Bursitis 03/11/2012 Shoulder joint pain 03/11/2012 Varicose veins of lower extremity 03/11/2012 Encounters Date Type Department Care Team Description 12/20/2024 Telephone [facility] [address] [place] [phone] Idania Leal ANP Medication Question 12/16/2024 2:15 PM EDT Office Visit [facility] [address] [place] [phone] Idania Leal ANP Difficulty sleeping (Primary Dx); Spinal stenosis of lumbar region, unspecified whether neurogenic claudication present; Moderate dementia with anxiety, unspecified dementia type (CMS/HCC); Anxiety; Depression, unspecified depression type 12/16/2024 Travel 12/14/2024 Refill [facility] [address] [place] [address] Idania Leal ANP Moderate dementia with anxiety, unspecified dementia type (CMS/HCC) 12/06/2024 Patient Outreach [facility] [address] [place] [address] Idania Leal ANP Pre-visit Planning ([facility] screening was completed on 09/30/2024) 12/02/2024 Orders Only GENERIC EXTERNAL DATA DEPARTMENT Provider, Generic External Data 11/18/2024 Refill [facility] [address] [place] [address] Idania Leal ANP Moderate dementia with anxiety, unspecified dementia type (CMS/HCC) 11/15/2024 Refill [facility] [place] [address] Idania Leal ANP Moderate dementia with anxiety, unspecified dementia type ([facility]/HCC) 11/11/2024 Orders Only [facility] [place] [address] Idania Leal ANP Essential hypertension (Primary Dx) 11/11/[address] [place] [address] Idania Leal ANP FYI 10/28/2024 9:30 AM EST Telemedicine [facility] [place] [address] Idania Leal ANP Panic attacks (Primary Dx); Moderate dementia with anxiety, unspecified dementia type ([facility]) 10/28/2024 Travel 10/25/2024 Telephone [facility] [place] [address] Idania Leal ANP Medication Question 10/18/[address] [address] Idania Leal ANP ER Follow-up 10/05/[address] [address] Idania Leal ANP Appointment Confirmation 10/05/[address] [address] Idania Leal ANP Appointment Confirmation 09/30/2024 Patient Outreach [address] [place] [address] Idania Leal ANP Pre-visit Planning (SDOH Screening negative and Tobacco screening negative) 09/30/[address] [place] [address] Idania Leal ANP Chart Prep from Last 3 Months Immunizations Name Administration [...] oz) 12/16/2024 2:23 P M EDT Height 157.5 cm (5' 2 ) 04/21/2024 2:00 PM EDT Body Mass Index 29.56 04/21/2024 2:00 PM EDT Plan of Treatment Upcoming Encounters Date Type Department Care Team (Late st Contact Info) Description 04/03/2025 2:00 PM EDT Office Visit [facility] [address] [place] [address] Idania Leal ANP [address] [place] [address] Health Maintenance Due Date Last Done Comments [...] 1-dose 75+ series) 01/25/2020 COVID-19 Vaccine ( - season) 2024 01/21/2022, 08/14/2021, 08/06/2021, Additional history exists Influenza Vaccine (#1) 2024 , 06/02/2022, 06/02/2022, Additional history exists Dental Oral Exam 07/22/2024 01/19/2024, 01/05/2014 Dental Prophylaxis 08/20/2024 02/18/2024 Depression Screening 09/15/2024 09/15/2023, 09/15/19 Alcohol/Substance Use Screening 02/15/2025 02/16/2024 Mammogram 04/04/2025 04/04/2024, 03/14, 08/22/2021, Additional history exists SDOH Screening 09/30/2025 09/30/2024 Tobacco Screening 12/16/2025 12/16/2024 Lipid Panel 01/08/2026 01/08/2021 Dental X-Ray: Full Mouth 01/19/2027 01/19/2024, 12/14 DTaP/Tdap/Td Vaccines (5 - Td or Tdap) 01/22/2032 01/21/2022, 09/04/2020, 01/08/2012, Additional history exists Hepatitis C Screening Completed 12/02/2024, 021 HIB Vaccines Aged Out No longer eligi [...] 136/78(2024 3:05 PM EDT) No Ria Santos Procedures Procedure Name Priority Date/Time Associated Diagnosis Comments HEPATITIS A ANTIBODY, TOTAL Routine 12/02/2024 1:02 PM EDT HEPATITIS B SURFACE ANTIGEN, EIA Routine 12/02/2024 1:02 PM EDT HEPATITIS C ANTIBODY Routine 12/02/2024 1:02 PM EDT HEPATITIS B CORE AB TOTAL Routine 12/02/2024 1:02 PM EDT HEPATITIS B SURFACE ANTIBODY, QUALITATIVE Routine 12/02/2024 1:02 PM EDT COMPREHENSIVE METABOLIC PANEL Routine 12/02/2024 1:02 PM EDT PROTHROMBIN TIME-INR Routine 12/02/2024 1:02 PM EDT CBC Routine 12/02/2024 1:02 PM EDT BI MAMMOGRAM SCREENING TOMOSYNTHESIS BILATERAL Routine 04/04/2024 1:15 PM EDT PROPHYLAXIS - ADULT Routine 02/18/2024 1 0:00 AM EDT Dental plaque Dental calculus PANORAMIC RADIOGRAPHIC IMAGE Routine 01/19/2024 11:30 AM EDT PERIODIC ORAL EVALUATION - ESTABLISHED PATIENT Routine 01/19/2024 11:30 AM EDT LIPID PANEL, STANDARD Routine 01/08/2021 11:51 AM EDT INTRAORAL - COMPLETE SERIES OF RADIOGRAPHIC IMAGES Routine 01/05/2014 12:00 AM EDT from Last 3 Months or Most Recently Relevant to Health Maintenance Results * Hepatitis C Ab (12/02/2024 1:02 PM EDT) Pathologist [facility] Hepatitis C Antibody Nonreactive Nonreactive [facility] Comment:Antibodies to HCV no t detected; does not exclude early acuteHCV infection. 12/02/2024 1:02 PM EDT 12/02/2024 1:02 PM EDT Generic External Data Provider LAB BLOOD ORDERAB LES Final Result Performing Organization Address [facility] Co de Phone Number [facility] [address] [place] [phone] * Hepatitis A Antibody, Total (12/02/2024 1:02 PM EDT) Hepatitis A Antibody IgG REACTIVE Nonreactive [facility] Comment:The presence of IgG anti-HAV implies past HAV infection(recent or distant) or vaccination against HAV. 12/02/2024 1:02 PM EDT 12/02/2024 1:02 PM EDT Generic External Data Provider LAB BLOOD ORDERAB LES Final Result Performing Organization Address [facility] Co de Phone Number [facility] [address] [place] [phone] * Hepatitis B surface antigen, EIA (12/02/2024 1:02 PM EDT) Hepatitis B Surface Ag Negative Negative [facility] 12/02/2024 1:02 PM EDT 12/02/2024 1:02 PM EDT Generic External Data Provider LAB BLOOD ORDERAB LES Final Result Performing Organization Address [facility] de Phone Number [facility] [address] [place] [phone] * Hepatitis B Core Antibody, Total (12/02/2024 1:02 PM EDT) Hepatitis B Core Antibody Nonreactive Nonreactive [facility] 12/02/2024 1:02 PM EDT 12/02/2024 1:02 PM EDT Generic External Data Provider LAB BLOOD ORDERAB LES Final Result Performing Organization Address [facility] Co de Phone Number [facility] [address] [place] [phone] * Hepatitis B Surface Antibody, Qualitative (12/02/2024 1:02 PM EDT) ~Hepatitis B Surface Antibody NONREACTIVE Nonreactive [facility] Comment:Nonreactive: < 8.00 mIU/mL 12/02/2024 1:02 PM EDT 12/02/2024 1:02 PM EDT Generic External Data Provider LAB BLOOD ORDERAB LES Final Result Performing Organization Address [facility] de Phone Number [facility] [address] [place] [phone] * Prothrombin Time-INR (12/02/2024 1:02 PM EDT) Prothrombin Time 11.9 10.9 - 12.4 SEC [facility] INTERNATIONAL NORM RATIO 1.0 0.9 - 1.1 [facility] Comment:INTERNATIONAL NORMAL IZED RATIO (INR) REFERENCE RANGES Reference RangeFor patients not on anticoagulant therapy: 0.9 - 1.1INR ranges for oral anticoagulanttherapy:For prevention and treatment of venous thrombosis and pulmonary embolism: 2.0 - 3.0For acute myocardial infarction with aspirin therapy: 2.0 - 3.0For acute myocardial infarction without aspirin therapy: 3.0 - 4.0For patients with mechanical prosthetic heart valves: 2.5 - 3.5 12/02/2024 1:02 PM EDT 12/02/2024 1:02 PM EDT Generic External Data Provider LAB BLOOD ORDERAB LES Final Result Performing Organization Address [facility] Co de Phone Number [facility] [address] [place] [address] [phone] * (ABNORMAL) CBC (12/02/2024 1:02 PM EDT) [facility] White Blood Count 3.1(L) 4.8 - 10.8 X10*3/uL [facility] Red Blood Count 3.95(L) 4.20 - 5.50 X10*6/uL [facility] Hemoglobin 12.1 12.0 - 16.0 g/dl [facility] Hematocrit 36.5(L) 37.0 - 47.0 % [facility] Mean Corpuscular Volume 92.4 80.0 - 98.0 fL [facility] Mean Corpuscular Hemoglobin 30.6 27.0 - 33.0 pg [facility] Mean Corpuscular HGB Conc 33.2 31.0 - 35.0 g/dl [facility] Red Cell Distribution Width 14.3 11.0 - 16.0 % [facility] Platelet Count 216 160 - 400 X10*3/uL [facility] Mean Platelet Volume 9.0(L) 9.4 - 12.3 fL [facility] NRBC Pct Auto 0.0 0.0 - 0.2 /100WBC [facility] NRBC Abs Auto 0.000 0.0 - 0.012 X10*3/uL [facility] 12/02/2024 1:02 PM EDT 12/02/2024 1:02 PM EDT us Generic External Data Provider LAB BLOOD ORDERAB LES Final Result [facility] [address] [place] [phone] * (ABNORMAL) Comprehensive Metabolic Panel (12/02/2024 1:02 PM EDT) [facility] Sodium 141 135 - 145 mmol/L [facility] Potassium 3.4 3.3 - 5.1 mmol/L [facility] Chloride 111(H) 96 - 108 mmol/L [facility] Carbon Dioxide 23 22 - 29 mmol/L [facility] Anion Gap 10(L) 12 - 20 [facility] Urea Nitrogen (BUN) 11 9 - 16 mg/dL [facility] Creatinine, Serum 0.76 0.5 - 1.4 mg/dL [facility] Estimated Glomerular Filt Rate >60 [facility] Comment:Chronic Kidney Disea se: Estimated GFR < 60 mL/min/1.55y9Nlarxs Kidney Disease: Estimated GFR < 15 mL/min/1.73m2 Glucose 100 60 - 115 mg/dL [facility] Calcium 8.9 8.4 - 10.2 mg/dL [facility] Bilirubin, Total 0.7 0.0 - 1.0 mg/dL [facility] Aspartate Amino Transferase 24 5 - 31 U/L [facility] Alanine Aminotransferase 11 0 - 31 U/L [facility] Total Protein 7.1 6.5 - 8.0 g/dL [facility] Albumin Level 3.6 3.5 - 5.0 g/dL [facility] Alkaline Phosphatase 144(H) 39 - 117 U/L [facility] 12/02/2024 1:02 PM EDT 12/02/2024 1:02 PM EDT us Generic External Data Provider LAB BLOOD ORDERAB LES Final Result Performing Organization Address City/State/[facility] Co de Phone Number [facility] [address] [place] [phone] * BI Mammogram Screening Tomosynthesis Bilateral (04/04/2024 1:15 PM EDT) Anatomical Region Laterality Modality Breast Bilateral Mammography 04/04/2024 1:15 PM EDT Narrative 04/26/2024 9:33 PM EDT ? [facility] ? [address] ?[place] [address] ? Mammography Report ? Signed ? Patient: Weaver,Cheryl ?MR#: [id number] ? : 1945 ?Acct:[id number] ? Age/Sex: 79 / F ?ADM Date: 07/22/24 ? Loc: HO.MAMMO ? Attending Dr: Idania Leal U.[employer]. SENATOR ? Ordering Physician: IDANIA LEAL NP ?Results: 1Negative ? Date of Service: 04/04/24 ?Follow Up: 1 Year From Orig ?? inal Mammogram ? Procedure(s): MM tomosynthesis screening BI ?? Accession Number(s): [id number] ? cc: IDANIA LEAL NP ? EXAMINATION: [...] by Jonna Shahid MD in OV> ? 04/26/242128 ? DD/ ? TD/TT: ? Structural Fitter: ? Procedure Note Donotchelsiinterpreter, Image - [facility] [address] [place] [address] Mammography Report Signed Patient: Major Weaver#: [id number] : 5Acct:[id number] Age/Sex: 79 / FADM Date: 04/04/24 Loc: QINGO Attending Dr: Idania Leal NP Ordering Physician: IDANIA LEALesults: 1Negative Date of Service: 04/04/24Follow Up: 1 Year From Orig inal Mammogram Procedure(s): MM tomosynthesis screening BI Accession Number(s): [id number] cc: IDANIA LEAL NP EXAMINATION: MM SCREENING [...] MD in OV> 04/26/242128 DD/ 1315 TD/TT: Structural Fitter: Idania MARK IMG BI PROCEDURES Edited Result - Final * (ABNORMAL) LIPID PANEL, STANDARD (01/08/2021 11:51 [...] ?? Edgar COLEMAN et al. ORTEGA. 2013;310(19): 6376-9856 ?? (http://education.[employer].com/faq/PCA348) Non-HDL Cholesterol 124 <130 mg/dL (calc) [facility] Comment: For patients with diabetes plus 1 major ASCVD risk ?? factor, treating to a non-HDL-C goal of <100 mg/dL ?? (LDL-C of <70 mg/dL) is considered a therapeutic ?? option. Triglycerides 111 <150 mg/dL [facility] 01/08/2021 11:5 1 AM EDT us Historical Provider LAB BLOOD ORDERABLES Heidy gonzales Result [facility] [address] from Last 3 Months or Most Recently Relevant to Health Maintenance Insurance [facility] STANDARD UHC [facility] * Guarantor: Cheryl Weaver I Account Type Relation to Patient Date of Phone Billing Address Personal/[place] [address] Advance Directives Documents on File Type Date Recorded Patient Drafter [employer] MOLST form 11/27/2023 1:22 PM MOLST Advance Directives and Living Will 11/27/2023 8:45 AM Health Care Proxy Care Teams Coil Winder Repair Relationship Specialty Start Date End Date Idania Leal ANP [address] [place] [address] [place] [id number] PCP - General Family Medicine 05/02/24
== END 2024-12-22 14:42 | disposition home or self-care (01) ==
LOC: HO.HNS 12:50
PROVIDERS: PCP Nurse Practitioner Primary Care; Referring Provider Nurse Practitioner Primary Care; Visit Provider Physician Assistant
DX: M54.9 Dorsalgia, unspecified (principal)
CPT/HCPCS: 99204

== ENCOUNTER → 2024-12-22 12:49 | Outpatient (BNVA) | payer OTHER, SELFPAY | PROVIDERS: PCP Nurse Practitioner Primary Care; Referring Provider Nurse Practitioner Primary Care; Visit Provider Physician Assistant | DX: M54.50 Low back pain, unspecified (principal); G89.29 Other chronic pain | CPT/HCPCS: 99202 ==

== ENCOUNTER 2025-01-13 11:51 | Outpatient (AMB) | payer OTHER, SELFPAY ==
--- NOTE | 2025-01-13 11:53 | A.OFFVIS_ITS ---
Vital Signs 01/13/25 11:54 Height 5 ft 3 in Weight 157 lb BMI 27.8 BP 163/78 H Blood Pressure Location Lt brachial Position Sitting Respiration 16 Pulse 71 Pulse Source Pulse Oximeter Pulse Oximetry (%) 98 Oxygen Delivery Method Room Air Intake Visit Reasons: Dorsalgia, unspecified/intracept eval? Command Center Officer Required: No Command Center Officer Services: Command Center Officer Offered & Declined Command Center Officer Name: Prefers sons to translate Allergies ibuprofen Allergy (Intermediate, Verified 01/13/25 11:56) tachycardia/GI upset Medication List - Last Reconciled 01/13/25 by Betsy Paz LPN acetaminophen ER (Arthritis Pain Relief (acetaminophen) ER) 1 tab PO Q8H PRN amlodipine 5 mg PO DAILY B-complex with vitamin C 1 tab PO QAM bisacodyl (Dulcolax (bisacodyl)) 5 mg PO BEDTIME calcium carbonate 600 mg PO diclofenac sodium 1% (Voltaren) 2 grams topical QID duloxetine 60 mg PO QAM ergocalciferol (vitamin D2) 1 cap PO QWEEK gabapentin 1 cap PO TID hydrochlorothiazide 1 cap PO QAM latanoprost 0.005% 0 drps ophthalmic (eye) lidocaine 5% patches topical meclizine 25 mg PO Q8H PRN metoprolol succinate ER 25 mg PO DAILY mirtazapine 7.5 mg PO BEDTIME multivitamin 1 tab PO QAM ondansetron 4 mg PO Q6-8H PRN risperidone 0.25 mg PO BID sertraline 1 tab PO QAM timolol maleate 0.5% 0 drps ophthalmic (eye) HPI HPI Dorsalgia, unspecified/intracept eval?: Details: History of Present Illness The patient is a 79 year old female presenting with lumbar radicular pain. Pre viously, the patient had been under the care of Dr. Pablo for lumbar medial branch blocks due to severe back pain radiating down the right leg. On September 20, an attempt to proceed with this intervention was made; however, the procedure was halted because the patient experienced excessive pain, preventing completion. The pain is severe, chronic, and located in the lumbar region with radiation to the right leg. This has been an ongoing issue with no record of specific alleviating factors. The patient's cognitive difficulty, noted as dementia, complicates comprehensive pain management, and requires adjustments to traditional treatment methods. Pain Description - Onset: Chronic pain prior to September 20 without specific inciting event - Quality: Severe and hindered prior procedural attempts - Primary Location: Lumbar region of the back - Radiation: Right leg - Exacerbating Factors: Present prior interventions failed due to pain intensity - Relieving Factors: None explicitly identified - Interference: Procedure abandonment due to pain, impacting daily functioning Physical Exam - Musculoskeletal- Straight leg raise test positive on the right side Pain Management - Affect: Pain impacting daily functioning due to severity, with cognitive impairment due to dementia complicating management - Analgesia: Considering cortisone injections for management; patient currently not on any pain medications specified - Adverse Effects: Potential procedural discomfort due to cognitive challenges - Activities of Daily Living: Pain interferes with the ability to undergo therapeutic interventions - Aberrant Drug Related Behaviors: Not discussed in the conversation [facility] Medical History Chronic back pain Lumbar spondylosis COVID-19 vaccine series completed Hx of fracture of tibia Varicose veins of both lower extremities Osteoarthritis Hyperlipidemia Depression Insomnia Dizziness Allergic rhinitis HTN (hypertension) Neck pain Lumbar spondylolysis Fibromyalgia Surgical History H/O colonoscopy Hx of tubal ligation Hx of cholecystectomy Family History Father Cancer Mother Depression Sister HTN (hypertension) Heart disease Brother Diabetes Social History Household Members Other:: Are you a primary rn progressive care unit to a significant other at home: No Do you presently have visiting nurse or other home services: No Alcohol intake: current Alcohol intake frequency: holidays/special occasions only Patient Tobacco Use Status: Never used Tobacco Physical Exam Vital Signs: Last Vital Signs Pulse 71 01/13/25 11:54 Resp 16 01/13/25 11:54 BP 163/78 H 01/13/25 11:54 Pulse Ox 98 01/13/25 11:54 Oxygen Delivery Method Room Air 01/13/25 11:54 BMI result Body Mass Index 27.8 Assessment & Plan Assessment & Plan (1) Radiculopathy, lumbar region: Code(s): M54.16 - Radiculopathy, lumbar region Category: Medical Plan Plan - Schedule interlaminar L4-5 KENYON for lumbar radicular symptoms - Premedicate with Ativan and oxycodone to manage procedural anxiety and ensure adherence; prescription sent to pharmacy for dispensing. - Manage expectations due to existing dementia, which impacts procedure compliance. Patient was informed and verbally consented to the use of an ambient scribe for clinic note documentation during this visit. Discussion Notes I discussed with the patient and her support the management of lumbar radicular pain by considering cortisone injections as an alternative to the aborted lumbar medial branch blocks. I explained that this procedure would take place approximately within two to four weeks, contingent upon insurance approval. The patient showed discomfort in previous attempts, possibly due to her existing dementia, requiring the use of premedication with Ativan to aid compliance. Specific risks and benefits of this approach were reviewed, emphasizing the goal of pain relief and improved quality of life with consideration to her cognitive state. I also clarified the process for scheduling following insurance confirmation and described the role of Ativan as premedication. 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 - Await a call from our office to schedule the cortisone injection date once insurance authorization is obtained. - Use provided contact numbers to inform us of any changes in health status or appointment availability, and ensure a support person is present on the day of the procedure. - Review pain symptoms and report any significant worsening before the scheduled injection. Medications: New lorazepam take 2 hours before procedure 1 mg PO BEDTIME PRN 1 tab 0RF anxiety Coding Level of Care Code Est Pt Level 3 (45337) Diagnoses Radiculopathy, lumbar region M54.16
[2025-01-13 11:54] VITALS: BP 163/78; PULSE 71; RESP 16; O2SAT 98; BMI 27.8
--- OUTSIDE RECORDS SUMMARY | 2025-01-13 12:43 | XMS_ITS | Encounter Summary ---
Author Organization [employer] [facility] Address [address] [place] [address] Care Team Providers Care Band Sawmill Operator Name Role Phone Nathaly Boston Primary Care Provider [phone] Nathaly Boston Primary Care Provider [phone] Encounter Details Date Type Department Care Team (Late st Contact Info) Description 08/01/2022 Abstract [facility] [address] [place] [phone] Provider, MD Yanelis Social History Tobacco Use [...] EDT Office Visit [facility] [address] [place] [address] Nathaly Boston ANP [address] [place] [address] documented as of this encounter Visit Diagnoses Not on filedocumented in this encounter Care Teams Band Sawmill Operator Relationship Specialty Start Date End Date Nathaly Boston ANP [address] [place] [address] PCP - General Family Medicine 05/03/21 05/01/24 Nathaly Boston ANP [address] [place] [address] PCP - General Family Medicine 05/02/24 documented as of this encounter
--- OUTSIDE RECORDS SUMMARY | 2025-01-13 12:43 | XMS_ITS | Encounter Summary ---
Author Organization [employer] Address [address] [facility] 7t [place] [address] Care Team Providers Care Dental Assisting Instructor Name Role Phone Nathaly Boston Primary Care Provider [phone] Nathaly Boston ANP Primary Care Provider [phone] Encounter Details Date Type Department Care Team (Late st Contact Info) Description 10/16/2023 Orders Only [facility] MED[facility]INE [address] [place], [place] [phone] Nathaly Boston ANP [address] [place], [place] [phone] Social History Tobacco Use Types Packs/Day Years [...] Description 04/03/2025 2:00 PM EDT Office Visit [facility] [address] [place] [address] Nathaly Boston ANP [address] [place] [address] documented as of this encounter Goals Goal Patient Goal Type Associated Problems Recent Progress Patient-Stated? Author Record your blood pressure once per day Blood Pressure No Ria Santos Blood Pressure < 140/90 Blood Pressure 152/81(2024 9:18 AM EDT) No Ria Santos documented as of this encounter Visit Diagnoses Not on filedocumented in this encounter Additional Health Concerns Assessment Noted Time PHQ-9 Depression Total Score: 7 09/15/19 24 10:39 AM EST documented as of this encounter Care Teams Dental Assisting Instructor Relationship Specialty Start Date End Date Nathaly Boston ANP [address] [place] [address] PCP - General Family Medicine 05/03/21 05/01/24 Nathaly Boston ANP [address] [place] [address] 58694 PCP - General Family Medicine 05/02/24 documented as of this encounter
--- OUTSIDE RECORDS SUMMARY | 2025-01-13 12:43 | XMS_ITS | Encounter Summary ---
Author Organization [employer] Address [address] [facility] 7t [place] [address] Care Team Providers Care Nurse Research Name Role Phone Nathaly Boston ANP Primary Care Provider [phone] Nathaly Boston ANP Primary Care Provider [phone] Reason for Visit * Reason Comments Med Refill Encounter Details Date Type Department Care Team (Late st Contact Info) Description 10/13/2023 Refill [facility] [address] [place], [place] [phone] Nathaly Boston ANP [address] [place], [place] [phone] Social History Tobacco Use Types Packs/Day Years [...] 2:00 PM EDT Office Visit [facility] [address] [place] [address] Nathaly Boston ANP [address] [place] [address] documented as of this encounter Goals Goal [...] documented as of this encounter Care Teams Nurse Research Relationship Specialty Start Date End Date Nathaly Boston ANP [address] [place] [address] PCP - General Family Medicine 05/03/21 05/01/24 Nathaly Boston ANP [address] [place] [address] PCP - General Family Medicine 05/02/24 documented as of this encounter
--- OUTSIDE RECORDS SUMMARY | 2025-01-13 12:43 | XMS_ITS | Encounter Summary ---
Author Organization [employer] Address [address] [facility] 7t [place] [address] Care Team Providers Care Investigation Division Captain Name Role Phone Nathaly Boston Primary Care Provider [phone] Nathaly Boston Primary Care Provider [phone] Reason for Visit * Reason Comments Med Refill Encounter Details Date Type Department Care Team (Late st Contact Info) Description 02/05/2024 Refill [facility] [place] [address] [place], [place] [phone] Estrella Tapia FNP Social History Tobacco Use [...] EDT Office Visit [facility] [address] [place] [address] Nathaly Boston ANP [address] [place] [address] documented as of this encounter Goals Goal [...] documented as of this encounter Care Teams Investigation Division Captain Relationship Specialty Start Date End Date Nathaly Boston ANP [address] [place] [address] PCP - General Family Medicine 05/03/21 05/01/24 Nathaly Boston ANP [address] [place] [address] PCP - General Family Medicine 05/02/24 documented as of this encounter
--- OUTSIDE RECORDS SUMMARY | 2025-01-13 12:43 | XMS_ITS | Encounter Summary ---
Author Organization [employer] Address [address] [facility] 7t [place] [address] Care Team Providers Care Adolescent Medicine Specialist Name Role Phone Nathaly Boston ANP Primary Care Provider [phone] Nathaly Boston ANP Primary Care Provider [phone] Reason for Visit * Reason Comments Med Refill Encounter Details Date Type Department Care Team (Late st Contact Info) Description 03/01/2024 Refill [facility] [address] [place], [place] [phone] Nathaly Boston ANP [address] [place], [place] [phone] Essential hypertension Social History Tobacco Use Types [...] Description 04/03/2025 2:00 PM EDT Office Visit [facility] [address] [place] [address] Nathaly Boston ANP [address] [place] [address] documented as of this encounter Goals Goal [...] documented as of this encounter Care Teams Adolescent Medicine Specialist Relationship Specialty Start Date End Date Nathaly Boston ANP [address] [place] [address] PCP - General Family Medicine 05/03/21 05/01/24 Nathaly Boston ANP [address] [place] [address] PCP - General Family Medicine 05/02/24 documented as of this encounter
--- OUTSIDE RECORDS SUMMARY | 2025-01-13 12:43 | XMS_ITS | Clinical Summary ---
Author Organization [facility] Address [address] [place] [address] Care Team Providers Care Director Outpatient Services Name Role Phone Unknown Primary Care Provider [phone] Allergies No known active allergies Medications No known medications Social History Tobacco Use Types Packs/Day Years Used Date Smoking Tobacco: Never Assessed Comments Unknown Sex and Gender Information Value Date Recorded Sex Assigned at Not on file Legal Sex Female 5:47 AM EST Gender Identity Not on file Sexual Orientation [...] on patient's age to complete this topic Insurance [facility] (AUTO/LIABILITY) [facility] Care Teams Director Outpatient Services Relationship Specialty Start Date End Date Unknown Unknow Provider Address PCP - General 10/17/17
--- OUTSIDE RECORDS SUMMARY | 2025-01-13 12:44 | XMS_ITS | Clinical Summary ---
Author Organization [employer] Address [address] [facility] 7t [place] [address] Care Team Providers Care Document Preparer Microfilming Name Role Phone Idania Leal Primary Care Provider [phone] Allergies Active Allergy Reactions Criticality Noted Date [...] MD. 30 patch 3 08/18/20 24 Active metoprolol tartrate (Lopressor) 25 MG [...] or chew. 42 capsule 12/17/19 25 Active amoxicillin-cla vulanate (Augmentin) 875-125 MG tabletIndicatio ns:Preseptal cellulitis of left eye Take 1 tab BID for 5-7 days with food 14 tablet 01/06/20 25 Active gabapentin (Neurontin) 300 MG capsuleIndicati ons:Chronic low back pain, unspecified back pain laterality, unspecified whether sciatica present TAKE 1 CAPSULE BY MOUTH THREE TIMES DAILY IN THE MORNING, EVENING, AND BEDTIME 90 capsule 1 01/08/20 25 Active DULoxetine (Cymbalta) [address] capsuleIndicati ons:Chronic midline low back pain with right-sided sciatica,Anxiet y Take 1 capsule (60 mg) by mouth Once daily. Do not crush or chew. 90 capsule 1 04/21/20 24 025 Discontinued gabapentin (Neurontin) 300 MG capsuleIndicati ons:Chronic low back pain, unspecified back pain laterality, unspecified whether sciatica present TAKE 1 CAPSULE BY MOUTH THREE TIMES DAILY IN THE MORNING, EVENING, AND BEDTIME 90 capsule 3 08/19/20 24 025 Discontinued risperiDONE (RisperDAL) 0.25 MG [...] ANAIS gene mutation. Had colonoscopy [address] [facility], we don't have report. Normal oral exam [...] support PLAN: 1. Follow up with [facility]: Recommended for follow-up: Scheduled follow-up BE in a month. 2. Patient goal is to gradually accept the diagnosis 3. Behavioral Recommendations a. Follow-up BE with clinician b. Continuing practicing self-care mechanisms (going to the [facility] and take care of family pets) c. See Neurologist in [place] as recommended by PCP Idania (see doctor's [...] , and Patient to reach out to [facility] as needed. Assessment & Plan (07/01/2023 11:50 [...] support PLAN: 1. Follow up with [facility]: Recommended for follow-up: Scheduled follow-up BE in a month. 2. Patient goal is to gradually accept the diagnosis 3. Behavioral Recommendations a. Follow-up BE with clinician b. Continuing practicing self-care mechanisms [place] and [place] of family pets) c. See Neurologist in [place] as recommended by PCP Idania (see doctor's note) Bursitis 03/11/2012 Shoulder joint pain 03/11/2012 Varicose veins of lower extremity 03/11/2012 Encounters Date Type Department Care Team Description 01/06/2025 Refill [facility] [address] [place] [address] Idania Leal ANP Chronic low back pain, unspecified back pain laterality, unspecified whether sciatica present 01/05/2025 9:00 AM EDT Office Visit [facility] [address] [place] [address] Idania Leal ANP Preseptal cellulitis of left eye (Primary Dx); Moderate dementia with anxiety, unspecified dementia type (CMS/HCC) 01/05/2025 Travel 01/04/2025 Telephone [facility] [address] [place] [address] Debbie Friedman MA CHART PREP 01/03/2025 Telephone [facility] [place] [address] Idania Leal ANP Medication Question 12/20/2024 Telephone [facility] [place] [address] Idania Leal ANP Medication Question 12/16/2024 2:15 PM EDT Office Visit [facility] [place] [address] Idania Leal ANP Difficulty sleeping (Primary Dx); Spinal stenosis of lumbar region, unspecified whether neurogenic claudication present; Moderate dementia with anxiety, unspecified dementia type (CMS/HCC); Anxiety; Depression, unspecified depression type 12/16/2024 Travel 12/14/2024 Refill [facility] [place] [address] Idania Leal ANP Moderate dementia with anxiety, unspecified dementia type (CMS/HCC) 12/06/2024 Patient Outreach [facility] [place] [address] Idania Leal ANP Pre-visit Planning (SDOH screening was completed on 09/30/2024) 12/02/2024 Orders Only GENERIC EXTERNAL DATA DEPARTMENT Provider, Generic External Data 11/18/2024 Refill [facility] [place] [address] Idania Leal ANP Moderate dementia with anxiety, unspecified dementia type (CMS/HCC) 11/15/2024 Refill [facility] [place] [address] Idania Leal ANP Moderate dementia with anxiety, unspecified dementia type (CMS/HCC) 11/11/2024 Orders Only [facility] [place] [address] Idania Leal ANP Essential hypertension (Primary Dx) 11/11/2024 Telephone [facility] [place] [address] Idania Leal ANP FYI 10/28/2024 9:30 AM EST Telemedicine [facility] [place] [place] [address] Idania Leal ANP Panic attacks (Primary Dx); Moderate dementia with anxiety, unspecified dementia type (CMS/HCC) 10/28/2024 Travel 10/25/2024 Telephone [facility] [address] [place] [address] Idania Leal ANP Medication Question 10/18/2024 Telephone [facility] [address] [place] [address] Idania Leal ANP ER Follow-up from Last 3 Months Immunizations Name Administration [...] Answer Date Recorded Patient Health Questionnaire-9 Score 13 01/05/2025 Patient Health Questionnaire-9 Score 13 01/05/2025 Last PHQ-9: Questionnaire Data Not on file 0 01/05/2025 Housing Stability Answer Date Recorded What is [...] Answer Date Recorded Patient Health Questionnaire-2 Score 2 01/05/2025 Internet Access Answer Date Recorded Internet Access [...] Sign Reading Time Taken Comments Blood Pressure 152/81 01/05/2025 9:18 AM EDT Pulse 82 01/05/2025 9:18 AM EDT Temperature 36.4 ??C (97.6 ??F) 01/05/2025 9:18 AM ED T Respiratory Rate 18 01/05/2025 9:18 AM EDT Oxygen Saturation 97% 01/05/2025 9:18 AM EDT Inhaled Oxygen Concentration - - Weight 73.7 kg (162 lb 6.4 oz) 01/05/2025 9:18 A M EDT Height 157.5 cm (5' 2 ) 01/05/2025 9:18 AM EDT Body Mass Index 29.7 01/05/2025 9:18 AM EDT Plan of Treatment Upcoming Encounters Date Type Department Care Team (Late st Contact Info) Description 04/03/2025 2:00 PM EDT Office Visit [facility] [address] [place] [address] Idania Leal, ANP [address] [place] [address] Health Maintenance Due Date Last Done Comments [...] 07/22/2024 01/19/2024, 01/05/2014 Dental Prophylaxis 08/20/2024 02/18/2024 Alcohol/Substance Use Screening 02/15/2025 02/16/2024 Mammogram 04/04/2025 04/04/2024, 03/14, 08/22/2021, Additional history exists SDOH Screening 09/30/2025 09/30/2024 Depression Screening 01/05/2026 01/05/2025, 01/06/20 25 Tobacco Screening 01/05/2026 01/05/2025 Lipid Panel 01/08/2026 01/08/2021 Dental X-Ray: Full [...] 152/81(2024 9:18 AM EDT) No Ria Santos Procedures Procedure Name [...] C Ab (12/02/2024 1:02 PM EDT) Pathologist [facility] Hepatitis C Antibody Nonreactive Nonreactive [facility] Comment:Antibodies to HCV no t detected; does not exclude early acuteHCV infection. 12/02/2024 1:02 PM EDT 12/02/2024 1:02 PM EDT Generic External Data Provider LAB BLOOD ORDERAB LES Final Result Performing Organization Address [facility]/[place] [facility]/ZIP Co de Phone Number [facility] [address] [place] [phone] * Hepatitis A Antibody, Total (12/02/2024 1:02 PM EDT) [facility] Hepatitis A Antibody IgG REACTIVE Nonreactive [facility] Comment:The presence of IgG anti-HAV implies past HAV infection(recent or distant) or vaccination against HAV. 12/02/2024 1:02 PM EDT 12/02/2024 1:02 PM EDT us Generic External Data Provider LAB BLOOD ORDERAB LES Final Result Performing Organization Address [facility] Co de Phone Number [facility] [address] [place] [phone] * Hepatitis B surface antigen, EIA (12/02/2024 1:02 PM EDT) Pathologist [facility] Hepatitis B Surface Ag Negative Negative [facility] 12/02/2024 1:02 PM EDT 12/02/2024 1:02 PM EDT Generic External Data Provider LAB BLOOD ORDERAB LES Final Result Performing Organization Address [facility] Co de Phone Number [facility] [address] [place] [address] [phone] * Hepatitis B Core Antibody, Total (12/02/2024 1:02 PM EDT) Hepatitis B Core Antibody Nonreactive Nonreactive [facility] 12/02/2024 1:02 PM EDT 12/02/2024 1:02 PM EDT Generic External Data Provider LAB BLOOD ORDERAB LES Final Result Performing Organization Address [facility] Phone Number [facility] [address] [place] [address] [phone] * Hepatitis B Surface Antibody, Qualitative (12/02/2024 1:02 PM EDT) ~Hepatitis B Surface Antibody NONREACTIVE Nonreactive [facility] Comment:Nonreactive: < 8.00 mIU/mL 12/02/2024 1:02 PM EDT 12/02/2024 1:02 PM EDT Generic External Data Provider LAB BLOOD ORDERAB LES Final Result Performing Organization Address [facility] de Phone Number [facility] [address] [place] [address] [phone] * Prothrombin Time-INR (12/02/2024 1:02 PM EDT) Prothrombin Time 11.9 10.9 - 12.4 SEC [facility] INTERNATIONAL NORM RATIO 1.0 0.9 - 1.1 [facility] Comment:INTERNATIONAL NORMAL IZED RATIO (INR) [...] Provider LAB BLOOD ORDERAB LES Final Result [facility] [address] [place] [address] [phone] * (ABNORMAL) CBC (12/02/2024 1:02 PM EDT) White Blood Count 3.1(L) 4.8 - 10.8 X10*3/uL [facility] Red Blood Count 3.95(L) 4.20 - 5.50 X10*6/uL [facility] Hemoglobin 12.1 12.0 - 16.0 g/dl [facility] Hematocrit 36.5(L) 37.0 - 47.0 % [facility] Mean Corpuscular Volume 92.4 80.0 - 98.0 fL [facility] Mean Corpuscular Hemoglobin 30.6 27.0 - 33.0 pg [facility] Mean Corpuscular HGB Conc 33.2 31.0 - 35.0 g/dl [facility] Red Cell Distribution Width 14.3 11.0 - 16.0 % [facility] Platelet Count 216 160 - 400 X10*3/uL [facility] Mean Platelet Volume 9.0(L) 9.4 - 12.3 fL [facility] NRBC Pct Auto 0.0 0.0 - 0.2 /100WBC [facility] NRBC Abs Auto 0.000 0.0 - 0.012 X10*3/uL [facility] 12/02/2024 1:02 PM EDT 12/02/2024 1:02 PM EDT us Generic External Data Provider LAB BLOOD ORDERAB LES Final Result Performing Organization Address City/[facility]/ZIP Co de Phone Number [facility] [address] [place] [phone] * (ABNORMAL) Comprehensive Metabolic Panel (12/02/2024 1:02 PM EDT) Sodium 141 135 - 145 mmol/L [facility] Potassium 3.4 3.3 - 5.1 mmol/L [facility] Chloride 111(H) 96 - 108 mmol/L [facility] Carbon Dioxide 23 22 - 29 mmol/L [facility] Anion Gap 10(L) 12 - 20 [facility] Urea Nitrogen (BUN) 11 9 - 16 mg/dL [facility] Creatinine, Serum 0.76 0.5 - 1.4 mg/dL [facility] Estimated Glomerular Filt Rate >60 [facility] Comment:Chronic Kidney Disea se: Estimated GFR < 60 mL/min/1.08v5Wlapdl Kidney Disease: Estimated GFR < 15 mL/min/1.73m2 Glucose 100 60 - 115 mg/dL [facility] Calcium 8.9 8.4 - 10.2 mg/dL [facility] Bilirubin, Total 0.7 0.0 - 1.0 mg/dL [facility] Aspartate Amino Transferase 24 5 - 31 U/L [facility] Alanine Aminotransferase 11 0 - 31 U/L [facility] Total Protein 7.1 6.5 - 8.0 g/dL [facility] Albumin Level 3.6 3.5 - 5.0 g/dL [facility] Alkaline Phosphatase 144(H) 39 - 117 U/L [facility] 12/02/2024 1:02 PM EDT 12/02/2024 1:02 PM EDT us Generic External Data Provider LAB BLOOD ORDERAB LES Final Result Performing Organization Address City/[facility]/ZIP Co de Phone Number [facility] [address] [place] [phone] * BI Mammogram Screening Tomosynthesis Bilateral (04/04/2024 1:15 PM EDT) Anatomical Region Laterality Modality Breast Bilateral Mammography 04/04/2024 1:15 PM EDT Narrative 04/26/2024 9:33 PM EDT ? Cat [facility] ? [address] ?[place] [address] ? Mammography Report ? Signed ? Patient: Weaver,Cheryl ?MR#: [id number] ? : 1945 ?Acct:[id number] ? Age/Sex: 79 / F ?ADM Date: 04/04/ ? Loc: HO.MAMMO ? Attending Dr: Idania Leal [employer]PR[employer] PUMP OPERATOR ? Ordering Physician: MEL,IDANIA [employer] PUMP OPERATOR ?Results: 1Negative ? Date of Service: 04/04/24 ?Follow Up: 1 Year From Orig ?? inal Mammogram ? Procedure(s): MM tomosynthesis screening BI ?? Accession Number(s): [id number] ? cc: MEL,IDANIA FU ? EXAMINATION: ?? [...] 04/26/242128 ? DD/ 1315 ? TD/TT: ? Power Shear Operator: ? Procedure Note Donhelene, Image - 04/26/2024 Cat [facility] [address] [place] [address] Mammography Report Signed Patient: Major Weaver#: [id number] : 5Acct:[id number] Age/Sex: 79 / FADM Date: 04/04/24 Loc: HO.SUDHAKARO Attending Dr: Idania Leal NP Ordering Physician: IDANIA LEALults: 1Negative Date of Service: 04/04/24Follow Up: 1 Year From Orig inal Mammogram Procedure(s): MM tomosynthesis screening BI Accession Number(s): [id number] cc: IDANIA LEAL NP EXAMINATION: MM SCREENING [...] MD in OV> 04/26/242128 DD/ 1315 TD/TT: Power Shear Operator: Idania MARK IM BI PROCEDURES Edited Result [...] ?? Edgar COLEMAN et al. ORTEGA. 2013;310(19): 3273-5158 ?? (http://education.IIZI group/faq/AFY938) Non-HDL Cholesterol 124 <130 mg/dL (calc) [facility] Comment: For patients with diabetes plus 1 major ASCVD risk ?? factor, treating to a non-HDL-C goal of <100 mg/dL ?? (LDL-C of <70 mg/dL) is considered a therapeutic ?? option. Triglycerides 111 <150 mg/dL [facility] 01/08/2021 11:5 1 AM EDT us Historical Provider LAB BLOOD ORDERABLES Heidy gonzales Result [facility] [address] from Last 3 Months or Most Recently Relevant to Health Maintenance Insurance [facility] STANDARD UHC DUAL COMPLETE DENTAL - [facility] Advance Directives Documents on File Type Date Recorded Patient Financial Sales Consultant Expl anation MOLST form 11/27/2023 1:22 PM MOLST Advance Directives and Living Will 11/27/2023 8:45 AM Health Care Proxy Care Teams Document Preparer Microfilming Relationship Specialty Start Date End Date Idania Leal ANP [address] [place] [address] [place] [address] PCP - General Family Medicine 05/02/24
--- OUTSIDE RECORDS SUMMARY | 2025-01-13 12:44 | XMS_ITS | Encounter Summary ---
Author Organization [email or web address] [facility] Address [address] [place] [address] Care Team Providers Care Court Magistrate Name Role Phone Nathaly Boston Primary Care Provider [phone] Nathaly Boston Primary Care Provider [phone] Reason for Visit * Reason Comments Med Refill Encounter Details Date Type Department Care Team (Late st Contact Info) Description 01/16/2023 Refill [facility] [address] [place] [address] [phone] Юлия Valdivia MD [address] [place], [place] [phone] Social History Tobacco Use Types Packs/Day Years [...] Description 04/03/2025 2:00 PM EDT Office Visit [facility] [address] [place] [address] [phone] Nathaly Boston ANP [address] [place], [place] [phone] documented as of this encounter Visit Diagnoses Not on filedocumented in this encounter Additional Health Concerns Assessment Noted Time PHQ-9 Depression Total Score: 4 10/07/19 23 3:46 PM EST documented as of this encounter Care Teams Court Magistrate Relationship Specialty Start Date End Date Nathaly Boston ANP [address] [place] [address] PCP - General Family Medicine 05/03/21 05/01/24 Nathaly Boston ANP [address] [place] [address] PCP - General Family Medicine 05/02/24 documented as of this encounter
--- OUTSIDE RECORDS SUMMARY | 2025-01-13 12:44 | XMS_ITS | Encounter Summary ---
Author Organization [employer] Address [address] [place] [address] 7t [place] [address] Care Team Providers Care Chief Internal Auditor Name Role Phone Nathaly Boston ANP Primary Care Provider [phone] Nathaly Boston ANP Primary Care Provider [phone] Reason for Visit * Reason Onset Date Comments Nurse Triage 04/20/2023 Encounter Details Date Type Department Care Team (Late st Contact Info) Description 04/20/2023 Telephone [facility] MED[facility] [address] [place] [address] Nathaly Boston ANP [address] [place] [address] Nurse Triage Social History Tobacco Use Types [...] for 04/23/23 @ 9:15am. Please contact at [phone] * Telephone Encounter - Tarsha Vargas RN [...] early Dementia. Please contact pt daughter at [phone] documented in this encounter Plan of Treatment Upcoming Encounters Date Type Department Care Team (Late st Contact Info) Description 04/03/2025 2:00 PM EDT Office Visit [facility] MED[facility]INE [address] [place] [phone] Nathaly Boston ANP [address] [place] [phone] documented as of this encounter Visit Diagnoses Not on filedocumented in this encounter Additional Health Concerns Assessment Noted Time PHQ-9 Depression Total Score: 4 10/07/19 23 3:46 PM EST documented as of this encounter Care Teams Chief Internal Auditor Relationship Specialty Start Date End Date Nathaly Boston ANP [address] [place] [address] PCP - General Family Medicine 05/03/21 05/01/24 Nathaly Boston ANP [address] [place] [address] PCP - General Family Medicine 05/02/24 documented as of this encounter
== END 2025-01-13 12:20 | disposition home or self-care (01) ==
LOC: HO.PMC 11:52
PROVIDERS: PCP Nurse Practitioner Primary Care; Visit Provider Internal Medicine
DX: M54.16 Radiculopathy, lumbar region (principal)
CPT/HCPCS: 99213

== ENCOUNTER → 2025-01-13 11:51 | Outpatient (BNVA) | payer OTHER, SELFPAY | PROVIDERS: PCP Nurse Practitioner Primary Care; Visit Provider Internal Medicine | DX: M54.16 Radiculopathy, lumbar region (principal) | CPT/HCPCS: 99212 ==

== ENCOUNTER 2025-02-02 06:20 | Outpatient (REF) | payer OTHER, SELFPAY ==
--- NOTE | ~2025-02-02 | FL_ITS ---
EXAMINATION: FL GUIDANCE ONLY HISTORY: M54.16 - Radiculopathy, lumbar region COMPARISON: None available. TECHNIQUE: Fluoroscopy time: Less than 1 minute. Cumulative Dose: 1.36 mGy. DAP: 0.0178 mGym2 Images: 1. FINDINGS: A single fluoroscopic spot film of the lumbar spine demonstrates a needle at the L5 level. FL/FL guidance in treatment room IMPRESSION: Fluoroscopy during procedure. Please see procedure report for additional information. Electronically signed by: Colton Zhao MD 02/02/2025 02:29 PM EDT
== END 2025-02-02 06:21 | disposition home or self-care (01) ==
LOC: CF 06:20
PROVIDERS: Visit Provider Internal Medicine
DX: M54.16 Radiculopathy, lumbar region (principal); Z53.29 Procedure and treatment not carried out because of patient's decision for other reasons
CPT/HCPCS: 62323; J2003; J3301; Q9967

== ENCOUNTER 2025-02-02 12:20 | Outpatient (AMB) | payer OTHER, SELFPAY ==
[2025-02-02 12:28] VITALS: BP 140/75; PULSE 76; RESP 18; O2SAT 100
--- NOTE | 2025-02-02 12:28 | MHC.OFFVIS ---
Vital Signs 02/02/25 12:28 BP 140/75 H Blood Pressure Location Lt brachial Position Sitting Respiration 18 Pulse 76 Pulse Source Pulse Oximeter Pulse Oximetry (%) 100 Oxygen Delivery Method Room Air Intake Visit Reasons: RIGHT L4, L5 INTERLAMINAR KENYON Grinding Machine Operator Required: Yes Grinding Machine Operator Services: Grinding Machine Operator Present Grinding Machine Operator Name: lila Allergies ibuprofen Allergy (Intermediate, Verified 02/02/25 12:41) tachycardia/GI upset HPI HPI RIGHT L4, L5 INTERLAMINAR KENYON: Details: Patient presents for scheduled procedure. Denies any recent cough, cold, infection, fever or other significant changes in medical history since last office visit. [facility] Medical History Chronic back pain Lumbar spondylosis COVID-19 vaccine series completed Hx of fracture of tibia Varicose veins of both lower extremities Osteoarthritis Hyperlipidemia Depression Insomnia Dizziness Allergic rhinitis HTN (hypertension) Neck pain Lumbar spondylolysis Fibromyalgia Surgical History H/O colonoscopy Hx of tubal ligation Hx of cholecystectomy Family History Father Cancer Mother Depression Sister HTN (hypertension) Heart disease Brother Diabetes Social History Household Members Other:: Are you a primary care center manager to a significant other at home: No Do you presently have visiting nurse or other home services: No Alcohol intake: current Alcohol intake frequency: holidays/special occasions only Patient Tobacco Use Status: Never used Tobacco Physical Exam Vital Signs: Last Vital Signs Pulse 76 02/02/25 12:28 Resp 18 02/02/25 12:28 BP 140/75 H 02/02/25 12:28 Pulse Ox 100 02/02/25 12:28 Oxygen Delivery Method Room Air 02/02/25 12:28 Office Procedures AMB Joint Injection/Aspiration Joint Injection/Aspiration Details: ABORTED: Interlaminar epidural steroid injection, L4/5, right parasaggital After obtaining written consent, pre-procedure blood pressure and heart rate were stable and recorded in the nursing record. The patient was placed in the prone position. The lumbar area was widely prepped with chloraprep and draped in sterile fashion. Fluoroscopic guidance was used to identify the desired interlaminar space and for needle placement. Subcutaneous 0.5% lidocaine was injected into the skin. At this point the patient requested to abort the procedure as the needle discomfort was too much for her to bear. Following the procedure the patient's vital signs were stable. The patient was discharged home in good condition with post-procedural instructions. Time Out: Immediately prior to the procedure, the following was verbally confirmed that there is a signed consent form and that the correct patient, planned procedure, site and side are consistent with documentation and that necessary equipment and/or blood products are available prior to the start of the case. Complications: none EBL: <2 cc Coding Additional procedure code (CPT) needed Assessment & Plan Assessment & Plan (1) Radiculopathy, lumbar region: Code(s): M54.16 - Radiculopathy, lumbar region Category: Medical Plan Patient is status post attempted L4-5 interlaminar KENYON. She was unable to tolerate the injection. She requests that no further interventional therapy be advised for scheduled for her. Orders: Orders [place] guidance in treatment room Today Bryanna Sepulveda APRN, BEAD PREPARER M54.16 - Radiculopathy, lumbar region AMB Joint Injection/Aspiration Today Praful Garcia MD M54.16 - Radiculopathy, lumbar region Coding Level of Care Code Procedure Only Diagnoses Radiculopathy, lumbar region M54.16
--- OUTSIDE RECORDS SUMMARY | 2025-02-02 12:32 | XMS_ITS | Clinical Summary ---
Author Organization [facility] Address [address] [place] [address] Care Team Providers Care Water Carter Name Role Phone Unknown Primary Care Provider [phone] Allergies No known active allergies Medications No [...] Health Maintenance Due Date Last Done Comments DTaP/Tdap/Td Vaccines (1 - Tdap) 01/25/1964 Pneumococcal Vaccines 50+ (1 of 1 - PCV) 1995 Zoster (Shingles) Vaccine (1 of 2) 1995 DXA Bone Density (Females,Ag es 65 and older) 2010 RSV Vaccine 60 years and old er and Patients (1 - 1-dose 75+ series) 01/25/2020 COVID-19 Vaccine ( - 2023-2 5 season) 2024 Influenza Vaccine 04/14/2025 Hepatitis B Vaccines Aged Out No long er eligible based on patient's age to complete this topic Insurance [facility] (AUTO/LIABILITY) [place] [address] [place] [address] Care Teams Water Carter Relationship Specialty Start Date End Date Unknown Unknow Provider Address PCP - General 10/17/17
--- OUTSIDE RECORDS SUMMARY | 2025-02-02 12:32 | XMS_ITS | Encounter Summary ---
Author Organization [employer] Address [address] [facility] 7t [place] [address] Care Team Providers Care Ore Tester Name Role Phone Nathaly Boston ANP Primary Care Provider [phone] Nathaly Boston ANP Primary Care Provider [phone] Reason for Visit * Reason Comments Med Refill Encounter Details Date Type Department Care Team ([facility] st Contact Info) Description 03/01/2024 Refill [facility] MED[facility]INE [address] [place], [place] [phone] Nathaly Boston ANP [address] [place], [place] [phone] Essential hypertension Social History Tobacco Use Types [...] Description 04/03/2025 2:00 PM EDT Office Visit [facility] MEDICINE [address] [place] [address] Nathaly Boston ANP [address] [place] [address] documented as of this encounter Goals Goal [...] documented as of this encounter Care Teams Ore Tester Relationship Specialty Start Date End Date Nathaly Boston ANP [address] [place] [address] PCP - General Family Medicine 05/03/21 05/01/24 Nathaly Boston ANP [address] [place] [address] PCP - General Family Medicine 05/02/24 documented as of this encounter
--- OUTSIDE RECORDS SUMMARY | 2025-02-02 12:32 | XMS_ITS | Clinical Summary ---
Author Organization [employer] Address [address] [facility] 7t [place] [address] Care Team Providers Care Water Treatment Plant Supervisor Name Role Phone Idania Leal Primary Care Provider [phone] Allergies Active Allergy Reactions Criticality Noted Date [...] 12/03/19 24 Active amLODIPine (Norvasc) 5 MG tabletIndication s:Essential hypertension TAKE 1 TABLET BY MOUTH AT BEDTIME 90 tablet 3 01/06/20 24 Active timolol (Timoptic) 0.5 % ophthalmic solution INSTILL 1 DROP IN EACH EYE EVERY MORNING 08/24/20 23 Active lidocaine (Lidoderm) 5 % patchIndications :Chronic midline low back pain with right-sided sciatica Apply 1 patch topically Once per day. Remove & discard patch within 12 hours or as directed by MD. 30 patch 3 08/18/20 24 Active metoprolol tartrate (Lopressor) 25 MG tabletIndication s:Essential hypertension Take 1 tablet (25 mg) by mouth 2 times daily. 60 tablet 11 11/11/19 25 026 Active traZODone (Desyrel) 50 MG tabletIndication s:Difficulty sleeping Take 1 tablet (50 mg) by mouth if needed at bedtime for sleep. 30 tablet 12/17/19 25 Active risperiDONE (RisperDAL) 0.25 MG tabletIndication s:Behavioral Disorders associated with Dementia Take 1 tab AM and 1 tab PM for 1 week, then 1 tab AM for 1 week, then stop 21 tablet 12/17/19 25 Active citalopram (CeleXA) 10 MG tabletIndication s:Moderate dementia with anxiety, unspecified dementia type (CMS/HCC) Take 1 tablet (10 mg) by mouth Once per day. In AM 90 tablet 1 12/17/19 25 026 Active DULoxetine (Cymbalta) [address] capsuleIndicatio ns:Anxiety,Depre ssion, unspecified depression type Take 2 capsules once daily for 2 weeks and then 1 capsule once daily for 2 weeks, then stop. Do not crush or chew. 42 capsule 12/17/19 25 Active amoxicillin-clav ulanate (Augmentin) 875-125 MG tabletIndication s:Preseptal cellulitis of left eye Take 1 tab BID for 5-7 days with food 14 tablet 01/06/20 25 Active gabapentin (Neurontin) 300 MG capsuleIndicatio ns:Chronic low back pain, unspecified back pain laterality, unspecified whether sciatica present TAKE 1 CAPSULE BY MOUTH THREE TIMES DAILY IN THE MORNING, EVENING, AND BEDTIME 90 capsule 1 01/08/20 25 Active gabapentin (Neurontin) 300 MG capsuleIndicatio ns:Chronic low back pain, unspecified back pain laterality, unspecified whether sciatica present TAKE 1 CAPSULE BY MOUTH THREE TIMES DAILY IN THE MORNING, EVENING, AND BEDTIME 90 capsule 3 08/19/20 24 025 Discontinued Active Problems Problem Noted Date Diagnosed Date [...] family support PLAN: 1. Follow up with [facility] [place]: Recommended for follow-up: Scheduled follow-up BE in a month. 2. Patient goal is to gradually accept the diagnosis 3. Behavioral Recommendations a. Follow-up BE with clinician b. Continuing practicing self-care mechanisms (going to the casino and take care of family pets) c. See Neurologist in [place] as recommended by PCP Idania (see doctor's [...] family support PLAN: 1. Follow up with [facility] [place]: Recommended for follow-up: Scheduled follow-up BE in a month. 2. Patient goal is to gradually accept the diagnosis 3. Behavioral Recommendations a. Follow-up BE with clinician b. Continuing practicing self-care mechanisms (going to the casino and take care of family pets) c. See Neurologist in [place] as recommended by PCP Idania (see doctor's note) Bursitis 03/11/2012 Shoulder joint pain 03/11/2012 Varicose veins of lower extremity 03/11/2012 Encounters Date Type Department Care Team Description 01/31/[address] [address] Idania Leal ANP Medication Question 01/26/[address] [address] Idania Leal ANP Call Back Request 01/06/2025 Refill [facility] [address] [place] [address] Idania Leal ANP Chronic low back pain, unspecified back pain laterality, unspecified whether sciatica present 01/05/2025 9:00 AM EDT Office Visit [address] [address] Idania Leal ANP Preseptal cellulitis of left eye (Primary Dx); Moderate dementia with anxiety, unspecified dementia type ([facility]) 01/05/2025 Travel 01/04/[address] [address] Debbie Friedman [place] CHART PREP 01/03/[address] [address] Idania Leal ANP Medication Question 12/20/[address] [address] Idania Leal ANP Medication Question 12/16/2024 2:15 PM EDT Office Visit [address] [address] Idania Leal ANP Difficulty sleeping (Primary Dx); Spinal stenosis of lumbar region, unspecified whether neurogenic claudication present; Moderate dementia with anxiety, unspecified dementia type (CMS/HCC); Anxiety; Depression, unspecified depression type 12/16/2024 Travel 12/14/2024 Refill [facility] [address] [place] [address] Idania Leal ANP Moderate dementia with anxiety, unspecified dementia type (CMS/HCC) 12/06/2024 Patient Outreach [facility] [address] [place] [address] Idania Leal ANP Pre-visit Planning (SDOH screening was completed on 09/30/2024) 12/02/2024 Orders Only GENERIC EXTERNAL DATA DEPARTMENT Provider, Generic External Data 11/18/2024 Refill [facility] [address] [place] [address] Idania Leal ANP Moderate dementia with anxiety, unspecified dementia type (CMS/HCC) 11/15/2024 Refill [facility] [address] [place] [address] Idania Leal ANP Moderate dementia with anxiety, unspecified dementia type ([facility]/HCC) 11/11/2024 Orders Only [facility] [address] [place] [address] Idania Leal ANP Essential hypertension (Primary Dx) 11/11/[address] [address] Idania Leal ANP FYI from Last 3 Months Immunizations Immunization Administration Dates Next Due Influenza High-dose Quadriva [...] Description 04/03/2025 2:00 PM EDT Office Visit [facility] [address] [place] [address] Idania Leal ANP [address] [place] [address] Health Maintenance Due Date Last Done Comments [...] 09/30/2025 09/30/2024 Depression Screening 01/05/2026 01/05/2025, 01/06/20 Tobacco Screening 01/05/2026 01/05/2025 Lipid Panel 01/08/2026 01/08/2021 Dental X-Ray: Full Mouth 01/19/2027 01/19/2024, 12/14 DTaP/Tdap/Td Vaccines (5 - Td or Tdap) 01/22/2032 01/21/2022, 09/04/2020, 01/08/2012, Additional history exists HIB Vaccines Aged Out No longer eligi ble based on patient's age to complete this topic HPV Vaccines Aged Out No longer eligi ble based on patient's age to complete this topic IPV Vaccines Aged Out No longer eligi ble based on patient's age to complete this topic Meningococcal B Vaccine Aged Out No l onger eligible based on patient's age to complete [...] Hepatitis C Ab (12/02/2024 1:02 PM EDT) Hepatitis C Antibody Nonreactive Nonreactive [facility] Comment:Antibodies to HCV no t detected; does not exclude early acuteHCV infection. 12/02/2024 1:02 PM EDT 12/02/2024 1:02 PM EDT us Generic External Data Provider LAB BLOOD ORDERAB LES Final Result Performing Organization Address City/[facility]/ZIP Co de Phone Number [facility] [address] [place] [address] [phone] * Hepatitis A Antibody, Total (12/02/2024 1:02 PM EDT) Hepatitis A Antibody IgG REACTIVE Nonreactive [facility] Comment:The presence of IgG anti-HAV implies past HAV infection(recent or distant) or vaccination against HAV. 12/02/2024 1:02 PM EDT 12/02/2024 1:02 PM EDT Generic External Data Provider LAB BLOOD ORDERAB LES Final Result Performing Organization Address [facility] Co de Phone Number [facility] [address] [place] [phone] * Hepatitis B surface antigen, EIA (12/02/2024 1:02 PM EDT) Hepatitis B Surface Ag Negative Negative [facility] 12/02/2024 1:02 PM EDT 12/02/2024 1:02 PM EDT Generic External Data Provider LAB BLOOD ORDERAB LES Final Result Performing Organization Address [facility]/ZIP Co de Phone Number [facility] [address] [place] [phone] * Hepatitis B Core Antibody, Total (12/02/2024 1:02 PM EDT) Hepatitis B Core Antibody Nonreactive Nonreactive [facility] 12/02/2024 1:02 PM EDT 12/02/2024 1:02 PM EDT Generic External Data Provider LAB BLOOD ORDERAB LES Final Result Performing Organization Address City/[facility]/ZIP Co de Phone Number [facility] [address] [place] [address] [phone] * Hepatitis B Surface Antibody, Qualitative (12/02/2024 1:02 PM EDT) Pathologist [facility] ~Hepatitis B Surface Antibody NONREACTIVE Nonreactive [facility] Comment:Nonreactive: < 8.00 mIU/mL 12/02/2024 1:02 PM EDT 12/02/2024 1:02 PM EDT Generic External Data Provider LAB BLOOD ORDERAB LES Final Result Performing Organization Address [facility]/ZIP Co de Phone Number [facility] [address] [place] [phone] * Prothrombin Time-INR (12/02/2024 1:02 PM EDT) Pathologist [facility] Prothrombin Time 11.9 10.9 - 12.4 SEC [facility] INTERNATIONAL NORM RATIO 1.0 0.9 - 1.1 [facility] Comment:INTERNATIONAL NORMAL IZED RATIO (INR) [...] 1:02 PM EDT 12/02/2024 1:02 PM EDT VUELOGIC External Data Provider LAB BLOOD ORDERAB LES Final Result Performing Organization Address [facility] Co de Phone Number [facility] [address] [place] [phone] * (ABNORMAL) CBC (12/02/2024 1:02 PM EDT) Pathologist [facility] White Blood Count 3.1(L) 4.8 - 10.8 X10*3/uL [facility] Red Blood Count 3.95(L) 4.20 - 5.50 X10*6/uL [facility] Hemoglobin 12.1 12.0 - 16.0 g/dl [facility] Hematocrit 36.5(L) 37.0 - 47.0 % [facility] Mean Corpuscular Volume 92.4 80.0 - 98.0 fL [facility] Mean Corpuscular Hemoglobin 30.6 27.0 - 33.0 pg [facility] Mean Corpuscular HGB Conc 33.2 31.0 - 35.0 g/dl [facility] Red Cell Distribution Width 14.3 11.0 - 16.0 % [facility] Platelet Count 216 160 - 400 X10*3/uL [facility] Mean Platelet Volume 9.0(L) 9.4 - 12.3 fL [facility] NRBC Pct Auto 0.0 0.0 - 0.2 /100WBC [facility] NRBC Abs Auto 0.000 0.0 - 0.012 X10*3/uL [facility] 12/02/2024 1:02 PM EDT 12/02/2024 1:02 PM EDT us Generic External Data Provider LAB BLOOD ORDERAB LES Final Result [facility] [address] [place] [address] [phone] * (ABNORMAL) Comprehensive Metabolic Panel (12/02/2024 1:02 PM EDT) Sodium 141 135 - 145 mmol/L [facility] Potassium 3.4 3.3 - 5.1 mmol/L [facility] Chloride 111(H) 96 - 108 mmol/L [facility] Carbon Dioxide 23 22 - 29 mmol/L [facility] Anion Gap 10(L) 12 - 20 [facility] Urea Nitrogen (BUN) 11 9 - 16 mg/dL [facility] Creatinine, Serum 0.76 0.5 - 1.4 mg/dL [facility] Estimated Glomerular Filt Rate >60 [facility] Comment:Chronic Kidney Disea se: Estimated GFR < 60 mL/min/1.65h0Umacew Kidney Disease: Estimated GFR < 15 mL/min/1.73m2 Glucose 100 60 - 115 mg/dL [facility] Calcium 8.9 8.4 - 10.2 mg/dL [facility] Bilirubin, Total 0.7 0.0 - 1.0 mg/dL [facility] Aspartate Amino Transferase 24 5 - 31 U/L [facility] Alanine Aminotransferase 11 0 - 31 U/L [facility] Total Protein 7.1 6.5 - 8.0 g/dL [facility] Albumin Level 3.6 3.5 - 5.0 g/dL [facility] Alkaline Phosphatase 144(H) 39 - 117 U/L [facility] 12/02/2024 1:02 PM EDT 12/02/2024 1:02 PM EDT us Generic External Data Provider LAB BLOOD ORDERAB LES Final Result [facility] [address] [place] [address] [phone] * BI Mammogram Screening Tomosynthesis Bilateral (04/04/2024 1:15 PM EDT) Anatomical Region Laterality Modality Breast Bilateral Mammography 04/04/2024 1:15 PM EDT Narrative 04/26/2024 9:33 PM EDT ? [facility] ? [address] ?[place] [address] ? Mammography Report ? Signed ? Patient: Weaver,Cheryl ?MR#: [id number] ? : 1945 ?Acct:[id number] ? Age/Sex: 79 / F ?ADM Date: 07/22/24 ? Loc: HO.MAMMO ? Attending Dr: Idania Leal UTILITY WORKER DRIVER ? Ordering Physician: IDANIA LEAL NP ?Results: 1Negative ? Date of Service: 04/04/24 ?Follow Up: 1 Year From Orig ?? inal Mammogram ? Procedure(s): MM tomosynthesis screening BI ?? Accession Number(s): [id number] ? cc: IDANIA LEAL NP ? EXAMINATION: ?? MM SCREENING DIGITAL BREAST TOMOSYNTHESIS, BILATERAL ? CLINICAL INFORMATION: ? Screening. Asymptomatic. ? COMPARISON: ?? Mammography: This study is compared with prior exams dating back to ?? 2017. ? TECHNIQUE: ?? Digital breast tomosynthesis is [...] MD in OV> ? 04/26/242128 ? DD/ 14 ? TD/TT: ? Scientific Informatics Analyst: ? Procedure Note Donotuseinterpreter, Image - 04/26/2024 [facility] [address] [place] [address] Mammography Report Signed Patient: Major Weaver#: [id number] : 5Acct:[id number] Age/Sex: 79 / FADM Date: 04/04/24 Loc: HO.MAMMO Attending Dr: Idania Leal UTILITY WORKER DRIVER Ordering Physician: IDANIA LEALults: 1Negative Date of Service: 04/04/24Follow Up: 1 Year From Orig inal Mammogram Procedure(s): MM tomosynthesis screening BI Accession Number(s): [id number] cc: IDANIA LEAL NP EXAMINATION: MM SCREENING [...] MD in OV> 04/26/242128 DD/ 1315 TD/TT: Scientific Informatics Analyst: Idania Leal ANP [facility] BI PROCEDURES Edited Result - Final * [...] ?? Edgar COLEMAN et al. ORTEGA. 2013;310(19): 9163-8172 ?? 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
--- OUTSIDE RECORDS SUMMARY | 2025-02-02 12:32 | XMS_ITS | Encounter Summary ---
Author Organization [employer] Address [address] [facility] [address]t [place] [address] Care Team Providers Care Postulant Name Role Phone Nathaly Boston Primary Care Provider [phone] Nathaly Boston Primary Care Provider [phone] Reason for Visit * Reason Comments Med Refill Encounter Details Date Type Department Care Team ([facility] st Contact Info) Description 02/05/2024 Refill [facility] [place] [address] [place], [place] [phone] Estrella Tapia FNP Social History Tobacco Use [...] Description 04/03/2025 2:00 PM EDT Office Visit [facility] [address] [place] [address] Nathaly Boston ANP [address] [place] [address] documented as of this encounter Goals Goal Patient Goal Type Associated Problems Recent Progress Patient-Stated? Author Record your blood pressure once per day Blood Pressure No Ria Santos Blood Pressure < 140/90 Blood Pressure 152/81(2024 9:18 AM EDT) No iRa Santos documented as of this encounter Visit Diagnoses Not on filedocumented in this encounter Additional Health Concerns Assessment Noted Time PHQ-9 Depression Total Score: 7 09/15/19 24 10:39 AM EST documented as of this encounter Care Teams Postulant Relationship Specialty Start Date End Date Nathaly Boston ANP [address] [place] [phone] PCP - General Family Medicine 05/03/21 05/01/24 Nathaly Boston ANP [address] [place] [address] PCP - General Family Medicine 05/02/24 documented as of this encounter
--- OUTSIDE RECORDS SUMMARY | 2025-02-02 12:32 | XMS_ITS | Encounter Summary ---
Author Organization [employer] Address [address] [facility] 7t [place] [address] Care Team Providers Care Pecan Grower Name Role Phone Nathaly Boston Primary Care Provider [phone] Reason for Visit * Reason Onset Date Comments Call Back Request 01/26/2025 Encounter Details Date Type Department Care Team ([facility] st Contact Info) Description 01/26/2025 Telephone [facility] MEDICINE [address] [place], [place] [phone] Nathaly Boston ANP [address] [place] [address] Call Back Request Social History Tobacco Use Types Packs/Day Years [...] encounter Miscellaneous Notes * Telephone Encounter - DEEDEE Gurrola - 01/27/2025 4:17 PM EDT Thank you * Telephone Encounter - DEEDEE Gurrola - 01/26/2025 12:40 PM EDT Please generate letter as above thanks * Telephone Encounter - Betsey Zepeda RN - 01/26/2025 11:37 AM EDT TC from pt daughter Stacy (HIPAA compliant) in regards to a request for documentation from PCP. PerGracy the pt currently has Section 8 housing and is looking to transfer the rights/ability to handle decisions regarding the housing to her Pablito Ortega. Stacy states that this decision is due to the pt worsening dementia. PCP noted at [facility] that the dementia has progressed rapidly and that the pt son is concerned along with and daughter Stacy. The pt would need a letter from PCP attesting to the pt current mental decline in order for to take over decisions regarding pt housing. RN called the [facility] but they declined to give any more details regarding what specifically needs to be documented by PCP. Stacy stated that there is not a specific formthat needs to be filled out but rather a letter created by PCP. * Telephone Encounter - Isa Schwab - 01/26/2025 10:02 AM EDT Tc from daughter Lizabeth requesting a callback from provider as needs to discussed some personal stuff and will give detailed information to PCP. Lizabeth (daughter) [phone] documented in this encounter Plan of Treatment Upcoming Encounters Date Type Department Care Team (Late st Contact Info) Description 04/03/2025 2:00 PM EDT Office Visit [facility] MEDICINE [address] [place] [address] Nathaly Boston ANP [address] [place] [address] documented as of this encounter Goals Goal [...] Assessment Noted Time PHQ-9 Depression Total Score: 13 025 9:57 AM EDT documented as of this encounter Care Teams Pecan Grower Relationship Specialty Start Date End Date Nathaly Boston ANP [address] [place] [address] PCP - General Family Medicine 05/02/24 documented as of this encounter
--- OUTSIDE RECORDS SUMMARY | 2025-02-02 12:32 | XMS_ITS | Encounter Summary ---
Author Organization [employer] Address [address] [place] [address] 7t [place] [address] Care Team Providers Care Automated Manufacturing Instructor Name Role Phone Nathaly Boston ANP Primary Care Provider [phone] Nathaly Boston ANP Primary Care Provider [phone] Reason for Visit * Reason Onset Date Comments Nurse Triage 04/20/2023 Encounter Details Date Type Department Care Team (Late st Contact Info) Description 04/20/2023 Telephone [facility] MEDICINE [address] [place] [address] Nathaly Boston ANP 230 [place] [address] Nurse Triage Social History Tobacco Use Types [...] for 04/23/23 @ 9:15am. Please contact at [phone] * Telephone Encounter - Tarsha Vargas RN [...] early Dementia. Please contact pt daughter at [phone] documented in this encounter Plan of Treatment Upcoming Encounters Date Type Department Care Team ([facility] st Contact Info) Description 04/03/2025 2:00 PM EDT Office Visit [facility] MEDICINE [address] [place] [address] Nathaly Boston ANP [address] [place] [address] documented as of this encounter Visit Diagnoses Not on filedocumented in this encounter Additional Health Concerns Assessment Noted Time PHQ-9 Depression Total Score: 4 10/07/19 23 3:46 PM EST documented as of this encounter Care Teams Automated Manufacturing Instructor Relationship Specialty Start Date End Date Nathaly Boston ANP [address] [place] [address] PCP - General Family Medicine 05/03/21 05/01/24 Nathaly Boston ANP [address] [place] [address] PCP - General Family Medicine 05/02/24 documented as of this encounter
--- OUTSIDE RECORDS SUMMARY | 2025-02-02 12:32 | XMS_ITS | Encounter Summary ---
Author Organization [employer] Address [address] [facility] 7t [place] [address] Care Team Providers Care Floral Assistant Name Role Phone Nathaly Boston Primary Care Provider [phone] Reason for Visit * Reason Onset Date Comments Medication Question 01/31/2025 Encounter Details Date Type Department Care Team ([facility] st Contact Info) Description 01/31/2025 Telephone [facility] MEDICINE [address] [place], [place] [phone] Nathaly Boston ANP 230 [place] [address] Medication Question Social History Tobacco Use Types [...] Telephone Encounter - Betsey Zepeda RN - 02/02/2025 9:47 AM EDT Return call from Ammon at [facility] to inform that PCP is well aware of the current issues with the pt regarding forgetfulness and not being compliant with medication. Ammon states that she can see the office visit notes from 01/05/2025 in which PCP pointed out the pt worsening dementia and trailing different medications. Ammon informed that the pt dementia is rapidly progressing butis not concerned with the medications listed below that the pt has been forgetting to take. Pt has an upcoming follow up with PCP on 04/03/2025 in office. Ammon was appreciative of this information and will call back if any future concerns arise. * Telephone Encounter - Betsey Zepeda RN - 02/01/2025 11:20 AM EDT RN spoke with PCP who is aware that the pt is not actively taking the medications below. PCP statesthat the pt has a history of dementia and there is no concern at the moment regarding not taking these medications as prescribed. PCP saw pt in the office on 01/05/2025 in which pt dementia and mentalhealth is well documented. TC was placed to [facility] at [facility] to inform of this information and a VM was left to call back the office Medication that pt is not taking: per Ammon at [facility] - traZODone (Desyrel) 50 MG tablet - metoprolol tartrate (Lopressor) 25 MG tablet - risperiDONE (RisperDAL) 0.25 MG tablet * Telephone Encounter - Ana Rosa Leblanc - 01/31/2025 4:23 PM EDT TC from [facility] with [facility] to let know that pt is not taking her medication as she is suppose too. Medication that pt is not taking: - traZODone (Desyrel) 50 MG tablet - metoprolol tartrate (Lopressor) 25 MG tablet - risperiDONE (RisperDAL) 0.25 MG tablet For clarification contact ammon at [phone] documented in this encounter Plan of Treatment Upcoming Encounters Date Type Department Care Team (Late st Contact Info) Description 04/03/2025 2:00 PM EDT Office Visit [facility] MEDICINE [address] [place] [address] Nathaly Boston ANP [address] [place] [address] documented as of this encounter Goals Goal Patient Goal Type Associated Problems Recent Progress Patient-Stated? Author Record your blood pressure once per day Blood Pressure No Ria Santos Blood Pressure < 140/90 Blood Pressure 152/81(2024 9:18 AM EDT) No Rai Santos documented as of this encounter Visit Diagnoses Not on filedocumented in this encounter Additional Health Concerns Assessment Noted Time PHQ-9 Depression Total Score: 13 025 9:57 AM EDT documented as of this encounter Care Teams Floral Assistant Relationship Specialty Start Date End Date Nathaly Boston ANP [address] [place] [address] PCP - General Family Medicine 05/02/24 documented as of this encounter
--- OUTSIDE RECORDS SUMMARY | 2025-02-02 12:32 | XMS_ITS | Encounter Summary ---
Author Organization [employer] Address [address] [place] [address] [place] [address] Care Team Providers Care Shredder Operator Name Role Phone Nathaly Boston ANP Primary Care Provider [phone] Nathaly Boston ANP Primary Care Provider [phone] Reason for Visit * Reason Comments Med Refill Encounter Details Date Type Department Care Team (Late st Contact Info) Description 01/16/2023 Refill [facility] MEDICINE 230 [place], [place] [phone] Юлия Valdivia MD 230 [place], [place] [phone] Social History Tobacco Use Types Packs/Day Years [...] Description 04/03/2025 2:00 PM EDT Office Visit [facility] MEDICINE [address] [place] [phone] Nathaly Boston ANP [address] [place], [place] [phone] documented as of this encounter Visit Diagnoses Not on filedocumented in this encounter Additional Health Concerns Assessment Noted Time PHQ-9 Depression Total Score: 4 10/07/19 23 3:46 PM EST documented as of this encounter Care Teams Shredder Operator Relationship Specialty Start Date End Date Nathaly Boston ANP [address] [place] [address] PCP - General Family Medicine 05/03/21 05/01/24 Nathaly Boston ANP [address] [place] [address] PCP - General Family Medicine 05/02/24 documented as of this encounter
--- OUTSIDE RECORDS SUMMARY | 2025-02-02 12:32 | XMS_ITS | Encounter Summary ---
Author Organization [employer] Address [address] [place] [address] [place] [address] Care Team Providers Care Marketing Executive Name Role Phone Nathaly Boston ANP Primary Care Provider [phone] Nathaly Boston ANP Primary Care Provider [phone] Encounter Details Date Type Department Care Team (Late st Contact Info) Description 08/01/2022 Abstract [facility] MEDICINE [address] [place] [address] Provider, MD Yanelis Social History Tobacco Use [...] Description 04/03/2025 2:00 PM EDT Office Visit [facility] MEDICINE [address] [place] [address] Nathaly Boston ANP 230 [place] [address] documented as of this encounter Visit Diagnoses Not on filedocumented in this encounter Care Teams Marketing Executive Relationship Specialty Start Date End Date Nathaly Boston ANP [address] [place] [address] PCP - General Family Medicine 05/03/21 05/01/24 Nathaly Boston ANP 230 [place] [address] PCP - General Family Medicine 05/02/24 documented as of this encounter
--- OUTSIDE RECORDS SUMMARY | 2025-02-02 12:32 | XMS_ITS | Encounter Summary ---
Author Organization [employer] Address [address] [facility] 7t [place] [address] Care Team Providers Care Supply Chain Design Manager Name Role Phone Nathaly Boston ANP Primary Care Provider [phone] Nathaly Boston ANP Primary Care Provider [phone] Reason for Visit * Reason Comments Med Refill Encounter Details Date Type Department Care Team ([facility] st Contact Info) Description 10/13/2023 Refill [facility] MEDICINE [address] [place], [place] [phone] Nathaly Boston ANP 230 [place], [place] [phone] Social History Tobacco Use Types Packs/Day Years [...] Description 04/03/2025 2:00 PM EDT Office Visit [facility] MEDICINE [address] [place] [address] Nathaly Boston ANP [address] [place] [address] documented as of this encounter Goals Goal [...] documented as of this encounter Care Teams Supply Chain Design Manager Relationship Specialty Start Date End Date Nathaly Boston ANP [address] [place] [address] PCP - General Family Medicine 05/03/21 05/01/24 Nathaly Boston ANP [address] [place] [address] PCP - General Family Medicine 05/02/24 documented as of this encounter
--- OUTSIDE RECORDS SUMMARY | 2025-02-02 12:32 | XMS_ITS | Encounter Summary ---
Author Organization [employer] Address [address] [facility] 7t [place] [address] Care Team Providers Care Learning And Development Administrator Name Role Phone Nathaly Boston Primary Care Provider [phone] Nathaly Boston ANP Primary Care Provider [phone] Encounter Details Date Type Department Care Team (Late st Contact Info) Description 10/16/2023 Orders Only [facility] MEDICINE 230 [place], [place] [phone] Nathaly Boston ANP 230 [place], [place] [phone] Social History Tobacco Use Types Packs/Day Years [...] Office Visit [facility] MEDICINE [address] [place] [address] Nathaly Boston ANP [address] [place] [address] documented as of this encounter Goals Goal [...] documented as of this encounter Care Teams Learning And Development Administrator Relationship Specialty Start Date End Date Nathaly Boston ANP [address] [place] [address] PCP - General Family Medicine 05/03/21 05/01/24 Nathaly Boston ANP [address] [place] [address] PCP - General Family Medicine 05/02/24 documented as of this encounter
== END 2025-02-02 13:03 | disposition home or self-care (01) ==
LOC: HO.PMCPRC 12:20
PROVIDERS: PCP Nurse Practitioner Primary Care; Visit Provider Internal Medicine
DX: M54.16 Radiculopathy, lumbar region (principal)
CPT/HCPCS: 62323

== ENCOUNTER 2025-02-24 12:59 | Outpatient (AMB) | payer OTHER, SELFPAY ==
--- NOTE | 2025-02-24 13:01 | MHC.OFFVIS ---
Vital Signs 02/24/25 13:02 Height 5 ft 3 in Weight 160 lb BMI 28.3 BP 156/69 H Blood Pressure Location Lt brachial Position Sitting Respiration 16 Pulse 65 Pulse Source Pulse Oximeter Pulse Oximetry (%) 99 Oxygen Delivery Method Room Air Intake Visit Reasons: s/p Right L4-L5 interlaminar Elevator Starter Required: Yes Accompanied by: Life Partner Allergies ibuprofen Allergy (Intermediate, Verified 02/24/25 13:04) tachycardia/GI upset HPI HPI s/p Right L4-L5 interlaminar: Details: History of Present Illness The patient is an 80-year-old female presenting with an inability to tolerate injections. She has undergone two past procedures involving injections with minimal anesthesia, during which she experienced significant discomfort. After these experiences, she expressed her desire to seek alternative arrangements for subsequent procedures due to her intolerance and dictated her own discharge. Her history reflects a similar issue with tolerating certain cleaning medications, impacting her care regimen. No follow-up was conducted as initially recommended. Pain Description - Location: Not explicitly mentioned - Onset: Associated with previous procedures - Aggravating factors: Procedures with minimal anesthesia - Relieving factors: None mentioned Pain Management - Affect: Patient expressed significant discomfort and inability to tolerate procedures. - Analgesia: No specific pain medications mentioned; desired increased anesthesia use. - Adverse Effects: No specific side effects mentioned. - Activities of Daily Living: Impacted by intolerance to procedures. - Aberrant Drug Related Behaviors: None discussed. [facility] Medical History Chronic back pain Lumbar spondylosis COVID-19 vaccine series completed Hx of fracture of tibia Varicose veins of both lower extremities Osteoarthritis Hyperlipidemia Depression Insomnia Dizziness Allergic rhinitis HTN (hypertension) Neck pain Lumbar spondylolysis Fibromyalgia Surgical History H/O colonoscopy Hx of tubal ligation Hx of cholecystectomy Family History Father Cancer Mother Depression Sister HTN (hypertension) Heart disease Brother Diabetes Social History Household Members Other:: Are you a primary palliative care specialist to a significant other at home: No Do you presently have visiting nurse or other home services: No Alcohol intake: current Alcohol intake frequency: holidays/special occasions only Patient Tobacco Use Status: Never used Tobacco Physical Exam Vital Signs: Last Vital Signs Pulse 65 02/24/25 13:02 Resp 16 02/24/25 13:02 BP 156/69 H 02/24/25 13:02 Pulse Ox 99 02/24/25 13:02 Oxygen Delivery Method Room Air 02/24/25 13:02 BMI result Body Mass Index 28.3 Assessment & Plan Assessment & Plan (1) Chronic back pain: Code(s): M54.9 - Dorsalgia, unspecified; G89.29 - Other chronic pain Category: Medical Qualifiers: Back pain location: low back pain Back pain laterality: right Sciatica presence: with sciatica Sciatica laterality: sciatica of right side Qualified Code(s): M54.41 - Lumbago with sciatica, right side; G89.29 - Other chronic pain Plan Plan - The patient decided to seek alternative procedures due to previous intolerance to minimal anesthesia. No current follow-up is arranged. Patient was informed and verbally consented to the use of an ambient scribe for clinic note documentation during this visit. Discussion Notes I discussed with the patient her difficulty tolerating procedures with injections and minimal anesthesia. We talked about her decision to seek her care at a different location where she feels comfortable and can handle the procedures better. Although follow-up was recommended, she opted not to pursue it here. I advised her to return to her previous care provider, where she might find it easier to manage her condition. Patient Instructions - Consider other treatment facilities where you are comfortable with the level of care. - Follow up with your previous care provider if returning to them. - Seek care if symptoms persist or worsen. Coding Level of Care Code Est Pt Level 2 (42472) Diagnoses Chronic right-sided low back pain with right-sided sciatica M54.41; G89.29 Back pain location: low back pain Back pain laterality: right Sciatica presence: with sciatica Sciatica laterality: sciatica of right side
[2025-02-24 13:02] VITALS: BP 156/69; PULSE 65; RESP 16; O2SAT 99; BMI 28.3
--- OUTSIDE RECORDS SUMMARY | 2025-02-24 13:25 | XMS_ITS | Encounter Summary ---
Author Organization [employer] Address [address] [place] [address] 7t [place] [address] Care Team Providers Care Assistant Designer Name Role Phone Nathaly Boston Primary Care Provider [phone] Reason for Visit * Reason Onset Date Comments Call Back Request 01/26/2025 Encounter Details Date Type Department Care Team ([facility] st Contact Info) Description 01/26/2025 Telephone [facility] MEDICINE [address] [place], [place] [phone] Nathaly Boston ANP [address] [place] [address] Call Back Request Social History Tobacco Use [...] decisions regarding pt housing. RN called the [facility] but they declined to give [...] give detailed information to PCP. Lizabeth (daughter) [phone] documented in this encounter Plan of Treatment Upcoming Encounters Date Type Department Care Team (Late st Contact Info) Description 04/21/2025 9:45 AM EDT Office Visit [facility] MEDICINE [address] [place] [address] Nathaly Boston ANP [address] [place] [address] documented as of this encounter Goals Goal [...] documented as of this encounter Care Teams Assistant Designer Relationship Specialty Start Date End Date Nathaly Boston ANP [address] [place] [address] PCP - General Family Medicine 05/02/24 documented as of this encounter
== END 2025-02-24 13:20 | disposition home or self-care (01) ==
LOC: HO.PMC 13:00
PROVIDERS: PCP Nurse Practitioner Primary Care; Visit Provider Internal Medicine
DX: M54.41 Lumbago with sciatica, right side (principal); G89.29 Other chronic pain
CPT/HCPCS: 99212

== ENCOUNTER → 2025-02-24 12:59 | Outpatient (BNVA) | payer OTHER, SELFPAY | PROVIDERS: PCP Nurse Practitioner Primary Care; Visit Provider Internal Medicine | DX: M54.41 Lumbago with sciatica, right side (principal); G89.29 Other chronic pain | CPT/HCPCS: 99212 ==

== ENCOUNTER → 2025-04-10 13:00 | Outpatient (BNV) | payer OTHER, SELFPAY | PROVIDERS: PCP Nurse Practitioner Primary Care; Visit Provider Internal Medicine | DX: Z12.31 Encounter for screening mammogram for malignant neoplasm of breast (principal) | CPT/HCPCS: 77063; 77067 ==

== ENCOUNTER 2025-04-10 13:02 | Outpatient (REF) | payer OTHER, SELFPAY ==
--- OUTSIDE RECORDS SUMMARY | 2025-04-10 13:41 | XMS_ITS | Clinical Summary ---
Author Organization [facility] Address [address] [place] [address] Care Team Providers Care Hospital Product Specialist Name Role Phone Unknown Primary Care Provider [phone] Allergies No known active allergies Medications No [...] 80 10/17/2017 6:53 AM EST Temperature 36.3 C (97.4 F) 10/17/2017 5:51 AM EST Respiratory Rate 16 10/17/2017 6:53 AM EST [...] this topic Insurance [facility] (AUTO/LIABILITY) Care Teams Hospital Product Specialist Relationship Specialty Start Date End Date Unknown Unknow Provider Address PCP - General 10/17/17
--- OUTSIDE RECORDS SUMMARY | 2025-04-10 13:41 | XMS_ITS | Encounter Summary ---
Author Organization [facility] Address [address] [address] Phone Care Team Providers Care Chemical Project Engineer Name Role Phone Unknown, Unknown Primary Care Provider Zhen frias Encounter Details Date Type Department Care Team (Late st Contact Info) Description 10/22/2017 Ancillary Orders [facility] [address] [place] [address] [place] [address] Saran Louise DO [address] [place] [address] Palpitations Social History Tobacco Use Types Packs/Day Years Used Date Smoking Tobacco: Never Assessed Comments Unknown Sex and Gender Information Value Date Recorded Sex Assigned at Not on file Legal Sex Female 10:41 AM EST Gender Identity Not on file Sexual Orientation Not on file documented as of this encounter Plan of Treatment Not on file documented as of this encounter Results * Holter Monitor 24 Hours (10/22/2017 9:42 AM EST) Anatomical Region Laterality Modality Heart Other Narrative 10/22/2017 10:54 AM EST 24-hour monitor: No symptoms reported. Baseline rhythm is sinus with a minimum heart rate of 53 maximum 137 average 78 bpm. Occasional PACs and PVCs present. One patient event noted during sinus rhythm. Impression: Normal 24-hour monitor. No symptoms reported. us Saran Louise DO [facility] ORDERABLE S Final Result documented in this encounter Visit Diagnoses Diagnosis Palpitations Palpitations documented in this encounter Care Teams Chemical Project Engineer Relationship Specialty Start Date End Date Unknown, Unknown, PCP - General 10/21/17 documented as of this encounter Additional Source Comments The information contained in this document represents components of the legal health record. It is not the complete legal health record.[facility]
--- OUTSIDE RECORDS SUMMARY | 2025-04-10 13:41 | XMS_ITS | Encounter Summary ---
Author Organization [employer] Address [address] [place] [address] 7t [place] [address] Care Team Providers Care Devops Name Role Phone Nathaly Boston Primary Care Provider [phone] Reason for Visit * Reason Onset Date Comments Call Back Request 01/26/2025 Encounter Details Date Type Department Care Team ([facility] st Contact Info) Description 01/26/2025 Telephone [facility] MEDICINE [address] [place], [place] [phone] Nathaly Boston ANP [address] [place] [address] Call Back Request Social History Tobacco Use [...] decisions regarding pt housing. RN called the [facility] but they declined to give any [...] give detailed information to PCP. Lizabeth (daughter) [phone] documented in this encounter Plan of Treatment Upcoming Encounters Date Type Department Care Team (Late st Contact Info) Description 04/21/2025 9:45 AM EDT Office Visit [facility] MEDICINE [address] [place] [address] Nathaly Boston ANP [address] [place] [address] documented as of this encounter Goals Goal [...] documented as of this encounter Care Teams Devops Relationship Specialty Start Date End Date Nathaly Boston ANP [address] [place] [address] PCP - General Family Medicine 05/02/24 documented as of this encounter
== END 2025-04-10 13:03 | disposition home or self-care (01) ==
LOC: HO.MAMMO 13:02
PROVIDERS: PCP Nurse Practitioner Primary Care; Visit Provider Nurse Practitioner Primary Care
DX: Z12.31 Encounter for screening mammogram for malignant neoplasm of breast (principal)
CPT/HCPCS: 77063; 77067

== ENCOUNTER 2025-05-23 09:23 | Outpatient (REF) | payer OTHER, SELFPAY ==
--- NOTE | ~2025-05-23 | US_ITS ---
CLINICAL HISTORY: K74.60 - Unspecified cirrhosis of liver US abdomen complete Comparison: None provided Findings: Suboptimal exam due to limited acoustic window. The visualized pancreas head is normal. The visualized aorta and inferior vena cava are normal caliber. The liver is not well visualized and partially obscured by rib and gas shadows, hepatic size is difficult to assess on the submitted sonographic images and it was not measured by the turn operator. Diffusely echogenic liver parenchyma, no obvious lesion is seen in the visualized liver. No intrahepatic bile duct dilatation. The common duct is 3 mm in diameter. The gallbladder is normal. Negative sonographic Mcduffie sign. The main portal vein is patent with antegrade flow. Kidneys are not well seen, grossly normal in size and echogenicity, lobulated renal contours bilaterally, no calculus, hydronephrosis or apparent mass. Right kidney measures 9.2 cm in length, left kidney 10.1 cm in length. The spleen is normal, 9.0 cm in length. No free fluid in the abdomen. Impression: Echogenic liver parenchyma, non-specific and could be related to parenchymal liver disease or suboptimal to acoustic window, no apparent hepatic lesion is seen but liver is partially visualized. This document has been electronically signed by: Canidce Mix MD on 05/23/2025 13:17:03
--- OUTSIDE RECORDS SUMMARY | 2025-05-23 10:47 | XMS_ITS | Encounter Summary ---
Author Organization [employer] Address [address] [place] [address] [place] [address] Care Team Providers Care Product Test Specialist Name Role Phone Nathaly Boston ANP Primary Care Provider [phone] Nathaly Boston ANP Primary Care Provider [phone] Reason for Visit * Reason Comments Med Refill Encounter Details Date Type Department Care Team (Late st Contact Info) Description 01/16/2023 Refill [facility] MEDICINE [address] [place], [place] [phone] Юлия Valdivia MD [address] [place], [place] [phone] Social History Tobacco Use Types Packs/Day Years [...] Care Team (Late st Contact Info) Description 07/07/2025 9:45 AM EDT Office Visit [facility] MEDICINE [address] [place] [address] [phone] Nathaly Boston ANP [address] [place], [place] [phone] documented as of this encounter Visit Diagnoses Not on filedocumented in this encounter Additional Health Concerns Assessment Noted Time PHQ-9 Depression Total Score: 4 10/07/19 23 3:46 PM EST documented as of this encounter Care Teams Product Test Specialist Relationship Specialty Start Date End Date Nathaly Boston ANP [address] [place] [address] PCP - General Family Medicine 05/03/21 05/01/24 Nathaly Boston ANP [address] [place] [address] PCP - General Family Medicine 05/02/24 documented as of this encounter
--- OUTSIDE RECORDS SUMMARY | 2025-05-23 10:47 | XMS_ITS | Clinical Summary ---
Author Organization [facility] Address [address] [address] Phone Care Team Providers Care Auditor/Quality Name Role Phone Unknown, Unknown Primary Care Provider Zhen frias Social History Tobacco Use Types Packs/Day Years Used Date Smoking Tobacco: Never Assessed Education Answer Date Recorded Are you interested in more education? Not on lon e 06/22/2023 Are you concerned about learning? Not on file 06/22/2023 No 06/22/2023 No 06/22/2023 Digital Access Answer Date Recorded No 06/22/2023 No 06/22/2023 Reliable internet access at home? Not on file 06/22/2023 Device with a working camera? Not on file Comments Unknown Sex and Gender Information Value Date Recorded Sex Assigned at Not on file Legal Sex Female 10:41 AM EST Gender Identity Not on file Sexual Orientation Not on file Plan of Treatment Health Maintenance Due Date Last Done Comments LIPID PANEL 1945 DEPRESSION SCREENING 1957 SMOKING Hx and SMOKELESS TOBACCO SCREENING 1958 PNEUMOCOCCAL VACCINES (50+ years) (1 of 1 - PCV) 1995 ZOSTER VACCINES (1 of 2) 1995 OSTEOPOROSIS SCREENING INITI AL (ONE-TIME) 2010 RSV VACCINE (1 - 1-dose 75+ series) 01/25/2020 INFLUENZA VACCINE (#1) 2025 0, 06/29/2019 COVID-19 VACCINE (2 - 2024-2 6 season) 2025 11/21/2020 Adult Td,Tdap Booster 09/04/2030 09/04/2020 HEPATITIS A VACCINES Aged Out No long er eligible based on patient's age to complete this topic HIB VACCINES Aged Out No longer eligi ble based on patient's age to complete this topic MENINGOCOCCAL VACCINES (ACWY) Aged Out No longer eligible based on patient's age to complete this topic MENINGOCOCCAL VACCINES (B) Aged Out N o longer eligible based on patient's age to complete this topic Medical Devices Not on file Insurance [facility] DUAL MEDICARE REPLACEMENT [facility] DUAL MEDICARE REPLACEMENT [facility]UAL [facility]IC[facility] DUAL MEDICARE [facility] DUAL MEDICARE [facility] DUAL MEDICARE REPL[facility] DUAL MEDICARE REPLACEMENT [facility] DUAL MEDICARE REPLACEMENT Member Subscriber Plan / Payer (Ef fective 2017-Present) Name:Cheryl Weaver Relation to Subscriber:Self Name:Cheryl Weaver Payer ID:[id number] (NAIC) Group ID:[id number] Type:Medicare Address: [place] [phone] [facility] [place] [address] Care Teams Auditor/Quality Relationship Specialty Start Date End Date Unknown, Unknown, PCP - General 10/21/17 Additional Source Comments The information contained in this document represents components of the legal health record. It is not the complete legal health record.[facility]
--- OUTSIDE RECORDS SUMMARY | 2025-05-23 10:47 | XMS_ITS | Encounter Summary ---
Author Organization [employer] Address [address] [facility] 7t [place] [address] Care Team Providers Care Typesetter Perforator Operator Name Role Phone Nathaly Boston Primary Care Provider [phone] Nathaly Boston ANP Primary Care Provider [phone] Encounter Details Date Type Department Care Team (Late st Contact Info) Description 10/16/2023 Orders Only [facility] MEDICINE [address] [place], [place] [phone] Nathaly Boston ANP [address] [place], [place] [phone] Social History Tobacco Use Types Packs/Day Years [...] Description 07/07/2025 9:45 AM EDT Office Visit [facility] MEDICINE [address] [place] [address] Nathaly Boston ANP [address] [place] [phone] documented as of this encounter Goals Goal [...] documented as of this encounter Care Teams Typesetter Perforator Operator Relationship Specialty Start Date End Date Nathaly Boston ANP [address] [place] [address] PCP - General Family Medicine 05/03/21 05/01/24 Nathaly Boston ANP [address] [place] [address] PCP - General Family Medicine 05/02/24 documented as of this encounter
--- OUTSIDE RECORDS SUMMARY | 2025-05-23 10:47 | XMS_ITS | Encounter Summary ---
Author Organization [facility] Address [address] [address] Phone Care Team Providers Care Licensed Loan Officer Assistant Name Role Phone Unknown, Unknown Primary Care Provider Zhen frias Encounter Details Date Type Department Care Team (Late st Contact Info) Description 10/22/2017 Ancillary Orders [facility] [address] [place] [address] [place] [address] Saran Louise DO [address] [place] [address] Palpitations Social History Tobacco Use Types Packs/Day [...] Palpitations documented in this encounter Care Teams Licensed Loan Officer Assistant Relationship Specialty Start Date End Date Unknown, Unknown, PCP - General 10/21/17 documented as of this encounter Additional Source Comments The information contained in this document represents components of the legal health record. It is not the complete legal health record.[facility]
--- OUTSIDE RECORDS SUMMARY | 2025-05-23 10:47 | XMS_ITS | Encounter Summary ---
Author Organization [employer] Address 75 [facility] 7t [place] [address] Care Team Providers Care Eye Surgeon Name Role Phone Nathaly Boston ANP Primary Care Provider [phone] Nathaly Boston ANP Primary Care Provider [phone] Reason for Visit * Reason Comments Med Refill Encounter Details Date Type Department Care Team ([facility] st Contact Info) Description 10/13/2023 Refill [facility] MEDICINE [address] [place], [place] [phone] Nathaly Boston ANP [address] [place], [place] [phone] Social History Tobacco Use Types Packs/Day Years [...] Description 07/07/2025 9:45 AM EDT Office Visit [facility] MEDICINE [address] [place] [phone] Nathaly Boston ANP [address] [place] [address] documented as of this encounter Goals Goal [...] documented as of this encounter Care Teams Eye Surgeon Relationship Specialty Start Date End Date Nathaly Boston ANP [address] [place] [address] PCP - General Family Medicine 05/03/21 05/01/24 Nathaly Boston ANP [address] [place] [address] PCP - General Family Medicine 05/02/24 documented as of this encounter
--- OUTSIDE RECORDS SUMMARY | 2025-05-23 10:47 | XMS_ITS | Encounter Summary ---
Author Organization [employer] Address [address] [place] [address] 7 [place] [address] Care Team Providers Care Order Tracer Name Role Phone Nathaly Boston ANP Primary Care Provider [phone] Nathaly Boston ANP Primary Care Provider [phone] Reason for Visit * Reason Onset Date Comments Nurse Triage 04/20/2023 Encounter Details Date Type Department Care Team (Late st Contact Info) Description 04/20/2023 Telephone [facility] MEDICINE 230 [place] [address] Nathaly Boston ANP [address] [place] [address] Nurse Triage Social History Tobacco Use Types [...] for 04/23/23 @ 9:15am. Please contact at [phone] * Telephone Encounter - Tarsha Vargas RN [...] early Dementia. Please contact pt daughter at [phone] documented in this encounter Plan of Treatment Upcoming Encounters Date Type Department Care Team ([facility] st Contact Info) Description 07/07/2025 9:45 AM EDT Office Visit [facility] MEDICINE [address] [place] [address] Nathaly Boston ANP [address] [place] [address] documented as of this encounter Visit Diagnoses Not on filedocumented in this encounter Additional Health Concerns Assessment Noted Time PHQ-9 Depression Total Score: 4 10/07/19 23 3:46 PM EST documented as of this encounter Care Teams Order Tracer Relationship Specialty Start Date End Date Nathaly Boston ANP [address] [place] [address] PCP - General Family Medicine 05/03/21 05/01/24 Nathaly Boston ANP [address] [place] [address] PCP - General Family Medicine 05/02/24 documented as of this encounter
--- OUTSIDE RECORDS SUMMARY | 2025-05-23 10:47 | XMS_ITS | Encounter Summary ---
Author Organization [employer] Address [address] [place] [address] 7t [place] [address] Care Team Providers Care Diver Pumper Name Role Phone Nathaly Boston ANP Primary Care Provider [phone] Nathaly Boston ANP Primary Care Provider [phone] Reason for Visit * Reason Comments Med Refill Encounter Details Date Type Department Care Team ([facility] st Contact Info) Description 03/01/2024 Refill [facility] MEDICINE [address] [place], [place] [phone] Nathaly Boston ANP [address] [place], [place] [phone] Essential hypertension Social History Tobacco Use Types [...] Description 07/07/2025 9:45 AM EDT Office Visit [facility] MEDICINE [address] [place] [address] Nathaly Boston ANP [address] [place] [address] documented as of this encounter Goals Goal [...] documented as of this encounter Care Teams Diver Pumper Relationship Specialty Start Date End Date Nathaly Boston ANP [address] [place] [address] PCP - General Family Medicine 05/03/21 05/01/24 Nathaly Boston ANP [address] [place] [address] PCP - General Family Medicine 05/02/24 documented as of this encounter
--- OUTSIDE RECORDS SUMMARY | 2025-05-23 10:47 | XMS_ITS | Encounter Summary ---
Author Organization [employer] Address [address] [place] [address] 7t [place] [address] Care Team Providers Care Dinkey Skinner Name Role Phone Nathaly Boston Primary Care Provider [phone] Reason for Visit * Reason Onset Date Comments Call Back Request 01/26/2025 Encounter Details Date Type Department Care Team ([facility] st Contact Info) Description 01/26/[address] [facility] MEDICINE [address] [place], [place] [phone] Nathaly Boston ANP 230 [place] [address] Call Back Request Social History Tobacco Use [...] decisions regarding pt housing. RN called [facility] but they declined to give [...] give detailed information to PCP. Lizabeth (daughter) [phone] documented in this encounter Plan of Treatment Upcoming Encounters Date Type Department Care Team (Late st Contact Info) Description 07/07/2025 9:45 AM EDT Office Visit [facility] MEDICINE [address] [place] [address] Nathaly Boston ANP 230 [place] [address] documented as of this encounter Goals Goal [...] documented as of this encounter Care Teams Dinkey Skinner Relationship Specialty Start Date End Date Nathaly Boston ANP 230 [place] [address] PCP - General Family Medicine 05/02/24 documented as of this encounter
--- OUTSIDE RECORDS SUMMARY | 2025-05-23 10:47 | XMS_ITS | Clinical Summary ---
Author Organization [employer] Address 75 [facility] 7t [place] [address] Care Team Providers Care Paste Mixer Liquid Name Role Phone Idania Leal Primary Care Provider [phone] Allergies Active Allergy Reactions Criticality Noted Date Comments Ibuprofen Rash Low 04/29/2023 Medications * This document contains information received from the source organization and may not represent a complete record from that organization. albuterol 108 (90 Base) MCG/ACT inhaler Inhale 2 puffs every 4 (four) hours. 1 Active acetaminophen (Tylenol 8 Hour) 650 MG ER tablet Take 1 tablet (650 mg) by mouth every 8 (eight) hours. 30 tablet 1 4 Active timolol (Timoptic) 0.5 % ophthalmic solution INSTILL 1 DROP IN EACH EYE EVERY MORNING 3 Active lidocaine (Lidoderm) 5 % patchIndications: Chronic midline low back pain with right-sided sciatica Apply 1 patch topically Once per day. Remove & discard patch within 12 hours or as directed by MD. 30 patch 3 4 Active metoprolol tartrate (Lopressor) 25 MG tabletIndications :Essential hypertension Take 1 tablet (25 mg) by mouth 2 times daily. 60 tablet 11 5 11/11/19 26 Active risperiDONE (RisperDAL) 0.25 MG tabletIndications :Behavioral Disorders associated with Dementia Take 1 tab AM and 1 tab PM for 1 week, then 1 tab AM for 1 week, then stop 21 tablet 5 Active citalopram (CeleXA) 10 MG tabletIndications :Moderate dementia with anxiety, unspecified dementia type (CMS/HCC) Take 1 tablet (10 mg) by mouth Once per day. In AM 90 tablet 1 5 12/17/19 26 Active DULoxetine (Cymbalta) [address] capsuleIndication s:Anxiety,Depress ion, unspecified depression type Take 2 capsules once daily for 2 weeks and then 1 capsule once daily for 2 weeks, then stop. Do not crush or chew. 42 capsule 5 Active amoxicillin-clavu lanate (Augmentin) 875-125 MG tabletIndications :Preseptal cellulitis of left eye Take 1 tab BID for 5-7 days with food 14 tablet 5 Active gabapentin (Neurontin) 300 MG capsuleIndication s:Chronic low back pain, unspecified back pain laterality, unspecified whether sciatica present TAKE 1 CAPSULE BY MOUTH THREE TIMES DAILY IN THE MORNING, EVENING, AND BEDTIME 90 capsule 1 5 Active traZODone (Desyrel) 50 MG tabletIndications :Difficulty sleeping TAKE 1 TABLET BY MOUTH AT BEDTIME NEEDED for SLEEP 30 tablet 5 Active amLODIPine (Norvasc) 5 MG tabletIndications :Essential hypertension TAKE 1 TABLET BY MOUTH AT BEDTIME 90 tablet 3 5 Active Active Problems Problem Noted Date Diagnosed Date [...] ANAIS gene mutation. Had colonoscopy 2019 at [facility], we don't have report. Normal oral exam [...] family support PLAN: 1. Follow up with [facility]: Recommended for follow-up: Scheduled follow-up BE in a month. 2. Patient goal is to gradually accept the diagnosis 3. Behavioral Recommendations a. Follow-up BE with clinician b. Continuing practicing self-care mechanisms (going to the casino and take care of family pets) c. See Neurologist in [place] as recommended by PCP Idania (see doctor's [...] family support PLAN: 1. Follow up with [facility]: Recommended for follow-up: Scheduled follow-up BE in a month. 2. Patient goal is to gradually accept the diagnosis 3. Behavioral Recommendations a. Follow-up BE with clinician b. Continuing practicing self-care mechanisms (going to the casino and take care of family pets) c. See Neurologist in [place] as recommended by PCP Idania (see doctor's note) Bursitis 03/11/2012 Shoulder joint pain 03/11/2012 Varicose veins of lower extremity 03/11/2012 Encounters Date Type Department Care Team Description 04/20/[address] [address] Idania Leal ANP chart prep 04/12/2025 Patient Outreach [address] [address] Idania Leal ANP Pre-visit Planning (SDOH screening was completed on 09/30/2024) 04/10/2025 Orders Only [address] [address] Idania Leal ANP 04/04/[address] [address] Idania Leal ANP Letter Request (I called regarding a letter for housing, and spoke with Pablito. He stated that he and the patient has been living in a 2 bedroom apartment, and she needs a letter listing her medical conditions, for housing to allow them to remain in the apartment.) 03/22/[address] [address] Idania Leal ANP Letter Request (I called the patient, regarding a request for a letter for housing. She would like to be allowed to move to a two bedroom apartment, due to her medical conditions. I reached Pablito's voicemail, and left a message asking for a return call at ext [phone].) 03/07/[address] [address] Idania Leal ANP Essential hypertension from Last 3 Months Immunizations Immunization Administration [...] is your housing situation today? I have brtitny ngo 02/16/[address] you [...] Answer Date Recorded Internet Access Q1 Yes 04/09/2025 Internet Access Q2 Not on file 04/09/2025 Comments No Sex and Gender Information Value Date Recorded Sex Assigned at Female 07/14/2022 10:14 AM EDT Legal Sex Female 10:14 AM EDT Gender Identity Female 07/14/2022 10:14 AM EDT Sexual Orientation Straight 07/14/2022 10 :14 AM EDT Last Filed Vital Signs Vital Sign Reading Time Taken Comments Blood Pressure 152/81 01/05/2025 9:18 AM EDT Pulse 82 01/05/2025 9:18 AM EDT Temperature 36.4 C (97.6 F) 01/05/2025 9:18 AM EDT Respiratory Rate 18 01/05/2025 9:18 AM EDT [...] Description 07/07/2025 9:45 AM EDT Office Visit [facility] MEDICINE 230 [place] [address] Idania Leal ANP 230 [place] [address] Health Maintenance Due Date Last Done Comments Alcohol/Substance Use Screening 1957 Hepatitis A Vaccines (1 of 2 - Risk 2-dose series) 01/25/1964 Zoster Vaccines (1 of 2) 1995 Hepatitis B Vaccines (1 of 3 - Risk 3-dose series) 2005 Dental X-Ray: Bitewings 01/06/2015 01/05/2014 Pneumococcal Vaccine: 50+ Years (2 of 2 - PCV) 07/25/2015 07/25/2014, 05/30/2010, 05/22/2009 RSV Patients and Patients Aged 60 years or older (1 - 1-dose 75+ series) 01/25/2020 Dental Oral Exam 07/22/2024 01/19/2024, 01/05/2014 Dental Prophylaxis 08/20/2024 02/18/2024 COVID-19 Vaccine ( season) 2025 01/21/2022, 08/14/2021, 08/06/2021, Additional history exists Influenza Vaccine (#1) 2025 , 06/02/2022, 06/02/2022, Additional history exists Depression Monitoring 07/07/2025 01/05/2025, 025 SDOH Screening 09/30/2025 09/30/2024 Tobacco Screening 01/05/2026 01/05/2025 Lipid Panel 01/08/2026 01/08/2021 Mammogram 04/10/2026 04/10/2025, 03/15, 04/04/2024, Additional history exists Dental X-Ray: Full Mouth 01/19/2027 01/19/2024, 12/14 [...] Procedure Name Priority Date/Time Associated Diagnosis Comments BI MAMMOGRAM SCREENING TOMOSYNTHESIS BILATERAL Routine 04/10/2025 1:10 PM EDT PROPHYLAXIS - ADULT Routine 02/18/2024 [...] Results * BI Mammogram Screening Tomosynthesis Bilateral (04/10/2025 1:10 PM EDT) Anatomical Region Laterality Modality Breast Bilateral Mammography 04/10/2025 1:10 PM EDT Narrative 04/18/2025 5:26 PM EDT [facility] [address] [place] [address] Mammography Report Signed Patient: Cheryl Weaver MR#: [id number] : 1945 Acct:[id number] Age/Sex: 80 / F ADM Date: 04/10/25 Loc: HO.MAMMO Attending Dr: Idania Leal NP Ordering Physician: IDANIA LEAL NP Results: 1Negative Date of Service: 04/10/25 Follow Up: 1 Year From Orig inal Mammogram Procedure(s): MM tomosynthesis screening BI Accession Number(s): [id number] cc: IDANIA LEAL NP EXAMINATION: MM SCREENING DIGITAL BREAST TOMOSYNTHESIS, BILATERAL CLINICAL INFORMATION: Screening. Asymptomatic. COMPARISON: Mammography: Comparison is made with available priors TECHNIQUE: Digital breast mammography with tomosynthesis is performed in both the craniocaudal and mediolateral oblique views along with computer-aided detection (CAD). FINDINGS: There are scattered areas of fibroglandular [...] target due date for their next mammogram. Electronically signed by: Pascale Beckford DO 04/18/2025 05:22 PM EDT RP Dictated By: Pascale Beckford DO Signed By: <Electronically signed by Pascale Beckford DO in OV> 04/18/25 1722 DD/ 1310 TD/TT: 04/10/25 1320 Picture Frame Maker: Procedure Note Donotuseinterpreter, Image - 04/18/2025 [facility] [address] [place] [address] Mammography Report Signed Patient: Major Weaver#: [id number] : 5Acct:[id number] Age/Sex: 80 / FADM Date: 04/10/25 Loc: MAMMO Attending Dr: Idania Leal NP Ordering Physician: IDANIA LEAL NPResults: 1Negative Date of Service: 04/10/25Follow Up: 1 Year From Orig inal Mammogram Procedure(s): MM tomosynthesis screening BI Accession Number(s): [id number] cc: IDANIA LEAL NP EXAMINATION: MM SCREENING DIGITAL BREAST TOMOSYNTHESIS, BILATERAL CLINICAL INFORMATION: Screening. Asymptomatic. COMPARISON: Mammography: Comparison is made with available priors TECHNIQUE: Digital breast mammography with tomosynthesis is performed in both the craniocaudal and mediolateral oblique views along with computer-aided detection (CAD). FINDINGS: There are scattered areas of fibroglandular [...] target due date for their next mammogram. Electronically signed by: Pascale Beckford DO 04/18/2025 05:22 PM EDT RP Dictated By: Pascale Beckford DO Signed By: <Electronically signed by Pasclae Beckford DO in OV> 04/18/25 1722 DD/ 1310 TD/TT: 04/10/25 1320 Picture Frame Maker: Idania MARK Brigid BI PROCEDURES Edited Result - Final * (ABNORMAL) LIPID PANEL, STANDARD (01/08/2021 11:51 AM EDT) Chol/HDLC Ratio 2.6 <5.0 (calc) [facility] Cholesterol, Total 203(H) <200 mg/dL [facility] HDL Cholesterol 79 > OR = 50 mg/dL [facility] LDL Cholesterol 103(H) mg/dL (calc) [facility] Comment: Reference range: <100 Desirable range <100 mg/dL for primary prevention; <70 mg/dL for patients with CHD or diabetic patients with > or = 2 CHD risk factors. LDL-C is now calculated using the Edgar-Lornea calculation, which is a validated novel method providing better accuracy than the Friedewald equation in the estimation of LDL-C. Edgar OCLEMAN et al. ORTEGA. 2013;310(19): 8457-9641 (http://education.Maintenance Assistant.PetMD/faq/MTC864) Non-HDL Cholesterol 124 <130 mg/dL (calc) [facility] Comment: For patients with diabetes plus 1 major ASCVD risk factor, treating to a non-HDL-C goal of <100 mg/dL (LDL-C of <70 mg/dL) is considered a therapeutic option. Triglycerides 111 <150 mg/dL [facility] 01/08/2021 11:5 1 AM EDT us Historical Provider LAB BLOOD ORDERABLES Heidy gonzales Result [facility] [address] from Last 3 Months or Most Recently Relevant to Health Maintenance Insurance [facility] STANDARD UHC [facility] Advance Directives Documents on File Type Date Recorded Patient Process Development Technician Expl anation Advance Directives and Living Will 01/27/2025 3:47 PM Health Care Proxy MOLST form 11/27/2023 1:22 PM MOLST Advance Directives and Living Will 11/27/2023 8:45 AM Health Care Proxy Care Teams Paste Mixer Liquid Relationship Specialty Start Date End Date Idania Leal ANP [address] [place] [phone] PCP - General Family Medicine 05/02/24
--- OUTSIDE RECORDS SUMMARY | 2025-05-23 10:47 | XMS_ITS | Encounter Summary ---
Author Organization [employer] Address [address] [facility] [address] [place] [address] Care Team Providers Care Vending Service Technician Name Role Phone Nathaly Boston Primary Care Provider [phone] Nathaly Boston Primary Care Provider [phone] Reason for Visit * Reason Comments Med Refill Encounter Details Date Type Department Care Team ([facility] st Contact Info) Description 02/05/2024 Refill [facility] [place] [address] [place], [place] [id number] Estrella Tapia FNP Social History Tobacco Use [...] [facility] [address] [place] [address] Nathaly Boston ANP [address] [place] [address] documented as of this encounter Goals Goal [...] documented as of this encounter Care Teams Vending Service Technician Relationship Specialty Start Date End Date Nathaly Boston ANP [address] [place] [id number] PCP - General Family Medicine 05/03/21 05/01/24 Nathaly Boston ANP [address] [place] [address] PCP - General Family Medicine 05/02/24 documented as of this encounter
--- OUTSIDE RECORDS SUMMARY | 2025-05-23 10:47 | XMS_ITS | Encounter Summary ---
Author Organization [employer] Address [address] [place] [address] [place] [address] Care Team Providers Care Suppository Molding Machine Operator Name Role Phone Nathaly Boston ANP Primary Care Provider [phone] Nathaly Boston ANP Primary Care Provider [phone] Encounter Details Date Type Department Care Team (Late st Contact Info) Description 08/01/2022 Abstract [facility] [address] [place] [id number] Provider, MD Yanelis Social History Tobacco Use [...] Description 07/07/2025 9:45 AM EDT Office Visit [facility] [address] [place] [id number] Nathaly Boston ANP [address] [place] [address] documented as of this encounter Visit Diagnoses Not on filedocumented in this encounter Care Teams Suppository Molding Machine Operator Relationship Specialty Start Date End Date Nathaly Boston ANP [address] [place] [id number] PCP - General Family Medicine 05/03/21 05/01/24 Nathaly Boston ANP [address] [place] [address] PCP - General Family Medicine 05/02/24 documented as of this encounter
--- OUTSIDE RECORDS SUMMARY | 2025-05-23 10:47 | XMS_ITS | Clinical Summary ---
Author Organization [facility] Address [address] [place] [address] Care Team Providers Care Kiln Labourer Name Role Phone Unknown Primary Care Provider [phone] Allergies No known active allergies Medications No [...] Health Maintenance Due Date Last Done Comments Advance Care Planning 1945 DTaP/Tdap/Td Vaccines (1 - Tdap) 01/25/1964 Pneumococcal Vaccines 50+ (1 of 1 - PCV) 1995 Zoster (Shingles) Vaccine (1 of 2) 1995 DXA Bone Density (Females,Ag es 65 and older) 2010 RSV Vaccine 60 years and old er and Patients (1 - 1-dose 75+ series) 01/25/2020 Influenza Vaccine 04/14/2025 COVID-19 Vaccine ( - 2023-2 5 season) 2025 Hepatitis B Vaccines Aged Out No long er eligible based on patient's age to complete this topic Insurance [facility] [place]O/LIABILITY) [place] [address] Care Teams Kiln Labourer Relationship Specialty Start Date End Date Unknown Unknow Provider Address PCP - General 10/17/17
== END 2025-05-23 09:24 | disposition home or self-care (01) ==
LOC: HO.US 09:23
PROVIDERS: PCP Nurse Practitioner Primary Care; Visit Provider Internal Medicine
DX: K74.60 Unspecified cirrhosis of liver (principal)
CPT/HCPCS: 76700

== ENCOUNTER → 2025-05-23 09:24 | Outpatient (BNV) | payer OTHER, SELFPAY | PROVIDERS: PCP Nurse Practitioner Primary Care; Visit Provider Radiology Diagnostic Radiology | DX: K74.60 Unspecified cirrhosis of liver (principal); K76.89 Other specified diseases of liver | CPT/HCPCS: 76700 ==

== ENCOUNTER 2025-06-05 12:33 | Outpatient (AMB) | payer OTHER, SELFPAY ==
--- NOTE | 2025-06-05 12:34 | A.OFFVIS_ITS ---
Vital Signs 06/05/25 12:36 Height 5 ft 3 in Weight 154 lb 5.177 oz BMI 27.3 BP not taken reason Patient Refused Intake Visit Reasons: 6 MO F/U CIRRHOSIS Intake Note: Cheryl presents in the office as a 6 month follow up for Cirrhosis. CC: She states that she has some pains in the lower back and in her right knee. Avionics Manager Required: Yes Avionics Manager Name: HONEY Aguilar Allergies ibuprofen Allergy (Intermediate, Verified 06/05/25 12:39) tachycardia/GI upset HPI Comments Details: 79 y.o F with PMH of LBP, hx of BPPV, who is coming in to follow up for ?cirrhosis. [place] [facility] [place] 2022 that reports cirrhotic appearing liver. Pt herself without any abd pain, N,V, abd distention. No hx of heavy etOH use. No hx of drug use reported. Pt has hx of partial hepatectomy but she is unable to recall reason - says had damage done during a planned surgery and was then transferred to a hospital in [place]. This was in the 90s and pt unable to recall any details. 11/30/24: Here for follow up. Seen with Jeff RODRIGUEZ for burkinan intepretation. No acute GI concerns including abd pain, N,V, D. Good appetite. Good energy levels. Results of elastography reviewed. 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 Labs still pending. Elastography 11/14/24: FINDINGS: Liver: The right lobe of the liver measures 12.8 cm in size. The left lobe of the liver measures 8.9 cm in size. The liver demonstrates increased echotexture, consistent with steatosis. No focal mass or intrahepatic biliary ductal dilatation is identified. There is normal hepatopedal flow in the portal vein. Ultrasound elastography of the liver was performed with 10 separate measurements of the liver parenchyma with the patient in the supine position. Measurements were obtained approximately 2 cm below Caity's capsule and perpendicular to the capsule. Images are of satisfactory quality. The median shear wave velocity is 1.72 m/s. The interquartile range/median (IQR/median) is 0.05. 05/23/25: Echogenic liver parenchyma, non-specific and could be related to parenchymal liver disease or suboptimal to acoustic window, no apparent hepatic lesion is seen but liver is partially visualized. 06/05/25: Here for routine q6m follow up. Seen with Jeff RODRIGUEZ for burkinan intepretation. No acute GI issues. No abdominal pain, nausea, vomiting. No change in girth of the abdomen. Reviewed ultrasound results, patient is aware that she will need a repeat in a couple more months. MELD-Na 6. PFSH Medical History Chronic back pain Lumbar spondylosis COVID-19 vaccine series completed Hx of fracture of tibia Varicose veins of both lower extremities Osteoarthritis Hyperlipidemia Depression Insomnia Dizziness Allergic rhinitis HTN (hypertension) Neck pain Lumbar spondylolysis Fibromyalgia Surgical History H/O colonoscopy Hx of tubal ligation Hx of cholecystectomy Family History Father Cancer Mother Depression Sister HTN (hypertension) Heart disease Brother Diabetes Social History Household Members Other:: Are you a primary workforce investment act career manager to a significant other at home: No Do you presently have visiting nurse or other home services: No Alcohol intake: current Alcohol intake frequency: holidays/special occasions only Patient Tobacco Use Status: Never used Tobacco Review of Systems Const All systems reviewed & are unremarkable except as noted in HPI and below Physical Exam Exam Exam: No apparent distress Nonicteric Abdomen soft, nondistended Alert and oriented x3, normal gait, no asterixis Vital Signs: BMI result Body Mass Index 27.3 No apparent distress Nonicteric Abdomen soft, nondistended Alert and oriented x3, normal gait Results Reviewed Results Reviewed: Laboratory Tests 02/09/24 12/02/24 18:03 13:02 WBC 3.1 L Hgb 12.1 Hct 36.5 L Plt Count 216 INR 1.0 Sodium 141 Creatinine 0.76 Total Bilirubin 0.7 Alkaline Phosphatase 116 144 H Hep Bs Antigen Negative Hep Bs Antibody NONREACTIVE Hep B Core Total Ab Nonreactive Assessment & Plan Assessment & Plan (1) Cirrhosis: Code(s): K74.60 - Unspecified cirrhosis of liver Category: Medical (2) H/O resection of liver: Code(s): Z90.49 - Acquired absence of other specified parts of digestive tract Category: Surgical Plan Reviewed with the pt that likely has 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 Normal platelets. Low MELD score. Plan: - No evidence of HE or ascites on exam today - Variceal screening: normal platelets and spleen size - HCC screening: US due Aug 2025. Orders are in. - Vaccination: Not immune to HBV but pt declines vaccination at this time - No NSAIDs, Tylenol up to 2g/day is ok - Transplant candidacy: advanced age and compensated disease, does not meet indication - Repeat MELD labs to be done before next visit Follow up 6 months Orders: Orders Complete Blood Count no Diff 6 Months K74.60 - Unspecified cirrhosis of liver Comprehensive Met. Panel 6 Months K74.60 - Unspecified cirrhosis of liver Prothrombin Time INR 6 Months K74.60 - Unspecified cirrhosis of liver Coding Level of Care Code Est Pt Level 3 (91242) Diagnoses Cirrhosis K74.60 H/O resection of liver Z90.49
[2025-06-05 12:36] VITALS: BMI 27.3
== END 2025-06-05 13:12 | disposition home or self-care (01) ==
LOC: HO.HGI 12:33
PROVIDERS: PCP Nurse Practitioner Primary Care; Visit Provider Internal Medicine
DX: K74.60 Unspecified cirrhosis of liver (principal); Z90.49 Acquired absence of other specified parts of digestive tract
CPT/HCPCS: 99213

== ENCOUNTER → 2025-06-05 12:33 | Outpatient (BNVA) | payer OTHER, SELFPAY | PROVIDERS: PCP Nurse Practitioner Primary Care; Visit Provider Internal Medicine | DX: Z71.2 Person consulting for explanation of examination or test findings (principal); K74.60 Unspecified cirrhosis of liver; Z90.49 Acquired absence of other specified parts of digestive tract | CPT/HCPCS: 99212 ==

== ENCOUNTER 2025-08-25 09:55 | Outpatient (REF) | payer OTHER, SELFPAY ==
--- NOTE | ~2025-08-25 | US_ITS ---
CLINICAL HISTORY: K74.60 - Unspecified cirrhosis of liver US abdomen limited with duplex and color Doppler Comparison: 05/23/2025 09:39 AM EDT: US: US ABDOMEN COMPLETE Findings: Visualized pancreas is normal. Tail obscured by bowel gas. Liver is normal in size and diffusely echogenic. Right lobe length 11.9 cm. No focal hepatic masses. Common duct 3.0 mm diameter. Post cholecystectomy No sonographic Mcduffie sign. Main portal vein antegrade. Right kidney measures, 7.0 cm in length. Normal cortical width and echotexture. No hydronephrosis calculus or mass. Impression: 1. Echogenic liver reflecting hepatic steatosis or diffuse hepatocellular disease. 2. Post cholecystectomy. This document has been electronically signed by: En Gonzales MD on 08/25/2025 15:50:38
== END 2025-08-25 09:56 | disposition home or self-care (01) ==
LOC: HO.US 09:55
PROVIDERS: PCP Nurse Practitioner Primary Care; Visit Provider Internal Medicine
DX: K74.60 Unspecified cirrhosis of liver (principal)
CPT/HCPCS: 76705

== ENCOUNTER → 2025-08-25 09:57 | Outpatient (BNV) | payer OTHER, SELFPAY | PROVIDERS: PCP Nurse Practitioner Primary Care; Visit Provider Radiology Diagnostic Radiology | DX: K74.60 Unspecified cirrhosis of liver (principal); Z90.49 Acquired absence of other specified parts of digestive tract | CPT/HCPCS: 76705 ==